=== PATIENT | female | born 1955 | race Caucasian/White ===

== ENCOUNTER → 2019-07-09 14:10 | Outpatient (BNVA) | payer MEDICAID, SELFPAY | PROVIDERS: Family Provider Family Medicine; PCP Family Medicine; Referring Provider Family Medicine; Visit Provider Specialist | DX: M25.531 Pain in right wrist (principal) | CPT/HCPCS: 73110 ==

== ENCOUNTER 2019-08-28 12:51 | Inpatient (IN) | payer MEDICAID, SELFPAY ==
[2019-08-28] VITALS (14 sets, daily range): BP systolic 91–128; BP diastolic 38–79; PULSE 78–98; RESP 13–28; TEMP 36.8–37.5; O2SAT 90–97; BMI 46.0
--- NOTE | 2019-08-28 12:52 | XR_ITS ---
WS: [id number] PORTABLE CHEST HISTORY: cough COMPARISON: 10/07/2018 Dialysis catheter is been removed since the prior study. Mild pulmonary venous congestion with no pneumonia. No pleural effusion or pneumothorax. Cardiac size: Mildly enlarged cardiac silhouette. Mediastinum/Aorta: Mild atherosclerosis aorta. No osseous abnormality seen. XR/XR chest 1V portable [id number] IMPRESSION: 1. Mild pulmonary venous congestion and cardiomegaly. 2. No pneumonia.
--- NOTE | 2019-08-28 12:54 | ECG_ITS ---
Measurements Intervals [place] Rate: 97 P: 29 [place]: 116 QRS: -40 QRSD: 153 T: 23 QT: 402 QTc: 511 SINUS RHYTHM WITH SHORT [place] INTERVAL LEFT AXIS DEVIATION [QRS AXIS < -30] RIGHT BUNDLE BRANCH BLOCK MINIMAL VOLTAGE CRITERIA FOR LVH, CONSIDER NORMAL VARIANT Compared to ECG 10/07/2018 19:16:17 Short [place] interval now present Right bundle-branch block now present Incomplete right bundle-branch block no longer present Prolonged QT interval no longer present Electronically Signed On 08-28-2019 21:02:05 CDT by Liliya Quezada M.D. [id number]
[2019-08-28] MEDS: albuterol 8 gm MDI 2 PUFF INHALATION (13:15)
--- NOTE | 2019-08-28 13:18 | W.ED.CHESTPA ---
HPI - Chest Pain General: Chief Complaint: Chest Pain Stated Complaint: chest pain/ difficulty breathing Time Seen by Provider: 08/28/19 12:52 History of Present Illness: HPI narrative: Ms. Pack is a nice 64-year-old female who comes in complaining of chest pain and shortness of breath. She describes the pain as a tightness that is been intermittent in nature. She has shortness of breath along with this that she described as just hurting to take a deep breath. She has a dry cough and has had a subjective fever at home. EMS reported a fever of 100.3 prior to arrival. Of note the patient is a dialysis patient and gets dialysis on Wednesdays and Fridays. She claims her symptoms started yesterday after dialysis. She did get a full treatment. Currently she states she feels okay and has no complaints. Associated symptoms: Reports dyspnea and fever(s); Deny abdominal pain, diaphoresis, nausea, palpitations, syncope or vomiting Review of Systems General: Reports: other (negative unless marked) Const: Reports: fever; Denies: chills, body aches, fatigue, malaise or diaphoresis Eyes: Denies: change in vision or blurry vision ENMT: Denies: throat pain, painful swallowing, hoarseness, ear pain, ear discharge, Change in hearing or nasal discharge Card: Reports: chest pain; Denies: palpitations, irregular heart rhythm, syncope, pre-syncope, shortness of breath on exertion or shortness of breath when lying down Resp: Reports: shortness of breath and non-productive cough; Denies: productive cough, wheezing, coughing up blood or chest congestion GI: Denies: abdominal pain, nausea, vomiting, vomiting blood, coffee grounds in vomit, diarrhea, constipation, cramping, blood in stool or black tarry stool : Denies: flank pain, painful urination, urinary frequency, urinary urgency, decreased urine ouput, urinary incontinence or blood in urine Musc: Denies: neck pain, back pain, extremity pain, extremity swelling, joint pain, joint swelling, joint warmth or joint stiffness Skin/Breast: Denies: rash, skin tenderness or yellow skin Neuro: Denies: headache, numbness in extremities, weakness in extremities, changes in sensation, lack of coordination, difficulty walking, dizziness, vertigo or confusion Endo: Denies: excessive thirst, tired all the time, cold intolerance, excessive sweating, flushing or hot flashes Gabriel/Lymph: Denies: easy bruising, easy bleeding, petechiae or enlarged lymph nodes All/Imm: Denies: hives, throat swelling, tongue swelling, facial swelling or acute wheezing PFSH ED PFSH: Medical History (Updated 08/28/19 @ 15:47 by Cheng Mann MD) Breast cancer Carotid artery disease COPD (chronic obstructive pulmonary disease) Patient reports COPD, but restrictive lung disease is also a possibility. CVA (cerebral vascular accident) Diastolic heart failure End stage renal disease Gout Hyperlipemia Hypertension Hypothyroidism Impaired vision Obesity Obstructive sleep apnea Type 1 diabetes mellitus Surgical History (Updated 08/28/19 @ 15:35 by Cheng Mann MD) H/O lumpectomy left breast H/O tubal ligation Hemodialysis access site with arteriovenous graft History of cholecystectomy Hx of abdominoplasty Family History Other Cancer Diabetes Hypertension Stroke Social History (Updated 08/28/19 @ 15:36 by Cheng Mann MD) Smoking and tobacco status: former smoker Alcohol intake: never Substance/Drug Use: never Physical Exam Const: COMMON NORMALS: no apparent distress, oriented x3, no limitations, healthy appearing and well nourished EXAM LIMITATIONS: no altered mental status GENERAL APPEARANCE: cooperative, well kempt and well developed ORIENTATION/CONSCIOUSNESS: Yes awake HENMT: COMMON NORMALS: normocephalic, head/scalp atraumatic, hearing grossly normal bilaterally, external ears normal, EAC's normal, external nose normal and moist oral mucous membranes HEAD & SCALP: normal to inspection, normocephalic and atraumatic FACE & SINUS: normal facial exam and face symmetric NOSE: external nose normal and nares normal EXTERNAL EAR: Yes external ears normal EXTERNAL AUDITORY CANAL: EAC's normal MOUTH: oral and palatal mucosa normal and tongue normal Eye: COMMON NORMALS: PERRL, EOMs intact bilaterally, conjunctivae normal and no scleral icterus GENERAL EYE: normal appearance of both eyes and normal light reflex CONJUNCTIVA: Yes conjunctivae normal SCLERA: sclerae normal CORNEA: Yes corneas normal PUPIL: Yes PERRL DIRECT OPHTHALMOSCOPY: Yes normal light reflex Neck/C-Spine: COMMON NORMALS: full ROM, no lymphadenopathy, supple, no meningeal signs and no JVD GENERAL: Yes normal visual inspection and Yes trachea midline CERVICAL SPINE: Yes cervical ROM normal Chest: COMMONS NORMALS: inspection of chest normal and palpation of chest normal Resp: COMMON NORMALS: normal respiratory effort, no retractions, no use of accessory muscles and clear to auscultation bilaterally EFFORT & INSPECTION: Yes able to speak in complete sentences AUSCULTATION: clear to auscultation bilaterally Cardio: COMMON NORMALS: no JVD, regular rate, regular rhythm, S1 normal heart sound, S2 normal heart sound, no gallops, no clicks, no murmurs and no rub JUGULAR VENOUS DISTENTION: no JVD RATE: regular rate RHYTHM: regular rhythm HEART SOUNDS: S1 normal and S2 normal GI: COMMON NORMALS: soft to palpation, non-tender, no hepatosplenomegaly and no masses INSPECTION: Yes normal to inspection PALPATION: Yes soft and Yes no hepatosplenomegaly : COMMON NORMALS: Yes no CVA tenderness BLADDER/KIDNEY EXAM: Yes no CVA tenderness Back/Pelvis: COMMON NORMALS: no CVA tenderness, thoracic and lumbar spine normal to inspection, no thoracic nor lumbar tenderness and thoraco-lumbar ROM normal Extremity: COMMON NORMALS: normal to inspection, full ROM, normal capillary refill, no joint enlargement, no clubbing, cyanosis or edema and no calf tenderness Neuro: COMMON NORMALS: oriented x3, CN's II-XII intact bilaterally, moves all extremities, no focal motor deficits and no sensory deficits noted MENINGEAL SIGNS: Yes no meningeal signs Psych: COMMON NORMALS: mental status grossly normal, thought process normal, cooperative, affect normal, speech normal and activity/motor behavior normal APPEARANCE: Yes well kempt SPEECH: Yes normal speech THOUGHT PROCESS: normal thought process Skin: COMMON NORMALS: no rashes or lesions noted, skin turgor normal, no jaundice, no petechiae and no mottling GENERAL SKIN EXAM: no rashes or lesions noted and turgor normal Course Vital Signs: Vital signs: Vital Signs Temperature 99.5 F 08/28/19 12:51 Pulse Rate 82 08/28/19 17:30 Respiratory Rate 18 08/28/19 17:30 Blood Pressure 91/49 08/28/19 17:30 Pulse Oximetry 97 08/28/19 17:30 MDM - Chest Pain MDM Narrative: Medical decision making narrative: The case was reviewed with Dr. Mann, he agrees to come evaluate the patient. A consult has been placed to tele-nephrology. Patient presents with a history of dry cough and fever up to 100.3 but that was not measured here. She is not had any antipyretics. Her urinalysis is pending and she states that she does make urine. Patient looks to have volume overload on chest x-ray but she does make urine so she has been given Lasix. And she nitroglycerin paste is been placed. Patient's chest pain is gone after nitroglycerin and morphine. The EKG was reviewed with Dr. Satnos and he thinks this is a complete right bundle branch block otherwise no acute findings. Lab Data: Attestation: I reviewed the patient's lab results. Labs: Lab Results 08/28/19 08/28/19 08/28/19 Range/Units 13:13 13:44 13:44 WBC 12.5 H (4.0-10.0) 10^3/ uL RBC 3.39 L (4.1-5.3) 10^6/u L Hgb 11.4 L (11.5-15.3) g/dL Hct 35.4 L (37.0-47.0) % MCV 104.4 H (81-99) fL MCH 33.6 (28.0-34.0) pg MCHC 32.2 (30.0-36.0) g/dL RDW 17.2 H (12.1-15.1) % Plt Count 213 (130-400) 10^3/c mm MPV 9.9 (7.4-10.4) fL Neut % (Auto) 85.7 % Lymph % (Auto) 6.8 % [facility] % (Auto) 6.8 % Eos % (Auto) 0.1 % Baso % (Auto) 0.2 % Neut # (Auto) 10.7 H (1.8-7.7) 10^3/u L Lymph # (Auto) 0.9 (0.8-4.8) 10^3/u L [facility] # (Auto) 0.9 (0.2-0.9) 10^3/u L Eos # (Auto) 0.0 (0.0-0.8) 10^3/u L Baso # (Auto) 0.0 (0.0-0.1) 10^3/u L Nucleated RBC % (a uto) 0 % Nucleated RBCs # 0.0 /100WBC PT (10.5-13.3) SECO NDS INR (0.8-1.2) Specimen Type Arterial Sample Site Radial, right ABG pH 7.45 (7.35-7.45) ABG pCO2 39.7 (35-45) mmHg ABG pO2 70.7 L (80.0-100.0) mmH g ABG HCO3 27.6 H (22-26) mmol/L ABG Base Excess 3.4 H (-2.0-2.0) mmol/ L Ron Test Pos Hematocrit 36.4 L (37-47) % O2 Delivery Device None FiO2 21.0 % Registered Occupational Therapist ID ed Sodium 132 L (136-145) mmol/L Potassium 4.7 (3.5-5.1) mmol/L Chloride 86 L (98-107) mmol/L Carbon Dioxide 27 (22-29) mmol/L Anion Gap 23.7 H (5-19) BUN 30 H (8-23) mg/dL Creatinine 7.4 H* (0.5-0.9) mg/dL GFR Calculation 5.5 L (90-130) mL/min Glucose 172 H (65-115) mg/dL Calculated Osmolal ity 275 L (285-295) mOsm/k g Lactic Acid (0.5-2.2) mmol/L Calcium 10.0 (8.5-10.5) mg/dL Total Bilirubin 0.7 (0.15-1.2) mg/dL AST 39 H (0-32) U/L ALT 52 H (0-33) U/L Alkaline Phosphata se 108 H (35-105) IU/L Troponin T Baselin e (0-10) ng/mL NT-Pro-B Natriuret Pep 1999 H (0-125) pg/mL Total Protein 7.5 (6.6-8.7) g/dL Albumin 4.8 (3.5-5.2) g/dL Globulin 2.7 (1.3-4.6) g/dL Urine Color (Yellow) Urine Appearance (CLEAR) Urine pH (5-7) Ur Specific Gravit y (1.005-1.030) Urine Protein (Negative) Urine Glucose (UA) (Normal) Urine Ketones (Negative) Urine Blood (Negative) Urine Nitrate (Negative) Urine Bilirubin (NEGATIVE) Urine Urobilinogen (Negative) mg/dL Ur Leukocyte Paula ase (Negative) Urine RBC (0-2) /hpf Urine WBC (0-5) /hpf Ur Squamous Epith Cells (0-5) Amorphous Sediment Urine Bacteria (NONE) Influenza Type A A g (Negative) Influenza Type B A g (Negative) 08/28/19 08/28/19 08/28/19 Range/Units 13:44 13:44 13:44 WBC (4.0-10.0) 10^3/ uL RBC (4.1-5.3) 10^6/u L Hgb (11.5-15.3) g/dL Hct (37.0-47.0) % MCV (81-99) fL MCH (28.0-34.0) pg MCHC (30.0-36.0) g/dL RDW (12.1-15.1) % Plt Count (130-400) 10^3/c mm MPV (7.4-10.4) fL Neut % (Auto) % Lymph % (Auto) % [facility] % (Auto) % Eos % (Auto) % Baso % (Auto) % Neut # (Auto) (1.8-7.7) 10^3/u L Lymph # (Auto) (0.8-4.8) 10^3/u L [facility] # (Auto) (0.2-0.9) 10^3/u L Eos # (Auto) (0.0-0.8) 10^3/u L Baso # (Auto) (0.0-0.1) 10^3/u L Nucleated RBC % (a uto) % Nucleated RBCs # /100WBC PT 12.50 (10.5-13.3) SECO NDS INR 0.93 (0.8-1.2) Specimen Type Sample Site ABG pH (7.35-7.45) ABG pCO2 (35-45) mmHg ABG pO2 (80.0-100.0) mmH g ABG HCO3 (22-26) mmol/L ABG Base Excess (-2.0-2.0) mmol/ L Ron Test Hematocrit (37-47) % O2 Delivery Device FiO2 % Registered Occupational Therapist ID Sodium (136-145) mmol/L Potassium (3.5-5.1) mmol/L Chloride (98-107) mmol/L Carbon Dioxide (22-29) mmol/L Anion Gap (5-19) BUN (8-23) mg/dL Creatinine (0.5-0.9) mg/dL GFR Calculation (90-130) mL/min Glucose (65-115) mg/dL Calculated Osmolal ity (285-295) mOsm/k g Lactic Acid 3.0 H (0.5-2.2) mmol/L Calcium (8.5-10.5) mg/dL Total Bilirubin (0.15-1.2) mg/dL AST (0-32) U/L ALT (0-33) U/L Alkaline Phosphata se (35-105) IU/L Troponin T Baselin e 139 H* (0-10) ng/mL NT-Pro-B Natriuret Pep (0-125) pg/mL Total Protein (6.6-8.7) g/dL Albumin (3.5-5.2) g/dL Globulin (1.3-4.6) g/dL Urine Color (Yellow) Urine Appearance (CLEAR) Urine pH (5-7) Ur Specific Gravit y (1.005-1.030) Urine Protein (Negative) Urine Glucose (UA) (Normal) Urine Ketones (Negative) Urine Blood (Negative) Urine Nitrate (Negative) Urine Bilirubin (NEGATIVE) Urine Urobilinogen (Negative) mg/dL Ur Leukocyte Paula ase (Negative) Urine RBC (0-2) /hpf Urine WBC (0-5) /hpf Ur Squamous Epith Cells (0-5) Amorphous Sediment Urine Bacteria (NONE) Influenza Type A A g (Negative) Influenza Type B A g (Negative) 08/28/19 08/28/19 Range/Units 14:00 14:58 WBC (4.0-10.0) 10^3/ uL RBC (4.1-5.3) 10^6/u L Hgb (11.5-15.3) g/dL Hct (37.0-47.0) % MCV (81-99) fL MCH (28.0-34.0) pg MCHC (30.0-36.0) g/dL RDW (12.1-15.1) % Plt Count (130-400) 10^3/c mm MPV (7.4-10.4) fL Neut % (Auto) % Lymph % (Auto) % [facility] % (Auto) % Eos % (Auto) % Baso % (Auto) % Neut # (Auto) (1.8-7.7) 10^3/u L Lymph # (Auto) (0.8-4.8) 10^3/u L [facility] # (Auto) (0.2-0.9) 10^3/u L Eos # (Auto) (0.0-0.8) 10^3/u L Baso # (Auto) (0.0-0.1) 10^3/u L Nucleated RBC % (a uto) % Nucleated RBCs # /100WBC PT (10.5-13.3) SECO NDS INR (0.8-1.2) Specimen Type Sample Site ABG pH (7.35-7.45) ABG pCO2 (35-45) mmHg ABG pO2 (80.0-100.0) mmH g ABG HCO3 (22-26) mmol/L ABG Base Excess (-2.0-2.0) mmol/ L Ron Test Hematocrit (37-47) % O2 Delivery Device FiO2 % Registered Occupational Therapist ID Sodium (136-145) mmol/L Potassium (3.5-5.1) mmol/L Chloride (98-107) mmol/L Carbon Dioxide (22-29) mmol/L Anion Gap (5-19) BUN (8-23) mg/dL Creatinine (0.5-0.9) mg/dL GFR Calculation (90-130) mL/min Glucose (65-115) mg/dL Calculated Osmolal ity (285-295) mOsm/k g Lactic Acid (0.5-2.2) mmol/L Calcium (8.5-10.5) mg/dL Total Bilirubin (0.15-1.2) mg/dL AST (0-32) U/L ALT (0-33) U/L Alkaline Phosphata se (35-105) IU/L Troponin T Baselin e (0-10) ng/mL NT-Pro-B Natriuret Pep (0-125) pg/mL Total Protein (6.6-8.7) g/dL Albumin (3.5-5.2) g/dL Globulin (1.3-4.6) g/dL Urine Color Mary (Yellow) Urine Appearance Hazy A (CLEAR) Urine pH 6.5 (5-7) Ur Specific Gravit y 1.010 (1.005-1.030) Urine Protein 2+ H (Negative) Urine Glucose (UA) Norm (Normal) Urine Ketones Negative (Negative) Urine Blood 2+ H (Negative) Urine Nitrate Negative (Negative) Urine Bilirubin 1+ H (NEGATIVE) Urine Urobilinogen Norm (Negative) mg/dL Ur Leukocyte Paula ase 2+ H (Negative) Urine RBC 15-25 H (0-2) /hpf Urine WBC 80-100 H (0-5) /hpf Ur Squamous Epith Cells 25-40 H (0-5) Amorphous Sediment 2+ Urine Bacteria 2+ H (NONE) Influenza Type A A g Negative (Negative) Influenza Type B A g Negative (Negative) Imaging Data^: CXR: My impression: Cardiomegaly with mild to moderate pulmonary vascular congestion EKG Data^: EKG 1: Attestation: I personally reviewed and interpreted this EKG as follows: EKG interpretation date: 08/28/19 EKG interpretation time: 13:07 Interpretation: Normal sinus rhythm with a ventricular rate of 97 beats a minute, right bundle branch block. Discharge Plan Discharge Patient Disposition: Admitted As Inpatient Admit Provider: Cheng Mann Clinical Impression: Chest pain Qualifiers: Chest pain type: unspecified Qualified Code(s): R07.9 - Chest pain, unspecified Condition: Stable Referrals: Pradeep Patel MD [Primary Care Provider] - Discharge Date/Time: 08/28/19 17:49 Coding Level of Care Code ED Curriculum Director for Chg Fwd Exam Comprehensive
[2019-08-28 13:24] LABS: ABG PCO2 39.7 mmHg (35-45); ABG PH Result 7.45 (7.35-7.45); Arterial Blood Gas Hematocrit 36.4 % (37-47); Base Excess ABG 3.4 mmol/L (-2.0-2.0); Blood Gas Allen Test Pos; Blood Gas Sample Site Radial, right; Blood Gas Sample Type Arterial; HCO3 ABG 27.6 mmol/L (22-26); PO2 ABG 70.7 mmHg (80.0-100.0)
[2019-08-28] MEDS: nitroglycerin 1 gm/inch oint Pkt 0.5 INCH TOPICAL (13:40)
[2019-08-28] MEDS: FUROsemide 10 mg/mL SDV 4mL 40 MG IVP (13:40)
[2019-08-28 13:57] LABS: Basophils % 0.2 %; Eosinophils % 0.1 %; Hematocrit 35.4 % (37.0-47.0); Hemoglobin 11.4 g/dL (11.5-15.3); Lymphocytes # 0.9 10^3/uL (0.8-4.8); Lymphocytes % 6.8 %; Mean Corpuscular HGB Conc 32.2 g/dL (30.0-36.0); Mean Corpuscular Hemoglobin 33.6 pg (28.0-34.0); Mean Corpuscular Volume 104.4 fL (81-99); Mean Platelet Volume 9.9 fL (7.4-10.4); Monocytes # 0.9 10^3/uL (0.2-0.9); Monocytes % 6.8 %; Neutrophils # 10.7 10^3/uL (1.8-7.7); Neutrophils % 85.7 %; Nucleated Red Blood Cells % 0 %; Platelet Count 213 10^3/cmm (130-400); Red Blood Count 3.39 10^6/uL (4.1-5.3); Red Cell Distribution Width 17.2 % (12.1-15.1); White Blood Count 12.5 10^3/uL (4.0-10.0)
[2019-08-28 14:16] LABS: Troponin(5th) Baseline 139 ng/mL (0-10)
[2019-08-28 14:25] LABS: INR 0.93 (0.8-1.2)
[2019-08-28 14:28] LABS: Influenza A by IFA Negative (Negative); Influenza B by IFA Negative (Negative)
[2019-08-28] MEDS: cefepime 2,000 MG in sodium chloride 0.9% (plus) 50 ML 100 MG IV (14:29)
[2019-08-28] MEDS: aspirin 325 mg Tablet PO (14:29)
[2019-08-28] MEDS: morphine 4 mg/mL SDV 1 mL IVP (14:29)
[2019-08-28] MEDS: ondansetron 2 mg/ML SDV 2 mL 4 MG IVP (14:30)
[2019-08-28 14:43] LABS: Alanine Aminotransferase 52 U/L (0-33); Albumin Level 4.8 g/dL (3.5-5.2); Alkaline Phosphatase 108 IU/L (35-105); Anion Gap 23.7 (5-19); Aspartate Amino Transferase 39 U/L (0-32); Blood Urea Nitrogen 30 mg/dL (8-23); Carbon Dioxide 27 mmol/L (22-29); Chloride 86 mmol/L (98-107); Globulin 2.7 g/dL (1.3-4.6); Glomerular Filtration Rate 5.5 mL/min (90-130); Glucose 172 mg/dL (65-115); NT Pro B Type Natriuretic Pept 1999 pg/mL (0-125); Osmolality Calculated 275 mOsm/kg (285-295); Potassium 4.7 mmol/L (3.5-5.1); Sodium 132 mmol/L (136-145); Total Bilirubin 0.7 mg/dL (0.15-1.2); Total Protein 7.5 g/dL (6.6-8.7)
--- NOTE | 2019-08-28 14:54 | ECG_ITS ---
Measurements Intervals [place] Rate: 82 P: 16 [place]: 116 QRS: -32 QRSD: 146 T: 10 QT: 420 QTc: 493 SINUS RHYTHM WITH SHORT [place] INTERVAL LEFT AXIS DEVIATION [QRS AXIS < -30] RIGHT BUNDLE BRANCH BLOCK Compared to ECG 10/07/2018 19:16:17 Short [place] interval now present Prolonged QT interval no longer present Electronically Signed On 08-28-2019 21:09:03 CDT by Liliya Quezada M.D. [email or web address]
--- NOTE | 2019-08-28 15:23 | CTR_ITS ---
PROCEDURE INFORMATION: Exam: CT Angiography Chest With Contrast Exam date and time: 08/28/2019 5:36 PM Age: 64 years old Clinical indication: Fever and shortness of breath; Chest pain; Prior surgery; Surgery type: Gb, left breast; Additional info: Cp TECHNIQUE: Imaging protocol: Computed tomographic angiography of the chest with intravenous contrast. Axial, coronal and sagittal reformatted images were created and reviewed. 3D rendering: MIP and/or 3D reconstructed images were created by the technologist. Total DLP: 622.16 mGy-cm Radiation optimization: All CT scans at this facility use at least one of these dose optimization techniques: automated exposure control; mA and/or kV adjustment per patient size (includes targeted exams where dose is matched to clinical indication); or iterative reconstruction. Contrast material: VISI 320; Contrast volume: 73 ml; Contrast route: IV; COMPARISON: CR XR chest 1V portable [id number] 08/28/2019 1:00 PM FINDINGS: Pulmonary arteries: Contrast opacification satisfactory. No intraluminal filling defect. Aorta: [id number] atherosclerotic disease. No aneurysm or dissection. Lungs: Mild central peribronchial thickening, suggestive of airway inflammation. Mild linear stranding and groundglass, likely due to atelectasis and/or scarring. Minimal subsegmental consolidation in the left lower lobe, also likely due to atelectasis. Pleural space: Unremarkable. No pneumothorax. No pleural effusion. Heart: Mild cardiomegaly. Minimal pericardial fluid and/or thickening. Liver: Mild hepatomegaly. Gallbladder and bile ducts: Status post cholecystectomy. No biliary ductal dilatation. Spleen: Moderate splenomegaly. Kidneys and ureters: 2.5 x 2.5 cm exophytic right renal mass. 1.8 x 1.6 cm exophytic left renal mass. Lymph nodes: Small mediastinal lymph nodes, nonspecific in appearance. No pathologically enlarged lymph nodes. Bones/joints: No acute osseous abnormality. Osteopenia. Mild degenerative changes. Chronic partial L1 superior endplate compression deformity. Soft tissues: Unremarkable. CT/CT angio chest PE protcl [id number] IMPRESSION: 1. No CT evidence of pulmonary embolism. 2. Exophytic bilateral renal masses, as described above, possibly complex cysts. If clinically indicated, follow-up ultrasound may be obtained to exclude solid masses. 3. Additional findings, as above. Radiation Dose CTDIVOL = (mGy): DLP = 622.16 (mGy-cm)
--- NOTE | 2019-08-28 15:31 | P.HP_ITS ---
Providers/Chief Complaint Primary Care Provider: Pradeep Patel MD Chief Complaint: chest pain/ difficulty breathing History of Present Illness Oscar Pack is a 64 year old female who presents with complaints of chest discomfort. The emergency department physician called me secondary to the chest discomfort worried she may have a cardiac issue going on with her troponin elevated. The patient relates she has been having chest discomfort since the end of dialysis yesterday. She reports it is substernal, associated with a little bit of shortness of breath. She reports that it got better last night but when she awoke it was significantly worse. She reports significant discomfort with breathing and, and movement. She describes it as a chest tightness. She denies any nausea. She also has had a cough lately, usually dry. There was concern she had some low-grade temperature this morning. She denies any hemoptysis. She reports no significant leg pain. She reports she has been compliant with her dialysis. She denies any chills. COVID testing has been initiated in the emergency department as well. Review of Systems General: Reports: 10 or more systems reviewed and unremarkable except in HPI and below Const: Reports: fatigue; Denies: fever or chills Eyes: Denies: blurry vision ENMT: Denies: throat pain Card: Reports: chest pain Resp: Reports: shortness of breath and non-productive cough GI: Denies: abdominal pain : Denies: flank pain Musc: Denies: neck pain Skin/Breast: Denies: rash Neuro: Reports: headache Psych: Denies: depression Endo: Denies: excessive urination Gabriel/Lymph: Denies: easy bruising All/Imm: Denies: hives Medications/Allergies Allergies Allergy/AdvReac Type Severity Reaction Status Date / Time Penicillins Allergy hives Verified 08/28/19 13:01 Sulfa (Sulfonamide Allergy depleat Verified 08/28/19 13:01 Antibiotics) potassium PFSH Acute PFSH: Medical History (Updated 08/28/19 @ 15:47 by Cheng Mann MD) Breast cancer Carotid artery disease COPD (chronic obstructive pulmonary disease) Patient reports COPD, but restrictive lung disease is also a possibility. CVA (cerebral vascular accident) Diastolic heart failure End stage renal disease Gout Hyperlipemia Hypertension Hypothyroidism Impaired vision Obesity Obstructive sleep apnea Type 1 diabetes mellitus Surgical History (Updated 08/28/19 @ 15:35 by Cheng Mann MD) H/O lumpectomy left breast H/O tubal ligation Hemodialysis access site with arteriovenous graft History of cholecystectomy Hx of abdominoplasty Family History Other Cancer Diabetes Hypertension Stroke Social History (Updated 08/28/19 @ 15:36 by Cheng Mann MD) Smoking and tobacco status: former smoker Alcohol intake: never Substance/Drug Use: never Vitals/I&O/Wt Last Vital Signs Temp 99.5 F 08/28/19 12:51 Pulse 94 08/28/19 14:35 Resp 28 H 08/28/19 14:35 BP 105/38 08/28/19 14:35 Pulse Ox 92 08/28/19 14:35 Weight last 48 hrs Weight 114.305 kg Physical Exam Narrative: EXAM NARRATIVE: General exam demonstrates an obese white female, mildly tachypneic with a heart rate of 90 HEENT atraumatic, normocephalic. Mask in place. Neck is supple, obese Cardiovascular regular rate and rhythm, no murmur Lungs diminished breath sounds bilaterally but no wheezes or crackles Abdomen is soft, obese, nontender. No obvious organomegaly was deferred Extremities show trace bilateral edema. Cap refill brisk. Skin without rash Neuro no obvious focal deficits Data : 08/28/19 13:44 08/28/19 13:44 Micro: Microbiology 08/28/19 13:44 Blood Culture - Preliminary Blood SPECIMEN COLLECTED 08/28/19 13:40 Blood Culture - Preliminary Blood SPECIMEN COLLECTED Other data: ABG demonstrated pH 7.45, PCO2 39, PO2 70 AST 39, ALT 52, alk phos 108. Baseline troponin 139 Influenza a and B- Chest x-ray poor film secondary to obesity, cardiomegaly, pulmonary congestion. EKG demonstrates sinus rhythm, rate of 97, right bundle branch block., Left axis deviation. Incomplete right bundle branch block was noted on previous EKG. A&P Assessment and plan (1) Chest pain: Patient describes a pleuritic quality to her chest discomfort. Secondary to this, a CTA of her chest will be performed to rule out pulmonary embolism. If pulmonary embolism is detected, patient will go on full dose anticoagulation. Check echocardiogram Consider nuclear stress testing in this patient with atypical chest discomfort, elevated troponin, history of atherosclerotic disease with noted carotid artery disease, should her CTA be negative. Status: Acute Qualifiers: Chest pain type: unspecified Qualified Code(s): R07.9 - Chest pain, unspecified (2) Cough: Currently ruling out Covid 19. No obvious pneumonia is noted. Patient without fever. Mild elevation of white blood cell count is noted. As we are ruling out COVID, inhalers for her restrictive lung disease/COPD currently. No need for steroids currently. Status: Acute (3) Acute diastolic heart failure: At this point no need for acute dialysis. Oxygen as needed Continue her home medications Dialysis planned tomorrow Nephrology consultation. Hopefully they can explore more regarding her baseline weight and how much fluid is being removed at her typical dialysis recently. Previous echocardiogram September 2018 demonstrated 2/4 diastolic failure, preserved EF, moderate mitral regurgitation. Previous nuclear stress test April 2017 was negative for reversible ischemia. Status: Acute (4) End stage renal disease: Nephrology consultation See comments regarding acute diastolic heart failure Status: Acute Additional A&P Information Carotid artery disease, currently on a statin Hyperlipidemia Hypertension History of gout Obstructive sleep apnea. Oxygen currently secondary to ruling out Covid 19. History of CVA, continue aspirin, statin Diabetes mellitus type 2. Sliding scale insulin Patient is a limited code. She does not want endotracheal intubation and mechanical ventilation but will accept all other therapies Lovenox currently for DVT prophylaxis until CTA results are known. Attestations Medical Necessity Statement*: Will need less than 2 midnight stay for evaluation of chest discomfort Time Spent in Patient Care: Greater than 35 minutes Coding Level of Care Code Acute Surveying Crew Stake Runner for Michelle Borrero Diagnoses Chest pain R07.9 Chest pain type: unspecified Cough R05 Acute diastolic heart failure I50.31 End stage renal disease N18.6
[2019-08-28 15:38] LABS: Reflex Lactate Order REFLEX LACTIC ORDERD
[2019-08-28 16:09] LABS: Urine Appearance Hazy (CLEAR); Urine Color Amber (Yellow); pH Urine 6.5 (5-7)
[2019-08-28 16:10] LABS: Add Urine Culture? Yes; Amorphous Sediment Urine 2+; Bacteria Urine 2+; Bilirubin Urine 1+ (NEGATIVE); Blood Urine 2+ (Negative); Glucose Urine UA Norm (Normal); Ketones Urine Negative (Negative); Leukocyte Esterase Urine 2+ (Negative); Nitrate Urine Negative (Negative); Protein Urine 2+ (Negative); RBC Urine 15-25 /hpf (0-2); Squamous Epithelial Cell Urine 25-40 (0-5); Urobilinogen Urine Norm (Negative); WBC Urine 80-100 /hpf (0-5)
[2019-08-28 16:26] LABS: Troponin 5 2HR 137.1 ng/mL (0-10); Troponin 5 2HR Delta -1.9 ABS# (0-10)
[2019-08-28] MEDS: iodixanol 320 mg/mL 100mL Btl IV (18:16)
[2019-08-28 18:27] LABS: Glucose Point of Care 158 mg/dL (70-110)
[2019-08-28] MEDS: cefTRIAXone 1,000 MG in sodium chloride 0.9% (plus) 50 ML 100 MG IV (18:36)
--- NOTE | 2019-08-28 18:54 | ECG_ITS ---
Measurements Intervals [place] Rate: 79 P: 37 MA: 119 QRS: -34 QRSD: 158 T: 17 QT: 427 QTc: 491 SINUS RHYTHM WITH SHORT MA INTERVAL MARKED LEFT AXIS DEVIATION [QRS AXIS < -30] RIGHT BUNDLE BRANCH BLOCK [120+ ms QRS DURATION, UPRIGHT V1, 40+ ms S IN I/aVL/V4/V5/V6] MINIMAL VOLTAGE CRITERIA FOR LVH, CONSIDER NORMAL VARIANT [MEETS CRITERIA IN ONE OF: R(aVL), S(V1), R(V5), R(V5/V6)+S(V1)] Compared to ECG 08/28/2019 16:38:39 No significant changes Electronically Signed On 08-29-2019 18:26:13 CDT by Vince Stevenson M.D. [email or web address]
[2019-08-28 21:06] LABS: Troponin 5 6HR 127.7 ng/mL (0-10); Troponin 5 6HR Delta -11.3 ng/L (0-12)
[2019-08-28 21:12] LABS: Add On to Lab Order(s) Added
[2019-08-28] MEDS: gabapentin 100 mg Capsule 200 MG PO (21:16)
[2019-08-28 21:33] LABS: Thyroid Stimulating Hormone 0.53 uIU/mL (0.27-4.20)
[2019-08-28 21:57] LABS: Glucose Point of Care 167 mg/dL (70-110)
[2019-08-28] MEDS: morphine 4 mg/mL SDV 1 mL 1 MG IVP (22:08)
[2019-08-28 22:16] LABS: Lactic Acid level (Lactate) 1.3 mmol/L (0.5-2.2)
[2019-08-28] MEDS: metoprolol tartrate 1 mg/1 mL SDV 5 mL 5 MG IV (22:17)
[2019-08-28] MEDS: metoprolol tartrate 1 mg/1 mL SDV 5 mL 5 MG (22:43)
[2019-08-28 23:22] LABS: Partial Thromboplastin Time 25.9 SECONDS (23.9-36.7)
[2019-08-28] MEDS: heparin 5,000 unit/mL INJ 1 mL IVP (23:35)
[2019-08-28] MEDS: heparin drip 25,000 UNIT/500 ML PREMIX 34 UNIT IV (23:36)
[2019-08-29] VITALS (13 sets, daily range): BP systolic 117–147; BP diastolic 63–84; PULSE 51–85; RESP 14–22; TEMP 36.6–36.8; O2SAT 82–99
[2019-08-29] MEDS: ondansetron 2 mg/ML SDV 2 mL 4 MG IVP (00:18)
[2019-08-29 05:42] LABS: Basophils % 0.3 %; Eosinophils # 0.3 10^3/uL (0.0-0.8); Eosinophils % 3.7 %; Hematocrit 33.7 % (37.0-47.0); Hemoglobin 10.5 g/dL (11.5-15.3); Lymphocytes % 23.1 %; Mean Corpuscular HGB Conc 31.2 g/dL (30.0-36.0); Mean Corpuscular Hemoglobin 33.1 pg (28.0-34.0); Mean Corpuscular Volume 106.3 fL (81-99); Mean Platelet Volume 10.5 fL (7.4-10.4); Monocytes # 0.9 10^3/uL (0.2-0.9); Monocytes % 10.3 %; Neutrophils # 5.5 10^3/uL (1.8-7.7); Neutrophils % 62.1 %; Nucleated Red Blood Cells % 0 %; Platelet Count 205 10^3/cmm (130-400); Red Blood Count 3.17 10^6/uL (4.1-5.3); Red Cell Distribution Width 17.5 % (12.1-15.1); White Blood Count 8.8 10^3/uL (4.0-10.0)
[2019-08-29 06:03] LABS: INR 1.02 (0.8-1.2)
[2019-08-29 06:11] LABS: Partial Thromboplastin Time 69.9 SECONDS (23.9-36.7)
[2019-08-29 06:16] LABS: Alanine Aminotransferase 46 U/L (0-33); Albumin Level 4.5 g/dL (3.5-5.2); Alkaline Phosphatase 101 IU/L (35-105); Anion Gap 25.4 (5-19); Aspartate Amino Transferase 23 U/L (0-32); Blood Urea Nitrogen 38 mg/dL (8-23); Calcium 9.5 mg/dL (8.5-10.5); Carbon Dioxide 26 mmol/L (22-29); Chloride 87 mmol/L (98-107); Globulin 3.2 g/dL (1.3-4.6); Glomerular Filtration Rate 4.4 mL/min (90-130); Glucose 138 mg/dL (65-115); Osmolality Calculated 278 mOsm/kg (285-295); Potassium 4.4 mmol/L (3.5-5.1); Sodium 134 mmol/L (136-145); Total Bilirubin 0.5 mg/dL (0.15-1.2); Total Protein 7.7 g/dL (6.6-8.7)
[2019-08-29 07:42] LABS: Glucose Point of Care 122 mg/dL (70-110)
--- NOTE | 2019-08-29 07:55 | PC.NURSE ---
AM Blood glucose 122, patient scheduled to receive 100 units Lantus at 0900. Order clarified with Dr. Mann. Physician ordered to hold dose until he can assess patient.
--- NOTE | 2019-08-29 08:00 | PC.NURSE ---
Patient in NSR, HR 60-70s. Dr. Mann notified. Metoprolol 12.5 mg BID added. Physician instructed nurse to discontinue Cardizem gtt once metoprolol has been administered for 30 minutes to 1 hour. Nurse to continue to monitor.
--- NOTE | 2019-08-29 08:15 | PC.NURSE ---
Dr. Helton instructed nurse that dialysis will be postponed for today until patient is confirmed negative for COVID-19. If patient becomes short of breath or need for dialysis becomes urgent, nurse is to notify Dr. Helton and situation will be reassessed.
[2019-08-29] MEDS: atorvastatin 40 mg Tablet 20 MG PO (09:43)
[2019-08-29] MEDS: metoprolol tartrate 25 mg Tablet 12.5 MG PO (09:44)
[2019-08-29] MEDS: cyanocobalamin 1,000 mcg Tablet 1000 MCG PO (09:44)
[2019-08-29] MEDS: pantoprazole DR 40 mg Tablet PO (09:45)
[2019-08-29] MEDS: montelukast sodium 10 mg Tablet PO (09:45)
[2019-08-29] MEDS: citalopram 20 mg Tablet PO (09:45)
[2019-08-29] MEDS: levothyroxine 50 mcg Tablet PO (09:45)
[2019-08-29] MEDS: aspirin 81 mg Chew Tablet PO (09:45)
[2019-08-29] MEDS: insulin glargine 100 units/1 mL 20 UNIT SUBCUT ×2 (09:47→21:39)
[2019-08-29] MEDS: acetaminophen 325 mg Tablet 650 MG PO ×2 (09:48→22:03)
--- NOTE | 2019-08-29 10:20 | PC.NURSE ---
Nurse entered room to find a moderate amount of blood on patient, bed, and bedside table. Patient pulled out IV catheter in wrist while eating breakfast. As a result, heparin gtt was stopped for approximately 15 minutes while a new line was placed. two nurses attempted IV placement, a total of three attempts made. New IV secured in L AC and heparin gtt restarted. Nurse bathed patient and environment was cleaned. Nurse to continue to monitor.
[2019-08-29 12:07] LABS: Glucose Point of Care 180 mg/dL (70-110)
[2019-08-29 12:31] LABS: Partial Thromboplastin Time 40.7 SECONDS (23.9-36.7)
--- NOTE | 2019-08-29 12:35 | P.CONIM_ITS ---
Providers/Reason For Consult Consulting Physican/Specialty*: Dr Helton, Nphrology Reason for Consult*: mgmt of ESRD Attending Physician: Cheng Mann MD Primary Care Provider: Pradeep Patel MD History of Present Illness History of Present Illness 64 YoF presenting with chest pain, substernal, since Wed after dialysis. Pleuritic pain with increase in pain with movement. Low troponin levels on admission. Difficlut historian, and the majority of the clinical history is taken from the bedside RN and chart. She denies cough. She denies fever and chills. No SOB/edema and no other volume assoc Sx. Last received uneventful dialysis on Sun. CT scan showed possible bilateral renal lesions. She is unaware of any history of kidney masses. Review of Systems Const: Reports: fatigue and malaise Card: Reports: chest pain; Denies: palpitations, irregular heart rhythm, edema or swelling of feet/ankles Resp: Denies: shortness of breath or productive cough GI: Denies: abdominal pain Meds/Allergies Home Medications and Allergies Home Medications Medication Instructions Recorded Confirmed Type B complex with C 20-folic acid 1 1 cap PO DAILY 07/09/19 08/28/19 History mg capsule atorvastatin 20 mg tablet 20 mg PO DAILY 07/09/19 08/28/19 History cetirizine 10 mg capsule 10 mg PO DAILY 07/09/19 08/28/19 History citalopram 20 mg tablet 20 mg PO DAILY 07/09/19 08/28/19 History cyanocobalamin (vitamin B-12) 1,000 mcg PO DAILY 07/09/19 08/28/19 History 1,000 mcg capsule ferric citrate 210 mg iron tablet 210 mg PO TID 07/09/19 08/28/19 History insulin aspart U-100 100 unit/mL See Rx Instructions .ROUTE .COMPLEX 07/09/19 08/28/19 History (3 mL) subcutaneous pen levothyroxine 50 mcg capsule 50 mcg PO DAILY 07/09/19 08/28/19 History midodrine 5 mg tablet See Rx Instructions .ROUTE .COMPLEX 07/09/19 08/28/19 History montelukast 10 mg tablet 10 mg PO DAILY 07/09/19 08/28/19 History saxagliptin 5 mg tablet 5 mg PO DAILY 07/09/19 08/28/19 History tramadol 50 mg tablet 50 mg PO Q6H PRN 07/09/19 08/28/19 History aspirin 81 mg PO DAILY 08/28/19 08/28/19 History budesonide-formoterol [Symbicort] 2 puff INHALATION BID 08/28/19 08/28/19 History gabapentin 200 mg PO BEDTIME 08/28/19 08/28/19 History insulin glargine [Lantus U-100 100 unit SUBCUT DAILY 08/28/19 08/28/19 History Insulin] isosorbide mononitrate 30 mg PO DAILY 08/28/19 08/28/19 History pantoprazole 40 mg PO DAILY 08/28/19 08/28/19 History tiotropium bromide [Spiriva with 1 cap INHALATION DAILY 08/28/19 08/28/19 History HandiHaler] Allergies Allergy/AdvReac Type Severity Reaction Status Date / Time Penicillins Allergy hives Verified 08/28/19 13:01 Sulfa (Sulfonamide Allergy depleat Verified 08/28/19 13:01 Antibiotics) potassium Current Medications Current Medications Generic Name Dose Route Start Last Admin Trade Name Freq PRN Reason Stop Dose Admin Acetaminophen 650 mg 08/28/19 18:16 08/29/19 09:48 Tylenol PO 650 mg Q6H PRN Administration Mild/Mod Pain Or Temp >/= 101 Albuterol/Ipratropium 1 puff 08/28/19 21:30 08/29/19 08:25 Combivent Respimat INHALATION 1 puff QID.RESPIRATORY ACACIA Administration Aspirin 81 mg 08/29/19 09:00 08/29/19 09:45 Aspirin Chewable PO 81 mg DAILY ACACIA Administration Atorvastatin Calcium 20 mg 08/29/19 09:00 08/29/19 09:43 Lipitor PO 20 mg DAILY ACACIA Administration Citalopram Hydrobromide 20 mg 08/29/19 09:00 08/29/19 09:45 Celexa PO 20 mg DAILY ACACIA Administration Cyanocobalamin 1,000 mcg 08/29/19 09:00 08/29/19 09:44 Vitamin B-12 PO 1,000 mcg DAILY ACACIA Administration Gabapentin 200 mg 08/28/19 21:00 08/28/19 21:16 Neurontin PO 200 mg BEDTIME ACACIA Administration Heparin Sodium (Beef Lung) 5,000 unit 08/28/19 18:16 08/29/19 06:41 Heparin SUBCUT Not Given Q12H ACACIA Ceftriaxone Sodium 1,000 mg/ 50 mls @ 100 mls/hr 08/28/19 18:16 08/28/19 18:36 Sodium Chloride IV 100 mls/hr Q24H ACACIA Administration Protocol Diltiazem HCl 125 mg/ Sodium 125 mls @ 0 mls/hr 08/28/19 22:30 08/29/19 10:31 Chloride IV 0 mg/hr .Q0M ACACIA 0 mls/hr Titration Protocol Per Protocol Heparin Sodium/Sodium Chloride 25,000 unit in 500 mls @ 27.433 mls/hr 08/28/19 22:30 08/28/19 23:36 Heparin Drip IV 14.87 unit/kg/hr .[id number] ACACIA 34 mls/hr Administration Protocol 12 UNIT/KG/HR Insulin Aspart 0 unit 08/28/19 18:16 08/29/19 12:19 Novolog SUBCUT 4 unit TIDWM ACACIA Administration Protocol Insulin Aspart 0 unit 08/28/19 21:00 08/28/19 21:16 Novolog SUBCUT 2 unit BEDTIME ACACIA Administration Protocol Insulin Glargine 20 unit 08/29/19 09:00 08/29/19 09:47 Lantus SUBCUT 20 unit DAILY ACACIA Administration Levothyroxine Sodium 50 mcg 08/29/19 09:00 08/29/19 09:45 Synthroid PO 50 mcg DAILY ACACIA Administration Metoprolol Tartrate 12.5 mg 08/29/19 09:00 08/29/19 09:44 Lopressor PO 12.5 mg BID ACACIA Administration Montelukast Sodium 10 mg 08/29/19 09:00 08/29/19 09:45 Singulair PO 10 mg DAILY ACACIA Administration Morphine Sulfate 1 mg 08/28/19 21:57 08/28/19 22:08 Morphine IVP 1 mg ONCE PRN Administration SEVERE PAIN Ondansetron HCl 4 mg 08/28/19 18:16 08/29/19 00:18 Zofran IVP 4 mg Q6H PRN Administration vomiting, or N/V if npo Pantoprazole Sodium 40 mg 08/29/19 09:00 08/29/19 09:45 Protonix PO 40 mg DAILY ACACIA Administration Fluticasone/Salmeterol 1 puff 08/28/19 21:30 08/29/19 08:25 Advair Diskus 500-50 INHALATION 1 puff BID.RESPIRATORY ACACIA Administration PFSH Acute PFSH: Medical History (Updated 08/28/19 @ 15:47 by Cheng Mann MD) Breast cancer Carotid artery disease COPD (chronic obstructive pulmonary disease) Patient reports COPD, but restrictive lung disease is also a possibility. CVA (cerebral vascular accident) Diastolic heart failure End stage renal disease Gout Hyperlipemia Hypertension Hypothyroidism Impaired vision Obesity Obstructive sleep apnea Type 1 diabetes mellitus Surgical History (Updated 08/28/19 @ 15:35 by Cheng Mann MD) H/O lumpectomy left breast H/O tubal ligation Hemodialysis access site with arteriovenous graft History of cholecystectomy Hx of abdominoplasty Family History Other Cancer Diabetes Hypertension Stroke Social History (Updated 08/28/19 @ 15:36 by Cheng Mann MD) Smoking and tobacco status: former smoker Alcohol intake: never Substance/Drug Use: never Vitals/I&O/Wt Last Vital Signs Temp 98.3 F 08/29/19 07:33 Pulse 74 08/29/19 08:35 Resp 17 08/29/19 08:25 BP 117/63 08/29/19 07:33 Pulse Ox 95 08/29/19 08:25 08/28/19 08/29/19 08/29/19 22:59 06:59 14:59 Intake Total 180 / 180 450 / 630 178.333 / 178.333 Balance 180 / 180 450 / 630 178.333 / 178.333 Weight last 48 hrs Weight 118.161 kg Weight 114.305 kg Physical Exam Const: COMMON NORMALS: no apparent distress and average body habitus HENMT: COMMON NORMALS: normocephalic and head/scalp atraumatic HEAD & SCALP: normocephalic and atraumatic Neck/C-Spine: COMMON NORMALS: no JVD Chest: COMMONS NORMALS: inspection of chest normal and palpation of chest normal Resp: COMMON NORMALS: normal respiratory effort and no retractions Cardio: COMMON NORMALS: no JVD, regular rate and regular rhythm RATE: regular rate RHYTHM: regular rhythm GI: INSPECTION: Yes normal to inspection and Yes abdominal wall ecchymosis : COMMON NORMALS: Yes no CVA tenderness and Yes external appearance normal BLADDER/KIDNEY EXAM: Yes no CVA tenderness Back/Pelvis: COMMON NORMALS: no CVA tenderness Data Micro: Micro: Microbiology 08/28/19 13:44 Blood Culture - Pr eliminary Blood SPECIMEN [facility] 08/28/19 13:40 Blood Culture - Pr eliminary Blood SPECIMEN [facility] A&P Additional A&P Information 1. ESRD - Dialysis planned after COVID is ruled out to prevent additional staff exposures but I have asked the RN to contact me if she becomes more SOB and we will provide dialysis regardless of COVID if needed - 3k, UF 2L - eval on Sunday for additional need for dialysis; will get a repeat CXR to help with this evalaution - doses meds for eGFR < 15ml/min 2. Lytes with minor aberrance; non critical 3. Chest pain - may need a stress test; mgmt per Dr Mann. On empirical Abx also - Analgesia - COVID R/o 4. Hemodynamics - remain stable 5. Renal masses - pending US - if solid in appearance on US will need Urology eval but this can be deferred to outpatient setting 5. 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 Zane Helton MD [facility], [facility] [phone] Consult Attestations Medical Necessity Statement: eval for ESRD mgmt Coding Level of Care Code Acute Building Construction Contractor for Michelle Borrero
--- NOTE | 2019-08-29 13:57 | PC.NURSE ---
Dialysis nurse requests to go ahead with dialysis before COVID screening confirmed. Dr. Mann and Dr. Helton gave verbal order to go ahead and administer dialysis. Dialysis nurse notified.
--- NOTE | 2019-08-29 14:27 | PC.NURSE ---
Patient to dialysis at this time.
--- NOTE | 2019-08-29 14:58 | PM.PN ---
Subjective Subjective: Interval history: Oscar reported she was feeling a little short of breath this morning and still having some chest discomfort when she took a deep breath. I have visited with her this afternoon during dialysis and she is feeling better. Still slight pain when she takes a deep breath. She did have an episode of atrial fibrillation with rapid ventricular rate, necessitating metoprolol and a Cardizem drip. She is now converted back to sinus rhythm. Medications: Reviewed: Yes Vitals/I&O/Wt Last Vital Signs Temp 97.8 F 08/29/19 12:51 Pulse 68 08/29/19 13:04 Resp 17 08/29/19 13:04 BP 132/84 08/29/19 12:51 Pulse Ox 95 08/29/19 13:04 08/28/19 08/29/19 08/29/19 22:59 06:59 14:59 Intake Total 180 / 180 450 / 630 868.266 / 868.266 Balance 180 / 180 450 / 630 868.266 / 868.266 Weight last 48 hrs Weight 118.161 kg Weight 114.305 kg Physical Exam Narrative: EXAM NARRATIVE: General exam no distress Cardiovascular regular rate and rhythm, no murmur Lungs diminished breath sounds bilaterally but no wheezes or crackles Abdomen is soft, obese, nontender. No obvious organomegaly Extremities trace bilateral edema Data : 08/29/19 05:20 08/29/19 05:20 Micro: Microbiology 08/28/19 13:44 Blood Culture - Preliminary Blood NEGATIVE TO DATE 08/28/19 13:40 Blood Culture - Preliminary Blood NEGATIVE TO DATE 08/28/19 14:58 Urine Culture - Preliminary Urine,Clean Catch A&P Assessment and plan (1) Chest pain: Patient describes a pleuritic quality to her chest discomfort. CTA of chest demonstrated no pulmonary embolism. CTA of chest did demonstrate exophytic bilateral renal masses and ultrasound has been ordered Awaiting echocardiogram Nature of pain seems musculoskeletal or pleuritic. Secondary to its atypical nature and elevated troponin a nuclear stress test was ordered but this may need to be done as an outpatient. EKG was not diagnostic Status: Acute Qualifiers: Chest pain type: unspecified Qualified Code(s): R07.9 - Chest pain, unspecified (2) Cough: Currently ruling out Covid 19. No obvious pneumonia is noted. Patient without fever. Mild elevation of white blood cell count is noted. As we are ruling out COVID, inhalers for her restrictive lung disease/COPD currently. No need for steroids currently. Status: Acute (3) Acute diastolic heart failure: Dialysis today will help with her overall fluid status. I defer to the inclusion paraeducator on this. Oxygen as needed Continue her home medications Await echocardiogram Previous echocardiogram September 2018 demonstrated 2/4 diastolic failure, preserved EF, moderate mitral regurgitation. Previous nuclear stress test April 2017 was negative for reversible ischemia. Status: Acute (4) End stage renal disease: Nephrology consultation See comments regarding acute diastolic heart failure Status: Acute (5) Atrial fibrillation: Had episode of atrial fibrillation with rapid ventricular rate, resolving quickly with conversion back to sinus rhythm. At this point I do not expect to fully anticoagulate her on discharge unless rhythm recurs. Heparin drip discontinued. Continue heparin subcutaneous. Metoprolol 12.5 mg twice daily, increasing to 25 mg twice daily if tolerated. Status: Acute Additional A&P Information Carotid artery disease, currently on a statin Hyperlipidemia Hypertension History of gout Obstructive sleep apnea. Oxygen currently secondary to ruling out Covid 19. History of CVA, continue aspirin, statin Diabetes mellitus type 2. Sliding scale insulin Patient is a limited code. She does not want endotracheal intubation and mechanical ventilation but will accept all other therapies Continue heparin for DVT prophylaxis Attestations Medical Necessity Statement*: Needs continued hospital stay for close monitoring of abnormal arrhythmia. Change to regular admission. Coding Level of Care Code Acute Beauty Specialist for Michelle Borrero Diagnoses Chest pain R07.9 Chest pain type: unspecified Cough R05 Acute diastolic heart failure I50.31 End stage renal disease N18.6 Atrial fibrillation I48.91
[2019-08-29 17:15] LABS: Coronavirus Lab Test PTC Negative
[2019-08-29 17:50] LABS: Magnesium 2.2 mg/dL (1.7-2.3)
[2019-08-29 20:50] LABS: Glucose Point of Care 195 mg/dL (70-110)
[2019-08-29] MEDS: metoprolol tartrate 25 mg Tablet PO (21:42)
[2019-08-29] MEDS: gabapentin 100 mg Capsule 200 MG PO (21:43)
--- NOTE | 2019-08-29 22:57 | ECG_ITS ---
Measurements Intervals [place] Rate: 74 P: 48 CA: 152 QRS: -32 QRSD: 158 T: 22 QT: 414 QTc: 461 SINUS RHYTHM MARKED LEFT AXIS DEVIATION [QRS AXIS < -30] RIGHT BUNDLE BRANCH BLOCK [120+ ms QRS DURATION, UPRIGHT V1, 40+ ms S IN I/aV I/aVL/V4/V5/V6] MINIMAL VOLTAGE CRITERIA FOR LVH, CONSIDER NORMAL VARIANT [MEETS CRITERIA IN ONE OF: OF: R(aVL), S(V1), R(V5), R(V5/V6)+S(V1)] Compared to ECG 08/28/2019 21:46:04 Short CA interval no longer present Electronically Signed On 08-30-2019 14:01:35 CDT by Liliya Quezada M.D. [id number]
[2019-08-29] MEDS: metoprolol tartrate 1 mg/1 mL SDV 5 mL 5 MG IV (23:58)
[2019-08-30] VITALS (14 sets, daily range): BP systolic 108–146; BP diastolic 56–84; PULSE 58–77; RESP 16–20; TEMP 36.5–36.9; O2SAT 95–100
[2019-08-30] MEDS: acetaminophen 325 mg Tablet 650 MG PO (04:59)
[2019-08-30 05:08] LABS: Basophils % 0.3 %; Eosinophils # 0.3 10^3/uL (0.0-0.8); Eosinophils % 3.7 %; Hematocrit 34.2 % (37.0-47.0); Hemoglobin 10.7 g/dL (11.5-15.3); Lymphocytes # 1.4 10^3/uL (0.8-4.8); Lymphocytes % 15.2 %; Mean Corpuscular HGB Conc 31.3 g/dL (30.0-36.0); Mean Corpuscular Hemoglobin 34.3 pg (28.0-34.0); Mean Corpuscular Volume 109.6 fL (81-99); Mean Platelet Volume 10.5 fL (7.4-10.4); Monocytes % 10.7 %; Neutrophils # 6.2 10^3/uL (1.8-7.7); Neutrophils % 69.5 %; Nucleated Red Blood Cells % 0 %; Platelet Count 204 10^3/cmm (130-400); Red Blood Count 3.12 10^6/uL (4.1-5.3); Red Cell Distribution Width 17.6 % (12.1-15.1); White Blood Count 8.9 10^3/uL (4.0-10.0)
[2019-08-30 05:29] LABS: Alanine Aminotransferase 84 U/L (0-33); Albumin Level 4.2 g/dL (3.5-5.2); Alkaline Phosphatase 126 IU/L (35-105); Anion Gap 20.8 (5-19); Aspartate Amino Transferase 72 U/L (0-32); Blood Urea Nitrogen 25 mg/dL (8-23); Calcium 9.3 mg/dL (8.5-10.5); Carbon Dioxide 28 mmol/L (22-29); Chloride 92 mmol/L (98-107); Globulin 3.1 g/dL (1.3-4.6); Glomerular Filtration Rate 5.6 mL/min (90-130); Glucose 108 mg/dL (65-115); Osmolality Calculated 279 mOsm/kg (285-295); Potassium 4.8 mmol/L (3.5-5.1); Sodium 136 mmol/L (136-145); Total Bilirubin 0.5 mg/dL (0.15-1.2); Total Protein 7.3 g/dL (6.6-8.7)
[2019-08-30] MEDS: heparin 5,000 unit/mL INJ 1 mL 5000 UNIT SUBCUT (06:08)
[2019-08-30 06:25] LABS: Glucose Point of Care 112 mg/dL (70-110)
--- NOTE | 2019-08-30 08:00 | USR_ITS ---
PROCEDURE INFORMATION: Exam: US Retroperitoneal Complete. Exam date and time: 08/30/2019 1:53 PM Age: 64 years old Clinical indication: Abnormal findings; Abnormal radiologic finding of the abdomen; Radiologic exam and body structure: CT chest; Additional info: Abnormal CT scan showing exophytic renal masses TECHNIQUE: Imaging protocol: Real-time ultrasound of the retroperitoneum with image documentation. Complete exam. COMPARISON: US Renal Kidney Structu* [id number] 12/03/2017 3:39 PM FINDINGS: Right kidney: 7.3 cm in length. 2.6 x 2.5 x 2.4 cm exophytic hypoechoic upper pole lesion with questionable internal blood flow. No stones. No hydronephrosis. Left kidney: Suboptimally visualized. Approximately 7 cm in length. No definite stones. No definite hydronephrosis. Aorta: Normal. No aneurysm. Bladder: Mild circumferential urinary bladder wall thickening, likely secondary to underdistention. US/US renal BI with bladder IMPRESSION: 1. 2.6 x 2.5 x 2.4 cm exophytic hypoechoic upper pole lesion with questionable internal blood flow. Multiphasic CT scan is suggested to rule out malignancy. 2. Suboptimal visualization of the left kidney.
--- NOTE | 2019-08-30 08:00 | USCV_ITS ---
Oscar Pack Age: 64 Gender: F : 1955 Exam Date: 08/30/2019 13:26 Ordering Phys: Cheng Mann MD Technologist: Ingrid Ramirez Exam Location: [facility] – [place] Indication: Chest pain BP: 119 / 56 HR: 69 Rhythm: Sinus Technical Quality: Fair MEASUREMENTS (Male / Female) Normal Values 2D ECHO LV Diastolic Diameter PLAX 4.1 cm 4.2 - 5.9 / 3.9 - 5.3 cm LV Systolic Diameter PLAX 2.8 cm LV Chamber Size 3.7 cm IVS Diastolic Thickness 1.3 cm 0.6 - 1.0 / 0.6 - 0.9 cm IVS Systolic Thickness 1.5 cm LVPW Diastolic Thickness 1.1 cm 0.6 - 1.0 / 0.6 - 0.9 cm LVPW Systolic Thickness 1.1 cm RV Chamber Size 2.8 cm LVOT Diameter 1.9 cm LV Ejection Fraction 2D Teich 61.2 % LV Ejection Fraction MOD 2C 61.6 % LV Ejection Fraction 2C AL 62.2 % LA Diameter 4.5 cm LA Width 3.8 cm LA Height 5.9 cm RA Width 2.7 cm RA Height 6.1 cm Aorta at Sinotubular Diameter 1.9 cm M-MODE LV Diastolic Diameter MM 6.5 cm 4.2 - 5.9 / 3.9 - 5.3 cm LV Systolic Diameter MM 4.6 cm LV Ejection Fraction MM Teich 55.8 % IVS Diastolic Thickness MM 0.9 cm 0.6 - 1.0 / 0.6 - 0.9 cm IVS Systolic Thickness MM 1.4 cm LVPW Diastolic Thickness MM 0.9 cm 0.6 - 1.0 / 0.6 - 0.9 cm LVPW Systolic Thickness MM 1.4 cm RV Diastolic Diameter MM 1.5 cm Aortic Annulus Diameter 2.6 cm LA Ao Ratio MM 1.7 MV E Point Septal Separation 0.4 cm DOPPLER AV Peak Velocity 180.0 cm/s LVOT Peak Velocity 157.0 cm/s AV Area Cont Eq vti 2.5 cm squared AV Area Cont Eq pk 2.4 cm squared MV Peak Velocity 166.0 cm/s MV Area PHT 2.7 cm squared Mitral E to A Ratio 1.4 MV E' Velocity 138.0 cm/s TR Peak Velocity 247.0 cm/s TR Peak Gradient 24.4 mmHg TR Mean Velocity 191.4 cm/s TR Mean Gradient 15.6 mmHg TR Velocity Time Integral 90.9 cm TV Peak E Velocity 78.0 cm/s Right Atrial Pressure 3.0 mmHg Pulmonary Artery Systolic Pressu 27.4 mmHg PV Peak Velocity 91.0 cm/s RV Acceleration Time 0.1 s RV Ejection Time 0.3 s RV AcT/ET 0.4 FINDINGS Left Ventricle Normal left ventricular size, systolic function and wall thickness, with no regional wall motion abnormalities. Left ventricular ejection fraction is estimated at 69 %. Normal diastolic filling pattern. Right Ventricle Normal right ventricular size and systolic function. Right ventricular systolic pressure 31 mmHg. Right Atrium Right atrial pressure estimated at 8 mmHg. Left Atrium Upper normal left atrial size. Mitral Valve Moderate mitral annular calcification. Moderately thickened mitral valve. Mild restricted movement of posterior mitral leaflet. No mitral valve stenosis. At least moderate slightly posteriorly directed mitral valve regurgitation. Aortic Valve Aortic valve not well visualized. No aortic valve stenosis. No aortic valve regurgitation. Tricuspid Valve Structurally normal tricuspid valve. [id number] tricuspid valve regurgitation. Pulmonic Valve Pulmonic valve not well visualized. No pulmonary valve stenosis. Pericardium Trivial pericardial effusion. No evidence of hemodynamic compromise. Aorta Normal size aortic root and proximal ascending aorta. CONCLUSIONS 1. Normal left ventricular size, systolic function and wall thickness, with no regional wall motion abnormalities. Left ventricular ejection fraction is estimated at 69 %. Normal diastolic filling pattern. 2. Normal right ventricular size and systolic function. 3. Mild restricted movement of posterior mitral leaflet. At least moderate slightly posteriorly directed mitral valve regurgitation. 4. [id number] tricuspid valve regurgitation. 5. Pulmonary artery pressure estimated at 31 mmHg. 6. Trivial pericardial effusion without any evidence of hemodynamic compromise. 7. When compared to previous echocardiogram dated 09/26/2018, mitral valve regurgitation seems to be worsened somewhat. Liliya Quezada MD (Electronically Signed) Final Date: 30 August 2019 16:10 S
--- NOTE | 2019-08-30 08:51 | PM.PN ---
Subjective Subjective: Interval history: Oscar reports no more chest discomfort. She had an event last night where she had significant elevation heart rate and was asymptomatic. Complex is wide but she has an underlying right bundle branch block. When on the first floor, she clearly had run of an irregular rhythm consistent with atrial fibrillation but that was was short-lived. I cannot find this on recall of the telemetry box as it was likely changed from 1st-2nd floor. Medications: Reviewed: Yes Vitals/I&O/Wt Last Vital Signs Temp 98.3 F 08/30/19 07:19 Pulse 77 08/30/19 08:25 Resp 18 08/30/19 08:25 BP 146/77 08/30/19 07:19 Pulse Ox 99 08/30/19 08:25 08/29/19 08/30/19 08/30/19 22:59 06:59 14:59 Intake Total 120 / 988.266 Balance 120 / 988.266 Weight last 48 hrs Weight 118.161 kg Weight 114.305 kg Physical Exam Narrative: EXAM NARRATIVE: General exam is no apparent distress Cardiovascular regular rate and rhythm, no murmur Lungs clear Abdomen is soft positive bowel sounds Extremities no cyanosis clubbing or edema Data : 08/30/19 04:20 08/30/19 04:20 Micro: Microbiology 08/28/19 13:44 Blood Culture - Preliminary Blood NEGATIVE TO DATE 08/28/19 13:40 Blood Culture - Preliminary Blood NEGATIVE TO DATE 08/28/19 14:58 Urine Culture - Preliminary Urine,Clean Catch A&P Assessment and plan (1) Chest pain: Patient describes a pleuritic quality to her chest discomfort. CTA of chest demonstrated no pulmonary embolism. CTA of chest did demonstrate exophytic bilateral renal masses and ultrasound has been ordered Awaiting echocardiogram Nature of pain seems musculoskeletal or pleuritic. Secondary to its atypical nature and elevated troponin a nuclear stress test was ordered . She has had recurrences of arrhythmia while in the hospital. Her first episode was a short lived and appeared to be atrial fibrillation with rapid ventricular rate, converting to sinus rhythm after getting metoprolol IV. She had recurrences of the rhythm last night, and more metoprolol was given. After her initial episode metoprolol was started and increased as tolerated. She had been receiving 25 mg twice daily when the rhythm disturbance happened last night. Secondary to her underlying bundle branch block it is difficult to tell if this is atrial fibrillation, with aberrant conduction or underlying ventricular tachycardia. Magnesium and potassium were normal at the time of the asymptomatic event. Will consult cardiology. Status: Acute Qualifiers: Chest pain type: unspecified Qualified Code(s): R07.9 - Chest pain, unspecified (2) Cough: Currently ruling out Covid 19. No obvious pneumonia is noted. Patient without fever. Mild elevation of white blood cell count is noted. As we are ruling out COVID, inhalers for her restrictive lung disease/COPD currently. No need for steroids currently. Status: Acute (3) Acute diastolic heart failure: Improved with hemodialysis Continue oxygen as needed. Her home requirement is 2 L. Continue her home medications Await echocardiogram Previous echocardiogram September 2018 demonstrated 2/4 diastolic failure, preserved EF, moderate mitral regurgitation. Previous nuclear stress test April 2017 was negative for reversible ischemia. Status: Acute (4) End stage renal disease: Appreciate nephrology consultation. Status: Acute (5) Atrial fibrillation: Had episode of atrial fibrillation with rapid ventricular rate, resolving quickly with conversion back to sinus rhythm. Rhythm disturbance, last night some of the salvos were significantly wide-complex. See notes above. I have talked with her about anticoagulation with Coumadin secondary to atrial fibrillation, history of CVA. This will be initiated unless cardiology deems otherwise. Metoprolol has been increased to 50 mg twice daily. Status: Acute Additional A&P Information Possible UTI, currently on Rocephin carotid artery disease, currently on a statin Hyperlipidemia Hypertension History of gout Obstructive sleep apnea. Oxygen currently secondary to ruling out Covid 19. History of CVA, continue aspirin, statin Diabetes mellitus type 2. Sliding scale insulin Patient is a limited code. She does not want endotracheal intubation and mechanical ventilation but will accept all other therapies Continue heparin for DVT prophylaxis Attestations Medical Necessity Statement*: At this point needs continued hospitalization for further evaluation of arrhythmia. Coding Level of Care Code Acute Assistant Professor Of Biology for [facility] Fwd Diagnoses Chest pain R07.9 Chest pain type: unspecified Cough R05 Acute diastolic heart failure I50.31 End stage renal disease N18.6 Atrial fibrillation I48.91
[2019-08-30] MEDS: aspirin 325 mg EC Tablet PO (09:35)
[2019-08-30] MEDS: atorvastatin 40 mg Tablet 20 MG PO (09:36)
[2019-08-30] MEDS: citalopram 20 mg Tablet PO (09:36)
[2019-08-30] MEDS: cyanocobalamin 1,000 mcg Tablet 1000 MCG PO ×2 (09:37→09:41)
[2019-08-30] MEDS: levothyroxine 50 mcg Tablet PO (09:40)
[2019-08-30] MEDS: metoprolol tartrate 50 mg Tablet PO ×2 (09:40→18:38)
[2019-08-30] MEDS: pantoprazole DR 40 mg Tablet PO (09:41)
[2019-08-30] MEDS: insulin glargine 100 units/1 mL 20 UNIT SUBCUT ×2 (09:52→20:22)
--- NOTE | 2019-08-30 11:14 | PM.PN ---
Subjective Subjective: Interval history: She had dialysis yesterday, uncomplicated treatment. Last night had arrhythmia: per Dr Mann complex is wide but she has an underlying right bundle branch block. When on the first floor, she clearly had run of an irregular rhythm consistent with atrial fibrillation but that was was short-lived. Today she still has pain in the chest on deep inspiration. no SOB/CHAUDHARI. No edema and no other volume assoc Sx. No uremic Sx. Medications: Reviewed: Yes Vitals/I&O/Wt Last Vital Signs Temp 98.4 F 08/30/19 11:08 Pulse 68 08/30/19 11:08 Resp 18 08/30/19 11:08 BP 119/56 08/30/19 11:08 Pulse Ox 98 08/30/19 11:08 08/29/19 08/30/19 08/30/19 22:59 06:59 14:59 Intake Total 120 / 988.266 240 / 240 Balance 120 / 988.266 240 / 240 Weight last 48 hrs Weight 118.161 kg Weight 114.305 kg Physical Exam Const: COMMON NORMALS: no apparent distress and average body habitus HENMT: COMMON NORMALS: normocephalic and head/scalp atraumatic HEAD & SCALP: normocephalic and atraumatic Neck/C-Spine: COMMON NORMALS: no JVD Chest: COMMONS NORMALS: inspection of chest normal and palpation of chest normal Resp: COMMON NORMALS: normal respiratory effort and no retractions Cardio: COMMON NORMALS: no JVD, regular rate and regular rhythm RATE: regular rate RHYTHM: regular rhythm GI: INSPECTION: Yes normal to inspection and Yes abdominal wall ecchymosis : COMMON NORMALS: Yes no CVA tenderness and Yes external appearance normal BLADDER/KIDNEY EXAM: Yes no CVA tenderness Back/Pelvis: COMMON NORMALS: no CVA tenderness Data : 08/30/19 04:20 08/30/19 04:20 Micro: Microbiology 08/28/19 13:44 Blood Culture - Preliminary Blood NEGATIVE TO DATE 08/28/19 13:40 Blood Culture - Preliminary Blood NEGATIVE TO DATE 08/28/19 14:58 Urine Culture - Preliminary Urine,Clean Catch A&P Additional A&P Information 1. ESRD - Dialyzed yesterday; may need additional treatments (see #3), otherwise will plan on dialysis on Sunday - doses meds for eGFR < 15ml/min 2. Lytes with minor aberrance; non critical 3. Chest pain - pleuritic sounding, although now having arrytmias also - Cardiology to consult - if uremic pericarditis is suspected she may need dialysis dialysis - Analgesia - COVID R/o 4. Hemodynamics - remain stable 5. Renal masses - pending US - if solid in appearance on US will need Urology eval but this can be deferred to outpatient setting 5. 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 Zane Helton MD [facility], [facility] [phone] Attestations Medical Necessity Statement*: eval for ESRD mgmt Coding Level of Care Code Acute Wood Pattern Maker for Michelle Borrero
[2019-08-30 11:19] LABS: Glucose Point of Care 161 mg/dL (70-110)
--- NOTE | 2019-08-30 13:44 | P.CONIM_ITS ---
Providers/Reason For Consult Consulting Physican/Specialty*: Dr. Quezada, cardiology Reason for Consult*: Runs of wide-complex tachycardia and atrial fibrillation Attending Physician: Cheng Mann MD Primary Care Provider: Pradeep Patel MD History of Present Illness History of Present Illness Oscar Pack is a 64 year old female with past medical history of hypertension, diabetes mellitus type 2, history of recurrent TIAs, carotid artery stenosis (50 to 75% stenosis bilaterally), end-stage renal disease dialysis dependent, congestive heart failure presented to hospital with chest pain and shortness of breath. She usually follows up with Dr. Silvestre and last saw him in April 2019. She presented to the hospital with chest pain retrosternal in location with shortness of breath that started after her dialysis sessions and on Sunday. She received midodrine for dialysis and later on on Sunday she developed chest tightness with inability to take deep breaths. Her pain eased off during the night and she was able to sleep but morning her symptoms started again and she decided to come to the hospital. CT angiogram of chest was done which was negative for pulmonary embolism. Her baseline troponin T was 139, troponin T at 120-minute ashley was 137 and at six 6-hour ashley was 127.7. NT proBNP was 1999. Chest x-ray on arrival showed mild pulmonary venous congestion and cardiomegaly. EKG on arrival showed sinus rhythm with short NV interval at 116 ms. Left axis deviation and right bundle branch block. Minimal voltage criteria for left ventricular hypertrophy. She was dialyzed and her chest pain improved however on one occasion she did have runs of atrial fibrillation with rapid ventricular response for which she was started on Cardizem drip followed by metoprolol tartrate p.o. COVID-19 was ruled out. This morning she had runs of wide-complex tachycardia on the monitor with symptoms of retrosternal chest discomfort and feeling of something not being right that lasted for a few seconds along with dizziness. She is currently c hest pain-free and remains in sinus rhythm. Review of Systems Const: Denies: fever or chills Eyes: Reports: other (decreased vision) ENMT: Denies: nasal congestion or nose bleeds Card: Reports: chest pain and lightheadedness; Denies: edema, syncope or shortness of breath on exertion Resp: Reports: shortness of breath; Denies: productive cough or non-productive cough GI: Denies: abdominal pain or blood in stool Skin/Breast: Denies: rash Neuro: Denies: weakness in extremities or slurred speech Psych: Denies: anxiety or depression Gabriel/Lymph: Denies: petechiae or purpura Meds/Allergies Home Medications and Allergies Home Medications Medication Instructions Recorded Confirmed Type B complex with C 20-folic acid 1 1 cap PO DAILY 07/09/19 08/28/19 History mg capsule atorvastatin 20 mg tablet 20 mg PO DAILY 07/09/19 08/28/19 History cetirizine 10 mg capsule 10 mg PO DAILY 07/09/19 08/28/19 History citalopram 20 mg tablet 20 mg PO DAILY 07/09/19 08/28/19 History cyanocobalamin (vitamin B-12) 1,000 mcg PO DAILY 07/09/19 08/28/19 History 1,000 mcg capsule ferric citrate 210 mg iron tablet 210 mg PO TID 07/09/19 08/28/19 History insulin aspart U-100 100 unit/mL See Rx Instructions .ROUTE .COMPLEX 07/09/19 08/28/19 History (3 mL) subcutaneous pen levothyroxine 50 mcg capsule 50 mcg PO DAILY 07/09/19 08/28/19 History midodrine 5 mg tablet See Rx Instructions .ROUTE .COMPLEX 07/09/19 08/28/19 History montelukast 10 mg tablet 10 mg PO DAILY 07/09/19 08/28/19 History saxagliptin 5 mg tablet 5 mg PO DAILY 07/09/19 08/28/19 History tramadol 50 mg tablet 50 mg PO Q6H PRN 07/09/19 08/28/19 History aspirin 81 mg PO DAILY 08/28/19 08/28/19 History budesonide-formoterol [Symbicort] 2 puff INHALATION BID 08/28/19 08/28/19 History gabapentin 200 mg PO BEDTIME 08/28/19 08/28/19 History insulin glargine [Lantus U-100 100 unit SUBCUT DAILY 08/28/19 08/28/19 History Insulin] isosorbide mononitrate 30 mg PO DAILY 08/28/19 08/28/19 History pantoprazole 40 mg PO DAILY 08/28/19 08/28/19 History tiotropium bromide [Spiriva with 1 cap INHALATION DAILY 08/28/19 08/28/19 History HandiHaler] Allergies Allergy/AdvReac Type Severity Reaction Status Date / Time Penicillins Allergy hives Verified 08/28/19 13:01 Sulfa (Sulfonamide Allergy depleat Verified 08/28/19 13:01 Antibiotics) potassium Current Medications Current Medications Generic Name Dose Route Start Last Admin Trade Name Freq PRN Reason Stop Dose Admin Acetaminophen 650 mg 08/28/19 18:16 08/30/19 04:59 Tylenol PO 650 mg Q6H PRN Administration Mild/Mod Pain Or Temp >/= 101 Albuterol/Ipratropium 1 puff 08/28/19 21:30 08/30/19 11:44 Combivent Respimat INHALATION 1 puff QID.RESPIRATORY ACACIA Administration Atorvastatin Calcium 20 mg 08/29/19 09:00 08/30/19 09:36 Lipitor PO 20 mg DAILY ACACIA Administration Citalopram Hydrobromide 20 mg 08/29/19 09:00 08/30/19 09:36 Celexa PO 20 mg DAILY ACACIA Administration Cyanocobalamin 1,000 mcg 08/29/19 09:00 08/30/19 09:41 Vitamin B-12 PO 1,000 mcg DAILY ACACIA Administration Gabapentin 200 mg 08/28/19 21:00 08/29/19 21:43 Neurontin PO 200 mg BEDTIME ACACIA Administration Ceftriaxone Sodium 1,000 mg/ 50 mls @ 100 mls/hr 08/28/19 18:16 08/29/19 21:04 Sodium Chloride IV Not Given Q24H ACACIA Protocol Insulin Aspart 0 unit 08/28/19 18:16 08/30/19 12:22 Novolog SUBCUT 4 unit TIDWM ACACIA Administration Protocol Insulin Aspart 0 unit 08/28/19 21:00 08/29/19 21:39 Novolog SUBCUT 3 unit BEDTIME ACACIA Administration Protocol Insulin Glargine 20 unit 08/29/19 09:00 08/30/19 09:52 Lantus SUBCUT 20 unit DAILY ACACIA Administration Insulin Glargine 20 unit 08/29/19 21:00 08/29/19 21:39 Lantus SUBCUT 20 unit BEDTIME ACACIA Administration Levothyroxine Sodium 50 mcg 08/29/19 09:00 08/30/19 09:40 Synthroid PO 50 mcg DAILY ACACIA Administration Metoprolol Tartrate 50 mg 08/30/19 09:00 08/30/19 09:40 Lopressor PO 50 mg BID ACACIA Administration Montelukast Sodium 10 mg 08/29/19 09:00 08/30/19 09:42 Singulair PO Not Given DAILY ACACIA Ondansetron HCl 4 mg 08/28/19 18:16 08/29/19 00:18 Zofran IVP 4 mg Q6H PRN Administration vomiting, or N/V if npo Pantoprazole Sodium 40 mg 08/29/19 09:00 08/30/19 09:41 Protonix PO 40 mg DAILY ACACIA Administration Fluticasone/Salmeterol 1 puff 08/28/19 21:30 08/30/19 08:10 Advair Diskus 500-50 INHALATION 1 puff BID.RESPIRATORY ACACIA Administration PFSH Acute PFSH: Medical History (Updated 08/30/19 @ 16:26 by Liliya Quezada MD) Breast cancer Carotid artery disease COPD (chronic obstructive pulmonary disease) Patient reports COPD, but restrictive lung disease is also a possibility. CVA (cerebral vascular accident) Diastolic heart failure End stage renal disease Gout Hyperlipemia Hypertension Hypothyroidism Impaired vision Obesity Obstructive sleep apnea Type 1 diabetes mellitus Surgical History (Updated 08/28/19 @ 15:35 by Cheng Mann MD) H/O lumpectomy left breast H/O tubal ligation Hemodialysis access site with arteriovenous graft History of cholecystectomy Hx of abdominoplasty Family History Other Cancer Diabetes Hypertension Stroke Social History (Updated 08/28/19 @ 15:36 by Cheng Mann MD) Smoking and tobacco status: former smoker Alcohol intake: never Substance/Drug Use: never Vitals/I&O/Wt Last Vital Signs Temp 98.4 F 08/30/19 11:08 Pulse 58 L 08/30/19 11:49 Resp 16 08/30/19 11:49 BP 119/56 08/30/19 11:08 Pulse Ox 96 08/30/19 11:49 08/29/19 08/30/19 08/30/19 22:59 06:59 14:59 Intake Total 120 / 988.266 240 / 240 Balance 120 / 988.266 240 / 240 Weight last 48 hrs Weight 260 lb 8 oz Physical Exam Narrative: EXAM NARRATIVE: GENERAL: Obese woman sitting in bed in no acute distress HEENT: Pupils equal round reactive to light. No pallor or icterus. NECK: No JVD CARDIOVASCULAR SYSTEM: S1-S2 regular. No S3 or S4 present. No murmur rubs or gallops. RESPIRATORY SYSTEM: Chest clear to auscultation. No wheezes rhonchi or rubs heard. ABDOMEN: Soft, nontender and nondistended. Normal bowel sounds present. EXTREMITIES: No cyanosis or clubbing. No edema. CENTRAL COMMUNICATIONS SPECIALIST: Patient is alert oriented ?3. No focal neurological deficits. Data Micro: Micro: Microbiology 08/28/19 14:58 Urine Culture - Fi nal Urine,Clean Catch 08/28/19 13:44 Blood Culture - Pr eliminary Blood NEGATIVE TO VIDHYA E 08/28/19 13:40 Blood Culture - Pr eliminary Blood NEGATIVE TO VIDHYA E Other Data: Other data: ECHOCARDIOGRAPHY, COMPLETE ([id number]) ? 01/10/2017 Normal left ventricular size and systolic function, EF 55% . Mild left ventricular hypertrophy. No regional wall motion abnormalities. Grade I/IV diastolic dysfunction (abnormal relaxation filling pattern), normal to mildly elevated filling pressures. Mild-moderate mitral valve regurgitation. Mild tricuspid valve regurgitation. Features of aortic valve sclerosis. Estimated pulmonary artery peak systolic pressure of 36 mg of mercury. There is no pericardial effusion. There are no intracardiac masses. No previous study is available for comparison. LEXISCAN SPECT CARDIAC STRESS TEST ([id number]) ? 05/01/2017 . No significant EKG changes with the LexiScan infusion 2. No LexiScan induced chest pain or cardiac arrhythmia 3. Normal blood pressure and heart rate response Myocardial perfusion imaging revealed small areas of persistent decreased tracer uptake in the inferolateral, anterior and anteroseptal regions suggestive of myocardial scarring versus attenuation artifact 2. Left ventricular wall motion analysis revealed no significant wall motion abnormalities 3. Left ventricular ejection fraction was estimated to be within normal limits,65%. 4. Left ventricular volume was within normal limits. No significant coronary ischemia, based on the above findings No previous study is available for comparison CAROTID DUPLEX EXAMINATION ([id number]) ?(07/25/2018) CONCLUSIONS 1. Right cervical ICA significant stenosis 60-79% stenosis. 2. No significant left cervical ICA stenosis. 3. Patent bilateral vertebral arteries. 4. Bilateral cervical carotid artery atherosclerosis. Echo (09/26/2018) CONCLUSIONS Normal left ventricular size, systolic function and wall thickness, with no regional wall motion abnormalities. Grade II/IV diastolic dysfunction, moderately elevated filling pressures. Left ventricular ejection fraction is estimated at 60 %. Mildly increased left atrial size. Structurally normal mitral valve. Mild mitral annular calcification. Mild-moderate mitral valve regurgitation. No significant change since the prior echocardiogram study of 12/04/17 A&P Assessment and plan (1) Chest pain: Likely in setting of volume overload/decompensated CHF. -No regional wall motion abnormality on echocardiogram and left ventricular ejection fraction remains preserved. -EKG shows right bundle branch block now. Her last stress test was in September 2016 when she had no ischemia. -She would probably benefit from repeat stress testing. If patient remains asymptomatic and does not stay in hospital since Sunday this can be done as an outpatient. Status: Acute Qualifiers: Chest pain type: unspecified Qualified Code(s): R07.9 - Chest pain, unspecified (2) Atrial fibrillation: Start on Eliquis 2.5 mg twice a day and continue metoprolol tartrate at present dose. Status: Acute Qualifiers: Atrial fibrillation type: paroxysmal Qualified Code(s): I48.0 - Paroxysmal atrial fibrillation (3) Wide-complex tachycardia: This seems to be short runs of SVT likely atrial tachycardia in setting of underlying right bundle branch block. -Continue metoprolol Status: Acute (4) End stage renal disease: Status: Acute (5) Acute diastolic heart failure: Volume management by dialysis as per Dr. Helton. Status: Acute Additional A&P Information Elevated troponin in setting of ESRD and fluid overload Transminitis Carotid artery stenosis Hyperlipidemia Obstructive sleep apnea Morbid obesity History of CVA Diabetes mellitus type 2 Limited CODE STATUS Thank you for allowing me to participate in patient's care. Please feel free to call with questions or concerns. Coding Level of Care Code Acute Alignment Specialist for [facility] Fwd Diagnoses Chest pain R07.9 Chest pain type: unspecified Atrial fibrillation I48.0 Atrial fibrillation type: paroxysmal Wide-complex tachycardia I47.2 End stage renal disease N18.6 Acute diastolic heart failure I50.31
[2019-08-30 17:11] LABS: Glucose Point of Care 123 mg/dL (70-110)
[2019-08-30] MEDS: apixaban 5 mg Tablet 2.5 MG PO (18:38)
[2019-08-30] MEDS: cefTRIAXone 1,000 MG in sodium chloride 0.9% (plus) 50 ML 100 MG IV (18:38)
[2019-08-30] MEDS: gabapentin 100 mg Capsule 200 MG PO (20:09)
--- NOTE | 2019-08-30 21:00 | PC.NURSE ---
PT HAD A RUN OF VTACH AND HR OF 150'S. PT HAS 0 C/O PAIN AND HR IS BACK DOWN TO 70. HOSPITALIST WAS NOTIFIED AND SAID TO MONITOR FOR NOW. WILL CONTINUE TO MONITOR.
[2019-08-30 21:08] LABS: Glucose Point of Care 187 mg/dL (70-110)
[2019-08-31] VITALS (12 sets, daily range): BP systolic 108–132; BP diastolic 53–70; PULSE 63–86; RESP 17–20; TEMP 36.3–37.5; O2SAT 91–96
[2019-08-31] MEDS: acetaminophen 325 mg Tablet 650 MG PO ×3 (02:20→18:02)
[2019-08-31 05:13] LABS: Basophils % 0.3 %; Eosinophils # 0.4 10^3/uL (0.0-0.8); Eosinophils % 3.7 %; Hematocrit 31.6 % (37.0-47.0); Hemoglobin 9.9 g/dL (11.5-15.3); Lymphocytes # 1.1 10^3/uL (0.8-4.8); Lymphocytes % 9.9 %; Mean Corpuscular HGB Conc 31.3 g/dL (30.0-36.0); Mean Corpuscular Hemoglobin 33.6 pg (28.0-34.0); Mean Corpuscular Volume 107.1 fL (81-99); Mean Platelet Volume 10.7 fL (7.4-10.4); Monocytes # 0.9 10^3/uL (0.2-0.9); Monocytes % 8.1 %; Neutrophils # 8.8 10^3/uL (1.8-7.7); Neutrophils % 77.6 %; Nucleated Red Blood Cells % 0 %; Platelet Count 236 10^3/cmm (130-400); Red Blood Count 2.95 10^6/uL (4.1-5.3); Red Cell Distribution Width 16.9 % (12.1-15.1); White Blood Count 11.4 10^3/uL (4.0-10.0)
[2019-08-31 05:35] LABS: Alanine Aminotransferase 97 U/L (0-33); Albumin Level 4.2 g/dL (3.5-5.2); Alkaline Phosphatase 146 IU/L (35-105); Anion Gap 23.8 (5-19); Aspartate Amino Transferase 61 U/L (0-32); Blood Urea Nitrogen 45 mg/dL (8-23); Calcium 9.1 mg/dL (8.5-10.5); Carbon Dioxide 25 mmol/L (22-29); Chloride 89 mmol/L (98-107); Glomerular Filtration Rate 3.9 mL/min (90-130); Glucose 135 mg/dL (65-115); Osmolality Calculated 276 mOsm/kg (285-295); Potassium 4.8 mmol/L (3.5-5.1); Sodium 133 mmol/L (136-145); Total Bilirubin 0.5 mg/dL (0.15-1.2); Total Protein 7.2 g/dL (6.6-8.7)
[2019-08-31 07:01] LABS: Glucose Point of Care 134 mg/dL (70-110)
--- NOTE | 2019-08-31 08:19 | PM.PN ---
Subjective Subjective: Interval history: Oscar reports she had some chest discomfort last night. Denies any this morning. Overall reports she is doing okay. Medications: Reviewed: Yes Vitals/I&O/Wt Last Vital Signs Temp 98.2 F 08/31/19 07:25 Pulse 73 08/31/19 08:15 Resp 17 08/31/19 08:14 BP 127/70 08/31/19 07:25 Pulse Ox 94 08/31/19 08:14 08/30/19 08/31/19 08/31/19 22:59 06:59 14:59 Intake Total 340 / 720 120 / 840 360 / 360 Balance 340 / 720 120 / 840 360 / 360 Physical Exam Narrative: EXAM NARRATIVE: General exam is no apparent distress. Telemetry indicates wide-complex tachycardia noted again last night. Cardiovascular regular rate and rhythm, no murmur Lungs clear Abdomen is soft positive bowel sounds Extremities no cyanosis clubbing or edema Data : 08/31/19 04:28 08/31/19 04:28 Micro: Microbiology 08/28/19 14:58 Urine Culture - Final Urine,Clean Catch A&P Assessment and plan (1) Chest pain: Patient describes a pleuritic quality to her chest discomfort. CTA of chest demonstrated no pulmonary embolism. CTA of chest did demonstrate exophytic bilateral renal masses and ultrasound did not show purely cystic component so urology outpatient referral will be needed. Echocardiogram demonstrated preserved EF, trivial pericardial effusion. Nature of pain seems musculoskeletal or pleuritic. Secondary to its atypical nature and elevated troponin a nuclear stress test was ordered . She has had recurrences of arrhythmia while in the hospital. Her first episode was a short lived and appeared to be atrial fibrillation with rapid ventricular rate, converting to sinus rhythm after getting metoprolol IV. She had recurrences of the rhythm last night, and more metoprolol was given. After her initial episode metoprolol was started and increased as tolerated. She had been receiving 25 mg twice daily when the rhythm disturbance happened last night. Secondary to her underlying bundle branch block it is difficult to tell if this is atrial fibrillation, with aberrant conduction or underlying ventricular tachycardia. Magnesium and potassium were normal at the time of the asymptomatic event. Cardiology has been consulted, agreeing with beta-michael and agrees with nuclear stress testing. They would prefer a dobutamine sestamibi which is been ordered for Sunday. Status: Acute Qualifiers: Chest pain type: unspecified Qualified Code(s): R07.9 - Chest pain, unspecified (2) Cough: Covid 19 testing has been done, and negative. Status: Acute (3) Acute diastolic heart failure: Improved with hemodialysis Continue oxygen as needed. Her home requirement is 2 L. Continue her home medications Echocardiogram reports this time demonstrate technically difficult study, moderate MR, moderate TR, trivial pericardial effusion Previous echocardiogram September 2018 demonstrated 2/4 diastolic failure, preserved EF, moderate mitral regurgitation. Previous nuclear stress test April 2017 was negative for reversible ischemia. Status: Acute (4) End stage renal disease: Appreciate nephrology consultation. Status: Acute (5) Atrial fibrillation: Had episode of atrial fibrillation with rapid ventricular rate, resolving quickly with conversion back to sinus rhythm. Rhythm disturbance recurred last night. At this point continue beta-michael. Stress testing tomorrow. Eliquis initiated secondary to atrial fibrillation. Risks and benefits discussed Metoprolol currently at 50 mg twice daily. Cardiology to review. Status: Acute Qualifiers: Atrial fibrillation type: paroxysmal Qualified Code(s): I48.0 - Paroxysmal atrial fibrillation Additional A&P Information Possible UTI, currently on Rocephin carotid artery disease, currently on a statin Hyperlipidemia Hypertension History of gout Obstructive sleep apnea. Initiate patient CPAP History of CVA, continue aspirin, statin Diabetes mellitus type 2. Sliding scale insulin Patient is a limited code. She does not want endotracheal intubation and mechanical ventilation but will accept all other therapies Eliquis will suffice for DVT prophylaxis Attestations Medical Necessity Statement*: Needs continued hospital stay for definitive evaluation of chest discomfort with stress testing, as well as adjustment of medications for arrhythmia. Coding Level of Care Code Acute Distribution Center Administrator for [facility] Fwd Diagnoses Chest pain R07.9 Chest pain type: unspecified Cough R05 Acute diastolic heart failure I50.31 End stage renal disease N18.6 Atrial fibrillation I48.0 Atrial fibrillation type: paroxysmal
[2019-08-31] MEDS: aspirin 81 mg EC Tablet PO (09:23)
[2019-08-31] MEDS: levothyroxine 50 mcg Tablet PO (09:24)
[2019-08-31] MEDS: atorvastatin 40 mg Tablet 20 MG PO (09:24)
[2019-08-31] MEDS: apixaban 5 mg Tablet 2.5 MG PO ×2 (09:25→17:57)
[2019-08-31] MEDS: metoprolol tartrate 50 mg Tablet PO ×2 (09:25→17:57)
[2019-08-31] MEDS: pantoprazole DR 40 mg Tablet PO (09:25)
[2019-08-31] MEDS: citalopram 20 mg Tablet PO (09:25)
[2019-08-31] MEDS: montelukast sodium 10 mg Tablet PO (09:26)
[2019-08-31] MEDS: insulin glargine 100 units/1 mL 20 UNIT SUBCUT ×3 (09:32→21:36)
--- NOTE | 2019-08-31 09:42 | P.PN_ITS ---
Subjective Subjective: Interval history: Some slight chest discomfort last night but fleeting and she feels fine now. No edema, no other volume assoc Sx. No uremic Sx. Some back aches from sleeping on the hospital bed Medications: Reviewed: Yes Vitals/I&O/Wt Last Vital Signs Temp 98.2 F 08/31/19 07:25 Pulse 73 08/31/19 08:15 Resp 17 08/31/19 08:14 BP 127/70 08/31/19 07:25 Pulse Ox 94 08/31/19 08:14 08/30/19 08/31/19 08/31/19 22:59 06:59 14:59 Intake Total 340 / 720 120 / 840 360 / 360 Balance 340 / 720 120 / 840 360 / 360 Physical Exam Const: COMMON NORMALS: no apparent distress and average body habitus HENMT: COMMON NORMALS: normocephalic and head/scalp atraumatic HEAD & SCALP: normocephalic and atraumatic Neck/C-Spine: COMMON NORMALS: no JVD Chest: COMMONS NORMALS: inspection of chest normal and palpation of chest normal Resp: COMMON NORMALS: normal respiratory effort and no retractions Cardio: COMMON NORMALS: no JVD, regular rate and regular rhythm RATE: regular rate RHYTHM: regular rhythm GI: INSPECTION: Yes normal to inspection and Yes abdominal wall ecchymosis : COMMON NORMALS: Yes no CVA tenderness and Yes external appearance normal BLADDER/KIDNEY EXAM: Yes no CVA tenderness Back/Pelvis: COMMON NORMALS: no CVA tenderness Data : 08/31/19 04:28 08/31/19 04:28 Micro: Microbiology 08/28/19 14:58 Urine Culture - Final Urine,Clean Catch A&P Additional A&P Information 1. ESRD - Dialysis planned for [id number], UF 2-3L - doses meds for eGFR < 15ml/min 2. Lytes with minor aberrance; non critical 3. Chest pain - Dr Quezada's input is appreciated - Eliquis and Metoprolol on board - for stress test - Analgesia - COVID R/o 4. Hemodynamics - remain stable 5. Renal masses - US noted - will need Urology eval but this can be deferred to outpatient setting 5. 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 Zane Helton MD [facility] [phone] Attestations Medical Necessity Statement*: ESRD Coding Level of Care Code Acute Tip Mender for Michelle Borrero
[2019-08-31 10:43] LABS: Glucose Point of Care 221 mg/dL (70-110)
--- NOTE | 2019-08-31 12:59 | PM.PN ---
Subjective Subjective: Interval history: Patient complains of episode of chest pain yesterday evening with weird feeling in her chest. Telemetry with another run of wide-complex tachycardia. Medications: Reviewed: Yes Vitals/I&O/Wt Last Vital Signs Temp 98.3 F 08/31/19 11:25 Pulse 68 08/31/19 11:54 Resp 18 08/31/19 11:44 BP 108/62 08/31/19 11:25 Pulse Ox 96 08/31/19 11:44 08/30/19 08/31/19 08/31/19 22:59 06:59 14:59 Intake Total 340 / 720 120 / 840 600 / 600 Balance 340 / 720 120 / 840 600 / 600 Physical Exam Narrative: EXAM NARRATIVE: GENERAL: Obese woman sitting in bed in no acute distress HEENT: Pupils equal round reactive to light. No pallor or icterus. NECK: No JVD CARDIOVASCULAR SYSTEM: S1-S2 regular. No S3 or S4 present. No murmur rubs or gallops. RESPIRATORY SYSTEM: Chest clear to auscultation. No wheezes rhonchi or rubs heard. EXTREMITIES: No cyanosis or clubbing. No edema. BRIM IRONER HAND: Patient is alert oriented ?3. No focal neurological deficits. Data : 08/31/19 04:28 08/31/19 04:28 Micro: Microbiology 08/28/19 14:58 Urine Culture - Final Urine,Clean Catch A&P Assessment and plan (1) Chest pain: Likely in setting of volume overload/decompensated CHF. -No regional wall motion abnormality on echocardiogram and left ventricular ejection fraction remains preserved. -EKG shows right bundle branch block now. Her last stress test was in September 2016 when she had no ischemia. -Plan for stress test tomorrow. Status: Acute Qualifiers: Chest pain type: unspecified Qualified Code(s): R07.9 - Chest pain, unspecified (2) Atrial fibrillation: Continue on Eliquis 2.5 mg twice a day and metoprolol tartrate at present dose. Status: Acute Qualifiers: Atrial fibrillation type: paroxysmal Qualified Code(s): I48.0 - Paroxysmal atrial fibrillation (3) Wide-complex tachycardia: This seems to be short runs of SVT with aberrency likely atrial tachycardia with underlying right bundle branch block. -Continue metoprolol Status: Acute (4) End stage renal disease: She is on dialysis [place] Wednesday and Sunday. Status: Acute (5) Acute diastolic heart failure: Volume management by dialysis as per Dr. Helton. Status: Acute Additional A&P Information Elevated troponin in setting of ESRD and fluid overload Transminitis Carotid artery stenosis Hyperlipidemia Obstructive sleep apnea Morbid obesity History of CVA Diabetes mellitus type 2 Limited CODE STATUS Thank you for allowing me to participate in patient's care. Please feel free to call with questions or concerns. Attestations Medical Necessity Statement*: As per primary team Coding Level of Care Code Acute Mechanical Equipment Test Engineer for [facility] Fwd Diagnoses Chest pain R07.9 Chest pain type: unspecified Atrial fibrillation I48.0 Atrial fibrillation type: paroxysmal Wide-complex tachycardia I47.2 End stage renal disease N18.6 Acute diastolic heart failure I50.31
[2019-08-31 16:42] LABS: Glucose Point of Care 133 mg/dL (70-110)
[2019-08-31] MEDS: gabapentin 100 mg Capsule 200 MG PO (20:49)
[2019-08-31 21:26] LABS: Glucose Point of Care 192 mg/dL (70-110)
[2019-08-31] MEDS: cefTRIAXone 1,000 MG in sodium chloride 0.9% (plus) 50 ML 100 MG IV (22:04)
[2019-09-01] VITALS (12 sets, daily range): BP systolic 103–133; BP diastolic 58–81; PULSE 62–88; RESP 16–21; TEMP 36.6–37.1; O2SAT 92–100
[2019-09-01] MEDS: acetaminophen 325 mg Tablet 650 MG PO ×3 (00:40→21:42)
[2019-09-01 06:19] LABS: Basophils % 0.4 %; Eosinophils # 0.5 10^3/uL (0.0-0.8); Eosinophils % 5.4 %; Hematocrit 29.4 % (37.0-47.0); Hemoglobin 9.2 g/dL (11.5-15.3); Lymphocytes # 1.6 10^3/uL (0.8-4.8); Lymphocytes % 19.2 %; Mean Corpuscular HGB Conc 31.3 g/dL (30.0-36.0); Mean Corpuscular Hemoglobin 33.3 pg (28.0-34.0); Mean Corpuscular Volume 106.5 fL (81-99); Mean Platelet Volume 10.5 fL (7.4-10.4); Monocytes # 0.8 10^3/uL (0.2-0.9); Monocytes % 9.8 %; Neutrophils # 5.5 10^3/uL (1.8-7.7); Neutrophils % 64.8 %; Nucleated Red Blood Cells % 0 %; Platelet Count 240 10^3/cmm (130-400); Red Blood Count 2.76 10^6/uL (4.1-5.3); Red Cell Distribution Width 16.7 % (12.1-15.1); White Blood Count 8.5 10^3/uL (4.0-10.0)
[2019-09-01 06:37] LABS: Alanine Aminotransferase 140 U/L (0-33); Albumin Level 3.6 g/dL (3.5-5.2); Alkaline Phosphatase 160 IU/L (35-105); Anion Gap 28.9 (5-19); Aspartate Amino Transferase 80 U/L (0-32); Blood Urea Nitrogen 55 mg/dL (8-23); Calcium 8.6 mg/dL (8.5-10.5); Carbon Dioxide 21 mmol/L (22-29); Chloride 87 mmol/L (98-107); Globulin 3.8 g/dL (1.3-4.6); Glomerular Filtration Rate 3.3 mL/min (90-130); Glucose 101 mg/dL (65-115); Magnesium 2.2 mg/dL (1.7-2.3); Osmolality Calculated 273 mOsm/kg (285-295); Potassium 4.9 mmol/L (3.5-5.1); Sodium 132 mmol/L (136-145); Total Bilirubin 0.4 mg/dL (0.15-1.2); Total Protein 7.4 g/dL (6.6-8.7)
[2019-09-01 06:45] LABS: Phosphorus 8.1 mg/dL (2.5-4.5)
[2019-09-01 06:51] LABS: Glucose Point of Care 104 mg/dL (70-110)
--- NOTE | 2019-09-01 07:15 | ECG_ITS ---
NAME OF STUDY: LEXISCAN SESTAMIBI STRESS TEST INDICATION: Chest Pain PROCEDURE: At the baseline, the blood pressure was 120/71 mmHg, oxygen saturation 90% with a heart rate of 70 bpm. The electrocardiogram showed sinus rhythm, left axis deviation and right bundle branch block. The Lexiscan was infused over a period of 20 seconds. A total of 0.4 milligrams of Lexiscan was infused. The stress phase was continued for a total of 5 minutes. Heart rate at the end of the stress phase was 76 bpm, oxygen saturation 98% with a blood pressure 118/56 mmHg. The EKG at the peak infusion revealed sinus rhythm with no significant ST-T wave changes. Sestamibi was injected 20 seconds after the Lexiscan infusion. Blood pressure at the end of the recovery phase was 102/61 mmHg, oxygen saturation 98% with a heart rate of 75 beats per minute. CONCLUSION: 1. No significant EKG changes with the LexiScan infusion. 2. No LexiScan induced chest pain or cardiac arrhythmia. 3. Normal blood pressure and heart rate response. 4. Sestamibi/sestamibi perfusion scan pending; see separate report. Electronically Signed On 09-01-2019 12:00:14 CDT by Liliya Quezada M.D. [email or web address]
--- NOTE | 2019-09-01 08:23 | PC.NURSE ---
OFF unit to nuc med
[2019-09-01] MEDS: regadenoson 0.4 Mg/5 ml Syringe IVP (08:35)
--- NOTE | 2019-09-01 09:38 | P.PN_ITS ---
Subjective Subjective: Interval history: Dobutamine stress test this morning. Awaiting results. She has no acute complaints at this time. And reports being comfortable. Dialysis planned for later this evening. Medications: Reviewed: Yes Vitals/I&O/Wt Last Vital Signs Temp 97.8 F 09/01/19 04:00 Pulse 76 09/01/19 08:36 Resp 17 09/01/19 04:00 BP 116/64 09/01/19 08:36 Pulse Ox 96 09/01/19 04:00 08/31/19 09/01/19 09/01/19 22:59 06:59 14:59 Intake Total 540 / 1140 110 / 1250 Balance 540 / 1140 110 / 1250 Physical Exam Narrative: EXAM NARRATIVE: GENERAL: awake, alert and oriented, lying in bed in NAD HEENT: Pupils equal round reactive to light. No pallor or icterus. CARDIOVASCULAR SYSTEM: S1-S2 regular. No S3 or S4 present. No murmur rubs or gallops. RESPIRATORY SYSTEM: Chest clear to auscultation. No additional sounds EXTREMITIES: No cyanosis or clubbing. No edema. DEXIGRAPH OPERATOR: No focal neurological deficits. Data : 09/01/19 05:41 09/01/19 05:41 A&P Assessment and plan (1) Chest pain: Patient describes a pleuritic quality to her chest discomfort. CTA of chest demonstrated no pulmonary embolism. CTA of chest did demonstrate exophytic bilateral renal masses and ultrasound did not show purely cystic component so urology outpatient referral will be needed. Echocardiogram demonstrated preserved EF, trivial pericardial effusion. Nature of pain seems musculoskeletal or pleuritic. Secondary to its atypical nature and elevated troponin a nuclear stress test was ordered . She has had recurrences of wide complex arrhythmia while in the hospital. Cardiology was consulted, s/p nuclear stress testing, results pending. Status: Acute Qualifiers: Chest pain type: unspecified Qualified Code(s): R07.9 - Chest pain, unspecified (2) Cough: Covid 19 testing has been done, and negative. Status: Acute (3) Acute diastolic heart failure: Improved with hemodialysis Continue oxygen as needed. Her home requirement is 2 L. Continue her home medications Echocardiogram reports this time demonstrate technically difficult study, moderate MR, moderate TR, trivial pericardial effusion Previous echocardiogram September 2018 demonstrated 2/4 diastolic failure, preserved EF, moderate mitral regurgitation. Previous nuclear stress test April 2017 was negative for reversible ischemia. Status: Acute (4) End stage renal disease: Appreciate nephrology consultation. Status: Acute (5) Atrial fibrillation: Had episode of atrial fibrillation with rapid ventricular rate, resolving quickly with conversion back to sinus rhythm. Eliquis initiated secondary to atrial fibrillation. Risks and benefits discussed Metoprolol currently at 50 mg twice daily Status: Acute Qualifiers: Atrial fibrillation type: paroxysmal Qualified Code(s): I48.0 - Paroxysmal atrial fibrillation Additional A&P Information Possible UTI, currently on Rocephin, day 5 today, will discontinue carotid artery disease, currently on a statin Hyperlipidemia Hypertension History of gout Obstructive sleep apnea. continue CPAP History of CVA, continue aspirin, statin Diabetes mellitus type 2. Sliding scale insulin Patient is a limited code. She does not want endotracheal intubation and mechanical ventilation but will accept all other therapies Eliquis will suffice for DVT prophylaxis Attestations Medical Necessity Statement*: pending results of stress test earlier today, for HD later this afternoon Coding Level of Care Code Acute Garment Manufacturing Supervisor for [facility] Miled Diagnoses Chest pain R07.9 Chest pain type: unspecified Cough R05 Acute diastolic heart failure I50.31 End stage renal disease N18.6 Atrial fibrillation I48.0 Atrial fibrillation type: paroxysmal
[2019-09-01] MEDS: cyanocobalamin 1,000 mcg Tablet 1000 MCG PO (10:05)
[2019-09-01] MEDS: montelukast sodium 10 mg Tablet PO (10:05)
[2019-09-01] MEDS: aspirin 81 mg EC Tablet PO (10:05)
[2019-09-01] MEDS: levothyroxine 50 mcg Tablet PO (10:06)
[2019-09-01] MEDS: pantoprazole DR 40 mg Tablet PO (10:06)
[2019-09-01] MEDS: apixaban 5 mg Tablet 2.5 MG PO (10:06)
[2019-09-01] MEDS: metoprolol tartrate 50 mg Tablet PO ×2 (10:06→21:37)
[2019-09-01] MEDS: atorvastatin 40 mg Tablet 20 MG PO (10:06)
[2019-09-01] MEDS: citalopram 20 mg Tablet PO (10:06)
--- NOTE | 2019-09-01 11:14 | PM.PN ---
Subjective Subjective: Interval history: Feels good at the time of exam. Tele showed another run of wide-complex tachycardia. She had her stress test this morning and awaits dialysis. She denies uremic Sx. No edema and no other volume assoc Sx. Medications: Reviewed: Yes Vitals/I&O/Wt Last Vital Signs Temp 97.8 F 09/01/19 04:00 Pulse 76 09/01/19 08:36 Resp 17 09/01/19 04:00 BP 116/64 09/01/19 08:36 Pulse Ox 96 09/01/19 04:00 08/31/19 09/01/19 09/01/19 22:59 06:59 14:59 Intake Total 540 / 1140 110 / 1250 Balance 540 / 1140 110 / 1250 Physical Exam Const: COMMON NORMALS: no apparent distress and average body habitus HENMT: COMMON NORMALS: normocephalic and head/scalp atraumatic HEAD & SCALP: normocephalic and atraumatic Neck/C-Spine: COMMON NORMALS: no JVD Chest: COMMONS NORMALS: inspection of chest normal and palpation of chest normal Resp: COMMON NORMALS: normal respiratory effort and no retractions Cardio: COMMON NORMALS: no JVD, regular rate and regular rhythm RATE: regular rate RHYTHM: regular rhythm GI: INSPECTION: Yes normal to inspection and Yes abdominal wall ecchymosis : COMMON NORMALS: Yes no CVA tenderness and Yes external appearance normal BLADDER/KIDNEY EXAM: Yes no CVA tenderness Back/Pelvis: COMMON NORMALS: no CVA tenderness Data : 09/01/19 05:41 09/01/19 05:41 A&P Additional A&P Information 1. ESRD - Dialysis planned for today 3K, UF 2-3L - doses meds for eGFR < 15ml/min 2. Lytes with minor aberrance; non critical 3. Chest pain - Dr Quezada's input is appreciated - Eliquis and Metoprolol on board - pending the results of stress test - Analgesia - COVID R/o 4. Hemodynamics - remain stable 5. Renal masses - US noted - will need Urology eval but this can be deferred to outpatient setting 5. 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 Zane Helton MD [facility], Tele[facility] [phone] Attestations Medical Necessity Statement*: Eval for ESRD mgmt Coding Level of Care Code Acute Corporate Legal Intern for Michelle Borrero
[2019-09-01 11:51] LABS: Glucose Point of Care 219 mg/dL (70-110)
--- NOTE | 2019-09-01 14:17 | P.PN_ITS ---
Subjective Subjective: Interval history: Patient is admitted to hospital with the complaints of chest pain pain features of congestive heart failure. She had an elevated troponin T with no significant delta. She is on hemodialysis for end- stage renal disease. She has a history of recurrent heart failure. She had a myocardial perfusion imaging today. Was found to have areas of fixed and rev ersible defects. Patient denies any chest pain today. Apparently she has been having episodes of chest pain during the hospital stay. She also was found to have episodes of supraventricular tachycardia possibly atrial tachycardia/short runs of A. fib. Hemodynamically she seems to be stable. She is on hemodialysis and underwent dialysis today. No other specific complaints. Medications: Reviewed: Yes Medication Review Details: Current Medications Acetaminophen (Tylenol) 650 mg PO Q6H PRN PRN Reason: Mild/Mod Pain Or Temp >/= 101 Last Admin: 09/01/19 00:40 Dose: 650 mg Documented by: Albuterol/Ipratropium (Combivent Respimat) 1 puff INHALATION QID.RESPIRATORY [facility] Last Admin: 09/01/19 11:34 Dose: 1 puff Documented by: Aminophylline (Aminophylline) 25 mg IVP Q2M PRN PRN Reason: see dose instructions Stop: 09/02/19 07:12 Apixaban (Eliquis) 2.5 mg PO BID [facility] Last Admin: 09/01/19 10:06 Dose: 2.5 mg Documented by: Aspirin (Aspirin Ec) 81 mg PO DAILY [facility] Last Admin: 09/01/19 10:05 Dose: 81 mg Documented by: Atorvastatin Calcium (Lipitor) 20 mg PO DAILY [facility] Last Admin: 09/01/19 10:06 Dose: 20 mg Documented by: Citalopram Hydrobromide (Celexa) 20 mg PO DAILY [facility] Last Admin: 09/01/19 10:06 Dose: 20 mg Documented by: Cyanocobalamin (Vitamin B-12) 1,000 mcg PO DAILY [facility] Last Admin: 09/01/19 10:05 Dose: 1,000 mcg Documented by: Dextrose (D50w) 25 ml IVP ONCE PRN; Protocol PRN Reason: hypoglycemia protocol Dextrose (D50w) 50 ml IVP PRN PRN; Protocol PRN Reason: hypoglycemia protocol Gabapentin (Neurontin) 200 mg PO BEDTIME [facility] Last Admin: 08/31/19 20:49 Dose: 200 mg Documented by: Glucagon (Glucagen) 1 mg IM ONCE PRN; Protocol PRN Reason: Adult Acute Hypoglycemia Prot. Dextrose (D5w) 500 mls @ 100 mls/hr IV ONCE PRN; Protocol PRN Reason: Adult Acute Hypoglycemia Prot Insulin Aspart (Novolog) 0 unit SUBCUT TIDWM [facility]; Protocol Last Admin: 09/01/19 12:17 Dose: 6 unit Documented by: Insulin Aspart (Novolog) 0 unit SUBCUT BEDTIME [facility]; Protocol Last Admin: 08/31/19 22:03 Dose: 3 unit Documented by: Insulin Glargine (Lantus) 20 unit SUBCUT DAILY [facility] Last Admin: 08/31/19 20:50 Dose: 20 unit Documented by: Insulin Glargine (Lantus) 20 unit SUBCUT BEDTIME [facility] Last Admin: 08/31/19 21:36 Dose: 20 unit Documented by: Levothyroxine Sodium (Synthroid) 50 mcg PO DAILY [facility] Last Admin: 09/01/19 10:06 Dose: 50 mcg Documented by: Metoprolol Tartrate (Lopressor) 50 mg PO BID [facility] Last Admin: 09/01/19 10:06 Dose: 50 mg Documented by: Montelukast Sodium (Singulair) 10 mg PO DAILY [facility] Last Admin: 09/01/19 10:05 Dose: 10 mg Documented by: Nitroglycerin (Nitrostat) 0.4 mg SUBLINGUAL Q5M PRN PRN Reason: CHEST PAIN Stop: 09/02/19 07:12 Ondansetron HCl (Zofran) 4 mg IVP Q6H PRN PRN Reason: vomiting, or N/V if npo Last Admin: 08/29/19 00:18 Dose: 4 mg Documented by: Ondansetron HCl (Zofran) 4 mg IVP Q2M PRN PRN Reason: NAUSEA Pantoprazole Sodium (Protonix) 40 mg PO DAILY [facility] Last Admin: 09/01/19 10:06 Dose: 40 mg Documented by: Fluticasone/Salmeterol (Advair Diskus 500-50) 1 puff INHALATION BID.RESPIRATORY [facility] Last Admin: 09/01/19 08:29 Dose: Not Given Documented by: Vitals/I&O/Wt Last Vital Signs Temp 98.7 F 09/01/19 11:15 Pulse 65 04/20/20 11:38 Resp 16 09/01/19 11:34 BP 116/74 09/01/19 11:15 Pulse Ox 97 09/01/19 11:34 08/31/19 09/01/19 09/01/19 22:59 06:59 14:59 Intake Total 540 / 1140 110 / 1250 240 / 240 Balance 540 / 1140 110 / 1250 240 / 240 Physical Exam Narrative: EXAM NARRATIVE: GENERAL: The patient is alert and oriented times three. Morbidly obese. Not in acute distress. HEENT: No significant pallor, icterus or lymphadenopathy. The pupils are reactant to light. Oral cavity: There are no mucous membrane lesions. NECK: Trachea appears to be central. No masses noted. No JVD or thyromegaly appreciated. Carotid bruit on the right side. RESPIRATORY: Chest is symmetrical. No intercostals muscle retraction or any accessory muscle activation. There is no chest wall tenderness. Breath sounds are heard bilaterally. No rales or rhonchi heard. No evidence of any consolidation. BREASTS: Deferred. HEART: The PMI is in the 5th left intercostals space just in the midclavicular line. No palpable precordial events. S1 and S2 are normal. No S3 or S4 heard. No pericardial rub or any click heard. ABDOMEN: No vessel pulsations or distention. No tenderness. No organomegaly appreciated. No abdominal bruit. Bowel sounds are normally heard. : Deferred. RECTAL: Deferred. LYMPHATIC: No lymphadenopathy noted in the neck . EXTREMITIES: Patient has features of chronic edema of the lower extremities. MUSCULOSKELETAL: No acute joint deformities or swelling NEUROPSYCHIATRIC: The patient is alert and oriented x3. Appears to be in a good mood. The higher functions are grossly within normal limits. No tremors or rigidity noted. Data : 09/02/19 06:37 09/02/19 05:30 Other Labs: Abnormal lab results 09/01/19 09/01/19 Range/Units 05:41 05:41 RBC 2.76 L (4.1-5.3) 10^6/uL Hgb 9.2 L (11.5-15.3) g/dL Hct 29.4 L (37.0-47.0) % MCV 106.5 H (81-99) fL RDW 16.7 H (12.1-15.1) % MPV 10.5 H (7.4-10.4) fL Sodium 132 L (136-145) mmol/L Chloride 87 L (98-107) mmol/L Carbon Dioxide 21 L (22-29) mmol/L Anion Gap 28.9 H (5-19) BUN 55 H (8-23) mg/dL Creatinine 11.6 H* (0.5-0.9) mg/dL GFR Calculation 3.3 L (90-130) mL/min Calculated Osmolality 273 L (285-295) mOsm/kg Phosphorus 8.1 H* (2.5-4.5) mg/dL AST 80 H (0-32) U/L ALT 140 H (0-33) U/L Alkaline Phosphatase 160 H (35-105) IU/L A&P Assessment and plan (1) Chest pain: The etiology of the chest pain is not clear at this time. Possibility of coronary ischemia causing this is a consideration. Her symptoms are somewhat atypical. Currently she is stable. The EKG does not show any acute ischemic changes. The myocardial perfusion imaging may suggest underlying coronary artery disease. For further evaluation of the coronary status, patient requires a cardiac catheterization. Patient is currently undecided. Since she is on long-term oral anticoagulation, that needs to be held for at least 48 hours before we can go ahead with the procedure. Patient also is wanting to talk with her son about this. Status: Acute Qualifiers: Chest pain type: unspecified Qualified Code(s): R07.9 - Chest pain, unspecified (2) Acute diastolic heart failure: Currently the heart failure is compensated. This could be multifactorial. Uncontrolled blood pressure, chronic kidney disease, anemia, arrhythmia, etc. are contributing factors. Status: Acute (3) Wide-complex tachycardia: Patient has the baseline right bundle branch block. The wide-complex tachycardia could be related to supraventricular arrhythmia. However currently the patient is stable with no recurrence of the arrhythmia. May continue on the current medications. May continue on the metoprolol. Status: Acute (4) Hyperlipemia: Continue on the current management. Follow-up evaluation as scheduled. Status: Acute Qualifiers: Hyperlipidemia type: mixed hyperlipidemia Qualified Code(s): E78.2 - Mixed hyperlipidemia (5) Atrial fibrillation: Patient is currently in a regular rhythm. She is on long-term oral anticoagulation by Eliquis. It was decided to hold off on this for the time being. We may need to bridge her with IV heparin. Status: Acute Qualifiers: Atrial fibrillation type: paroxysmal Qualified Code(s): I48.0 - Paroxysmal atrial fibrillation (6) End stage renal disease: Patient is on hemodialysis. She is getting 3 times a week. This may be continued. In case if we are going to go ahead with the angiogram, this need to be coordinated with the dialysis schedule. I will be discussing this with the school adjustment counselor as well. Status: Acute Additional A&P Information For further evaluation of her symptoms, she may benefit from a cardiac catheterization.. The patient is currently undecided. The risk and benefits were discussed. I will try to discuss this with her son also. We may make a final decision afterwards. In the meanwhile, it may be appropriate to hold off on the oral anticoagulation. She may be started on bridging anticoagulation this evening. Based on the clinical progress, further recommendations will be made Attestations Medical Necessity Statement*: Patient requires continued hospital stay for close monitoring and further management Coding Level of Care Code Acute Cooler Deliverer for [facility] Fwd Diagnoses Chest pain R07.9 Chest pain type: unspecified Acute diastolic heart failure I50.31 Wide-complex tachycardia I47.2 Hyperlipemia E78.2 Hyperlipidemia type: mixed hyperlipidemia Atrial fibrillation I48.0 Atrial fibrillation type: paroxysmal End stage renal disease N18.6 Time Spent (min) 40
--- NOTE | 2019-09-01 16:52 | NMCV_ITS ---
NM david perf SPECT r/s* [id number] Oscar Pack Age: 64 Gender: F : 1955 Exam Date: 09/01/2019 07:35 Ordering Phys: Cheng Mann MD Technologist: DENITA Haile Exam Location: [facility] Indications: CHEST PAIN STRESS TEST Please see separate stress test report in [facility] for full findings IMAGE PROTOCOL Rest/Stress 1 Lexiscan Day Radiopharmaceutical Dose (mCi) Administration Site Administered by Rest: Tc-99m 11.0 IV DENITA Gan Sestamibi Stress:Tc-99m 33.0 IV DENITA Gan Sestamibi Rest: 01-Sep-2019 60 Discovery 630 Stress: 01-Sep-2019 30 Discovery 630 0.4mg Lexiscan. Supine position only as patient was unable to lay prone. SPECT RESULTS Technical Quality: Excellent Raw Data Analysis: Normal Image Corrections: No attenuation or motion correction applied Summed Stress Score: 16 Summed Rest Score: 7 Summed Difference Score: 9 PERFUSION FINDINGS A moderate to large area of severely decreases uptake in the mid and apical anterior, anterolateral knee, apical inferior and LV apex. Significant reversibility was noted in the anterior and anterolateral regions. Minimal reversibility was noted in the inferior and apical regions. Small areas of decreased tracer uptake were noted in the mid inferior, basal and mid inferolateral and apical lateral regions with some patchy areas of reversibility. FUNCTIONAL RESULTS (calculated via Gated SPECT) Stress Image LV EF (%): 66 Stress EDV (mL):116 TID: 1.04 Stress ESV (mL):40 FUNCTIONAL FINDINGS: Segmental wall motion analysis revealed mild diffuse hypokinesia of the septum. IMPRESSIONS 1. Myocardial perfusion imaging revealing areas of persistent decreases uptake in the anterior, anterolateral, inferolateral, inferior and apical regions with some reversibility, suggestive of myocardial scarring with ischemia- mostly in the distribution of the left anterior descending artery with some in the distribution of the circumflex and right coronary artery. 2. Normal LV ejection fraction 66%. 3. LV wall motion analysis revealing mild hypokinesia of the septum. 4. Normal LV volume. No similar studies are available for comparison Dr Jorge Luis Silvestre MD FAC (Electronically Signed) Final Date: 01 September 2019 12:41 S
[2019-09-01 17:37] LABS: Glucose Point of Care 90 mg/dL (70-110)
[2019-09-01 20:45] LABS: Glucose Point of Care 135 mg/dL (70-110)
[2019-09-01] MEDS: gabapentin 100 mg Capsule 200 MG PO (21:36)
[2019-09-01] MEDS: insulin glargine 100 units/1 mL 20 UNIT SUBCUT (21:38)
[2019-09-02] VITALS (14 sets, daily range): BP systolic 108–169; BP diastolic 55–76; PULSE 56–76; RESP 16–24; TEMP 36.6–37.1; O2SAT 93–97
[2019-09-02 06:08] LABS: Alanine Aminotransferase 127 U/L (0-33); Albumin Level 4.2 g/dL (3.5-5.2); Alkaline Phosphatase 188 IU/L (35-105); Anion Gap 22.7 (5-19); Blood Urea Nitrogen 35 mg/dL (8-23); Calcium 9.1 mg/dL (8.5-10.5); Carbon Dioxide 26 mmol/L (22-29); Chloride 92 mmol/L (98-107); Globulin 2.6 g/dL (1.3-4.6); Glomerular Filtration Rate 5.1 mL/min (90-130); Glucose 101 mg/dL (65-115); Osmolality Calculated 280 mOsm/kg (285-295); Potassium 4.7 mmol/L (3.5-5.1); Sodium 136 mmol/L (136-145); Total Bilirubin 0.5 mg/dL (0.15-1.2); Total Protein 6.8 g/dL (6.6-8.7)
[2019-09-02 06:13] LABS: Aspartate Amino Transferase 68 U/L (0-32)
[2019-09-02 06:22] LABS: Glucose Point of Care 218 mg/dL (70-110)
[2019-09-02 07:12] LABS: Basophils % 0.6 %; Eosinophils # 0.4 10^3/uL (0.0-0.8); Eosinophils % 5.8 %; Hematocrit 31.2 % (37.0-47.0); Hemoglobin 9.7 g/dL (11.5-15.3); Lymphocytes # 1.2 10^3/uL (0.8-4.8); Mean Corpuscular HGB Conc 31.1 g/dL (30.0-36.0); Mean Corpuscular Hemoglobin 33.2 pg (28.0-34.0); Mean Corpuscular Volume 106.8 fL (81-99); Mean Platelet Volume 10.5 fL (7.4-10.4); Monocytes # 0.7 10^3/uL (0.2-0.9); Monocytes % 10.8 %; Neutrophils # 4.4 10^3/uL (1.8-7.7); Neutrophils % 65.2 %; Nucleated Red Blood Cells % 0 %; Platelet Count 265 10^3/cmm (130-400); Red Blood Count 2.92 10^6/uL (4.1-5.3); Red Cell Distribution Width 16.6 % (12.1-15.1); White Blood Count 6.8 10^3/uL (4.0-10.0)
[2019-09-02] MEDS: metoprolol tartrate 50 mg Tablet PO ×2 (08:24→18:19)
[2019-09-02] MEDS: montelukast sodium 10 mg Tablet PO (08:24)
[2019-09-02] MEDS: cyanocobalamin 1,000 mcg Tablet 1000 MCG PO (08:24)
[2019-09-02] MEDS: levothyroxine 50 mcg Tablet PO (08:25)
[2019-09-02] MEDS: aspirin 81 mg EC Tablet PO (08:25)
[2019-09-02] MEDS: insulin glargine 100 units/1 mL 20 UNIT SUBCUT ×2 (08:26→20:43)
[2019-09-02] MEDS: atorvastatin 40 mg Tablet 20 MG PO (08:26)
[2019-09-02] MEDS: citalopram 20 mg Tablet PO (08:26)
[2019-09-02] MEDS: pantoprazole DR 40 mg Tablet PO (08:26)
[2019-09-02] MEDS: heparin drip 25,000 UNIT/500 ML PREMIX 34 UNIT IV (09:05)
[2019-09-02] MEDS: acetaminophen 325 mg Tablet 650 MG PO ×2 (09:10→20:42)
--- NOTE | 2019-09-02 09:13 | PM.PN ---
Subjective Subjective: Interval history: Patient is feeling better. She has no chest pain or palpitations. The telemetry shows sinus rhythm mostly. She had some few runs of supraventricular tachycardia most likely PAT. No other specific complaints. Medications: Reviewed: Yes Medication Review Details: Current Medications Acetaminophen (Tylenol) 650 mg PO Q6H PRN PRN Reason: Mild/Mod Pain Or Temp >/= 101 Last Admin: 09/02/19 09:10 Dose: 650 mg Documented by: Albuterol/Ipratropium (Combivent Respimat) 1 puff INHALATION QID.RESPIRATORY [facility] Last Admin: 09/02/19 07:30 Dose: 1 puff Documented by: Apixaban (Eliquis) 2.5 mg PO BID [facility] Last Admin: 09/01/19 17:12 Dose: Not Given Documented by: Aspirin (Aspirin Ec) 81 mg PO DAILY [facility] Last Admin: 09/02/19 08:25 Dose: 81 mg Documented by: Atorvastatin Calcium (Lipitor) 20 mg PO DAILY [facility] Last Admin: 09/02/19 08:26 Dose: 20 mg Documented by: Citalopram Hydrobromide (Celexa) 20 mg PO DAILY [facility] Last Admin: 09/02/19 08:26 Dose: 20 mg Documented by: Cyanocobalamin (Vitamin B-12) 1,000 mcg PO DAILY [facility] Last Admin: 09/02/19 08:24 Dose: 1,000 mcg Documented by: Dextrose (D50w) 25 ml IVP ONCE PRN; Protocol PRN Reason: hypoglycemia protocol Dextrose (D50w) 50 ml IVP PRN PRN; Protocol PRN Reason: hypoglycemia protocol Gabapentin (Neurontin) 200 mg PO BEDTIME [facility] Last Admin: 09/01/19 21:36 Dose: 200 mg Documented by: Glucagon (Glucagen) 1 mg IM ONCE PRN; Protocol PRN Reason: Adult Acute Hypoglycemia Prot. Dextrose (D5w) 500 mls @ 100 mls/hr IV ONCE PRN; Protocol PRN Reason: Adult Acute Hypoglycemia Prot Heparin Sodium/Sodium Chloride (Heparin Drip) 25,000 unit in 500 mls @ 0 mls/hr IV .Q0M [facility]; Protocol Last Admin: 09/02/19 09:05 Dose: 14.39 unit/kg/hr, 34 mls/hr Documented by: Insulin Aspart (Novolog) 0 unit SUBCUT TIDWM [facility]; Protocol Last Admin: 09/02/19 07:14 Dose: 6 unit Documented by: Insulin Aspart (Novolog) 0 unit SUBCUT BEDTIME [facility]; Protocol Last Admin: 09/01/19 20:57 Dose: Not Given Documented by: Insulin Glargine (Lantus) 20 unit SUBCUT DAILY [facility] Last Admin: 09/02/19 08:26 Dose: 20 unit Documented by: Insulin Glargine (Lantus) 20 unit SUBCUT BEDTIME [facility] Last Admin: 09/01/19 21:38 Dose: 20 unit Documented by: Levothyroxine Sodium (Synthroid) 50 mcg PO DAILY [facility] Last Admin: 09/02/19 08:25 Dose: 50 mcg Documented by: Metoprolol Tartrate (Lopressor) 50 mg PO BID [facility] Last Admin: 09/02/19 08:24 Dose: 50 mg Documented by: Montelukast Sodium (Singulair) 10 mg PO DAILY [facility] Last Admin: 09/02/19 08:24 Dose: 10 mg Documented by: Ondansetron HCl (Zofran) 4 mg IVP Q6H PRN PRN Reason: vomiting, or N/V if npo Last Admin: 08/29/19 00:18 Dose: 4 mg Documented by: Ondansetron HCl (Zofran) 4 mg IVP Q2M PRN PRN Reason: NAUSEA Pantoprazole Sodium (Protonix) 40 mg PO DAILY [facility] Last Admin: 09/02/19 08:26 Dose: 40 mg Documented by: Fluticasone/Salmeterol (Advair Diskus 500-50) 1 puff INHALATION BID.RESPIRATORY [facility] Last Admin: 09/02/19 07:30 Dose: 1 puff Documented by: Vitals/I&O/Wt Last Vital Signs Temp 98.0 F 09/02/19 07:35 Pulse 63 09/02/19 07:35 Resp 18 09/02/19 07:35 BP 118/60 09/02/19 07:35 Pulse Ox 96 09/02/19 07:35 09/01/19 09/02/19 09/02/19 22:59 06:59 14:59 Intake Total 120 / 360 60 / 420 Balance 120 / 360 60 / 420 Physical Exam Narrative: EXAM NARRATIVE: GENERAL: The patient is alert and oriented times three. Morbidly obese. Not in acute distress. HEENT: Minimal pallor, icterus or lymphadenopathy. The pupils are reactant to light. Oral cavity: There are no mucous membrane lesions. NECK: Trachea appears to be central. No masses noted. No JVD or thyromegaly appreciated. Carotid bruit on the right side. RESPIRATORY: Chest is symmetrical. No intercostals muscle retraction or any accessory muscle activation. There is no chest wall tenderness. Breath sounds are heard bilaterally. No rales or rhonchi heard. No evidence of any consolidation. BREASTS: Deferred. HEART: The PMI is in the 5th left intercostals space just in the midclavicular line. No palpable precordial events. S1 and S2 are normal. No S3 or S4 heard. No pericardial rub or any click heard. ABDOMEN: No vessel pulsations or distention. No tenderness. No organomegaly appreciated. No abdominal bruit. Bowel sounds are normally heard. : Deferred. RECTAL: Deferred. LYMPHATIC: No lymphadenopathy noted in the neck . EXTREMITIES: Currently has no significant edema. No cyanosis. Peripheral pulses are extremely weak. MUSCULOSKELETAL: No acute joint deformities or swelling NEUROPSYCHIATRIC: The patient is alert and oriented x3. Appears to be in a good mood. The higher functions are grossly within normal limits. No tremors or rigidity noted. Data : 09/03/19 06:00 09/03/19 06:00 A&P Assessment and plan (1) Chest pain: In view of the patient's ongoing episodes of chest pain and the abnormal myocardial perfusion imaging, in order to further evaluate her coronary status, a cardiac catheterization would be appropriate. This was discussed with the patient and her son in detail which he understood well and consented to proceed. Since the patient is on Eliquis, it was held last night. We may go ahead and schedule for the procedure for morning. Based on the results, further recommendations will be made. Status: Acute Qualifiers: Chest pain type: unspecified Qualified Code(s): R07.9 - Chest pain, unspecified (2) Acute diastolic heart failure: Currently the heart failure is compensated. This could be multifactorial. Uncontrolled blood pressure, chronic kidney disease, anemia, arrhythmia, etc. are contributing factors. May continue on the current medications. Status: Acute (3) Wide-complex tachycardia: Patient has the baseline right bundle branch block. The wide-complex tachycardia could be related to supraventricular arrhythmia. However currently the patient is stable with no recurrence of the arrhythmia. May continue on the current medications. May continue on the metoprolol. Since she has not had a significant difficulties, I may hold off on any medication changes at this time. Status: Acute (4) Hyperlipemia: Continue on the current management. Follow-up evaluation as scheduled. Patient has elevated liver enzymes. Etiology is not clear. It seems to be not getting any worse. Will discuss with the primary about further management options. Status: Acute Qualifiers: Hyperlipidemia type: mixed hyperlipidemia Qualified Code(s): E78.2 - Mixed hyperlipidemia (5) Atrial fibrillation: Patient is currently in a regular rhythm. She is on long-term oral anticoagulation by Eliquis. It was decided to hold off on this for the time being. We may need to bridge her with IV heparin. Status: Acute Qualifiers: Atrial fibrillation type: paroxysmal Qualified Code(s): I48.0 - Paroxysmal atrial fibrillation (6) End stage renal disease: Patient is on hemodialysis. She is getting 3 times a week. This may be continued. In case if we are going to go ahead with the angiogram, this need to be coordinated with the dialysis schedule. I will be discussing this with the hr payroll coordinator as well. Status: Acute Additional A&P Information Her other problems are Elevated liver enzymes Anemia-possibly related to chronic illness. Seems to be stable. COPD-on bronchodilators, seems stable Obstructive sleep apnea-on CPAP, may be continued. Morbid obesity Possible peripheral arterial disease-we will go ahead and do an MONA today to further evaluate Based on the patient clinical progress and this was able, further management decisions will be made. Attestations Medical Necessity Statement*: Patient requires continued hospital stay for close monitoring and further management Coding Level of Care Code Acute Receiving Distribution Station Operator for [facility] Fwd Diagnoses Chest pain R07.9 Chest pain type: unspecified Acute diastolic heart failure I50.31 Wide-complex tachycardia I47.2 Hyperlipemia E78.2 Hyperlipidemia type: mixed hyperlipidemia Atrial fibrillation I48.0 Atrial fibrillation type: paroxysmal End stage renal disease N18.6
--- NOTE | 2019-09-02 09:24 | USCV_ITS ---
Oscar Pack Age: 64 Gender: F : 1955 Exam Date: 09/02/2019 14:06 Ordering Phys: Jorge Luis Silvestre MD ([email or web address]) Technologist: Roxanna Motta Exam Location: [facility] [place] Indication: RIGHT LEFT Pressure (mmHg) Waveform Pressure (mmHg) Waveform 138.00 MACHINE CLOTH TRIMMER 132.00 90.00 DPA 0.95 Ankle/Brachial Index 0.91 FINDINGS No flow detected in the left DPA LT MONA = N/A Normal resting MONA on the right side. Slightly diminished resting MONA on the left side. Normal Doppler flow signals are obtained in the left dorsalis pedis artery. 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 Possible mild peripheral artery disease on the left side, based on the MONA. No significant arterial obstruction on the right side Dr Jorge Luis Silvestre MD [facility] (Electronically Signed) Final Date: 03 September 2019 14:33 S
[2019-09-02 11:57] LABS: Glucose Point of Care 99 mg/dL (70-110)
--- NOTE | 2019-09-02 15:07 | PM.PN ---
Subjective Subjective: Interval history: Feels good at the time of exam. Some SVT last night. denies uremic Sx. No edema and no other volume assoc Sx. Dialysis went well yesterday with no hemodynamic issues. No chest pain. Medications: Reviewed: Yes Vitals/I&O/Wt Last Vital Signs Temp 97.9 F 09/02/19 11:20 Pulse 56 L 09/02/19 11:20 Resp 16 09/02/19 11:20 BP 108/69 09/02/19 11:20 Pulse Ox 96 09/02/19 11:20 09/02/19 09/02/19 09/02/19 06:59 14:59 22:59 Intake Total 60 / 420 360 / 360 Balance 60 / 420 360 / 360 Physical Exam Const: COMMON NORMALS: no apparent distress and average body habitus HENMT: COMMON NORMALS: normocephalic and head/scalp atraumatic HEAD & SCALP: normocephalic and atraumatic Neck/C-Spine: COMMON NORMALS: no JVD Chest: COMMONS NORMALS: inspection of chest normal and palpation of chest normal Resp: COMMON NORMALS: normal respiratory effort and no retractions Cardio: COMMON NORMALS: no JVD, regular rate and regular rhythm RATE: regular rate RHYTHM: regular rhythm GI: INSPECTION: Yes normal to inspection and Yes abdominal wall ecchymosis : COMMON NORMALS: Yes no CVA tenderness and Yes external appearance normal BLADDER/KIDNEY EXAM: Yes no CVA tenderness Back/Pelvis: COMMON NORMALS: no CVA tenderness Data : 09/02/19 06:37 09/02/19 05:30 Micro: Microbiology 08/28/19 13:44 Blood Culture - Final Blood NO GROWTH AFTER 5 DAYS 08/28/19 13:40 Blood Culture - Final Blood NO GROWTH AFTER 5 DAYS A&P Additional A&P Information 1. ESRD - Dialysis planned for tomorrow 3K, UF 2-3L - doses meds for eGFR < 15ml/min 2. Lytes with minor aberrance; non critical 3. Chest pain - Dr Quezada's input is appreciated - Eliquis and Metoprolol on board - For angio tomorrow/ - Analgesia - COVID R/o 4. Hemodynamics - remain stable 5. Renal masses - US noted - will need Urology eval but this can be deferred to outpatient setting 5. 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 Zane Helton MD [facility] Renal [facility] [place], [facility] [phone] Attestations Medical Necessity Statement*: Eval for ESRD Coding Level of Care Code Acute Court Assistant for [facility]
--- NOTE | 2019-09-02 15:10 | P.PN_ITS ---
Subjective Subjective: Interval history: No new complaints at this time. Heparin drip started this morning. Agreeable to proceed with cardiac catheterization. Overnight with intermittent tachyarrhythmias. No c/o chest pain. Reported dyspnea on showering today, resolved quickly with rest. on NC at 2lpm. Medications: Reviewed: Yes Medication Review Details: Current Medications Acetaminophen (Tylenol) 650 mg PO Q6H PRN PRN Reason: Mild/Mod Pain Or Temp >/= 101 Last Admin: 09/02/19 09:10 Dose: 650 mg Documented by: Albuterol/Ipratropium (Combivent Respimat) 1 puff INHALATION QID.RESPIRATORY [facility] Last Admin: 09/02/19 07:30 Dose: 1 puff Documented by: Apixaban (Eliquis) 2.5 mg PO BID [facility] Last Admin: 09/01/19 17:12 Dose: Not Given Documented by: Aspirin (Aspirin Ec) 81 mg PO DAILY [facility] Last Admin: 09/02/19 08:25 Dose: 81 mg Documented by: Atorvastatin Calcium (Lipitor) 20 mg PO DAILY [facility] Last Admin: 09/02/19 08:26 Dose: 20 mg Documented by: Citalopram Hydrobromide (Celexa) 20 mg PO DAILY [facility] Last Admin: 09/02/19 08:26 Dose: 20 mg Documented by: Cyanocobalamin (Vitamin B-12) 1,000 mcg PO DAILY [facility] Last Admin: 09/02/19 08:24 Dose: 1,000 mcg Documented by: Dextrose (D50w) 25 ml IVP ONCE PRN; Protocol PRN Reason: hypoglycemia protocol Dextrose (D50w) 50 ml IVP PRN PRN; Protocol PRN Reason: hypoglycemia protocol Gabapentin (Neurontin) 200 mg PO BEDTIME [facility] Last Admin: 09/01/19 21:36 Dose: 200 mg Documented by: Glucagon (Glucagen) 1 mg IM ONCE PRN; Protocol PRN Reason: Adult Acute Hypoglycemia Prot. Dextrose (D5w) 500 mls @ 100 mls/hr IV ONCE PRN; Protocol PRN Reason: Adult Acute Hypoglycemia Prot Heparin Sodium/Sodium Chloride (Heparin Drip) 25,000 unit in 500 mls @ 0 mls/hr IV .Q0M [facility]; Protocol Last Admin: 09/02/19 09:05 Dose: 14.39 unit/kg/hr, 34 mls/hr Documented by: Insulin Aspart (Novolog) 0 unit SUBCUT TIDWM [facility]; Protocol Last Admin: 09/02/19 07:14 Dose: 6 unit Documented by: Insulin Aspart (Novolog) 0 unit SUBCUT BEDTIME [facility]; Protocol Last Admin: 09/01/19 20:57 Dose: Not Given Documented by: Insulin Glargine (Lantus) 20 unit SUBCUT DAILY [facility] Last Admin: 09/02/19 08:26 Dose: 20 unit Documented by: Insulin Glargine (Lantus) 20 unit SUBCUT BEDTIME [facility] Last Admin: 09/01/19 21:38 Dose: 20 unit Documented by: Levothyroxine Sodium (Synthroid) 50 mcg PO DAILY [facility] Last Admin: 09/02/19 08:25 Dose: 50 mcg Documented by: Metoprolol Tartrate (Lopressor) 50 mg PO BID [facility] Last Admin: 09/02/19 08:24 Dose: 50 mg Documented by: Montelukast Sodium (Singulair) 10 mg PO DAILY [facility] Last Admin: 09/02/19 08:24 Dose: 10 mg Documented by: Ondansetron HCl (Zofran) 4 mg IVP Q6H PRN PRN Reason: vomiting, or N/V if npo Last Admin: 08/29/19 00:18 Dose: 4 mg Documented by: Ondansetron HCl (Zofran) 4 mg IVP Q2M PRN PRN Reason: NAUSEA Pantoprazole Sodium (Protonix) 40 mg PO DAILY [facility] Last Admin: 09/02/19 08:26 Dose: 40 mg Documented by: Fluticasone/Salmeterol (Advair Diskus 500-50) 1 puff INHALATION BID.RESPIRATORY [facility] Last Admin: 09/02/19 07:30 Dose: 1 puff Documented by: Vitals/I&O/Wt Last Vital Signs Temp 97.9 F 09/02/19 11:20 Pulse 56 L 09/02/19 11:20 Resp 16 09/02/19 11:20 BP 108/69 09/02/19 11:20 Pulse Ox 96 09/02/19 11:20 09/02/19 09/02/19 09/02/19 06:59 14:59 22:59 Intake Total 60 / 420 360 / 360 Balance 60 / 420 360 / 360 Physical Exam Narrative: EXAM NARRATIVE: GENERAL: awake, alert and oriented, sitting in bed inn no acute distress HEENT: Pupils equal round reactive to light. No pallor or icterus. CARDIOVASCULAR SYSTEM: S1-S2 regular. No S3 or S4 present. No murmur rubs or gallops. 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 Data : 09/02/19 06:37 09/02/19 05:30 Micro: Microbiology 08/28/19 13:44 Blood Culture - Final Blood NO GROWTH AFTER 5 DAYS 08/28/19 13:40 Blood Culture - Final Blood NO GROWTH AFTER 5 DAYS A&P Assessment and plan (1) Chest pain: CTA of chest demonstrated no pulmonary embolism. Echocardiogram demonstrated preserved EF, trivial pericardial effusion. Underwent nuclear stress test yeseterday which showed areas of persistent decreases uptake in the anterior, anterolateral, inferolateral, inferior and apical regions with some reversibility, suggestive of myocardial scarring with ischemia- mostly in the distribution of the left anterior descending artery with some in the distribution of the circumflex and right coronary artery. She is now planned for coronary angiogram given above findings. Last eliquis was on 08/31 morning. Awaiting 48 hrs off Eliquis prior to proceeding with angiogram. She is on bridging a/c with heparin drip in the interim. Status: Acute Qualifiers: Chest pain type: unspecified Qualified Code(s): R07.9 - Chest pain, unspecified (2) Cough: Covid 19 testing has been done, and negative. Status: Acute (3) Acute diastolic heart failure: Improved with hemodialysis Continue oxygen as needed. Her home requirement is 2 L.Currently at baseline Continue her home medications Status: Acute (4) End stage renal disease: Appreciate nephrology consultation. Continue MHD MWF Status: Acute (5) Atrial fibrillation: Had episode of atrial fibrillation with rapid ventricular rate, resolving quickly with conversion back to sinus rhythm. Eliquis initiated secondary to atrial fibrillation. Risks and benefits discussed Intermittent tachyarrhythmias noted Metoprolol currently at 50 mg twice daily Status: Acute Qualifiers: Atrial fibrillation type: paroxysmal Qualified Code(s): I48.0 - Paroxysmal atrial fibrillation Additional A&P Information Possible UTI, s/p 5 days of Ceftriaxone carotid artery disease, currently on a statin Hyperlipidemia Hypertension History of gout Obstructive sleep apnea. continue CPAP History of CVA, continue aspirin, statin Diabetes mellitus type 2. Sliding scale insulin Patient is a limited code. 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
[2019-09-02 16:52] LABS: Glucose Point of Care 139 mg/dL (70-110)
--- NOTE | 2019-09-02 17:42 | PC.NURSE ---
PTT still pending.Lab contacted. Heparin gtt continues at 34ml/hr.
[2019-09-02 18:08] LABS: Partial Thromboplastin Time 71.4 SECONDS (23.9-36.7)
--- NOTE | 2019-09-02 18:08 | PC.NURSE ---
Lab contacted to inquire on PTT results. Results are pending.
--- NOTE | 2019-09-02 18:13 | PC.NURSE ---
PTT resulted. No change in rate per protocol.
[2019-09-02] MEDS: gabapentin 100 mg Capsule 200 MG PO (20:38)
[2019-09-02 20:47] LABS: Glucose Point of Care 108 mg/dL (70-110)
[2019-09-03] VITALS (13 sets, daily range): BP systolic 109–167; BP diastolic 66–82; PULSE 57–80; RESP 16–20; TEMP 36.4–37.1; O2SAT 90–100
[2019-09-03 00:45] LABS: Partial Thromboplastin Time 72.2 SECONDS (23.9-36.7)
--- NOTE | 2019-09-03 00:57 | PC.NURSE ---
PTT 72.2. NO CHANGE IN RATE PER HEPARIN PROTOCOL. NEXT PTT DUE IN 6 HOURS. WILL CONTINUE TO MONITOR.
[2019-09-03] MEDS: heparin drip 25,000 UNIT/500 ML PREMIX 34 UNIT IV (01:40)
[2019-09-03 06:05] LABS: Glucose Point of Care 105 mg/dL (70-110)
[2019-09-03 06:10] LABS: Basophils % 0.6 %; Eosinophils # 0.4 10^3/uL (0.0-0.8); Eosinophils % 6.1 %; Hemoglobin 9.3 g/dL (11.5-15.3); Lymphocytes # 1.8 10^3/uL (0.8-4.8); Lymphocytes % 26.1 %; Mean Corpuscular Hemoglobin 33.1 pg (28.0-34.0); Mean Corpuscular Volume 106.8 fL (81-99); Mean Platelet Volume 10.3 fL (7.4-10.4); Monocytes # 0.6 10^3/uL (0.2-0.9); Monocytes % 8.9 %; Neutrophils % 57.7 %; Nucleated Red Blood Cells % 0 %; Platelet Count 286 10^3/cmm (130-400); Red Blood Count 2.81 10^6/uL (4.1-5.3); Red Cell Distribution Width 16.3 % (12.1-15.1); White Blood Count 6.9 10^3/uL (4.0-10.0)
[2019-09-03 06:27] LABS: Alanine Aminotransferase 95 U/L (0-33); Albumin Level 4.1 g/dL (3.5-5.2); Alkaline Phosphatase 170 IU/L (35-105); Anion Gap 24.4 (5-19); Aspartate Amino Transferase 38 U/L (0-32); Blood Urea Nitrogen 48 mg/dL (8-23); Calcium 9.1 mg/dL (8.5-10.5); Carbon Dioxide 24 mmol/L (22-29); Chloride 86 mmol/L (98-107); Globulin 3.4 g/dL (1.3-4.6); Glomerular Filtration Rate 4.3 mL/min (90-130); Glucose 107 mg/dL (65-115); Osmolality Calculated 269 mOsm/kg (285-295); Partial Thromboplastin Time 73.4 SECONDS (23.9-36.7); Potassium 4.4 mmol/L (3.5-5.1); Sodium 130 mmol/L (136-145); Total Bilirubin 0.3 mg/dL (0.15-1.2); Total Protein 7.5 g/dL (6.6-8.7)
--- NOTE | 2019-09-03 06:46 | PC.NURSE ---
PTT 73.4. NO CHANGE IN RATE PER HEPARIN PROTOCOL. NEXT PTT DUE IN 6 HOURS. WILL CONTINUE TO MONITOR.
[2019-09-03] MEDS: metoprolol tartrate 50 mg Tablet PO ×2 (08:26→18:26)
[2019-09-03] MEDS: cyanocobalamin 1,000 mcg Tablet 1000 MCG PO (08:26)
[2019-09-03] MEDS: aspirin 81 mg EC Tablet PO (08:26)
[2019-09-03] MEDS: montelukast sodium 10 mg Tablet PO (08:26)
[2019-09-03] MEDS: levothyroxine 50 mcg Tablet PO (08:26)
[2019-09-03] MEDS: citalopram 20 mg Tablet PO (08:26)
[2019-09-03] MEDS: pantoprazole DR 40 mg Tablet PO (08:26)
[2019-09-03] MEDS: insulin glargine 100 units/1 mL 20 UNIT SUBCUT ×2 (08:27→20:40)
--- NOTE | 2019-09-03 10:44 | PC.RESP ---
Pulmonary Rehab information sent to patient for out patient services.
[2019-09-03 11:18] LABS: Glucose Point of Care 136 mg/dL (70-110)
--- NOTE | 2019-09-03 14:41 | PM.PN ---
Subjective Subjective: Interval history: No new complaints at this time. Planned for coronary angiogram later this evening Medications: Reviewed: Yes Medication Review Details: Current Medications Acetaminophen (Tylenol) 650 mg PO Q6H PRN PRN Reason: Mild/Mod Pain Or Temp >/= 101 Last Admin: 09/02/19 09:10 Dose: 650 mg Documented by: Albuterol/Ipratropium (Combivent Respimat) 1 puff INHALATION QID.RESPIRATORY [facility] Last Admin: 09/02/19 07:30 Dose: 1 puff Documented by: Apixaban (Eliquis) 2.5 mg PO BID [facility] Last Admin: 09/01/19 17:12 Dose: Not Given Documented by: Aspirin (Aspirin Ec) 81 mg PO DAILY [facility] Last Admin: 09/02/19 08:25 Dose: 81 mg Documented by: Atorvastatin Calcium (Lipitor) 20 mg PO DAILY [facility] Last Admin: 09/02/19 08:26 Dose: 20 mg Documented by: Citalopram Hydrobromide (Celexa) 20 mg PO DAILY [facility] Last Admin: 09/02/19 08:26 Dose: 20 mg Documented by: Cyanocobalamin (Vitamin B-12) 1,000 mcg PO DAILY [facility] Last Admin: 09/02/19 08:24 Dose: 1,000 mcg Documented by: Dextrose (D50w) 25 ml IVP ONCE PRN; Protocol PRN Reason: hypoglycemia protocol Dextrose (D50w) 50 ml IVP PRN PRN; Protocol PRN Reason: hypoglycemia protocol Gabapentin (Neurontin) 200 mg PO BEDTIME [facility] Last Admin: 09/01/19 21:36 Dose: 200 mg Documented by: Glucagon (Glucagen) 1 mg IM ONCE PRN; Protocol PRN Reason: Adult Acute Hypoglycemia Prot. Dextrose (D5w) 500 mls @ 100 mls/hr IV ONCE PRN; Protocol PRN Reason: Adult Acute Hypoglycemia Prot Heparin Sodium/Sodium Chloride (Heparin Drip) 25,000 unit in 500 mls @ 0 mls/hr IV .Q0M [facility]; Protocol Last Admin: 09/02/19 09:05 Dose: 14.39 unit/kg/hr, 34 mls/hr Documented by: Insulin Aspart (Novolog) 0 unit SUBCUT TIDWM [facility]; Protocol Last Admin: 09/02/19 07:14 Dose: 6 unit Documented by: Insulin Aspart (Novolog) 0 unit SUBCUT BEDTIME [facility]; Protocol Last Admin: 09/01/19 20:57 Dose: Not Given Documented by: Insulin Glargine (Lantus) 20 unit SUBCUT DAILY [facility] Last Admin: 09/02/19 08:26 Dose: 20 unit Documented by: Insulin Glargine (Lantus) 20 unit SUBCUT BEDTIME [facility] Last Admin: 09/01/19 21:38 Dose: 20 unit Documented by: Levothyroxine Sodium (Synthroid) 50 mcg PO DAILY [facility] Last Admin: 09/02/19 08:25 Dose: 50 mcg Documented by: Metoprolol Tartrate (Lopressor) 50 mg PO BID [facility] Last Admin: 09/02/19 08:24 Dose: 50 mg Documented by: Montelukast Sodium (Singulair) 10 mg PO DAILY [facility] Last Admin: 09/02/19 08:24 Dose: 10 mg Documented by: Ondansetron HCl (Zofran) 4 mg IVP Q6H PRN PRN Reason: vomiting, or N/V if npo Last Admin: 08/29/19 00:18 Dose: 4 mg Documented by: Ondansetron HCl (Zofran) 4 mg IVP Q2M PRN PRN Reason: NAUSEA Pantoprazole Sodium (Protonix) 40 mg PO DAILY [facility] Last Admin: 09/02/19 08:26 Dose: 40 mg Documented by: Fluticasone/Salmeterol (Advair Diskus 500-50) 1 puff INHALATION BID.RESPIRATORY [facility] Last Admin: 09/02/19 07:30 Dose: 1 puff Documented by: Vitals/I&O/Wt Last Vital Signs Temp 97.5 F L 09/03/19 11:02 Pulse 80 09/03/19 11:34 Resp 20 H 09/03/19 11:32 BP 137/82 09/03/19 11:02 Pulse Ox 90 09/03/19 11:32 09/02/19 09/03/19 09/03/19 22:59 06:59 14:59 Intake Total 360 / 720 500 / 1220 240 / 240 Output Total 30 / 30 Balance 360 / 720 470 / 1190 240 / 240 Physical Exam Narrative: EXAM NARRATIVE: GENERAL: awake, alert and oriented, sitting in bed inn no acute distress HEENT: Pupils equal round reactive to light. No pallor or icterus. CARDIOVASCULAR SYSTEM: S1-S2 regular. No S3 or S4 present. No murmur rubs or gallops. RESPIRATORY SYSTEM: Chest clear to auscultation bilaterally [employer] OFFICER: No focal neurological deficits. Data : 09/03/19 06:00 09/03/19 06:00 Micro: Microbiology 08/28/19 13:44 Blood Culture - Final Blood NO GROWTH AFTER 5 DAYS 08/28/19 13:40 Blood Culture - Final Blood NO GROWTH AFTER 5 DAYS A&P Assessment and plan (1) Chest pain: CTA of chest demonstrated no pulmonary embolism. Echocardiogram demonstrated preserved EF, trivial pericardial effusion. Underwent nuclear stress test which showed areas of persistent decreases uptake in the anterior, anterolateral, inferolateral, inferior and apical regions with some reversibility, suggestive of myocardial scarring with ischemia- mostly in the distribution of the left anterior descending artery with some in the distribution of the circumflex and right coronary artery. She is now planned for coronary angiogram this evening after HD Last eliquis was on 08/31 morning. Awaiting 48 hrs off Eliquis prior to proceeding with angiogram. She is on bridging a/c with heparin drip in the interim. Status: Acute Qualifiers: Chest pain type: unspecified Qualified Code(s): R07.9 - Chest pain, unspecified (2) Cough: Covid 19 testing has been done, and negative. Status: Acute (3) Acute diastolic heart failure: Improved with hemodialysis Continue oxygen as needed. Her home requirement is 2 L.Currently at baseline Continue her home medications Status: Acute (4) End stage renal disease: Appreciate nephrology consultation. Continue [facility] MWF Status: Acute (5) Atrial fibrillation: Had episode of atrial fibrillation with rapid ventricular rate, resolving quickly with conversion back to sinus rhythm. on bridging a/c at this time. Metoprolol currently at 50 mg twice daily Status: Acute Qualifiers: Atrial fibrillation type: paroxysmal Qualified Code(s): I48.0 - Paroxysmal atrial fibrillation Additional A&P Information Possible UTI, s/p 5 days of Ceftriaxone carotid artery disease, currently on a statin Hyperlipidemia Hypertension History of gout Obstructive sleep apnea. continue CPAP History of CVA, continue aspirin, statin Diabetes mellitus type 2. Sliding scale insulin Patient is a limited code. 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
--- NOTE | 2019-09-03 14:44 | PM.PN ---
Subjective Subjective: Interval history: No new issues. Seen and examined on dialysis, tolerating therapy well. Bp/p at goal during treatment. No edema and no other vol assoc Sx. No chest pain, palpitations. Medications: Reviewed: Yes Medication Review Details: Current Medications Acetaminophen (Tylenol) 650 mg PO Q6H PRN PRN Reason: Mild/Mod Pain Or Temp >/= 101 Last Admin: 09/02/19 09:10 Dose: 650 mg Documented by: Albuterol/Ipratropium (Combivent Respimat) 1 puff INHALATION QID.RESPIRATORY [facility] Last Admin: 09/02/19 07:30 Dose: 1 puff Documented by: Apixaban (Eliquis) 2.5 mg PO BID [facility] Last Admin: 09/01/19 17:12 Dose: Not Given Documented by: Aspirin (Aspirin Ec) 81 mg PO DAILY [facility] Last Admin: 09/02/19 08:25 Dose: 81 mg Documented by: Atorvastatin Calcium (Lipitor) 20 mg PO DAILY [facility] Last Admin: 09/02/19 08:26 Dose: 20 mg Documented by: Citalopram Hydrobromide (Celexa) 20 mg PO DAILY [facility] Last Admin: 09/02/19 08:26 Dose: 20 mg Documented by: Cyanocobalamin (Vitamin B-12) 1,000 mcg PO DAILY [facility] Last Admin: 09/02/19 08:24 Dose: 1,000 mcg Documented by: Dextrose (D50w) 25 ml IVP ONCE PRN; Protocol PRN Reason: hypoglycemia protocol Dextrose (D50w) 50 ml IVP PRN PRN; Protocol PRN Reason: hypoglycemia protocol Gabapentin (Neurontin) 200 mg PO BEDTIME [facility] Last Admin: 09/01/19 21:36 Dose: 200 mg Documented by: Glucagon (Glucagen) 1 mg IM ONCE PRN; Protocol PRN Reason: Adult Acute Hypoglycemia Prot. Dextrose (D5w) 500 mls @ 100 mls/hr IV ONCE PRN; Protocol PRN Reason: Adult Acute Hypoglycemia Prot Heparin Sodium/Sodium Chloride (Heparin Drip) 25,000 unit in 500 mls @ 0 mls/hr IV .Q0M [facility]; Protocol Last Admin: 09/02/19 09:05 Dose: 14.39 unit/kg/hr, 34 mls/hr Documented by: Insulin Aspart (Novolog) 0 unit SUBCUT TIDWM [facility]; Protocol Last Admin: 09/02/19 07:14 Dose: 6 unit Documented by: Insulin Aspart (Novolog) 0 unit SUBCUT BEDTIME [facility]; Protocol Last Admin: 09/01/19 20:57 Dose: Not Given Documented by: Insulin Glargine (Lantus) 20 unit SUBCUT DAILY [facility] Last Admin: 09/02/19 08:26 Dose: 20 unit Documented by: Insulin Glargine (Lantus) 20 unit SUBCUT BEDTIME [facility] Last Admin: 09/01/19 21:38 Dose: 20 unit Documented by: Levothyroxine Sodium (Synthroid) 50 mcg PO DAILY [facility] Last Admin: 09/02/19 08:25 Dose: 50 mcg Documented by: Metoprolol Tartrate (Lopressor) 50 mg PO BID [facility] Last Admin: 09/02/19 08:24 Dose: 50 mg Documented by: Montelukast Sodium (Singulair) 10 mg PO DAILY [facility] Last Admin: 09/02/19 08:24 Dose: 10 mg Documented by: Ondansetron HCl (Zofran) 4 mg IVP Q6H PRN PRN Reason: vomiting, or N/V if npo Last Admin: 08/29/19 00:18 Dose: 4 mg Documented by: Ondansetron HCl (Zofran) 4 mg IVP Q2M PRN PRN Reason: NAUSEA Pantoprazole Sodium (Protonix) 40 mg PO DAILY [facility] Last Admin: 09/02/19 08:26 Dose: 40 mg Documented by: Fluticasone/Salmeterol (Advair Diskus 500-50) 1 puff INHALATION BID.RESPIRATORY [facility] Last Admin: 09/02/19 07:30 Dose: 1 puff Documented by: Vitals/I&O/Wt Last Vital Signs Temp 97.5 F L 09/03/19 11:02 Pulse 80 09/03/19 11:34 Resp 20 H 09/03/19 11:32 BP 137/82 09/03/19 11:02 Pulse Ox 90 09/03/19 11:32 09/02/19 09/03/19 09/03/19 22:59 06:59 14:59 Intake Total 360 / 720 500 / 1220 240 / 240 Output Total 30 / 30 Balance 360 / 720 470 / 1190 240 / 240 Physical Exam Const: COMMON NORMALS: no apparent distress and average body habitus HENMT: COMMON NORMALS: normocephalic and head/scalp atraumatic HEAD & SCALP: normocephalic and atraumatic Neck/C-Spine: COMMON NORMALS: no JVD Chest: COMMONS NORMALS: inspection of chest normal and palpation of chest normal Resp: COMMON NORMALS: normal respiratory effort and no retractions Cardio: COMMON NORMALS: no JVD, regular rate and regular rhythm RATE: regular rate RHYTHM: regular rhythm GI: INSPECTION: Yes normal to inspection and Yes abdominal wall ecchymosis : COMMON NORMALS: Yes no CVA tenderness and Yes external appearance normal BLADDER/KIDNEY EXAM: Yes no CVA tenderness Back/Pelvis: COMMON NORMALS: no CVA tenderness Data : 09/03/19 06:00 09/03/19 06:00 Micro: Microbiology 08/28/19 13:44 Blood Culture - Final Blood NO GROWTH AFTER 5 DAYS 08/28/19 13:40 Blood Culture - Final Blood NO GROWTH AFTER 5 DAYS A&P Additional A&P Information 1. ESRD - Seen and examined on dialysis 3K, UF 2-3L - doses meds for eGFR < 15ml/min 2. Lytes with minor aberrance; non critical 3. Chest pain - Dr Quezada's input is appreciated - Eliquis and Metoprolol on board - For angio later today - No need to dialyze off dye she has minimal urine output and this isn't an effective therapy at reducing contrast nephropathy - Analgesia 4. Hemodynamics - remain stable 5. Renal masses - US noted - will need Urology eval but this can be deferred to outpatient setting 5. Anemia of ESRD, - Hb drifting down a little. If she stays much longer I will dose with EPO and check iron parameters Interview and exam performed with the aid of the bedside RN via telemed and bedside telephone. Zane Helton MD [facility] [phone] Attestations Medical Necessity Statement*: eval for ESRD mgmt Coding Level of Care Code Acute Tactical Response Group Officer for Michelle Borrero
--- NOTE | 2019-09-03 16:19 | P.PN_ITS ---
Subjective Subjective: Interval history: Patient denies any chest pain or palpitation. No unusual shortness of breath. Telemetry still shows occasional short runs of tachycardias. Seems to be less frequent than before. She is getting the dialysis today. Medications: Reviewed: Yes Medication Review Details: Current Medications Acetaminophen (Tylenol) 650 mg PO Q6H PRN PRN Reason: Mild/Mod Pain Or Temp >/= 101 Last Admin: 09/02/19 09:10 Dose: 650 mg Documented by: Albuterol/Ipratropium (Combivent Respimat) 1 puff INHALATION QID.RESPIRATORY [facility] Last Admin: 09/02/19 07:30 Dose: 1 puff Documented by: Apixaban (Eliquis) 2.5 mg PO BID [facility] Last Admin: 09/01/19 17:12 Dose: Not Given Documented by: Aspirin (Aspirin Ec) 81 mg PO DAILY [facility] Last Admin: 09/02/19 08:25 Dose: 81 mg Documented by: Atorvastatin Calcium (Lipitor) 20 mg PO DAILY [facility] Last Admin: 09/02/19 08:26 Dose: 20 mg Documented by: Citalopram Hydrobromide (Celexa) 20 mg PO DAILY [facility] Last Admin: 09/02/19 08:26 Dose: 20 mg Documented by: Cyanocobalamin (Vitamin B-12) 1,000 mcg PO DAILY [facility] Last Admin: 09/02/19 08:24 Dose: 1,000 mcg Documented by: Dextrose (D50w) 25 ml IVP ONCE PRN; Protocol PRN Reason: hypoglycemia protocol Dextrose (D50w) 50 ml IVP PRN PRN; Protocol PRN Reason: hypoglycemia protocol Gabapentin (Neurontin) 200 mg PO BEDTIME [facility] Last Admin: 09/01/19 21:36 Dose: 200 mg Documented by: Glucagon (Glucagen) 1 mg IM ONCE PRN; Protocol PRN Reason: Adult Acute Hypoglycemia Prot. Dextrose (D5w) 500 mls @ 100 mls/hr IV ONCE PRN; Protocol PRN Reason: Adult Acute Hypoglycemia Prot Heparin Sodium/Sodium Chloride (Heparin Drip) 25,000 unit in 500 mls @ 0 mls/hr IV .Q0M [facility]; Protocol Last Admin: 09/02/19 09:05 Dose: 14.39 unit/kg/hr, 34 mls/hr Documented by: Insulin Aspart (Novolog) 0 unit SUBCUT TIDWM [facility]; Protocol Last Admin: 09/02/19 07:14 Dose: 6 unit Documented by: Insulin Aspart (Novolog) 0 unit SUBCUT BEDTIME [facility]; Protocol Last Admin: 09/01/19 20:57 Dose: Not Given Documented by: Insulin Glargine (Lantus) 20 unit SUBCUT DAILY [facility] Last Admin: 09/02/19 08:26 Dose: 20 unit Documented by: Insulin Glargine (Lantus) 20 unit SUBCUT BEDTIME [facility] Last Admin: 09/01/19 21:38 Dose: 20 unit Documented by: Levothyroxine Sodium (Synthroid) 50 mcg PO DAILY [facility] Last Admin: 09/02/19 08:25 Dose: 50 mcg Documented by: Metoprolol Tartrate (Lopressor) 50 mg PO BID [facility] Last Admin: 09/02/19 08:24 Dose: 50 mg Documented by: Montelukast Sodium (Singulair) 10 mg PO DAILY [facility] Last Admin: 09/02/19 08:24 Dose: 10 mg Documented by: Ondansetron HCl (Zofran) 4 mg IVP Q6H PRN PRN Reason: vomiting, or N/V if npo Last Admin: 08/29/19 00:18 Dose: 4 mg Documented by: Ondansetron HCl (Zofran) 4 mg IVP Q2M PRN PRN Reason: NAUSEA Pantoprazole Sodium (Protonix) 40 mg PO DAILY [facility] Last Admin: 09/02/19 08:26 Dose: 40 mg Documented by: Fluticasone/Salmeterol (Advair Diskus 500-50) 1 puff INHALATION BID.RESPIRATORY [facility] Last Admin: 09/02/19 07:30 Dose: 1 puff Documented by: Vitals/I&O/Wt Last Vital Signs Temp 97.5 F L 09/03/19 11:02 Pulse 80 09/03/19 11:34 Resp 20 H 09/03/19 11:32 BP 137/82 09/03/19 11:02 Pulse Ox 90 09/03/19 11:32 09/03/19 09/03/19 09/03/19 06:59 14:59 22:59 Intake Total 500 / 1220 240 / 240 Output Total 30 / 30 Balance 470 / 1190 240 / 240 Physical Exam Narrative: EXAM NARRATIVE: GENERAL: The patient is alert and oriented times three. Morbidly obese. Not in acute distress. Has the baseline dyspnea on exertion. HEENT: Minimal pallor, icterus or lymphadenopathy. The pupils are reactant to light. Oral cavity: There are no mucous membrane lesions. NECK: Trachea appears to be central. No masses noted. No JVD or thyromegaly appreciated. Carotid bruit on the right side. RESPIRATORY: Chest is symmetrical. No intercostals muscle retraction or any accessory muscle activation. There is no chest wall tenderness. Breath sounds are heard bilaterally. No rales or rhonchi heard. No evidence of any consolidation. BREASTS: Deferred. HEART: The PMI is in the 5th left intercostals space just in the midclavicular line. No palpable precordial events. S1 and S2 are normal. No S3 or S4 heard. No pericardial rub or any click heard. ABDOMEN: No vessel pulsations or distention. No tenderness. No organomegaly appreciated. No abdominal bruit. Bowel sounds are normally heard. : Deferred. RECTAL: Deferred. LYMPHATIC: No lymphadenopathy noted in the neck . EXTREMITIES: Currently has no significant edema. No cyanosis. Peripheral pulses are extremely weak. MUSCULOSKELETAL: No acute joint deformities or swelling NEUROPSYCHIATRIC: The patient is alert and oriented x3. Appears to be in a good mood. The higher functions are grossly within normal limits. No tremors or rigidity noted. Data : 09/03/19 06:00 09/03/19 06:00 Micro: Microbiology 08/28/19 13:44 Blood Culture - Final Blood NO GROWTH AFTER 5 DAYS 08/28/19 13:40 Blood Culture - Final Blood NO GROWTH AFTER 5 DAYS A&P Assessment and plan (1) Chest pain: In view of the patient's ongoing episodes of chest pain and the abnormal myocardial perfusion imaging, in order to further evaluate her coronary status, a cardiac catheterization would be appropriate. This was discussed with the benita dumont and her son in detail which he understood well and consented to proceed. The Eliquis was discontinued. She is on heparin. We may go ahead and schedule for the angiogram in the morning. Status: Acute Qualifiers: Chest pain type: unspecified Qualified Code(s): R07.9 - Chest pain, unspecified (2) Acute diastolic heart failure: Currently the heart failure is compensated. This could be multifactorial. Uncontrolled blood pressure, chronic kidney disease, anemia, arrhythmia, etc. are contributing factors. May continue on the current medications. Status: Acute (3) Wide-complex tachycardia: Patient has the baseline right bundle branch block. The wide-complex tachycardia could be related to supraventricular arrhythmia. However currently the patient is stable with no recurrence of the arrhythmia. May continue on the current medications. May continue on the metoprolol. Since she has not had a significant recurrence of the arrhythmia, I may hold off on any medication changes at this time. Status: Acute (4) Hyperlipemia: Continue on the current management. Follow-up evaluation as scheduled. Patient has elevated liver enzymes. Etiology is not clear. It seems to be not getting any worse. Will discuss with the primary about further management options. Status: Acute Qualifiers: Hyperlipidemia type: mixed hyperlipidemia Qualified Code(s): E78.2 - Mixed hyperlipidemia (5) Atrial fibrillation: Patient is currently in a regular rhythm. She is on long-term oral anticoagulation by Eliquis. It was decided to hold off on this for the time being. Continue on the heparin.. Status: Acute Qualifiers: Atrial fibrillation type: paroxysmal Qualified Code(s): I48.0 - Paroxysmal atrial fibrillation (6) End stage renal disease: Patient is on hemodialysis. She is getting 3 times a week. This may be continued. In case if we are going to go ahead with the angiogram, this need to be coordinated with the dialysis schedule. I will be discussing this with the music grapher as well. Status: Acute Additional A&P Information Her other problems are Elevated liver enzymes-etiology is unclear. Work-up is in progress Anemia-possibly related to chronic illness. Seems to be stable. COPD-on bronchodilators, seems stable Obstructive sleep apnea-on CPAP, may be continued. Morbid obesity Possible peripheral arterial disease-we will go ahead and do an MONA mildly diminished MONA on the left side. Possible occlusion of the DPA on the left side Based on the patient clinical progress and the results of the cardiac authorization and this was able, further management decisions will be made. Attestations Medical Necessity Statement*: Patient requires continued hospital stay for close monitoring and further management Coding Level of Care Code Acute Extractions Technologist for [facility] [place] Diagnoses Chest pain R07.9 Chest pain type: unspecified Acute diastolic heart failure I50.31 Wide-complex tachycardia I47.2 Hyperlipemia E78.2 Hyperlipidemia type: mixed hyperlipidemia Atrial fibrillation I48.0 Atrial fibrillation type: paroxysmal End stage renal disease N18.6
[2019-09-03 17:27] LABS: Glucose Point of Care 91 mg/dL (70-110)
[2019-09-03 17:49] LABS: Partial Thromboplastin Time 89.9 SECONDS (23.9-36.7)
[2019-09-03] MEDS: heparin drip 25,000 UNIT/500 ML PREMIX 29 UNIT IV (18:29)
[2019-09-03] MEDS: gabapentin 100 mg Capsule 200 MG PO (20:12)
[2019-09-03] MEDS: atorvastatin 40 mg Tablet 20 MG PO (20:12)
[2019-09-03] MEDS: acetaminophen 325 mg Tablet 650 MG PO (20:12)
[2019-09-03 20:38] LABS: Glucose Point of Care 190 mg/dL (70-110)
[2019-09-04] VITALS (34 sets, daily range): BP systolic 98–157; BP diastolic 44–85; PULSE 56–91; RESP 11–25; TEMP 36.3–36.7; O2SAT 92–100
[2019-09-04 01:12] LABS: Partial Thromboplastin Time 72.2 SECONDS (23.9-36.7)
--- NOTE | 2019-09-04 01:32 | PC.NURSE ---
PTT 72.2. NO CHANGE IN RATE PER HEPARIN PROTOCOL. NEXT PTT DUE IN 6 HOURS. WILL CONTINUE TO MONITOR.
[2019-09-04] MEDS: acetaminophen 325 mg Tablet 650 MG PO ×2 (03:50→11:43)
[2019-09-04 06:30] LABS: Glucose Point of Care 92 mg/dL (70-110)
--- NOTE | 2019-09-04 06:45 | US_ITS ---
WS: [id number] ULTRASOUND ABDOMEN LIMITED CLINICAL INFORMATION: transaminitis COMPARISON: None. FINDINGS: Liver Size: Enlarged Craniocaudal length: 19.4 cm. Echogenicity: Coarse echogenicity due to hepatocellular disease or fatty infiltration Surface nodularity: None. Mass (size and location): None. Bile ducts Intrahepatic ducts: Normal. Common bile duct diameter: 0.6 cm. Gallbladder Removed Pancreas Normal as visualized. Right kidney: Simple cyst superior pole 2.0 x 2.2 x 1.9 cm Hydronephrosis: None. Size: 8.0 cm x 4.6 cm x 3.4 cm. Abdominal aorta and IVC Visualized portions are normal. Ascites: None. US/US abdomen limited 36825 IMPRESSION: 1. Marked hepatomegaly with coarse echogenicity due to hepatocellular disease or fatty infiltration. Recommend correlation with liver function tests. 2. Prior cholecystectomy. 3. Atrophic right kidney. Simple cyst superior pole.
[2019-09-04 07:25] LABS: Basophils % 0.3 %; Eosinophils # 0.3 10^3/uL (0.0-0.8); Eosinophils % 4.3 %; Hematocrit 28.9 % (37.0-47.0); Hemoglobin 9.2 g/dL (11.5-15.3); Lymphocytes # 1.5 10^3/uL (0.8-4.8); Mean Corpuscular HGB Conc 31.8 g/dL (30.0-36.0); Mean Corpuscular Hemoglobin 32.9 pg (28.0-34.0); Mean Corpuscular Volume 103.2 fL (81-99); Mean Platelet Volume 9.6 fL (7.4-10.4); Monocytes # 0.5 10^3/uL (0.2-0.9); Monocytes % 9.3 %; Neutrophils # 3.5 10^3/uL (1.8-7.7); Neutrophils % 60.6 %; Nucleated Red Blood Cells % 0 %; Platelet Count 287 10^3/cmm (130-400); Red Cell Distribution Width 15.9 % (12.1-15.1); White Blood Count 5.8 10^3/uL (4.0-10.0)
--- NOTE | 2019-09-04 07:28 | P.PN_ITS ---
Subjective Subjective: Interval history: Patient denies any chest pain or palpitation. No unusual shortness of breath. Telemetry still shows occasional short runs of tachycardias. Seems to be less frequent than before. She is getting the dialysis today. Medications: Reviewed: Yes Medication Review Details: Current Medications Acetaminophen (Tylenol) 650 mg PO Q6H PRN PRN Reason: Mild/Mod Pain Or Temp >/= 101 Last Admin: 09/02/19 09:10 Dose: 650 mg Documented by: Albuterol/Ipratropium (Combivent Respimat) 1 puff INHALATION QID.RESPIRATORY [facility] Last Admin: 09/02/19 07:30 Dose: 1 puff Documented by: Apixaban (Eliquis) 2.5 mg PO BID [facility] Last Admin: 09/01/19 17:12 Dose: Not Given Documented by: Aspirin (Aspirin Ec) 81 mg PO DAILY [facility] Last Admin: 09/02/19 08:25 Dose: 81 mg Documented by: Atorvastatin Calcium (Lipitor) 20 mg PO DAILY [facility] Last Admin: 09/02/19 08:26 Dose: 20 mg Documented by: Citalopram Hydrobromide (Celexa) 20 mg PO DAILY [facility] Last Admin: 09/02/19 08:26 Dose: 20 mg Documented by: Cyanocobalamin (Vitamin B-12) 1,000 mcg PO DAILY [facility] Last Admin: 09/02/19 08:24 Dose: 1,000 mcg Documented by: Dextrose (D50w) 25 ml IVP ONCE PRN; Protocol PRN Reason: hypoglycemia protocol Dextrose (D50w) 50 ml IVP PRN PRN; Protocol PRN Reason: hypoglycemia protocol Gabapentin (Neurontin) 200 mg PO BEDTIME [facility] Last Admin: 09/01/19 21:36 Dose: 200 mg Documented by: Glucagon (Glucagen) 1 mg IM ONCE PRN; Protocol PRN Reason: Adult Acute Hypoglycemia Prot. Dextrose (D5w) 500 mls @ 100 mls/hr IV ONCE PRN; Protocol PRN Reason: Adult Acute Hypoglycemia Prot Heparin Sodium/Sodium Chloride (Heparin Drip) 25,000 unit in 500 mls @ 0 mls/hr IV .Q0M [facility]; Protocol Last Admin: 09/02/19 09:05 Dose: 14.39 unit/kg/hr, 34 mls/hr Documented by: Insulin Aspart (Novolog) 0 unit SUBCUT TIDWM [facility]; Protocol Last Admin: 09/02/19 07:14 Dose: 6 unit Documented by: Insulin Aspart (Novolog) 0 unit SUBCUT BEDTIME [facility]; Protocol Last Admin: 09/01/19 20:57 Dose: Not Given Documented by: Insulin Glargine (Lantus) 20 unit SUBCUT DAILY [facility] Last Admin: 09/02/19 08:26 Dose: 20 unit Documented by: Insulin Glargine (Lantus) 20 unit SUBCUT BEDTIME [facility] Last Admin: 09/01/19 21:38 Dose: 20 unit Documented by: Levothyroxine Sodium (Synthroid) 50 mcg PO DAILY [facility] Last Admin: 09/02/19 08:25 Dose: 50 mcg Documented by: Metoprolol Tartrate (Lopressor) 50 mg PO BID [facility] Last Admin: 09/02/19 08:24 Dose: 50 mg Documented by: Montelukast Sodium (Singulair) 10 mg PO DAILY [facility] Last Admin: 09/02/19 08:24 Dose: 10 mg Documented by: Ondansetron HCl (Zofran) 4 mg IVP Q6H PRN PRN Reason: vomiting, or N/V if npo Last Admin: 08/29/19 00:18 Dose: 4 mg Documented by: Ondansetron HCl (Zofran) 4 mg IVP Q2M PRN PRN Reason: NAUSEA Pantoprazole Sodium (Protonix) 40 mg PO DAILY [facility] Last Admin: 09/02/19 08:26 Dose: 40 mg Documented by: Fluticasone/Salmeterol (Advair Diskus 500-50) 1 puff INHALATION BID.RESPIRATORY [facility] Last Admin: 09/02/19 07:30 Dose: 1 puff Documented by: Vitals/I&O/Wt Last Vital Signs Temp 97.3 F L 09/04/19 07:03 Pulse 66 09/04/19 07:03 Resp 18 09/04/19 07:03 BP 157/85 09/04/19 07:03 Pulse Ox 93 09/04/19 07:03 09/03/19 09/04/19 09/04/19 22:59 06:59 14:59 Intake Total 894.1 / 1134.1 Balance 894.1 / 1134.1 Physical Exam Narrative: EXAM NARRATIVE: GENERAL: The patient is alert and oriented times three. Morbidly obese. Not in acute distress. Has the baseline dyspnea on exertion. HEENT: Minimal pallor, no icterus or lymphadenopathy. Oral cavity: There are no mucous membrane lesions. NECK: Trachea appears to be central. No masses noted. No JVD or thyromegaly appreciated. Carotid bruit on the right side. RESPIRATORY: Chest is symmetrical. No intercostals muscle retraction or any accessory muscle activation. There is no chest wall tenderness. Breath sounds are heard bilaterally. No rales or rhonchi heard. No evidence of any consolidation. BREASTS: Deferred. HEART: The PMI is in the 5th left intercostals space just in the midclavicular line. No palpable precordial events. S1 and S2 are normal. No S3 or S4 heard. No pericardial rub or any click heard. ABDOMEN: No vessel pulsations or distention. No tenderness. No organomegaly appreciated. No abdominal bruit. Bowel sounds are normally heard. : Deferred. RECTAL: Deferred. LYMPHATIC: No lymphadenopathy noted in the neck . EXTREMITIES: Currently has no significant edema. No cyanosis. Peripheral pulses are extremely weak. MUSCULOSKELETAL: No acute joint deformities or swelling NEUROPSYCHIATRIC: The patient is alert and oriented x3. Appears to be in a good mood. The higher functions are grossly within normal limits. No tremors or rigidity noted. Data : 09/04/19 07:16 09/04/19 07:16 A&P Assessment and plan (1) Chest pain: In view of the patient's ongoing episodes of chest pain and the abnormal myocardial perfusion imaging, in order to further evaluate her coronary status, a cardiac catheterization would be appropriate. This was discussed with the p atroyal and her son in detail which they understood well and consented to proceed. The Eliquis was discontinued. She is on heparin. We may go ahead and schedule for the angiogram in the morning. Status: Acute Qualifiers: Chest pain type: unspecified Qualified Code(s): R07.9 - Chest pain, unspecified (2) Acute diastolic heart failure: Currently the heart failure is compensated. This could be multifactorial. Uncontrolled blood pressure, chronic kidney disease, anemia, arrhythmia, etc. are contributing factors. May continue on the current medications. Status: Acute (3) Wide-complex tachycardia: Patient has the baseline right bundle branch block. The wide-complex tachycardia could be related to PAT with aberrancy. Since the patient is stable with no recurrence of the arrhythmia. may continue on the current medications. May continue on the metoprolol. Status: Acute (4) Hyperlipemia: Continue on the current management. Follow-up evaluation as scheduled. Patient has elevated liver enzymes. Etiology is not clear. It seems to be not getting any worse. Will discuss with the primary about further management opti ons. Status: Acute Qualifiers: Hyperlipidemia type: mixed hyperlipidemia Qualified Code(s): E78.2 - Mixed hyperlipidemia (5) Atrial fibrillation: Patient is currently in a regular rhythm. She is on long-term oral anticoagulation by Eliquis. It was decided to hold off on this for the time being. Continue on the heparin.. Status: Acute Qualifiers: Atrial fibrillation type: paroxysmal Qualified Code(s): I48.0 - Paroxysmal atrial fibrillation (6) End stage renal disease: Patient is on hemodialysis. She is getting 3 times a week. This may be continued. In case if we are going to go ahead with the angiogram, this need to be coordinated with the dialysis schedule. I will be discussing this with the learning support aide as well. Status: Acute (7) Carotid artery stenosis, asymptomatic: Currently the patient has no neurological symptoms. The most recent Doppler examination was done in July of last year. We may go ahead and do a repeat Doppler examination to follow-up on the carotid artery stenosis Status: Acute Additional A&P Information Her other problems are Carotid artery stenosis, will repeat the duplex ambulation Elevated liver enzymes-etiology is unclear. Work-up is in progress Anemia-possibly related to chronic illness. Seems to be stable. COPD-on bronchodilators, seems stable Obstructive sleep apnea-on CPAP, may be continued. Morbid obesity Possible peripheral arterial disease-we will go ahead and do an MONA mildly diminished MONA on the left side. Possible occlusion of the DPA on the left side Based on the patient clinical progress and the results of the cardiac catheterization findings, further management decisions will be made. Attestations Medical Necessity Statement*: Patient requires continued hospital stay for close monitoring and further management Coding Level of Care Code Acute Metal Miner for [facility] [place] Diagnoses Chest pain R07.9 Chest pain type: unspecified Acute diastolic heart failure I50.31 Wide-complex tachycardia I47.2 Hyperlipemia E78.2 Hyperlipidemia type: mixed hyperlipidemia Atrial fibrillation I48.0 Atrial fibrillation type: paroxysmal End stage renal disease N18.6 Carotid artery stenosis, asymptomatic I65.29
[2019-09-04] MEDS: diphenhydrAMINE 50 mg Capsule PO (07:31)
[2019-09-04] MEDS: sodium chloride 0.9% 1,000 ML 50 ML IV (07:32)
--- NOTE | 2019-09-04 07:34 | USCV_ITS ---
Oscar Pack Age: 64 Gender: F : 1955 Exam Date: 09/04/2019 13:33 Ordering Phys: Jorge Luis Silvestre MD ([email or web address]) Technologist: Roxanna Motta Exam Location: [facility] [place] Indication: STENOSIS Risk Factors: Unknown Previous Vascular Surgery: None PER PT Right Brachial BP: / Left Brachial BP: / Right Left Velocity (cm/s) Spectral Plaque Velocity (cm/s) Spectral Plaque Syst/Diast Broadening Syst/Diast Broadening 81.60/ 19.40 Prox CCA 104.10/ 15.50 53.60/ 10.90 Mid CCA 93.20 / 21.80 61.40/ 7.80 Distal CCA 104.10/ 28.00 221.20/54.30 Prox ICA 95.70 / 15.40 201.10/34.20 Mid ICA 86.60 / 15.60 177.10/20.20 Distal ICA 69.80 / 19.30 87.00 ECA 79.07 4.13 ICA/CCA 1.03 Antegrade Vertebral Antegrade 55.90/ 18.60 cm/s 24.70/ 9.00 cm/s [place] Subclavian Tri 111.7 61.20 0 FINDINGS Moderate to heavy plaque of the right bifurcation and internal carotid artery Mild to moderate plaques at the left bifurcation and internal carotid artery Monophasic and continuous Doppler waveforms in the right subclavian artery Intimal thickening in the common carotid arteries bilaterally Antegrade flow in the vertebral arteries bilaterally CONCLUSIONS Moderate to heavy heterogeneous plaque at the right bifurcation and internal carotid arterywith velocity elevation consistent with 50-79% stenosis. Mild to moderate heterogeneous plaques of the left bifurcation and internal carotid artery Abnormal Doppler waveform in the right subclavian artery, may suggest collateral circulation. Consider CTA of the aortic arch vessels to better evaluate the proximal segment of the arteries Dr Jorge Luis Silvestre MD [facility] (Electronically Signed) Final Date: 04 September 2019 17:58 S
[2019-09-04 07:52] LABS: Partial Thromboplastin Time 74.1 SECONDS (23.9-36.7)
[2019-09-04 07:56] LABS: Alanine Aminotransferase 65 U/L (0-33); Albumin Level 4.1 g/dL (3.5-5.2); Alkaline Phosphatase 151 IU/L (35-105); Anion Gap 21.3 (5-19); Aspartate Amino Transferase 26 U/L (0-32); Blood Urea Nitrogen 27 mg/dL (8-23); Calcium 9.3 mg/dL (8.5-10.5); Carbon Dioxide 25 mmol/L (22-29); Chloride 89 mmol/L (98-107); Globulin 3.4 g/dL (1.3-4.6); Glomerular Filtration Rate 6.3 mL/min (90-130); Glucose 100 mg/dL (65-115); Osmolality Calculated 269 mOsm/kg (285-295); Potassium 4.3 mmol/L (3.5-5.1); Sodium 131 mmol/L (136-145); Total Bilirubin 0.4 mg/dL (0.15-1.2); Total Protein 7.5 g/dL (6.6-8.7)
--- NOTE | 2019-09-04 08:31 | PC.NURSE ---
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
--- NOTE | 2019-09-04 08:32 | XACV_ITS ---
Exam Room: 1 Ht: 157 cm Wt: 118 kg BSA: 2.34 m2 Gender: Female : 1955 Exam Priority: Routine Procedure(s): Procedure Description: Diagnostic procedure Procedure Description: Left Heart Catheterization Procedure Description: Left ventriculography Procedure Description: Coronary Angiography Diagnostic Cath Status: Elective Diagnostic Findings LM has 0% stenosis. CX has 0% stenosis. This is a dominant small to medium caliber vessel with no significant stenotic lesions. pLAD to mLAD: Mild 25% stenosis, MEET: 3 flow. The left and descending artery appears to wrap around the LV apex. The proximal LAD was found to have diffuse eccentric narrowing of around 20%. pRCA: Mild 40% stenosis, MEET: 3 flow. RPAV: Moderate 60% stenosis, MEET: 3 flow. The right coronary has 3 is a medium to large caliber vessel which was found to have mild to moderate diffuse disease. The proximal artery was found to have around 40% tubular narrowing. At the ostium of the PLV branch of the artery, there was around 60% narrowing. No other significant stenotic lesions were noted. Coronary angiography shows right dominance. Mild to moderate diffuse coronary calcification was noted. Conclusions This is a 64-year-old white female with multiple medical problems including end-stage renal disease, high blood pressure, dyslipidemia, type 2 diabetes, carotid artery disease, peripheral artery disease and intermittent atrial fibrillation, presented with chest pain and some shortness of breath. She had a myocardial perfusion imaging which revealed areas of fixed defect with a small areas of reversible defects. In view of her multiple risk factors and the ongoing symptoms, in order to further evaluate her coronary status, a cardiac catheterization was recommended. Patient underwent left heart catheterization with left and right coronary angiogram and LV angiogram today. The findings are as follows. Patient was found to have mild to moderate diffuse coronary artery disease. Mild diffuse hypokinesia left ventricle with an ejection fraction of 50%. LVEDP of 24 millimeters of mercury. Based on the angiogram findings, it was opted to treat her medically. Patient was transferred back to medical floor in stable condition. Recommendations Continue current medical management and risk factor modification. Diagnostic RX Recommendation: medical therapy and/or counseling LV EDP: 24 mmHg Ejection Fraction: 50.0 % Left Ventriculography Findings: The LV gram was performed the SOSA projection. The LV cavity appears to be mildly dilated. There was mild diffuse hypokinesia of the left ventricle. Ejection fraction was around 50%. LVEDP was 24 mmHg, went up to 26 mmHg after the LV angiogram. There was no significant mitral valve prolapse or mitral regurgitation. Pressures Phase:Rest AO : 124 mmHg / 68 mmHg ( 92 mmHg ) @ 3:57:00 AM 118 mmHg / 49 mmHg ( 76 mmHg ) @ 4:08:00 AM LV : 120 mmHg / -6 mmHg / @ 4:06:00 AM 123 mmHg / -4 mmHg / @ 4:07:00 AM 122 mmHg / 0 mmHg / @ 4:08:00 AM 120 mmHg / 0 mmHg / @ 4:08:00 AM Valves Phase:DefaultPhase AV : 2.0 mmHg @ 9:14:05 AM AV Mean Gradient: 0.0 mmHg @ 9:14:05 AM Clinical Evaluation EBL: 5mL-10mL Procedural Details Procedure Consent Obtained. Pre-Procedure Time Out. Identified patient by full name and date of as verbalized by the patient/guarantor. Does the consent match the physician's order: Yes. Accurate & Complete Informed Consent: Yes. Inpatient/Outpatient History & Physical on Chart: Yes. If H&P is completed, is and addenduem needed: No; If yes, is the addendum complete: N/A. Visualize and Verify Site with Patient/Guarantor: N/A. Relevant Radiology Images available: N/A. Pre-op teaching completed and patient verbalized understanding. The risks, benefits, and alternatives of sedation and/or procedure were discussed by physician. The patient agrees to continue. Procedure started. [facility] Clinical Fraility Score: 4: Vulnerable. City Wellness Coordinator Indications: Suspected CAD. Chest Pain Symptom Assessment: Typical Angina Symptoms. Current diagnosis: Unstable angina. PERRLA. Strong, equal hand indirect sales representative bilaterally. Lungs clear x 5 lobes. IV Site on Arrival: 20 gauge in the right wrist. Pre Procedural Pulses: bilateral dorsalis pedis was 1+. Pre Procedural Pulses: bilateral posterior tibial was 1+. Oxygen started at 2liters/min via nasal canula. bilateral groins was prepped with chloroprep then draped in the usual sterile fashion. Physician notified. Baseline sample Acquired. HR: 61 BPM. Patient's family unavailable. Equipment: 5F - Femoral. Physician arrived. Physician scrubbed in. Immediate Pre-Procedure Time Out. Correct Patient: Yes; Correct Procedure: Yes; Correct Site: N/A; Correct Patient Position: N/A; Correct Supplies: Yes; Dried Flammable Prep: Yes; Blood Products Available: N/A;. Heparinized Saline (2 units/mL), 1000 mL bag. Kit, Micropuncture. Cardiac Cath Pack. ACIST Manifold Kit Model BT 2000. Lidocaine 1% infiltrated to the right groin. Arterial access obtained with micropuncture set. Inventory is JJ 5F 11cm Yaneth Plus Sheath. A CRD 5F JL4 Diagnostic Catheter was advanced over the wire and used for Left coronary angiography. Multiple views taken of left coronary artery. ACT drawn. Results 114 seconds. Therapeutic limits - pre-heparin administration 90-150 seconds and monitoring heparin during a vascular procedure >250 seconds. Catheter removed over the standard wire. A CRD 5F JR4 Diagnostic Catheter was advanced over the wire and used for Right coronary angiography. Multiple views taken of right coronary artery. Catheter removed over the standard wire. A CRD 5F 145 Angled Pig Diagnostic Catheter was advanced over the wire and used for Ventriculography. EDP Sample taken: LV 120/-7,26; HR: 66 BPM; SpO2: 98%. EDP Sample taken: LV 123/-5,24; HR: 66 BPM; SpO2: 98%. LV gram performed in SOSA @ 10 mL/second for a total of 30 mL. EDP Sample taken: LV 122/0,27; HR: 66 BPM; SpO2: 98%. Pullback taken: LV 120/-1,24; AO 118/49(76); Mean: 0mmHg, Peak to Peak: 2mmHg, SEP: 21sec/min; HR: 65 BPM; SpO2: 98%. Catheter removed over the standard wire. Physician scrubbed out. Sheath(s) sutured into position with 2-0 silk and sterile 4x4's and Op-site applied over the site. No oozing or signs and symptoms of hematoma noted. Arterial sheath flushed and connected to tranducer and pressure bag with heparinized saline. Post Procedure: Pulses reassessed and unchanged. PERRLA. Strong, equal hand indirect sales representative bilaterally. No VTE prophylaxis required. Medication's Wasted: Lidocaine 1% = 10 mL. Medication's Wasted: Heparin = 2500 units. Total IV fluids: 38.6 mL. Complications: none. Estimated blood loss: 5mL-10mL. Cardiovascular Instability: No. A Suture was successful obtaining hemostatsis at the Right Femoral artery insertion site. Procedure completed. Patient transferred by bed to ICU. Vital chart was stopped. Site: Right Femoral artery Sheath Size: 5 Fr Hemostasis Method: Suture Hemostasis Success: Successful Procedure Medications Start: 8:45 AM Stop: 8:45 AM Medication: Versed 1 mg and Fentanyl 25 mcg Amount: 1 Route: I.V. Start: 8:58 AM Stop: 8:58 AM Medication: Heparin Amount: 1500 Route: I.V. Start: 9:02 AM Stop: 9:02 AM Medication: Versed Amount: 1 mg Route: I.V. I, the attending physician, have reviewed and verified all procedure medications. Yes, all medications given per verbal order History/Risk Factors Hypertension: Yes Dyslipidemia: Yes Diabetic Therapy: Insulin Peripheral Arterial Disease (PAD): No Myocardial Infarction (AL): No Obesity: Yes Renal Disease: Yes Tobacco Use: Former Dialysis: Current Prior Interventions PCI: No CABG: No Valve Surgery: No Report Signatures Finalized by:Dr Jorge Luis Silvestre MD [facility] on 09/04/2019 9:33:14 AM
--- NOTE | 2019-09-04 08:40 | W.PM.OPSUD ---
Surgery/Procedure H&P Update DATE OF PROCEDURE: September 04, 2019 DATE H&P PERFORMED: 09/04/19 H&P UPDATE INFORMATION: I have reviewed H&P completed within last 30 days, I have examined patient prior to procedure and No changes to prior documentation PREOP DIAGNOSIS: Unstable angina/ abnormal stress test PLANNED PROCEDURE: Operation Date: 09/04/19 10:00 Proposed Procedures p Cardiac Catheterization(Left) - Vince Stevenson MD PATIENT REASSESSED PRIOR TO SEDATION, WITH NO CHANGE NOTED: Yes PHYSICAL EXAM: oriented x 3, clear to auscultation bilaterally and regular rate & rhythm AIRWAY EVAL/ANESTHESIA PLAN: normal airway, ASA II, Local Anesthesia, Risks, benefits & alternatives of sedation and/or procedure discussed and Patient agrees to continue as planned
[2019-09-04 08:50] LABS: Hepatitis A Antibody IgM Non-Reactive (Nonreactive); Hepatitis B Core AB, Total Non-Reactive (Nonreactive); Hepatitis B Surface Antigen Non-Reactive (Nonreactive); Hepatitis C Virus Antibody Non-Reactive (Nonreactive)
[2019-09-04 08:57] LABS: Hepatitis B Surface AB < 3.5 (0-8.5)
--- NOTE | 2019-09-04 09:11 | PM.OP ---
Operative Report Date of procedure: September 04, 2019 Pre-op Diagnosis: Unstable angina/ abnormal stress test
[2019-09-04] MEDS: levothyroxine 50 mcg Tablet PO (10:38)
[2019-09-04] MEDS: montelukast sodium 10 mg Tablet PO (10:38)
[2019-09-04] MEDS: atorvastatin 40 mg Tablet 20 MG PO (10:39)
[2019-09-04] MEDS: aspirin 81 mg EC Tablet PO (10:40)
[2019-09-04] MEDS: cyanocobalamin 1,000 mcg Tablet 1000 MCG PO (10:40)
[2019-09-04] MEDS: pantoprazole DR 40 mg Tablet PO (10:40)
[2019-09-04] MEDS: citalopram 20 mg Tablet PO (10:40)
[2019-09-04 11:27] LABS: Glucose Point of Care 104 mg/dL (70-110)
[2019-09-04] MEDS: metoprolol tartrate 50 mg Tablet PO (11:34)
[2019-09-04] MEDS: insulin glargine 100 units/1 mL 20 UNIT SUBCUT (11:40)
--- NOTE | 2019-09-04 15:09 | PM.PN ---
Subjective Subjective: Interval history: S/p angio. Feels well with no SOB, chest pain, palpiations etc. Had dialysis yesterday uneventfully. Minimal global edema and no other volume assoc Sx. Medications: Reviewed: Yes Medication Review Details: Current Medications Acetaminophen (Tylenol) 650 mg PO Q6H PRN PRN Reason: Mild/Mod Pain Or Temp >/= 101 Last Admin: 09/02/19 09:10 Dose: 650 mg Documented by: Albuterol/Ipratropium (Combivent Respimat) 1 puff INHALATION QID.RESPIRATORY [facility] Last Admin: 09/02/19 07:30 Dose: 1 puff Documented by: Apixaban (Eliquis) 2.5 mg PO BID [facility] Last Admin: 09/01/19 17:12 Dose: Not Given Documented by: Aspirin (Aspirin Ec) 81 mg PO DAILY [facility] Last Admin: 09/02/19 08:25 Dose: 81 mg Documented by: Atorvastatin Calcium (Lipitor) 20 mg PO DAILY [facility] Last Admin: 09/02/19 08:26 Dose: 20 mg Documented by: Citalopram Hydrobromide (Celexa) 20 mg PO DAILY [facility] Last Admin: 09/02/19 08:26 Dose: 20 mg Documented by: Cyanocobalamin (Vitamin B-12) 1,000 mcg PO DAILY [facility] Last Admin: 09/02/19 08:24 Dose: 1,000 mcg Documented by: Dextrose (D50w) 25 ml IVP ONCE PRN; Protocol PRN Reason: hypoglycemia protocol Dextrose (D50w) 50 ml IVP PRN PRN; Protocol PRN Reason: hypoglycemia protocol Gabapentin (Neurontin) 200 mg PO BEDTIME [facility] Last Admin: 09/01/19 21:36 Dose: 200 mg Documented by: Glucagon (Glucagen) 1 mg IM ONCE PRN; Protocol PRN Reason: Adult Acute Hypoglycemia Prot. Dextrose (D5w) 500 mls @ 100 mls/hr IV ONCE PRN; Protocol PRN Reason: Adult Acute Hypoglycemia Prot Heparin Sodium/Sodium Chloride (Heparin Drip) 25,000 unit in 500 mls @ 0 mls/hr IV .Q0M [facility]; Protocol Last Admin: 09/02/19 09:05 Dose: 14.39 unit/kg/hr, 34 mls/hr Documented by: Insulin Aspart (Novolog) 0 unit SUBCUT TIDWM [facility]; Protocol Last Admin: 09/02/19 07:14 Dose: 6 unit Documented by: Insulin Aspart (Novolog) 0 unit SUBCUT BEDTIME [facility]; Protocol Last Admin: 09/01/19 20:57 Dose: Not Given Documented by: Insulin Glargine (Lantus) 20 unit SUBCUT DAILY [facility] Last Admin: 09/02/19 08:26 Dose: 20 unit Documented by: Insulin Glargine (Lantus) 20 unit SUBCUT BEDTIME [facility] Last Admin: 09/01/19 21:38 Dose: 20 unit Documented by: Levothyroxine Sodium (Synthroid) 50 mcg PO DAILY [facility] Last Admin: 09/02/19 08:25 Dose: 50 mcg Documented by: Metoprolol Tartrate (Lopressor) 50 mg PO BID [facility] Last Admin: 09/02/19 08:24 Dose: 50 mg Documented by: Montelukast Sodium (Singulair) 10 mg PO DAILY [facility] Last Admin: 09/02/19 08:24 Dose: 10 mg Documented by: Ondansetron HCl (Zofran) 4 mg IVP Q6H PRN PRN Reason: vomiting, or N/V if npo Last Admin: 08/29/19 00:18 Dose: 4 mg Documented by: Ondansetron HCl (Zofran) 4 mg IVP Q2M PRN PRN Reason: NAUSEA Pantoprazole Sodium (Protonix) 40 mg PO DAILY [facility] Last Admin: 09/02/19 08:26 Dose: 40 mg Documented by: Fluticasone/Salmeterol (Advair Diskus 500-50) 1 puff INHALATION BID.RESPIRATORY [facility] Last Admin: 09/02/19 07:30 Dose: 1 puff Documented by: Vitals/I&O/Wt Last Vital Signs Temp 98.0 F 09/04/19 12:00 Pulse 61 09/04/19 15:03 Resp 17 09/04/19 15:01 BP 133/62 09/04/19 14:00 Pulse Ox 94 09/04/19 15:01 09/04/19 09/04/19 09/04/19 06:59 14:59 22:59 Intake Total 377.483 / 377.483 Balance 377.483 / 377.483 Physical Exam Const: COMMON NORMALS: no apparent distress and average body habitus HENMT: COMMON NORMALS: normocephalic and head/scalp atraumatic HEAD & SCALP: normocephalic and atraumatic Neck/C-Spine: COMMON NORMALS: no JVD Chest: COMMONS NORMALS: inspection of chest normal and palpation of chest normal Resp: COMMON NORMALS: normal respiratory effort and no retractions Cardio: COMMON NORMALS: no JVD, regular rate and regular rhythm RATE: regular rate RHYTHM: regular rhythm GI: INSPECTION: Yes normal to inspection and Yes abdominal wall ecchymosis : COMMON NORMALS: Yes no CVA tenderness and Yes external appearance normal BLADDER/KIDNEY EXAM: Yes no CVA tenderness Back/Pelvis: COMMON NORMALS: no CVA tenderness Data : 09/04/19 07:16 09/04/19 07:16 A&P Additional A&P Information 1. ESRD - For dialysis tomorrow in dialysis clinic 3K, UF 2-3L - doses meds for eGFR < 15ml/min 2. Lytes with minor aberrance; non critical 3. Chest pain - Dr Quezada's input is appreciated - Eliquis and Metoprolol on board - S/p angio with clean coronaries per RN report - ok for dialysis tomorrow 4. Hemodynamics - remain stable 5. Renal masses - US noted - will need Urology eval but this can be deferred to outpatient setting 5. Anemia of ESRD, - Hb drifting down a little. EPO and iron in outpatient facility Discharge anticipated this afternoon Interview and exam performed with the aid of the bedside RN via telemed and bedside telephone. Zane Helton MD [facility] [phone] Attestations Medical Necessity Statement*: eval for ESRD Coding Level of Care Code Acute Glaze Sprayer for Sukumarg Adair
--- NOTE | 2019-09-04 16:09 | PM.DCS ---
Discharge Providers Date of Admission: 08/29/19 15:05 Date of Discharge: September 04, 2019 Attending Provider at Admission: Cheng Mann MD Attending Provider at Discharge: Chika Mathew MD Primary Care Provider: Pradeep Patel MD Diagnoses at Discharge Discharge Diagnosis (1) Chest pain: Status: Acute Qualifiers: Chest pain type: unspecified Qualified Code(s): R07.9 - Chest pain, unspecified (2) Acute diastolic heart failure: Status: Acute (3) Wide-complex tachycardia: Status: Acute (4) Hyperlipemia: Status: Acute Qualifiers: Hyperlipidemia type: mixed hyperlipidemia Qualified Code(s): E78.2 - Mixed hyperlipidemia (5) Atrial fibrillation: Status: Acute Qualifiers: Atrial fibrillation type: paroxysmal Qualified Code(s): I48.0 - Paroxysmal atrial fibrillation (6) End stage renal disease: Status: Acute (7) Carotid artery stenosis, asymptomatic: Status: Acute Reason for Visit Reason for Visit: Reason For Visit: CHEST PAIN Hospital Course Discharge Summary: Oscar Pack is a 64 year old female who presents with complaints of chest discomfort. CTA of chest demonstrated no pulmonary embolism. Echocardiogram demonstrated preserved EF, trivial pericardial effusion. Underwent nuclear stress test which showed areas of persistent decreases uptake in the anterior, anterolateral, inferolateral, inferior and apical regions with some reversibility, suggestive of myocardial scarring with ischemia- mostly in the distribution of the left anterior descending artery with some in the distribution of the circumflex and right coronary artery. She underwent coronary angiogram earlier today which showed mild to moderate disease without significant occlusion. She is being discharged now in stable condition with recommendations for medical management. Hospital course was notable for episodes of atrial fibrillation with rapid ventricular rate, Eliquis initiated secondary to atrial fibrillation. Physical Exam Narrative: EXAM NARRATIVE: GEN: Awake, alert and oriented, no acute distress CVS: S1S2 N RS: CTA B/L except crackles over RUL Abd: Soft, nt/nd , bs+ TOBACCO CLASSER: no focal neuro deficits EXT: Right groin site without any overt hematoma Discharge Data Data Completed and Pending: Completed Studies During Hospitalization Category Date Time Status CT angio chest PE protcl [id number] Stat Cat Scan 08/28/19 15:23 Completed DIRECTOR OF PERIOPERATIVE SERVICES request for service Routin e Exams 09/04/19 08:[address] MIBI [Sestamibi Stress Test Reque st Exams 09/01/19 07:15 Completed ] Routine XR chest 1V cori ble [id number] Stat Exams 08/28/19 12:52 Completed NM david perf SPECT r/s* [id number] Routin e Nuc Med 09/01/19 16:52 Completed CV ankle brachial index [id number] Routi ne Ultrasound 09/02/19 09:24 Completed CV echo complete* [id number] Routine Ultrasound 08/30/19 08:00 Completed US abdomen limite d [id number] Routine Ultrasound 09/04/19 06:45 Completed US renal BI with bladder Routine Ultrasound 08/30/19 08:00 Completed Pending at discharge Category Date Time Status Cardiac Stress Te st MIBI [Sestamibi Stress Test Reque st Exams 08/28/19 18:56 Stop Req ] Routine Cardiac Stress Te st MIBI [Sestamibi Stress Test Reque st Exams 08/30/19 16:50 Stop Req ] Routine CV carotid duplex BI* [id number] Routine Ultrasound 09/04/19 07:34 Taken Labs from last 24 hours 09/04/19 09/04/19 09/04/19 11:23 07:16 07:16 WBC 5.8 RBC 2.80 L Hgb 9.2 L Hct 28.9 L MCV 103.2 H MCH 32.9 MCHC 31.8 RDW 15.9 H Plt Count 287 MPV 9.6 Neut % (Auto) 60.6 Lymph % (Auto) 25.0 [place] % (Auto) 9.3 Eos % (Auto) 4.3 Baso % (Auto) 0.3 Neut # (Auto) 3.5 Lymph # (Auto) 1.5 [place] # (Auto) 0.5 Eos # (Auto) 0.3 Baso # (Auto) 0.0 Nucleated RBC % (a uto) 0 Nucleated RBCs # 0.0 APTT Sodium Potassium Chloride Carbon Dioxide Anion Gap BUN Creatinine GFR Calculation Glucose POC Glucose 104 Calculated Osmolal ity Calcium Total Bilirubin AST ALT Alkaline Phosphata se Total Protein Albumin Globulin Hepatitis A IgM Ab Non-reactive Hep Bs Antigen Non-reactive Hep Bs Antibody < 3.5 Hep B Core Total A b Non-reactive Hepatitis C Antibo dy Non-reactive 09/04/19 09/04/19 09/04/19 07:16 07:16 06:19 WBC RBC Hgb Hct MCV MCH MCHC RDW Plt Count MPV Neut % (Auto) Lymph % (Auto) [place] % (Auto) Eos % (Auto) Baso % (Auto) Neut # (Auto) Lymph # (Auto) [place] # (Auto) Eos # (Auto) Baso # (Auto) Nucleated RBC % (a uto) Nucleated RBCs # APTT 74.1 H Sodium 131 L Potassium 4.3 Chloride 89 L Carbon Dioxide 25 Anion Gap 21.3 H BUN 27 H Creatinine 6.6 H* GFR Calculation 6.3 L Glucose 100 POC Glucose 92 Calculated Osmolal ity 269 L Calcium 9.3 Total Bilirubin 0.4 AST 26 ALT 65 H Alkaline Phosphata se 151 H Total Protein 7.5 Albumin 4.1 Globulin 3.4 Hepatitis A IgM Ab Hep Bs Antigen Hep Bs Antibody Hep B Core Total A b Hepatitis C Antibo dy 09/04/19 09/03/19 09/03/19 00:12 20:33 17:23 WBC RBC Hgb Hct MCV MCH MCHC RDW Plt Count MPV Neut % (Auto) Lymph % (Auto) [place] % (Auto) Eos % (Auto) Baso % (Auto) Neut # (Auto) Lymph # (Auto) [place] # (Auto) Eos # (Auto) Baso # (Auto) Nucleated RBC % (a uto) Nucleated RBCs # APTT 72.2 H Sodium Potassium Chloride Carbon Dioxide Anion Gap BUN Creatinine GFR Calculation Glucose POC Glucose 190 91 Calculated Osmolal ity Calcium Total Bilirubin AST ALT Alkaline Phosphata se Total Protein Albumin Globulin Hepatitis A IgM Ab Hep Bs Antigen Hep Bs Antibody Hep B Core Total A b Hepatitis C Antibo dy 09/03/19 16:40 WBC RBC Hgb Hct MCV MCH MCHC RDW Plt Count MPV Neut % (Auto) Lymph % (Auto) [place] % (Auto) Eos % (Auto) Baso % (Auto) Neut # (Auto) Lymph # (Auto) [place] # (Auto) Eos # (Auto) Baso # (Auto) Nucleated RBC % (a uto) Nucleated RBCs # APTT 89.9 H Sodium Potassium Chloride Carbon Dioxide Anion Gap BUN Creatinine GFR Calculation Glucose POC Glucose Calculated Osmolal ity Calcium Total Bilirubin AST ALT Alkaline Phosphata se Total Protein Albumin Globulin Hepatitis A IgM Ab Hep Bs Antigen Hep Bs Antibody Hep B Core Total A b Hepatitis C Antibo dy Vitals: Last Vital Signs Temp 98.0 F 09/04/19 12:00 Pulse 61 09/04/19 15:03 Resp 17 09/04/19 15:01 BP 133/62 09/04/19 14:00 Pulse Ox 94 09/04/19 15:01 Discharge Plan Discharge Patient Disposition: Home, Self-Care Condition: Stable Prescriptions: New metoprolol tartrate 50 mg Tablet 50 mg PO BID 30 Days Qty: 60 RF: 0 Eliquis 5 mg Tablet 2.5 mg PO BID 30 Days Qty: 30 RF: 0 Continued montelukast 10 mg tablet 10 mg PO DAILY RF: 0 midodrine 5 mg tablet See Rx Instructions .ROUTE .COMPLEX RF: 0 ferric citrate 210 mg iron tablet 210 mg PO TID RF: 0 cyanocobalamin (vitamin B-12) 1,000 mcg capsule 1,000 mcg PO DAILY RF: 0 Onglyza 5 mg tablet 5 mg PO DAILY RF: 0 Triphrocaps 1 mg capsule 1 cap PO DAILY RF: 0 atorvastatin [Lipitor] 20 mg tablet 20 mg PO DAILY RF: 0 Allergy Relief (cetirizine) 10 mg capsule 10 mg PO DAILY RF: 0 levothyroxine 50 mcg capsule 50 mcg PO DAILY RF: 0 citalopram 20 mg tablet 20 mg PO DAILY RF: 0 insulin aspart U-100 [Novolog Flexpen U-100 Insulin] 100 unit/mL (3 mL) insulin pen See Rx Instructions .ROUTE .COMPLEX RF: 0 tramadol 50 mg tablet 50 mg PO Q6H PRN (Reason: Pain) RF: 0 isosorbide mononitrate 30 mg Tablet Extended Release 24 Hr 30 mg PO DAILY RF: 0 pantoprazole 40 mg Tablet,Delayed Release (Dr/Ec) 40 mg PO DAILY RF: 0 aspirin 81 mg Tablet,Chewable 81 mg PO DAILY RF: 0 gabapentin 100 mg Capsule 200 mg PO BEDTIME RF: 0 Spiriva with HandiHaler 18 mcg Capsule, W/Inhalation Device 1 cap INHALATION DAILY RF: 0 Symbicort 160-4.5 mcg/actuation Hfa Aerosol Inhaler 2 puff INHALATION BID RF: 0 Lantus U-100 Insulin 100 unit/mL Solution 100 unit SUBCUT DAILY RF: 0 Discharge Orders: Discharge Order (Routine); Ordered 09/04/19 Ordered By: Chika Mathew Referrals: Ricky Shanks MD [Physician] - 2 weeks Pradeep Patel MD [Primary Care Provider] - Liliya Quezada MD [Physician] - 1 week Discharge Diet: Cardiac Discharge Activity: Resume usual activity Discharge Attestations Time Spent in Discharge Care*: other Quality Metrics Clinical Quality Measures During this hospital stay, did patient experience: None Coding Level of Care Code Acute Pelletizer Operator for Chg Fwd Diagnoses Chest pain R07.9 Chest pain type: unspecified Acute diastolic heart failure I50.31 Wide-complex tachycardia I47.2 Hyperlipemia E78.2 Hyperlipidemia type: mixed hyperlipidemia Atrial fibrillation I48.0 Atrial fibrillation type: paroxysmal End stage renal disease N18.6 Carotid artery stenosis, asymptomatic I65.29
[2019-09-04 16:41] LABS: Glucose Point of Care 89 mg/dL (70-110)
--- NOTE | 2019-09-04 17:13 | PC.NURSE ---
PATIENT UP AND AMBULATING AFTER 6 HOURS POST CATH. PATIENT DOING WELL. NO COMPLAINTS. VITAL SIGNS STABLE.
== END 2019-09-04 18:34 | disposition home or self-care (01) | DRG 286 ==
LOC: ER 16:01 → CSU 16:25 → MEDSURG 08-29 17:36 → ICU 09-04 08:32
PROVIDERS: Family Medicine; Internal Medicine Cardiovascular Disease; Admitting Provider Internal Medicine; Emergency Provider Emergency Medicine; Family Provider Family Medicine; PCP Family Medicine; Visit Provider Student in an Organized Health Care Education/Training Program
PROC: 4A023N7 Measurement of Cardiac Sampling and Pressure, Left Heart, Percutaneous Approach (ICD-10-PCS; principal; 2019-09-04 10:00)
DX: I13.2 Hypertensive heart and chronic kidney disease with heart failure and with stage 5 chronic kidney disease, or end stage renal disease (principal); I50.33 Acute on chronic diastolic (congestive) heart failure; N18.6 End stage renal disease; Z68.42 Body mass index [BMI] 45.0-49.9, adult; N39.0 Urinary tract infection, site not specified; E11.22 Type 2 diabetes mellitus with diabetic chronic kidney disease; R07.89 Other chest pain; I25.10 Atherosclerotic heart disease of native coronary artery without angina pectoris; Z85.3 Personal history of malignant neoplasm of breast; I65.23 Occlusion and stenosis of bilateral carotid arteries; J44.9 Chronic obstructive pulmonary disease, unspecified; Z86.73 Personal history of transient ischemic attack (TIA), and cerebral infarction without residual deficits; E78.2 Mixed hyperlipidemia; E03.9 Hypothyroidism, unspecified; E66.01 Morbid (severe) obesity due to excess calories; G47.33 Obstructive sleep apnea (adult) (pediatric); Z87.891 Personal history of nicotine dependence; N28.89 Other specified disorders of kidney and ureter; I48.0 Paroxysmal atrial fibrillation; I45.10 Unspecified right bundle-branch block; Z99.81 Dependence on supplemental oxygen; Z79.82 Long term (current) use of aspirin; Z79.4 Long term (current) use of insulin; D63.1 Anemia in chronic kidney disease
CPT/HCPCS: 12345; 36415; 36416; 36600; 71045; 71275; 76705; 76770; 76857; 78452; 80053; 81001; 82803; 82962; 83605; 83735; 83880; 84100; 84443; 84484; 85025; 85347; 85610; 85730; 86705; 86706; 86709; 86803; 87040; 87086; 87340; 87635; 87804; 90935; 93005; 93017; 93306; 93452; 93880; 93922; 94640; 94660; 96365; 96372; 96374; 96375; 99283; 99285; A9500; C1769; C1887; C1894; G0378; J0692; J0696; J1644; J1815; J1940; J2001; J2250; J2270; J2405; J2785; J3010; J3490; J3535; J7030; Q0163; Q3014; Q9967

== ENCOUNTER 2019-09-15 14:38 | Emergency (ER) | payer MEDICAID, SELFPAY ==
[2019-09-15 14:39] VITALS: BP 164/109; PULSE 82; RESP 22; TEMP 36.7; O2SAT 97; BMI 45.7
--- NOTE | 2019-09-15 14:54 | W.ED.SOB ---
HPI - SOB/Dyspnea General: Chief Complaint: Shortness of Breath/Dyspnea Stated Complaint: SOB Time Seen by Provider: 09/15/19 14:40 History of Present Illness: HPI Narrative: 64-year-old female presents with complaints of shortness of breath. She has a history of end-stage renal disease and is on dialysis. She did receive her dialysis run this morning states she was very short of breath throughout the entire run. She does have a slightly productive cough she has no fever denies nausea vomiting or diarrhea. She denies any recent chest pain. No dysuria urgency or frequency she has not ever had DVTs or PEs in the past either. MD elicited complaint: shortness of breath and cough Associated symptoms: Deny abdominal pain, chest pain, fever(s), nausea, orthopnea or vomiting Review of Systems Const: Denies: fever, chills, body aches, change in appetite, fatigue or malaise ENMT: Denies: throat pain, ear pain, nasal discharge or nasal congestion Card: Reports: edema; Denies: chest pain, shortness of breath on exertion or shortness of breath when lying down Resp: Reports: shortness of breath; Denies: productive cough or non-productive cough GI: Denies: abdominal pain, nausea, vomiting, vomiting blood, coffee grounds in vomit, diarrhea, constipation, bloating, blood in stool or black tarry stool : Denies: flank pain, difficulty urinating, painful urination, urinary frequency or urinary urgency Skin/Breast: Denies: rash or itching PFSH ED PFSH: Social History Smoking and tobacco status: former smoker Alcohol intake: never Physical Exam Const: COMMON NORMALS: no apparent distress GENERAL APPEARANCE: cooperative and comfortable ORIENTATION/CONSCIOUSNESS: Yes awake, Yes oriented to person, Yes oriented to place and Yes oriented to time HENMT: COMMON NORMALS: normocephalic, head/scalp atraumatic, hearing grossly normal bilaterally, external ears normal, EAC's normal, TM's normal bilaterally, nasal mucous membranes and turbinates normal, moist oral mucous membranes and oropharynx normal HEAD & SCALP: normocephalic and atraumatic NOSE: nasal mucous membranes and turbinates normal EXTERNAL EAR: Yes external ears normal EXTERNAL AUDITORY CANAL: EAC's normal TYMPANIC MEMBRANE: TM's normal bilaterally Eye: COMMON NORMALS: PERRL, EOMs intact bilaterally, conjunctivae normal and no scleral icterus CONJUNCTIVA: Yes conjunctivae normal PUPIL: Yes PERRL Neck/C-Spine: COMMON NORMALS: full ROM, no lymphadenopathy, supple and no JVD Lymph: LYMPHATIC: no lymphadenopathy noted and no lymphedema noted Resp: COMMON NORMALS: normal respiratory effort, no retractions, no use of accessory muscles and clear to auscultation bilaterally AUSCULTATION: clear to auscultation bilaterally Cardio: COMMON NORMALS: no JVD, regular rate, regular rhythm and no murmurs RATE: regular rate RHYTHM: regular rhythm GI: COMMON NORMALS: soft to palpation and no hepatosplenomegaly AUSCULTATION: Yes normoactive bowel sounds PALPATION: Yes soft, No tender, No guarding and Yes no hepatosplenomegaly Extremity: COMMON NORMALS: normal to inspection, normal capillary refill, no clubbing, cyanosis or edema, no calf tenderness and no pedal edema Neuro: SENSORIUM/ORIENTATION: Yes oriented to person, Yes oriented to place and Yes oriented to time Skin: COMMON NORMALS: no rashes or lesions noted GENERAL SKIN EXAM: no rashes or lesions noted Course Vital Signs: Vital signs: Vital Signs Temperature 98.0 F 09/15/19 14:39 Pulse Rate 75 09/15/19 16:47 Respiratory Rate 16 09/15/19 16:47 Blood Pressure 128/85 09/15/19 16:47 Pulse Oximetry 99 09/15/19 16:47 MDM - SOB/Dyspnea MDM Narrative: Medical decision making narrative: Patient is generally doing pretty well she is not significantly hypoxic. Organ to go ahead and start her on doxycycline discharge her home have her follow-up with her primary care doctor within the next day or 2. Continue her dialysis as scheduled. If has any worsening or change symptoms return to the emergency room. Lab Data: Labs: Lab Results 09/15/19 09/15/19 Range/Units 15:00 15:00 WBC 11.8 H (4.0-10.0) 10^3/ uL RBC 2.78 L (4.1-5.3) 10^6/u L Hgb 9.0 L (11.5-15.3) g/dL Hct 29.9 L (37.0-47.0) % MCV 107.6 H (81-99) fL MCH 32.4 (28.0-34.0) pg MCHC 30.1 (30.0-36.0) g/dL RDW 16.8 H (12.1-15.1) % Plt Count 461 H (130-400) 10^3/c mm MPV 10.1 (7.4-10.4) fL Neut % (Auto) 81.0 % Lymph % (Auto) 8.1 % [place] % (Auto) 8.8 % Eos % (Auto) 1.1 % Baso % (Auto) 0.4 % Neut # (Auto) 9.5 H (1.8-7.7) 10^3/u L Lymph # (Auto) 1.0 (0.8-4.8) 10^3/u L [place] # (Auto) 1.0 H (0.2-0.9) 10^3/u L Eos # (Auto) 0.1 (0.0-0.8) 10^3/u L Baso # (Auto) 0.1 (0.0-0.1) 10^3/u L Nucleated RBC % (a uto) 0 % Nucleated RBCs # 0.0 /100WBC Sodium 134 L (136-145) mmol/L Potassium 4.2 (3.5-5.1) mmol/L Chloride 86 L (98-107) mmol/L Carbon Dioxide 32 H (22-29) mmol/L Anion Gap 20.2 H (5-19) BUN 21 (8-23) mg/dL Creatinine 5.2 H (0.5-0.9) mg/dL GFR Calculation 8.3 L (90-130) mL/min Glucose 133 H (65-115) mg/dL Calculated Osmolal ity 277 L (285-295) mOsm/k g Calcium 9.8 (8.5-10.5) mg/dL Total Bilirubin 0.4 (0.15-1.2) mg/dL AST 41 H (0-32) U/L ALT 63 H (0-33) U/L Alkaline Phosphata se 219 H (35-105) IU/L Total Protein 8.6 (6.6-8.7) g/dL Albumin 4.5 (3.5-5.2) g/dL Globulin 4.1 (1.3-4.6) g/dL Discharge Plan Discharge Patient Disposition: Home, Self-Care Clinical Impression: Congestive heart failure (CHF), End stage renal disease, Bronchitis Condition: Stable Prescriptions: New doxycycline hyclate 100 mg capsule 100 mg PO BID 10 Days Qty: 20 RF: 0 No Action montelukast 10 mg tablet 10 mg PO DAILY RF: 0 midodrine 5 mg tablet See Rx Instructions .ROUTE .COMPLEX RF: 0 Auryxia 210 mg iron tablet 630 mg PO TID RF: 0 Onglyza 5 mg tablet 5 mg PO DAILY RF: 0 atorvastatin [Lipitor] 20 mg tablet 20 mg PO QPM RF: 0 levothyroxine 50 mcg capsule 50 mcg PO DAILY RF: 0 citalopram 20 mg tablet 20 mg PO DAILY RF: 0 insulin aspart U-100 [Novolog Flexpen U-100 Insulin] 100 unit/mL (3 mL) insulin pen See Rx Instructions .ROUTE .COMPLEX RF: 0 tramadol 50 mg tablet 50 mg PO Q6H PRN (Reason: Pain) RF: 0 isosorbide mononitrate 30 mg Tablet Extended Release 24 Hr 30 mg PO DAILY RF: 0 pantoprazole 40 mg Tablet,Delayed Release (Dr/Ec) 40 mg PO QPM RF: 0 aspirin 81 mg Tablet,Chewable 81 mg PO DAILY RF: 0 gabapentin 100 mg Capsule 200 mg PO BEDTIME RF: 0 budesonide-formoterol [Symbicort] 160-4.5 mcg/actuation Hfa Aerosol Inhaler 2 puff INHALATION BID RF: 0 Lantus U-100 Insulin 100 unit/mL Solution 42 unit SUBCUT BID RF: 0 metoprolol tartrate 50 mg Tablet 50 mg PO BID 30 Days Qty: 60 RF: 0 Eliquis 5 mg Tablet 2.5 mg PO BID 30 Days Qty: 30 RF: 0 sennosides [senna] 8.6 mg Tablet 17.2 mg PO BID PRN (Reason: unknown) RF: 0 melatonin 3 mg Tablet 3 mg PO BEDTIME RF: 0 acetaminophen [Tylenol Extra Strength] 500 mg Tablet 1,000 mg PO Q4H PRN (Reason: Pain) RF: 0 lidocaine-prilocaine 2.5-2.5 % cream See Rx Instructions .ROUTE .COMPLEX RF: 0 diphenhydramine HCl [Benadryl] 25 mg Capsule 50 mg PO BEDTIME RF: 0 promethazine 25 mg tablet 12.5 mg PO BID PRN (Reason: unknown) RF: 0 albuterol sulfate [ProAir HFA] 90 mcg/actuation Hfa Aerosol Inhaler 2 puff INHALATION Q6H PRN (Reason: Shortness Of Breath) RF: 0 ondansetron 4 mg tablet,disintegrating 4 mg PO Q8H PRN (Reason: Nausea) RF: 0 cholecalciferol (vitamin D3) [Vitamin D3] 25 mcg (1,000 unit) Tablet 1,000 unit PO DAILY RF: 0 sevelamer carbonate 800 mg Tablet See Rx Instructions .ROUTE .COMPLEX RF: 0 guaifenesin [Mucinex] 600 mg Tablet Extended Release 12hr 600 - 1,200 mg PO Q6H PRN (Reason: Congestion) RF: 0 RenaPlex-D 800 mcg-12.5 mg -2,000 unit Tablet 1 tab PO QPM RF: 0 hydrocodone-acetaminophen [Thompson] 5-325 mg Tablet 1 - 2 tab PO Q4H PRN (Reason: Pain) RF: 0 oxycodone 5 mg Tablet 5 mg PO PRN RF: 0 Zyrtec 10 mg capsule 10 mg PO DAILY RF: 0 Discharge Orders: Discharge Order (Routine); Ordered 09/15/19 Ordered By: Rolo Gurrola Referrals: Jorge Luis Silvestre MD [Physician] - (Follow-up with Dr. Silvestre in the next 1 to 2 days) Discharge Diet: Usual diet Discharge Activity: Increase activity as tolerated Activity Restrictions/Additional Instructions: Any worsening or change in symptoms or if you begin to develop chest pain return to the emergency room Discharge Date/Time: 09/15/19 16:48 Coding Level of Care Code ED Kickboxing Instructor for Michelle Borrero
--- NOTE | 2019-09-15 14:55 | XR_ITS ---
WS: [id number] XR chest 1V portable [id number] REASON FOR EXAM: dyspnea/cough FINDINGS: The heart is grossly enlarged today. Much larger than previous exam of August 28, 2019. The lung jean baptiste show no definite pneumonia. No pleural effusion. The hilum and apices appear to be normal. XR/XR chest 1V portable [id number] IMPRESSION: Congestive cardiomyopathy.
--- NOTE | 2019-09-15 14:55 | ECG_ITS ---
Measurements Intervals [place] Rate: 81 P: 19 MS: 122 QRS: -37 QRSD: 162 T: 49 QT: 440 QTc: 512 SINUS RHYTHM LEFT AXIS DEVIATION [QRS AXIS < -30] RIGHT BUNDLE BRANCH BLOCK [120+ ms QRS DURATION, UPRIGHT V1, 40+ ms S IN I/ I/aVL/V4/V5/V6] Compared to ECG 08/29/2019 23:06:10 No significant changes Electronically Signed On 09-15-2019 18:24:51 CDT by Vince Stevenson M.D. [id number] f
[2019-09-15 15:14] LABS: Basophils # 0.1 10^3/uL (0.0-0.1); Basophils % 0.4 %; Eosinophils # 0.1 10^3/uL (0.0-0.8); Eosinophils % 1.1 %; Hematocrit 29.9 % (37.0-47.0); Lymphocytes % 8.1 %; Mean Corpuscular HGB Conc 30.1 g/dL (30.0-36.0); Mean Corpuscular Hemoglobin 32.4 pg (28.0-34.0); Mean Corpuscular Volume 107.6 fL (81-99); Mean Platelet Volume 10.1 fL (7.4-10.4); Monocytes % 8.8 %; Neutrophils # 9.5 10^3/uL (1.8-7.7); Nucleated Red Blood Cells % 0 %; Platelet Count 461 10^3/cmm (130-400); Red Blood Count 2.78 10^6/uL (4.1-5.3); Red Cell Distribution Width 16.8 % (12.1-15.1); White Blood Count 11.8 10^3/uL (4.0-10.0)
[2019-09-15 16:01] LABS: Alanine Aminotransferase 63 U/L (0-33); Albumin Level 4.5 g/dL (3.5-5.2); Alkaline Phosphatase 219 IU/L (35-105); Anion Gap 20.2 (5-19); Blood Urea Nitrogen 21 mg/dL (8-23); Calcium 9.8 mg/dL (8.5-10.5); Carbon Dioxide 32 mmol/L (22-29); Chloride 86 mmol/L (98-107); Globulin 4.1 g/dL (1.3-4.6); Glomerular Filtration Rate 8.3 mL/min (90-130); Glucose 133 mg/dL (65-115); Osmolality Calculated 277 mOsm/kg (285-295); Potassium 4.2 mmol/L (3.5-5.1); Sodium 134 mmol/L (136-145); Total Bilirubin 0.4 mg/dL (0.15-1.2); Total Protein 8.6 g/dL (6.6-8.7)
[2019-09-15 16:27] LABS: Aspartate Amino Transferase 41 U/L (0-32)
[2019-09-15 16:47] VITALS: BP 128/85; PULSE 75; RESP 16; O2SAT 99
== END 2019-09-15 16:48 | disposition home or self-care (01) ==
PROVIDERS: Emergency Provider Family Medicine; Family Provider Family Medicine; PCP Family Medicine
DX: I50.9 Heart failure, unspecified (principal); N18.6 End stage renal disease; J40 Bronchitis, not specified as acute or chronic; Z79.82 Long term (current) use of aspirin; Z79.4 Long term (current) use of insulin; Z79.01 Long term (current) use of anticoagulants; Z87.891 Personal history of nicotine dependence
CPT/HCPCS: 12345; 71045; 80053; 85025; 87040; 93005; 99281; 99283

== ENCOUNTER 2019-09-16 15:09 | Emergency (ER) | payer MEDICAID, SELFPAY | END 2019-09-16 20:11 | disposition admitted as inpatient to this hospital (09) | LOC: ER 09-23 13:16 | PROVIDERS: Emergency Provider Family Medicine; PCP Family Medicine | DX: R05 Cough (principal); Z85.3 Personal history of malignant neoplasm of breast; I13.2 Hypertensive heart and chronic kidney disease with heart failure and with stage 5 chronic kidney disease, or end stage renal disease; E10.22 Type 1 diabetes mellitus with diabetic chronic kidney disease; N18.6 End stage renal disease; I50.30 Unspecified diastolic (congestive) heart failure; I25.10 Atherosclerotic heart disease of native coronary artery without angina pectoris; E78.5 Hyperlipidemia, unspecified; Z87.891 Personal history of nicotine dependence | CPT/HCPCS: 71045; 80053; 83880; 84484; 85025; 93005; 96374; 96375; 99283; 99285; J2060 ==

== ENCOUNTER 2019-09-16 15:09 | Inpatient (IN) | payer MEDICAID, SELFPAY ==
[2019-09-16 15:15] VITALS: BP 105/57; PULSE 158; RESP 20; TEMP 36.2; O2SAT 93; BMI 51.2
[2019-09-16] MEDS: LORazepam 2 mg/mL INJ 1 mL 1 MG IVP (15:39)
--- NOTE | 2019-09-16 15:42 | ECG_ITS ---
Measurements Intervals [place] Rate: 145 P: PA: 0 QRS: -61 QRSD: 155 T: 71 QT: 331 QTc: 516 ATRIAL FIBRILLATION WITH RAPID VENTRICULAR RESPONSE RIGHT BUNDLE BRANCH BLOCK [120+ ms QRS DURATION, UPRIGHT V1, 40+ ms S IN I I/aVL/V4/V5/V6] LEFT ANTERIOR FASCICULAR BLOCK [QRS AXIS <= -45, QR IN I, RS IN II] Compared to ECG 09/15/2019 15:10:04 Left anterior fascicular block now present Sinus rhythm no longer present Left-axis deviation no longer present Electronically Signed On 09-16-2019 17:18:26 CDT by Jorge Luis Silvestre M.D. [id number] f
--- NOTE | 2019-09-16 15:42 | XR_ITS ---
WS: [id number] XR chest 1V portable [id number] REASON FOR EXAM: SOB, a-fib FINDINGS: Gross cardiomegaly changes are noted. No pneumonia, pulmonary edema, pleural effusion, or mass effect. The hilum and apices normal The heart is similar to September 15, 2019. XR/XR chest 1V portable [id number] IMPRESSION: Congestive cardiomyopathy.
--- NOTE | 2019-09-16 16:22 | PC.NURSE ---
Patient's caregiver called to check on patient and reports patient occasionally spaces out and is hard to understand since she was discharged from the hospital a couple weeks ago. Patient had been seen by Dr Patel and started on a muscle relaxer and Zithromax for a lung infection. Patient's caregiver states patient lives along in an apt at [facility] and patient's caregiver has concerns with patient being there alone with her health and decreasing vision.
[2019-09-16 16:44] LABS: Basophils # 0.1 10^3/uL (0.0-0.1); Basophils % 0.4 %; Eosinophils # 0.1 10^3/uL (0.0-0.8); Eosinophils % 0.9 %; Hematocrit 29.2 % (37.0-47.0); Hemoglobin 8.7 g/dL (11.5-15.3); Lymphocytes # 0.8 10^3/uL (0.8-4.8); Mean Corpuscular HGB Conc 29.8 g/dL (30.0-36.0); Mean Corpuscular Hemoglobin 32.2 pg (28.0-34.0); Mean Corpuscular Volume 108.1 fL (81-99); Mean Platelet Volume 10.1 fL (7.4-10.4); Monocytes % 7.5 %; Neutrophils # 10.8 10^3/uL (1.8-7.7); Neutrophils % 84.2 %; Nucleated Red Blood Cells % 0 %; Platelet Count 500 10^3/cmm (130-400); White Blood Count 12.8 10^3/uL (4.0-10.0)
[2019-09-16 16:46] LABS: Alanine Aminotransferase 50 U/L (0-33); Albumin Level 4.2 g/dL (3.5-5.2); Alkaline Phosphatase 205 IU/L (35-105); Anion Gap 24.7 (5-19); Aspartate Amino Transferase 29 U/L (0-32); Blood Urea Nitrogen 40 mg/dL (8-23); Carbon Dioxide 26 mmol/L (22-29); Chloride 85 mmol/L (98-107); Globulin 3.9 g/dL (1.3-4.6); Glomerular Filtration Rate 5.1 mL/min (90-130); Glucose 136 mg/dL (65-115); NT Pro B Type Natriuretic Pept 7394 pg/mL (0-125); Osmolality Calculated 272 mOsm/kg (285-295); Potassium 4.7 mmol/L (3.5-5.1); Sodium 131 mmol/L (136-145); Total Bilirubin 0.3 mg/dL (0.15-1.2); Total Protein 8.1 g/dL (6.6-8.7)
--- NOTE | 2019-09-16 17:27 | CTR_ITS ---
PROCEDURE INFORMATION: Exam: CT Head Without Contrast Exam date and time: 09/16/2019 5:35 PM Age: 64 years old Clinical indication: Altered mental status/memory loss; Additional info: Altered mentation TECHNIQUE: Imaging protocol: Computed tomography of the head without contrast. Radiation optimization: All CT scans at this facility use at least one of these dose optimization techniques: automated exposure control; mA and/or kV adjustment per patient size (includes targeted exams where dose is matched to clinical indication); or iterative reconstruction. COMPARISON: CT head wo con* [id number] 10/07/2018 8:02 PM RADIATION DOSE METRICS: Total DLP: 578.27 mGy-cm FINDINGS: Brain: Mild diffuse cortical volume loss. Motion streak artifact degrades some images. Mild hypodensities in supratentorial periventricular white matter. Stable chronic small infarct in the superior right parietal lobe. No intracranial hemorrhage. Ventricles: Normal. No ventriculomegaly. Bones/joints: Unremarkable. No acute fracture. Sinuses: Visualized sinuses are unremarkable. No fluid levels. Mastoid air cells: Right mastoid effusion. The left mastoid is clear. Soft tissues: Unremarkable. Vasculature: No hyperdense artery. CT/CT head wo con* [id number] IMPRESSION: 1. No acute intracranial abnormality. 2. Mild microangiopathy. 3. Stable small chronic superior right parietal lobe infarct. Radiation Dose CTDIVOL = (mGy): DLP = 578.27 (mGy-cm)
--- NOTE | 2019-09-16 17:42 | ECG_ITS ---
Measurements Intervals [place] Rate: 71 P: 31 TX: 161 QRS: -33 QRSD: 153 T: 30 QT: 440 QTc: 478 SINUS RHYTHM LEFT AXIS DEVIATION [QRS AXIS < -30] RIGHT BUNDLE BRANCH BLOCK [120+ ms QRS DURATION, UPRIGHT V1, 40+ ms S IN I/a I/aVL/V4/V5/V6] POSSIBLE SEPTAL MYOCARDIAL INFARCTION , OF INDETERMINATE AGE [30 ms Q WAVE IN V1 V1/V2] Compared to ECG 09/16/2019 15:38:18 Left-axis deviation now present Myocardial infarct finding now present Atrial fibrillation no longer present Left anterior fascicular block no longer present Electronically Signed On 09-17-2019 17:13:41 CDT by Mike Pichardo M.D. [id number] f
--- NOTE | 2019-09-16 17:58 | PM.HP ---
Providers/Chief Complaint Admitting Physician: Chika Mathew MD Primary Care Provider: Pradeep Patel MD Chief Complaint: COUGH, SYNCOPAL History of Present Illness Oscar Pack is a 64 year old female with past medical history of breast cancer, carotid artery disease, stroke, diastolic heart failure, end-stage renal disease (on hemodialysis), hyperlipidemia, hypertension, hypothyroidism, obstructive sleep apnea, type 1 diabetes mellitus who was admitted 08/27-09/03 for c/o chest pain. CTA of chest demonstrated no pulmonary embolism. Echocardiogram demonstrated preserved EF, trivial pericardial effusion. Underwent nuclear stress test which showed areas of persistent decreases uptake in the anterior, anterolateral, inferolateral, inferior and apical regions with some reversibility, suggestive of myocardial scarring with ischemia- mostly in the distribution of the left anterior descending artery with some in the distribution of the circumflex and right coronary artery. She underwent coronary angiogram which showed mild to moderate disease without significant occlusion. She was discharged with recommendations for medical management. For details please see outpatient cardiology note from 09/11/19. Her hospital course was notable for episodes of atrial fibrillation with rapid ventricular rate, Eliquis initiated secondary to atrial fibrillation. She returned today with c/o worsening shortness of breath and chest discomfort. She was found to be have a fib with RVR with HR 158 and was noted to be hypotensive with SBP 80s. She underwent cardioversion in the ER and then returned to sinus rhythm which is currently rate controlled. BP at time of my evaluation is 110/60. She was also noted to have some shortness of breath at time time. At time of my evaluation, she is somnolent. She did received 1mg Ativan for cardioversion. She wakes up to calling name, though is unable to answer any questions coherently. From a previous admission, i recall her having poor vision, however she was still able to acknowledge persons in the room. Currently she states she is unable to see me. She also appears to be tachypneic, drawing in rapid shallow breaths. I am unsure when she last had HD. Baseline troponin is 116, down from 139. BNP is ~7000, up from ~1300 last admission. Review of Systems General: Reports: ROS unobtainable due to mental status Medications/Allergies Home Medications Medication Instructions Recorded Confirmed Last Taken Type atorvastatin 20 mg tablet 20 mg PO QPM 07/09/19 09/16/19 08/27/19 History citalopram 20 mg tablet 20 mg PO DAILY 07/09/19 09/16/19 08/28/19 History ferric citrate 210 mg iron tablet 630 mg PO TID 07/09/19 09/16/19 08/28/19 History insulin aspart U-100 100 unit/mL See Rx Instructions .ROUTE .COMPLEX 07/09/19 09/16/19 Unknown History (3 mL) subcutaneous pen levothyroxine 50 mcg capsule 50 mcg PO DAILY 07/09/19 09/16/19 08/28/19 History midodrine 5 mg tablet See Rx Instructions .ROUTE .COMPLEX 07/09/19 09/16/19 08/27/19 History montelukast 10 mg tablet 10 mg PO DAILY 07/09/19 09/16/19 08/27/19 History saxagliptin 5 mg tablet 5 mg PO DAILY 07/09/19 09/16/19 08/27/19 History tramadol 50 mg tablet 50 mg PO Q6H PRN 07/09/19 09/16/19 Unknown History Lantus U-100 Insulin 42 unit SUBCUT BID 08/28/19 09/16/19 08/27/19 History aspirin 81 mg PO DAILY 08/28/19 09/16/19 08/27/19 History budesonide-formoterol [Symbicort] 2 puff INHALATION BID 08/28/19 09/16/19 08/27/19 History gabapentin 200 mg PO BEDTIME 08/28/19 09/16/19 08/27/19 History isosorbide mononitrate 30 mg PO DAILY 08/28/19 09/16/19 Unknown History pantoprazole 40 mg PO QPM 08/28/19 09/16/19 08/27/19 History apixaban [Eliquis] 2.5 mg PO BID 30 Days #30 tab 09/04/19 09/16/19 Unknown Rx metoprolol tartrate 50 mg PO BID 30 Days #60 tab 09/04/19 09/16/19 Unknown Rx acetaminophen [Tylenol Extra 1,000 mg PO Q4H PRN 09/15/19 09/16/19 Unknown History Strength] albuterol sulfate [ProAir HFA] 2 puff INHALATION Q6H PRN 09/15/19 09/16/19 Unknown History cholecalciferol (vitamin D3) 1,000 unit PO DAILY 09/15/19 09/16/19 Unknown History [Vitamin D3] diphenhydramine HCl [Benadryl] 50 mg PO BEDTIME 09/15/19 09/16/19 Unknown History doxycycline hyclate 100 mg PO BID 10 Days #20 cap 09/15/19 09/16/19 Unknown Rx guaifenesin [Mucinex] 600 - 1,200 mg PO Q6H PRN 09/15/19 09/16/19 Unknown History hydrocodone-acetaminophen [Holden] 1 - 2 tab PO Q4H PRN 09/15/19 09/16/19 Unknown History lidocaine-prilocaine See Rx Instructions .ROUTE .COMPLEX 09/15/19 09/16/19 Unknown History melatonin 3 mg PO BEDTIME 09/15/19 09/16/19 Unknown History ondansetron 4 mg PO Q8H PRN 09/15/19 09/16/19 Unknown History oxycodone 5 mg PO PRN 09/15/19 09/16/19 Unknown History promethazine 12.5 mg PO BID PRN 09/15/19 09/16/19 Unknown History sennosides [senna] 17.2 mg PO BID PRN 09/15/19 09/16/19 Unknown History sevelamer carbonate See Rx Instructions .ROUTE .COMPLEX 09/15/19 09/16/19 Unknown History vit B,U-QH-mfhk-selen-vit D3-E 1 tab PO QPM 09/15/19 09/16/19 Unknown History [RenaPlex-D] cetirizine [Zyrtec] 10 mg PO DAILY 09/16/19 09/16/19 Unknown History Allergies Allergy/AdvReac Type Severity Reaction Status Date / Time Penicillins Allergy hives Verified 09/16/19 15:30 Sulfa (Sulfonamide Allergy depleat Verified 09/16/19 15:30 Antibiotics) potassium PFSH Acute PFSH: Medical History Accelerated essential hypertension Breast cancer Carotid artery disease Carotid artery stenosis, asymptomatic Chronic kidney disease COPD (chronic obstructive pulmonary disease) Patient reports COPD, but restrictive lung disease is also a possibility. 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 Surgical History H/O lumpectomy left breast H/O tubal ligation Hemodialysis access site with arteriovenous graft History of cholecystectomy Hx of abdominoplasty Family History Other Cancer Diabetes Hypertension Stroke Social History Smoking and tobacco status: former smoker Alcohol intake: never Vitals/I&O/Wt Last Vital Signs Temp 97.1 F L 09/16/19 15:15 Pulse 158 H 09/16/19 15:15 Resp 20 H 09/16/19 15:15 BP 105/57 09/16/19 15:15 Pulse Ox 93 09/16/19 15:15 Weight last 48 hrs Weight 127.006 kg Physical Exam Narrative: EXAM NARRATIVE: GEN: Somnolent, wakes up to calling name but replies inchorenetly to questions CVS: S1S2 N RS: B/L coarse crackles on exam Abd: Soft, nt/nd , bs+ MID LEVEL BUSINESS ANALYST: unable to assess due to somnolence, does not follow commands for motor testing Data : 09/16/19 16:06 09/16/19 16:06 A&P Assessment and plan (1) Congestive heart failure (CHF): Status: Acute (2) Hyperlipemia: Status: Acute Qualifiers: Hyperlipidemia type: mixed hyperlipidemia Qualified Code(s): E78.2 - Mixed hyperlipidemia (3) Atrial fibrillation: Status: Acute Qualifiers: Atrial fibrillation type: paroxysmal Qualified Code(s): I48.0 - Paroxysmal atrial fibrillation (4) End stage renal disease: Status: Acute Additional A&P Information Admit to CSU level of care # A fib with RVR Underwent cardioversion in ER, now rate controlled in sinus rhythm Troponin at 116, down from previous admission Continue metorpolol 50 BID with BP parameters CV echo Last estimated EF from Lexiscan with preserved EF ~60% # Diastolic CHF with acute exacerbation Patient received lasix in ED, however unclear if she still makes urine Will consult nephrology as clinically patient appears to be fluid overloaded and may need HD Current BNP ~7000, up from previous admission # CKD on MHD : as above # Altered mentation, may be secondary to ativan that she received for cardioversion, however will r/o CVA post procedure by obtaining CT head. Code status: DNR/DNI- discussed with patient's son Mr. Fritz Quiñonez Dvt ppx: On Eliquis Attestations Medical Necessity Statement*: Anticipate > 2 midnight admission for management of Afib RVR, Diastolic CHF exacerbation Coding Level of Care Code Acute Filter Helper for [facility] Fwd Diagnoses Congestive heart failure (CHF) I50.9 Hyperlipemia E78.2 Hyperlipidemia type: mixed hyperlipidemia Atrial fibrillation I48.0 Atrial fibrillation type: paroxysmal End stage renal disease N18.6
[2019-09-16 18:18] LABS: ABG PCO2 51.8 mmHg (35-45); ABG PH Result 7.37 (7.35-7.45); Alveolar-Arterial Oxygen Gradi 15.7 mmHg (5-10); Arterial Blood Gas Hematocrit 27.8 % (37-47); Blood Gas Allen Test Pos; Blood Gas Sample Site Radial, left; Blood Gas Sample Type Arterial; Carboxyhemoglobin 0.2 %THgb (0.4-20.1); HGB O2 Sat 91.1 % (95-100); Ionized Calcium Level - ABG 1.1 mmol/L (1.1-1.4); Methemoglobin 0.1 % (0.4-1.5); Oxygen Device NC; Oxygen Saturation ABG 91.4; PO2 ABG 70.1 mmHg (80.0-100.0); Potassium Level - ABG 4.9 mmol/L (3.5-5.0); Total Hemoglobin 9.1 g/dL (12-16)
[2019-09-16 18:35] LABS: Troponin(5th) Baseline 116 ng/mL (0-10)
--- NOTE | 2019-09-16 18:48 | PM.CONSULT ---
Providers/Reason For Consult Consulting Physican/Specialty*: Ana Welsh DO, telenephrology Reason for Consult*: pulmonary edema, ESRD Attending Physician: Chika Mathew MD Primary Care Provider: Pradeep Patel MD History of Present Illness History of Present Illness Oscar Pack is a 64 year old female presented to ER with atrial fibrillation, rapid ventricular rate, required cardioversion. + significant dyspnea. Had HD yesterday Review of Systems General: Reports: ROS unobtainable due to medical condition Meds/Allergies Home Medications and Allergies Home Medications Medication Instructions Recorded Confirmed Last Taken Type atorvastatin 20 mg tablet 20 mg PO QPM 07/09/19 09/16/19 08/27/19 History citalopram 20 mg tablet 20 mg PO DAILY 07/09/19 09/16/19 08/28/19 History ferric citrate 210 mg iron tablet 630 mg PO TID 07/09/19 09/16/19 08/28/19 History insulin aspart U-100 100 unit/mL See Rx Instructions .ROUTE .COMPLEX 07/09/19 09/16/19 Unknown History (3 mL) subcutaneous pen levothyroxine 50 mcg capsule 50 mcg PO DAILY 07/09/19 09/16/19 08/28/19 History midodrine 5 mg tablet See Rx Instructions .ROUTE .COMPLEX 07/09/19 09/16/19 08/27/19 History montelukast 10 mg tablet 10 mg PO DAILY 07/09/19 09/16/19 08/27/19 History saxagliptin 5 mg tablet 5 mg PO DAILY 07/09/19 09/16/19 08/27/19 History tramadol 50 mg tablet 50 mg PO Q6H PRN 07/09/19 09/16/19 Unknown History Lantus U-100 Insulin 42 unit SUBCUT BID 08/28/19 09/16/19 08/27/19 History aspirin 81 mg PO DAILY 08/28/19 09/16/19 08/27/19 History budesonide-formoterol [Symbicort] 2 puff INHALATION BID 08/28/19 09/16/19 08/27/19 History gabapentin 200 mg PO BEDTIME 08/28/19 09/16/19 08/27/19 History isosorbide mononitrate 30 mg PO DAILY 08/28/19 09/16/19 Unknown History pantoprazole 40 mg PO QPM 08/28/19 09/16/19 08/27/19 History apixaban [Eliquis] 2.5 mg PO BID 30 Days #30 tab 09/04/19 09/16/19 Unknown Rx metoprolol tartrate 50 mg PO BID 30 Days #60 tab 09/04/19 09/16/19 Unknown Rx acetaminophen [Tylenol Extra 1,000 mg PO Q4H PRN 09/15/19 09/16/19 Unknown History Strength] albuterol sulfate [ProAir HFA] 2 puff INHALATION Q6H PRN 09/15/19 09/16/19 Unknown History cholecalciferol (vitamin D3) 1,000 unit PO DAILY 09/15/19 09/16/19 Unknown History [Vitamin D3] diphenhydramine HCl [Benadryl] 50 mg PO BEDTIME 09/15/19 09/16/19 Unknown History doxycycline hyclate 100 mg PO BID 10 Days #20 cap 09/15/19 09/16/19 Unknown Rx guaifenesin [Mucinex] 600 - 1,200 mg PO Q6H PRN 09/15/19 09/16/19 Unknown History hydrocodone-acetaminophen [[place]] 1 - 2 tab PO Q4H PRN 09/15/19 09/16/19 Unknown History lidocaine-prilocaine See Rx Instructions .ROUTE .COMPLEX 09/15/19 09/16/19 Unknown History melatonin 3 mg PO BEDTIME 09/15/19 09/16/19 Unknown History ondansetron 4 mg PO Q8H PRN 09/15/19 09/16/19 Unknown History oxycodone 5 mg PO PRN 09/15/19 09/16/19 Unknown History promethazine 12.5 mg PO BID PRN 09/15/19 09/16/19 Unknown History sennosides [senna] 17.2 mg PO BID PRN 09/15/19 09/16/19 Unknown History sevelamer carbonate See Rx Instructions .ROUTE .COMPLEX 09/15/19 09/16/19 Unknown History vit B,Y-TL-ubwj-selen-vit D3-E 1 tab PO QPM 09/15/19 09/16/19 Unknown History [RenaPlex-D] cetirizine [Zyrtec] 10 mg PO DAILY 09/16/19 09/16/19 Unknown History Allergies Allergy/AdvReac Type Severity Reaction Status Date / Time Penicillins Allergy hives Verified 09/16/19 15:30 Sulfa (Sulfonamide Allergy depleat Verified 09/16/19 15:30 Antibiotics) potassium PFSH Acute PFSH: Medical History Accelerated essential hypertension Breast cancer Carotid artery disease Carotid artery stenosis, asymptomatic Chronic kidney disease COPD (chronic obstructive pulmonary disease) Patient reports COPD, but restrictive lung disease is also a possibility. 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 Surgical History H/O lumpectomy left breast H/O tubal ligation Hemodialysis access site with arteriovenous graft History of cholecystectomy Hx of abdominoplasty Family History Other Cancer Diabetes Hypertension Stroke Social History Smoking and tobacco status: former smoker Alcohol intake: never Vitals/I&O/Wt Last Vital Signs Temp 97.1 F L 09/16/19 15:15 Pulse 158 H 09/16/19 15:15 Resp 20 H 09/16/19 15:15 BP 105/57 09/16/19 15:15 Pulse Ox 93 09/16/19 15:15 Weight last 48 hrs Weight 127.006 kg Physical Exam Narrative: EXAM NARRATIVE: examined in ER, tachypneic, using accessory muscles respiration Resp: EFFORT & INSPECTION: Yes tachypneic AUSCULTATION: rales and wheezes Cardio: COMMON NORMALS: regular rate and regular rhythm RATE: regular rate RHYTHM: regular rhythm HEART SOUNDS: murmur Extremity: NARRATIVE EXTREMITY EXAM: RUE AVF Data Other Data: Other data: CXR - massive cardiomegaly 7.37/51.8/70 proBNP 7394 A&P Additional A&P Information 1. Pulmonary edema 2. ESRD 3. s/p cardioversion for atrial fibrillation 4. ANemia 5. Hyponatremia due to volume overload 6. 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
[2019-09-16] MEDS: apixaban 5 mg Tablet 2.5 MG PO (18:50)
[2019-09-16] MEDS: pantoprazole DR 40 mg Tablet PO (18:50)
[2019-09-16 19:09] LABS: Troponin 5 2HR Delta 0 ABS# (0-10)
[2019-09-16 19:18] LABS: Troponin 5 2HR 116 ng/mL (0-10)
[2019-09-16 19:48] VITALS: BP 106/62; PULSE 76; RESP 22; O2SAT 93
[2019-09-16 20:00] VITALS: BP 119/74; PULSE 73; RESP 20; TEMP 36.3; O2SAT 97
--- NOTE | 2019-09-16 20:15 | ED_ITS ---
HPI - Arrhythmia/Palpitations General: Chief Complaint: Arrhythmia/Palpitations Stated Complaint: COUGH, SYNCOPAL Time Seen by Provider: 09/16/19 15:20 Source: patient and EMS Mode of arrival: EMS Limitations: other (blind) History of Present Illness: HPI narrative: Patient with a history of afib, HTN, COPD, CAD, ESRD on hemodialysis M, W, F who presents with complaints of shortness of breath. She was discharged from this facility about 2 weeks ago when she was managed for acute CHF and a-fib. She is not a good historian but she states that for the last few days she has been having worsening shortness of breath. She denies chest pain. When EMS arrived they noted that she was tachycardic with heart rate in the 150s and a little hypotensive. She also had a single syncopal episode today. She was brought in here for evaluation. Arrhythmia history: atrial fibrillation and on anti-coagulants Associated symptoms: Reports short of breath and syncope (once); Deny nausea or vomiting Review of Systems General: Reports: 10 or more systems reviewed and unremarkable except in HPI and below Const: Denies: fever, chills or body aches Eyes: Denies: change in vision (she has baseline blindness) or blurry vision ENMT: Denies: throat pain, enlarged tonsils, painful swallowing, hoarseness, mouth pain or swelling of lips/tongue Card: Reports: chest pain and syncope (once) Resp: Reports: shortness of breath GI: Denies: abdominal pain, nausea or vomiting : Denies: flank pain, difficulty urinating, painful urination, urinary frequency, urinary urgency or urinary hesitancy Musc: Denies: neck pain, back pain or extremity swelling Skin/Breast: Denies: rash, itching or redness Neuro: Denies: headache, numbness in extremities or weakness in extremities Endo: Denies: excessive urination, excessive thirst or tired all the time PFSH ED PFSH: Medical History Accelerated essential hypertension Breast cancer Carotid artery disease Carotid artery stenosis, asymptomatic Chronic kidney disease COPD (chronic obstructive pulmonary disease) Patient reports COPD, but restrictive lung disease is also a possibility. 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 Surgical History H/O lumpectomy left breast H/O tubal ligation Hemodialysis access site with arteriovenous graft History of cholecystectomy Hx of abdominoplasty Family History Other Cancer Diabetes Hypertension Stroke Social History Smoking and tobacco status: former smoker Alcohol intake: never Physical Exam Const: COMMON NORMALS: no apparent distress, average body habitus, oriented x3, no limitations, healthy appearing, alert and well nourished HENMT: COMMON NORMALS: normocephalic, head/scalp atraumatic and moist oral mucous membranes HEAD & SCALP: normocephalic and atraumatic Eye: COMMON NORMALS: PERRL, EOMs intact bilaterally, conjunctivae normal and no scleral icterus CONJUNCTIVA: Yes conjunctivae normal PUPIL: Yes PERRL Neck/C-Spine: COMMON NORMALS: full ROM, supple, no meningeal signs, no JVD and no carotid bruits Chest: COMMONS NORMALS: inspection of chest normal and palpation of chest normal Resp: COMMON NORMALS: normal respiratory effort, no retractions, no use of accessory muscles and percussion normal AUSCULTATION: rales and wheezes PERCUSSION: percussion normal Cardio: COMMON NORMALS: no JVD, regular rate, regular rhythm, S1 normal heart sound, S2 normal heart sound, no gallops, no clicks, no murmurs, no rub and peripheral pulses 2+ throughout RATE: regular rate RHYTHM: regular rhythm HEART SOUNDS: S1 normal and S2 normal PERIPHERAL PULSES: pulses 2+ throughout GI: COMMON NORMALS: normal to inspection, nondistended, normoactive bowel sounds, soft to palpation, non-tender, no hepatosplenomegaly, no masses and no bruits PALPATION: Yes soft and Yes no hepatosplenomegaly : COMMON NORMALS: Yes no CVA tenderness BLADDER/KIDNEY EXAM: Yes no CVA tenderness Back/Pelvis: COMMON NORMALS: no CVA tenderness Extremity: COMMON NORMALS: normal to inspection, full ROM, normal capillary refill, no calf tenderness and no pedal edema Neuro: COMMON NORMALS: oriented x3 SENSORIUM/ORIENTATION: Yes alert MENINGEAL SIGNS: Yes no meningeal signs Skin: COMMON NORMALS: no rashes or lesions noted, no wounds, skin turgor normal, no jaundice, no petechiae and no mottling GENERAL SKIN EXAM: no rashes or lesions noted and turgor normal Course Consultations: Consultation #1: Dr. Mathew, hospitalist. She kindly accepted the patient to her service Vital Signs: Vital signs: Vital Signs Temperature 97.3 F L 09/16/19 20:00 Pulse Rate 73 09/16/19 20:00 Respiratory Rate 20 H 09/16/19 20:00 Blood Pressure 119/74 09/16/19 20:00 Pulse Oximetry 97 09/16/19 20:00 MDM - Arrhythmia/Palpitations MDM Narrative: Medical decision making narrative: 64-year-old female patient with multiple medical comorbidities who presented to the emergency department in atrial fibrillation with rapid ventricular rate with her heart rate in the 150s. She was unstable as she was hypotensive. Because of these a decision was made to perform electric cardioversion with synchronized defibrillation at 120 J. She was premedicated with intravenous lorazepam. She received a single shock at 120 J following which she converted to sinus rhythm. She is admitted to the hospital for further evaluation and management as evaluation shows she is in congestive heart failure. She also has a critically elevated creatinine and will be dialyzed tonight. Medical Records: Attestation: I reviewed the patient's medical records. Lab Data: Labs: Lab Results 09/16/19 09/16/19 09/16/19 Range/Units 16:06 16:06 16:06 WBC 12.8 H (4.0-10.0) 10^3/ uL RBC 2.70 L (4.1-5.3) 10^6/u L Hgb 8.7 L (11.5-15.3) g/dL Hct 29.2 L (37.0-47.0) % MCV 108.1 H (81-99) fL MCH 32.2 (28.0-34.0) pg MCHC 29.8 L (30.0-36.0) g/dL RDW 17.0 H (12.1-15.1) % Plt Count 500 H (130-400) 10^3/c mm MPV 10.1 (7.4-10.4) fL Neut % (Auto) 84.2 % Lymph % (Auto) 6.0 % [place] % (Auto) 7.5 % Eos % (Auto) 0.9 % Baso % (Auto) 0.4 % Neut # (Auto) 10.8 H (1.8-7.7) 10^3/u L Lymph # (Auto) 0.8 (0.8-4.8) 10^3/u L [place] # (Auto) 1.0 H (0.2-0.9) 10^3/u L Eos # (Auto) 0.1 (0.0-0.8) 10^3/u L Baso # (Auto) 0.1 (0.0-0.1) 10^3/u L Nucleated RBC % (a uto) 0 % Nucleated RBCs # 0.0 /100WBC Sodium 131 L (136-145) mmol/L Potassium 4.7 (3.5-5.1) mmol/L Chloride 85 L (98-107) mmol/L Carbon Dioxide 26 (22-29) mmol/L Anion Gap 24.7 H (5-19) BUN 40 H (8-23) mg/dL Creatinine 8.0 H* (0.5-0.9) mg/dL GFR Calculation 5.1 L (90-130) mL/min Glucose 136 H (65-115) mg/dL Calculated Osmolal ity 272 L (285-295) mOsm/k g Calcium 9.0 (8.5-10.5) mg/dL Total Bilirubin 0.3 (0.15-1.2) mg/dL AST 29 (0-32) U/L ALT 50 H (0-33) U/L Alkaline Phosphata se 205 H (35-105) IU/L Troponin T Baselin e 116 H* (0-10) ng/mL NT-Pro-B Natriuret Pep 7394 H (0-125) pg/mL Total Protein 8.1 (6.6-8.7) g/dL Albumin 4.2 (3.5-5.2) g/dL Globulin 3.9 (1.3-4.6) g/dL Imaging Data^: CXR: Radiologist's impression: [id number] [address] XRay Report Signed Patient: Oscar Pack #: [id number] : 5Acct#:[id number] Age/Sex: 64 / FADM Date: 09/16/19 Loc: ERRoom/Bed: Attending Dr: Ordering Provider/Ordering MD: Lizzy Chau MD, [facility] Date of Service: 09/16/19 Procedure(s): XR chest 1V portable [id number] Accession Number(s): [id number] Report Number: [id number] WS: [id number] XR chest 1V portable [id number] REASON FOR EXAM: SOB, a-fib FINDINGS: Gross cardiomegaly changes are noted. No pneumonia, pulmonary edema, pleural effusion, or mass effect. The hilum and apices normal The heart is similar to September 15, 2019. XR/XR chest 1V portable [id number] IMPRESSION: Congestive cardiomyopathy. Dictated By:Brent Escalante DO Signed By:Brent Escalante DOSigned Date/Time:09/16/191622 DD/ 1622 EKG Data^: EKG 1: Attestation: I personally reviewed and interpreted this EKG as follows: EKG interpretation date: 09/16/19 EKG interpretation time: 15:38 Prior EKG tracings: not available for review Interpretation: Atrial fibrillation with rapid ventricular response. Heart rate 145 bpm. Right bundle branch block. Left anterior fascicular block. Other EKG comments: Chest X-Ray 09/16/19 15:42 IMPRESSION: Congestive cardiomyopathy. Head CT 09/16/19 17:27 IMPRESSION: 1. No acute intracranial abnormality. 2. Mild microangiopathy. 3. Stable small chronic superior right parietal lobe infarct. Radiation Dose CTDIVOL = (mGy): DLP = 578.27 (mGy-cm) EKG 2: Attestation: I personally reviewed and interpreted this EKG as follows: EKG interpretation date: 09/16/19 EKG interpretation time: 15:40 Prior EKG tracings: available for review Interpretation: Post electric cardioversion Normal sinus rhythm. Heart rate 72 bpm. Left axis deviation. Right bundle branch block. Other EKG comments: Chest X-Ray 09/16/19 15:42 IMPRESSION: Congestive cardiomyopathy. Head CT 09/16/19 17:27 IMPRESSION: 1. No acute intracranial abnormality. 2. Mild microangiopathy. 3. Stable small chronic superior right parietal lobe infarct. Radiation Dose CTDIVOL = (mGy): DLP = 578.27 (mGy-cm) EKG 3: Attestation: I personally reviewed and interpreted this EKG as follows: EKG interpretation date: 09/16/19 EKG interpretation time: 18:15 Prior EKG tracings: available for review Interpretation: Unchanged from her last EKG Other EKG comments: Chest X-Ray 09/16/19 15:42 IMPRESSION: Congestive cardiomyopathy. Head CT 09/16/19 17:27 IMPRESSION: 1. No acute intracranial abnormality. 2. Mild microangiopathy. 3. Stable small chronic superior right parietal lobe infarct. Radiation Dose CTDIVOL = (mGy): DLP = 578.27 (mGy-cm) Critical Care Time Critical Care Time: Critical Care Time: Yes Total Critical Care Time: 30 Attestation: This case had a high probability of a clinically significant, sudden, or life threatening deterioration of this patient's condition which required my full and direct attention, intervention and personal management. 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
--- NOTE | 2019-09-16 21:42 | ECG_ITS ---
Measurements Intervals [place]hman Rate: 73 P: 14 AR: 122 QRS: -31 QRSD: 165 T: 49 QT: 475 QTc: 527 SINUS RHYTHM MARKED LEFT AXIS DEVIATION [QRS AXIS < -30] RIGHT BUNDLE BRANCH BLOCK [120+ ms QRS DURATION, UPRIGHT V1, 40+ ms S IN I/aVL/V I/aVL/V4/V5/V6] POSSIBLE SEPTAL MYOCARDIAL INFARCTION [30 ms Q WAVE IN V1/V2], OF INDETERMINATE AGE Compared to ECG 09/16/2019 15:38:18 Left-axis deviation now present Myocardial infarct finding now present Atrial fibrillation no longer present Left anterior fascicular block no longer present Electronically Signed On 09-17-2019 17:15:18 CDT by Mike Pichardo M.D. [email or web address]
[2019-09-16 22:54] LABS: Troponin 5 6HR 113.2 ng/mL (0-10); Troponin 5 6HR Delta -2.8 ng/L (0-12)
[2019-09-17] VITALS (13 sets, daily range): BP systolic 100–157; BP diastolic 61–76; PULSE 57–77; RESP 17–21; TEMP 36.2–36.8; O2SAT 94–100
[2019-09-17] MEDS: acetaminophen 325 mg Tablet 650 MG PO ×3 (00:39→20:22)
[2019-09-17] MEDS: metoprolol tartrate 50 mg Tablet PO ×3 (00:39→18:43)
[2019-09-17] MEDS: sevelamer 800 mg Tablet 2400 MG PO ×4 (00:39→18:42)
[2019-09-17] MEDS: atorvastatin 40 mg Tablet 20 MG PO ×2 (00:40→18:42)
[2019-09-17] MEDS: lidocaine 2% viscous 15 ML, aluminum-mag hydrox-simethicon 30 ML, sucralfate oral liq 1 GM PO (02:20)
[2019-09-17] MEDS: ipratropium-albuterol 3 mL Neb INHALATION ×3 (02:37→20:37)
[2019-09-17 05:50] LABS: Basophils # 0.1 10^3/uL (0.0-0.1); Basophils % 0.5 %; Eosinophils # 0.2 10^3/uL (0.0-0.8); Eosinophils % 1.5 %; Hematocrit 28.7 % (37.0-47.0); Hemoglobin 8.6 g/dL (11.5-15.3); Lymphocytes # 1.5 10^3/uL (0.8-4.8); Lymphocytes % 15.5 %; Mean Corpuscular Hemoglobin 33.2 pg (28.0-34.0); Mean Corpuscular Volume 110.8 fL (81-99); Mean Platelet Volume 9.6 fL (7.4-10.4); Monocytes # 0.9 10^3/uL (0.2-0.9); Monocytes % 9.4 %; Neutrophils % 72.5 %; Nucleated Red Blood Cells % 0 %; Platelet Count 414 10^3/cmm (130-400); Red Blood Count 2.59 10^6/uL (4.1-5.3); White Blood Count 9.7 10^3/uL (4.0-10.0)
[2019-09-17 06:15] LABS: Alanine Aminotransferase 41 U/L (0-33); Albumin Level 4.3 g/dL (3.5-5.2); Alkaline Phosphatase 179 IU/L (35-105); Anion Gap 19.1 (5-19); Aspartate Amino Transferase 24 U/L (0-32); Blood Urea Nitrogen 24 mg/dL (8-23); Carbon Dioxide 30 mmol/L (22-29); Chloride 89 mmol/L (98-107); Globulin 3.5 g/dL (1.3-4.6); Glucose 133 mg/dL (65-115); Magnesium 2.3 mg/dL (1.7-2.3); Osmolality Calculated 277 mOsm/kg (285-295); Potassium 4.1 mmol/L (3.5-5.1); Sodium 134 mmol/L (136-145); Total Bilirubin 0.4 mg/dL (0.15-1.2); Total Protein 7.8 g/dL (6.6-8.7)
[2019-09-17 06:26] LABS: Hepatitis B Surface Antigen Non-Reactive (Nonreactive)
[2019-09-17] MEDS: budesonide 0.5 mg/2 mL Neb INHALATION ×2 (08:06→20:37)
[2019-09-17] MEDS: isosorbide mononitrate ER 30 mg Tablet PO (09:30)
[2019-09-17] MEDS: levothyroxine 50 mcg Tablet PO (09:30)
[2019-09-17] MEDS: apixaban 5 mg Tablet 2.5 MG PO ×2 (09:30→18:43)
[2019-09-17] MEDS: citalopram 20 mg Tablet PO (09:30)
[2019-09-17] MEDS: aspirin 81 mg Chew Tablet PO (09:30)
[2019-09-17] MEDS: cholecalciferol (vitamin D3) 1,000 unit Tablet 1000 UNIT PO (09:31)
--- NOTE | 2019-09-17 10:03 | PC.CHAP ---
Pastoral Care Encounter/Spiritual Assessment Type of Contact [] Declined manager transfer visit [] Patient/Family/Request visit [] Outpatient visit [] Follow-up visit [] Physician referral [] Code/Alert [x] Routine visit [] Staff referral [] Actively dying [] Patient sleeping [] Family support [] [] Out of room [] Palliative care [] [] Receiving care in room [] Pre-surgical visit [] Trauma [] Long length of stay [] ICU visit [] Other: Relational/Emotional Strength [] Patient feels connected with others/family/visitors/staff [] Distress [] Loneliness/isolation [] Abandonment Spirituality of Patient [] Person of Cleo [] Attends Judaism of their Cleo [x] Believes in Prayer [] Reads Bible or Druze materials [] There are Spiritual issues to be addressed Supervisor Nuclear Medicine Interventions [x] Prayer [] Active listening [] Non-anxious presence [] Spiritual/emotional support [] Crisis/trauma care [] Spiritual counseling [] Bereavement support [] Provided bereavement packet [] Provided Bible/devotional materials [] Provided toy/stuffed animal, coloring book to patient or family member [] Provided Communion [] Anointing/[place] [] Salvation [x] Completed spiritual assessment [] Other: Impact on Illness or Injury [] Angry [] Fearful [] Anxious [] Often cries [] Exhaustion [] Unable to work [] Unable to attend temple [] Unable to walk/stand [] Unable to read [] Unable to drive [] Unable to eat/drink [] Unable to sleep [] Unable to be with family [] Patient intubated [] Other: Summary Patient experiencing heart beat issues. Patient remaining in good frame of mind. Time spent with patient 10 min
--- NOTE | 2019-09-17 11:54 | PM.PN ---
Subjective Subjective: Interval history: admitted with atrial fibrillation, volume overload, respiratory distress Medications: Reviewed: Yes Vitals/I&O/Wt Last Vital Signs Temp 98.1 F 09/17/19 11:25 Pulse 57 L 09/17/19 11:25 Resp 18 09/17/19 11:25 BP 117/76 09/17/19 11:25 Pulse Ox 94 09/17/19 11:25 09/16/19 09/17/19 09/17/19 22:59 06:59 14:59 Intake Total 0 / 0 0 / 0 Output Total 0 / 0 Balance 0 / 0 0 / 0 Weight last 48 hrs Weight 127.006 kg Physical Exam Const: GENERAL APPEARANCE: cooperative, lethargic and ill appearing ORIENTATION/CONSCIOUSNESS: Yes lethargic Resp: EFFORT & INSPECTION: Yes uses accessory muscles Neuro: SENSORIUM/ORIENTATION: Yes lethargic Data : 09/17/19 05:39 09/17/19 05:39 A&P Additional A&P Information 1. Pulmonary edema - clinically improved after HD last evening - 2 liter fluid removal 2. ESRD, on HD MWF 3. s/p cardioversion for atrial fibrillation 4. ANemia 5. Hyponatremia due to volume overload, improved 6. respiratory acidosis PLAN; 4 hour HD today with 2.5 liter fluid removal,as BP tolerates. 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
[2019-09-17 12:01] LABS: Glucose Point of Care 174 mg/dL (70-110)
--- NOTE | 2019-09-17 15:14 | P.PN_ITS ---
Subjective Subjective: Interval history: seen in dialysis. imporved work f breathing over yeseterday. no major events on telemetry, except transient bradycardia with HR 46. pending echo. Underwent extra HD last evening. mental status at baseline now Medications: Reviewed: Yes Vitals/I&O/Wt Last Vital Signs Temp 98.1 F 09/17/19 11:25 Pulse 57 L 09/17/19 11:25 Resp 18 09/17/19 11:25 BP 117/76 09/17/19 11:25 Pulse Ox 94 09/17/19 11:25 09/17/19 09/17/19 09/17/19 06:59 14:59 22:59 Intake Total 0 / 0 240 / 240 Balance 0 / 0 240 / 240 Weight last 48 hrs Weight 127.006 kg Physical Exam Narrative: EXAM NARRATIVE: GEN: Awake, alert and oriented, no acute distress CVS: S1S2 N RS: Reduced air entry left lung base Abd: Soft, nt/nd , bs+ CANCER PROGRAM COORDINATOR: no focal neuro deficits, blind at baseline Data : 09/17/19 05:39 09/17/19 05:39 A&P Assessment and plan (1) Congestive heart failure (CHF): Status: Acute (2) Hyperlipemia: Status: Acute Qualifiers: Hyperlipidemia type: mixed hyperlipidemia Qualified Code(s): E78.2 - Mixed hyperlipidemia (3) Atrial fibrillation: Status: Acute Qualifiers: Atrial fibrillation type: permanent Qualified Code(s): I48.21 - Permanent atrial fibrillation (4) End stage renal disease: Status: Acute Additional A&P Information # A fib with RVR Underwent cardioversion in ER, now rate controlled in sinus rhythm. Transient bradycardia with HR 46/min, asymptomatic Troponin at 116, down from previous admission Continue metorpolol 50 BID with BP parameters CV echo taken, results pending, cardiomegaly noted on CXR this admission, worried about potential pericardial effusion +/- tamponade features gievn decompensated heart failure Last estimated EF from Lexiscan with preserved EF ~60% # Diastolic CHF with acute exacerbation Current BNP ~7000, up from previous admission undergoing HD # CKD on MHD : as above # Altered mentation, improved today. Ct head with chronic microvascular changes and old infarcts. 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
[2019-09-17 17:13] LABS: Glucose Point of Care 99 mg/dL (70-110)
[2019-09-17] MEDS: midodrine 5 mg TABLET PO (18:42)
[2019-09-17] MEDS: pantoprazole DR 40 mg Tablet PO (18:43)
--- NOTE | 2019-09-17 20:08 | USCV_ITS ---
Oscar Pack Age: 64 Gender: F : 1955 Exam Date: 09/17/2019 08:58 Ordering Phys: Chika Mathew MD Technologist: Yue Paredes [place] [facility] [place] CHF BP: 100 / 61 HR: 68 Rhythm: Sinus Technical Quality: Adequate MEASUREMENTS (Male / Female) Normal Values 2D ECHO LV Diastolic Diameter PLAX 4.5 cm 4.2 - 5.9 / 3.9 - 5.3 cm LV Systolic Diameter PLAX 2.1 cm LV Chamber Size 3.4 cm IVS Diastolic Thickness 1.0 cm 0.6 - 1.0 / 0.6 - 0.9 cm IVS Systolic Thickness 1.5 cm LVPW Diastolic Thickness 1.9 cm 0.6 - 1.0 / 0.6 - 0.9 cm LVPW Systolic Thickness 2.2 cm RV Chamber Size 3.7 cm LVOT Diameter 2.1 cm LV Ejection Fraction 2D Teich 84.3 % LV Ejection Fraction MOD 2C 63.5 % LV Ejection Fraction 2C AL 63.0 % LA Diameter 3.5 cm LA Width 3.5 cm LA Height 5.0 cm RA Width 3.2 cm RA Height 3.8 cm M-MODE LV Diastolic Diameter MM 5.4 cm 4.2 - 5.9 / 3.9 - 5.3 cm LV Systolic Diameter MM 3.2 cm LV Ejection Fraction MM Teich 72.1 % IVS Diastolic Thickness MM 0.8 cm 0.6 - 1.0 / 0.6 - 0.9 cm IVS Systolic Thickness MM 1.5 cm LVPW Diastolic Thickness MM 0.9 cm 0.6 - 1.0 / 0.6 - 0.9 cm LVPW Systolic Thickness MM 1.0 cm Aortic Annulus Diameter 2.8 cm LA Ao Ratio MM 1.3 MV E Point Septal Separation 0.6 cm DOPPLER MV Area PHT 2.7 cm squared Mitral E to A Ratio 1.2 MV E' Velocity 9.0 cm/s Mitral E to MV E' Ratio 16.5 Mitral E to LV E' Lateral Ratio 18.4 Mitral E to LV E' Septal Ratio 15.0 TR Peak Velocity 245.0 cm/s TR Peak Gradient 24.0 mmHg TV Peak E Velocity 54.0 cm/s Right Atrial Pressure 3.0 mmHg Pulmonary Artery Systolic Pressu 27.0 mmHg PV Peak Velocity 79.0 cm/s RV Acceleration Time 0.1 s RV Ejection Time 0.3 s RV AcT/ET 0.4 FINDINGS Left Ventricle Normal left ventricular size, systolic function and wall thickness, with no regional wall motion abnormalities. Left ventricular ejection fraction is estimated at 64 %. Grade 2 diastolic dysfunction with elevated left atrial pressure. Right Ventricle Normal right ventricular size and systolic function, RVSP 32 mmHg. Right Atrium Normal right atrial size. Dilated inferior vena cava. Right atrial pressure estimated at 8 mmHg. Left Atrium Mildly increased left atrial size. Mitral Valve Mild mitral annular calcification. Moderately thickened mitral valve. No mitral valve stenosis. Mild posteriorly directed mitral valve regurgitation. Aortic Valve Aortic valve not well visualized. Trace aortic valve regurgitation. Tricuspid Valve Structurally normal tricuspid valve. Trace tricuspid valve regurgitation. Pulmonic Valve Pulmonic valve not well visualized. Pericardium Moderate circumferential pericardial effusion (posterior > anterior). No evidence of hemodynamic compromise. Aorta Normal sized aortic root. CONCLUSIONS 1. Normal left ventricular size, systolic function and wall thickness, with no regional wall motion abnormalities. Left ventricular ejection fraction is estimated at 64 %. Grade 2 diastolic dysfunction with elevated left atrial pressure. 2. Normal right ventricular size and systolic function, RVSP 32 mmHg. 3. Mild mitral valve regurgitation. 4. Moderate circumferential pericardial effusion located more posteriorly along left ventricle. No evidence of hemodynamic compromise. 5. Compared to previous echocardiogram dated 08/30/2019, pericardial effusion seems to have increased in size. Liliya Quezada MD (Electronically Signed) Final Date: 17 Sep 2019 12:52 S
[2019-09-17 20:32] LABS: Glucose Point of Care 149 mg/dL (70-110)
[2019-09-17] MEDS: lidocaine 5% Patch 1 PATCH TOPICAL (22:15)
[2019-09-18] VITALS (11 sets, daily range): BP systolic 97–133; BP diastolic 49–81; PULSE 58–72; RESP 18–20; TEMP 36.4–37.1; O2SAT 93–99
[2019-09-18 06:28] LABS: Glucose Point of Care 113 mg/dL (70-110)
--- NOTE | 2019-09-18 07:00 | XR_ITS ---
WS: [id number] XR chest 1V portable [id number] REASON FOR EXAM: f/up effusions, CHF FINDINGS: Gross cardiomegaly is noted. There appears to be now small amount of left pleural effusion not appreciated on 09/16/2019. Arteriosclerotic changes. XR/XR chest 1V portable [id number] IMPRESSION: Mild left pleural effusion obliterating the costophrenic angle Gross cardiomegaly.
[2019-09-18] MEDS: ipratropium-albuterol 3 mL Neb INHALATION ×2 (07:34→20:58)
[2019-09-18] MEDS: sevelamer 800 mg Tablet 2400 MG PO ×3 (07:40→17:27)
[2019-09-18] MEDS: budesonide 0.5 mg/2 mL Neb INHALATION ×2 (08:15→20:58)
[2019-09-18] MEDS: metoprolol tartrate 50 mg Tablet PO ×2 (08:35→17:25)
[2019-09-18] MEDS: aspirin 81 mg Chew Tablet PO (08:35)
[2019-09-18] MEDS: cholecalciferol (vitamin D3) 1,000 unit Tablet 1000 UNIT PO (08:35)
[2019-09-18] MEDS: isosorbide mononitrate ER 30 mg Tablet PO (08:35)
[2019-09-18] MEDS: levothyroxine 50 mcg Tablet PO (08:35)
[2019-09-18] MEDS: citalopram 20 mg Tablet PO (08:36)
[2019-09-18] MEDS: apixaban 5 mg Tablet 2.5 MG PO ×2 (08:36→17:26)
[2019-09-18] MEDS: lidocaine 5% Patch 1 PATCH TOPICAL ×2 (08:36→21:24)
[2019-09-18] MEDS: acetaminophen 325 mg Tablet 650 MG PO ×2 (08:40→20:13)
[2019-09-18 08:42] LABS: Alanine Aminotransferase 29 U/L (0-33); Albumin Level 3.5 g/dL (3.5-5.2); Alkaline Phosphatase 155 IU/L (35-105); Anion Gap 19.9 (5-19); Blood Urea Nitrogen 24 mg/dL (8-23); Calcium 8.9 mg/dL (8.5-10.5); Carbon Dioxide 24 mmol/L (22-29); Chloride 94 mmol/L (98-107); Globulin 3.9 g/dL (1.3-4.6); Glomerular Filtration Rate 9.6 mL/min (90-130); Glucose 96 mg/dL (65-115); Magnesium 2.7 mg/dL (1.7-2.3); Osmolality Calculated 273 mOsm/kg (285-295); Potassium 4.9 mmol/L (3.5-5.1); Sodium 133 mmol/L (136-145); Total Bilirubin 0.5 mg/dL (0.15-1.2); Total Protein 7.4 g/dL (6.6-8.7)
[2019-09-18 09:15] LABS: Aspartate Amino Transferase 32 U/L (0-32)
[2019-09-18 11:40] LABS: Glucose Point of Care 270 mg/dL (70-110)
--- NOTE | 2019-09-18 12:43 | ECG_ITS ---
Measurements Intervals [place] Rate: 64 P: 8 IA: 130 QRS: -32 QRSD: 165 T: 33 QT: 468 QTc: 483 SINUS RHYTHM MARKED LEFT AXIS DEVIATION [QRS AXIS < -30] RIGHT BUNDLE BRANCH BLOCK [120+ ms QRS DURATION, UPRIGHT V1, 40+ ms S IN I/aVL/V4/V5/V6] Compared to ECG 09/17/2019 00:08:53 Myocardial infarct finding no longer present Electronically Signed On 09-18-2019 14:15:05 CDT by Liliya Quezada M.D. [email or web address]
--- NOTE | 2019-09-18 13:14 | P.PN_ITS ---
Subjective Subjective: Interval history: Heart rate ranging between 58-72. She underwent HD yesterday with removal of 3.5 L of fluid. While her O2 sat is been maintained on 2 to 3 L/min of oxygen, she continues to subjectively feel short of breath and is more tachypneic than on previous admissions. Echocardiogram showed moderate pericardial effusion in a circumferential pattern located poste riorly behind the left ventricle. There is no hemodynamic compromise that is noted as a result of this effusion. A new left-sided pleural effusion mild is also detected on the chest x-ray today. She is unable to currently lie flat. I know this morning she felt relatively comfortable this afternoon she complains of increased shortness of breath again. There are no acute EKG changes. Medications: Reviewed: Yes Vitals/I&O/Wt Last Vital Signs Temp 98.0 F 09/18/19 11:06 Pulse 58 L 09/18/19 11:06 Resp 18 09/18/19 11:06 BP 97/59 09/18/19 11:06 Pulse Ox 96 09/18/19 11:06 09/17/19 09/18/19 09/18/19 22:59 06:59 14:59 Intake Total 460 / 900 100 / 1000 320 / 320 Balance 460 / 900 100 / 1000 320 / 320 Weight last 48 hrs Weight 116.165 kg Weight 127.006 kg Physical Exam Narrative: EXAM NARRATIVE: GEN: Awake, alert and oriented, appears tachypneic at the time of exam CVS: S1S2 N RS: Reduced air entry bilateral lung bases with scattered crackles Abd: Soft, nt/nd , bs+ SEARCH ENGINEER: no focal neuro deficits, blind at baseline Data : 09/17/19 05:39 09/18/19 07:19 A&P Assessment and plan (1) Congestive heart failure (CHF): Status: Acute (2) Hyperlipemia: Status: Acute Qualifiers: Hyperlipidemia type: mixed hyperlipidemia Qualified Code(s): E78.2 - Mixed hyperlipidemia (3) Atrial fibrillation: Status: Acute Qualifiers: Atrial fibrillation type: permanent Qualified Code(s): I48.21 - Permanent atrial fibrillation (4) End stage renal disease: Status: Acute (5) Pericardial effusion: Status: Acute (6) Pleural effusion: Status: Acute Additional A&P Information # A fib with RVR Underwent cardioversion in ER on 5/5, now rate controlled in sinus rhythm, HR between 58-72/min Troponin at 116, down from previous admission Continue metorpolol 50 BID with BP parameters CV echo taken, Normal left ventricular size, systolic function and wall thickness, with no regional wall motion abnormalities. Left ventricular ejection fraction is estimated at 64 %. Grade 2 diastolic dysfunction with elevated left atrial pressure. Moderate circumferential pericardial effusion (posterior >anterior). No evidence of hemodynamic compromise. On eliquis already # Diastolic CHF with acute exacerbation Current BNP ~7000, up from previous admission Patient continues to be subjectively dyspneic and tachypneic this present admission in spite having 3 HD sessions on consecutive days. Doubt that moderate pericardial effusion without hemodynamic compromise evident is curr ently contributing to her overall picture. Pleural effusion appears to be mild, symptoms appear out of proportion with her overall picture. However, will discuss with her outpatient corn breeder. We will also talk to nephrology about increasing the frequency of dialysis or attempting to remove greater fluid at each dialysis session. This however may be limited by the fact that she tends to become hypotensive during her dialysis sessions. Adding on diuretics to her regimen will be of little benefit as patient does not make any urine currently. Increasing nitrates is also limited by the fact that she tends to run her blood pressures between 90-100 systolic. May need more HD today # CKD on MHD : as above # Altered mentation,now back at baseline # patient loves alone. Given her overall worsening of status with regards to dyspnea since previous admission, I am concerned that she will be unable to perform her ADLs in a background of already having limited vision. recommend SNF, patient is willing Code status: DNR/DNI Dvt ppx: On Eliquis Attestations Medical Necessity Statement*: awaiting optimization of resp status, strating placement at SNF Coding Level of Care Code Acute Senior Maintenance Mechanic for Chg Fwd Diagnoses Congestive heart failure (CHF) I50.9 Hyperlipemia E78.2 Hyperlipidemia type: mixed hyperlipidemia Atrial fibrillation I48.21 Atrial fibrillation type: permanent End stage renal disease N18.6 Pericardial effusion I31.3 Pleural effusion J90
--- NOTE | 2019-09-18 14:59 | PM.PN ---
Subjective Subjective: Interval history: dyspnea she feels is unchanged remains on 3L NC, O2 sat 96% Medications: Reviewed: Yes Vitals/I&O/Wt Last Vital Signs Temp 98.0 F 09/18/19 11:06 Pulse 58 L 09/18/19 11:06 Resp 18 09/18/19 11:06 BP 97/59 09/18/19 11:06 Pulse Ox 96 09/18/19 11:06 09/17/19 09/18/19 09/18/19 22:59 06:59 14:59 Intake Total 460 / 900 100 / 1000 320 / 320 Balance 460 / 900 100 / 1000 320 / 320 Weight last 48 hrs Weight 116.165 kg Weight 127.006 kg Physical Exam Const: GENERAL APPEARANCE: cooperative Data : 09/17/19 05:39 09/18/19 07:19 A&P Additional A&P Information CXR: Mild left pleural effusion obliterating the costophrenic angle. Gross cardiomegaly. 1. Normal left ventricular size, systolic function and wall thickness, with no regional wall motion abnormalities. Left ventricular ejection fraction is estimated at 64%. Grade 2 diastolic dysfunction with elevated left atrial pressure. 2. Normal right ventricular size and systolic function, RVSP 32 mmHg. 3. Mild mitral valve regurgitation. 4. Moderate circumferential pericardial effusion located more posteriorly along left ventricle. No evidence of hemodynamic compromise. 5. Compared to previous echocardiogram dated 08/30/2019, pericardial effusion seems to have increased in size. Impression: ESRD Has had HD 3 days in a row, last 2 treatments removed total 4.3 liters. Also had dialysis on Sunday. Imaging does not reveal pulmonary edema. Oxygen saturation stable on 3 L NC. Known chronic CO2 retention, sleep apnea. I do not feel dialysis today would benefit her respiratory status. Recommend: check ABG, consider daytime CPAP, more aggressive treatment for COPD exacerbation, consider CTA rule-out PE. Plan for hemodialysis 09/19/2019. Consider transfusion during dialysis. Attestations Medical Necessity Statement*: per primary service Coding Level of Care Code Acute Senior Executive Assistant for Michelle Borrero
--- NOTE | 2019-09-18 16:44 | PC.RESP ---
Pulmonary Rehab information to patient
[2019-09-18 17:08] LABS: Glucose Point of Care 87 mg/dL (70-110)
[2019-09-18] MEDS: atorvastatin 40 mg Tablet 20 MG PO (17:26)
[2019-09-18] MEDS: pantoprazole DR 40 mg Tablet PO (17:27)
[2019-09-18 21:16] LABS: Glucose Point of Care 155 mg/dL (70-110)
[2019-09-19] VITALS (7 sets, daily range): BP systolic 97–129; BP diastolic 46–75; PULSE 53–76; RESP 16–22; TEMP 36.3–36.8; O2SAT 93–97
[2019-09-19 06:19] LABS: Alanine Aminotransferase 27 U/L (0-33); Albumin Level 4.1 g/dL (3.5-5.2); Alkaline Phosphatase 153 IU/L (35-105); Anion Gap 21.1 (5-19); Aspartate Amino Transferase 21 U/L (0-32); Blood Urea Nitrogen 45 mg/dL (8-23); Calcium 9.1 mg/dL (8.5-10.5); Carbon Dioxide 26 mmol/L (22-29); Chloride 93 mmol/L (98-107); Globulin 3.2 g/dL (1.3-4.6); Glomerular Filtration Rate 5.4 mL/min (90-130); Glucose 102 mg/dL (65-115); Magnesium 2.4 mg/dL (1.7-2.3); Osmolality Calculated 280 mOsm/kg (285-295); Potassium 4.1 mmol/L (3.5-5.1); Sodium 136 mmol/L (136-145); Total Bilirubin 0.5 mg/dL (0.15-1.2); Total Protein 7.3 g/dL (6.6-8.7)
[2019-09-19 06:52] LABS: Glucose Point of Care 105 mg/dL (70-110)
[2019-09-19] MEDS: sevelamer 800 mg Tablet 2400 MG PO (08:01)
[2019-09-19] MEDS: budesonide 0.5 mg/2 mL Neb INHALATION (08:37)
[2019-09-19] MEDS: ipratropium-albuterol 3 mL Neb INHALATION (08:37)
[2019-09-19] MEDS: apixaban 5 mg Tablet 2.5 MG PO (09:01)
[2019-09-19] MEDS: cholecalciferol (vitamin D3) 1,000 unit Tablet 1000 UNIT PO (09:02)
[2019-09-19] MEDS: citalopram 20 mg Tablet PO (09:02)
[2019-09-19] MEDS: levothyroxine 50 mcg Tablet PO (09:02)
[2019-09-19] MEDS: isosorbide mononitrate ER 30 mg Tablet PO (09:02)
[2019-09-19] MEDS: aspirin 81 mg Chew Tablet PO (09:02)
[2019-09-19] MEDS: metoprolol tartrate 50 mg Tablet PO (09:02)
[2019-09-19] MEDS: lidocaine 5% Patch 1 PATCH TOPICAL (09:04)
--- NOTE | 2019-09-19 09:23 | PM.PN ---
Subjective Subjective: Interval history: feeling better today, out of bed in chair, uneventful night Medications: Reviewed: Yes Vitals/I&O/Wt Last Vital Signs Temp 97.3 F L 09/19/19 07:19 Pulse 76 09/19/19 08:39 Resp 20 H 09/19/19 08:39 BP 124/64 09/19/19 07:19 Pulse Ox 97 09/19/19 08:39 09/18/19 09/19/19 09/19/19 22:59 06:59 14:59 Intake Total 220 / 540 300 / 840 360 / 360 Balance 220 / 540 300 / 840 360 / 360 Weight last 48 hrs Weight 116.772 kg Weight 116.165 kg Physical Exam Const: COMMON NORMALS: no apparent distress GENERAL APPEARANCE: cooperative Resp: AUSCULTATION: crackles (bases) Laterality: bilateral Cardio: COMMON NORMALS: regular rate and regular rhythm RATE: regular rate RHYTHM: regular rhythm Extremity: COMMON NORMALS: no clubbing, cyanosis or edema NARRATIVE EXTREMITY EXAM: right upper arm AVF + bruit, no signs of infection Psych: COMMON NORMALS: speech normal SPEECH: Yes normal speech Data : 09/17/19 05:39 09/19/19 05:23 A&P Additional A&P Information CXR: Mild left pleural effusion obliterating the costophrenic angle. Gross cardiomegaly. 1. Normal left ventricular size, systolic function and wall thickness, with no regional wall motion abnormalities. Left ventricular ejection fraction is estimated at 64%. Grade 2 diastolic dysfunction with elevated left atrial pressure. 2. Normal right ventricular size and systolic function, RVSP 32 mmHg. 3. Mild mitral valve regurgitation. 4. Moderate circumferential pericardial effusion located more posteriorly along left ventricle. No evidence of hemodynamic compromise. 5. Compared to previous echocardiogram dated 08/30/2019, pericardial effusion seems to have increased in size. Impression: ESRD - HD today, 4 hours, 3 - 4 liter UF as BP tolerates Anemia - Epogen at dialysis Hyponatremia - stable, due to volume overload Attestations Medical Necessity Statement*: per primary service Coding Level of Care Code Acute Nuclear Waste Management Engineer for Michelle Borrero
[2019-09-19 10:41] LABS: Glucose Point of Care 164 mg/dL (70-110)
[2019-09-19] MEDS: midodrine 5 mg TABLET PO (13:07)
--- NOTE | 2019-09-19 13:33 | PM.DCS ---
Discharge Providers Date of Admission: 09/16/19 17:05 Date of Discharge: September 19, 2019 Attending Provider at Admission: Chika Mathew MD Attending Provider at Discharge: Chika Mathew MD Primary Care Provider: Pradeep Patel MD Diagnoses at Discharge Discharge Diagnosis (1) Congestive heart failure (CHF): Status: Acute (2) Hyperlipemia: Status: Acute Qualifiers: Hyperlipidemia type: mixed hyperlipidemia Qualified Code(s): E78.2 - Mixed hyperlipidemia (3) Atrial fibrillation: Status: Acute Qualifiers: Atrial fibrillation type: permanent Qualified Code(s): I48.21 - Permanent atrial fibrillation (4) End stage renal disease: Status: Acute (5) Pericardial effusion: Status: Acute (6) Pleural effusion: Status: Acute Reason for Visit Reason for Visit: Reason For Visit: COUGH, SYNCOPAL Hospital Course Discharge Summary: Oscar Pack is a 64 year old female with past medical history of breast cancer, carotid artery disease, stroke, diastolic heart failure, end-stage renal disease (on hemodialysis), hyperlipidemia, hypertension, hypothyroidism, obstructive sleep apnea, type 1 diabetes mellitus who was admitted 08/27-09/03 for c/o chest pain. CTA of chest demonstrated no pulmonary embolism. Echocardiogram demonstrated preserved EF, trivial pericardial effusion. Underwent nuclear stress test which showed areas of persistent decreases uptake in the anterior, anterolateral, inferolateral, inferior and apical regions with some reversibility, suggestive of myocardial scarring with ischemia- mostly in the distribution of the left anterior descending artery with some in the distribution of the circumflex and right coronary artery. She underwent coronary angiogram which showed mild to moderate disease without significant occlusion. She was discharged with recommendations for medical management. She returned with c/o worsening shortness of breath and chest discomfort. She was found to be have a fib with RVR with HR 158 and was noted to be hypotensive with SBP 80s. She underwent cardioversion in the ER and then returned to sinus rhythm which is currently rate controlled. She was also noted to have diastolic congestive heart failure for which she received sessions of dialysis while being admitted here. Echocardiogram was performed due to noted cardiomegaly which was increasing on serial chest x-rays. It showed a moderate posterolateral pericardial effusion without any signs of hemodynamic compromise. She also noted to have a left-sided pleural effusion which was mild. Overall her respiratory status improved since the day of admission but grossly patient has had significant decline from the last time I saw her in August 2019. Though her oxygen saturation was maintained during the course of admission on supplemental O2 and CPAP use, she continued to complain of ongoing subjective shortness of breath. All of the above findings and overall clinical deterioration were discussed frankly with the patient and her son Mr. Fritz Quiñonez. For now, patient and family would like to proceed with conservative measures as much as possible. We will attempt to remove as much fluid as possible on dialysis sessions in an attempt yo maintain fluid balance, though this is limited by the fact that her blood pressure drops to SBP 80s during dialysis. Will repeat echocardiogram and chest x ray in 10 days to follow up. She is encouraged to use her CPAP more liberally during the day and periods of rest as well. 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 and worries about her independence, but is amenable for now. Physical Exam Narrative: EXAM NARRATIVE: GEN: Awake, alert and oriented, no acute distress, obesity+ CVS: S1S2 N RS: Reduced air entry left lung base, rest clear to auscultation Abd: Soft, nt/nd , bs+ APPRAISAL SPECIALIST: no focal neuro deficits Discharge Data Data Completed and Pending: Completed Studies During Hospitalization Category Date Time Status CT head wo con* 7 0450 Urgent Cat Scan 09/16/19 17:27 Completed XR chest 1V cori ble [id number] Routine Exams 09/18/19 07:00 Completed XR chest 1V cori ble [id number] Stat Exams 09/16/19 15:42 Completed CV echo complete* [id number] Routine Ultrasound 09/17/19 20:08 Completed Labs from last 24 hours 09/19/19 09/19/19 09/19/19 10:37 06:34 05:23 Sodium 136 Potassium 4.1 Chloride 93 L Carbon Dioxide 26 Anion Gap 21.1 H BUN 45 H Creatinine 7.6 H* D GFR Calculation 5.4 L Glucose 102 POC Glucose 164 105 Calculated Osmolal ity 280 L Calcium 9.1 Magnesium 2.4 H Total Bilirubin 0.5 AST 21 ALT 27 Alkaline Phosphata se 153 H Total Protein 7.3 Albumin 4.1 Globulin 3.2 09/18/19 09/18/19 21:11 17:04 Sodium Potassium Chloride Carbon Dioxide Anion Gap BUN Creatinine GFR Calculation Glucose POC Glucose 155 87 Calculated Osmolal ity Calcium Magnesium Total Bilirubin AST ALT Alkaline Phosphata se Total Protein Albumin Globulin Vitals: Last Vital Signs Temp 98.1 F 09/19/19 11:30 Pulse 58 L 09/19/19 11:30 Resp 22 H 09/19/19 11:30 BP 97/46 09/19/19 11:30 Pulse Ox 97 09/19/19 08:39 Discharge Plan Discharge Patient Disposition: Home, Self-Care Condition: Stable Prescriptions: Continued montelukast 10 mg tablet 10 mg PO DAILY RF: 0 midodrine 5 mg tablet See Rx Instructions .ROUTE .COMPLEX RF: 0 Auryxia 210 mg iron tablet 630 mg PO TID RF: 0 Onglyza 5 mg tablet 5 mg PO DAILY RF: 0 atorvastatin [Lipitor] 20 mg tablet 20 mg PO QPM RF: 0 levothyroxine 50 mcg capsule 50 mcg PO DAILY RF: 0 citalopram 20 mg tablet 20 mg PO DAILY RF: 0 insulin aspart U-100 [Novolog Flexpen U-100 Insulin] 100 unit/mL (3 mL) insulin pen See Rx Instructions .ROUTE .COMPLEX RF: 0 tramadol 50 mg tablet 50 mg PO Q6H PRN (Reason: Pain) RF: 0 isosorbide mononitrate 30 mg Tablet Extended Release 24 Hr 30 mg PO DAILY RF: 0 pantoprazole 40 mg Tablet,Delayed Release (Dr/Ec) 40 mg PO QPM RF: 0 aspirin 81 mg Tablet,Chewable 81 mg PO DAILY RF: 0 gabapentin 100 mg Capsule 200 mg PO BEDTIME RF: 0 budesonide-formoterol [Symbicort] 160-4.5 mcg/actuation Hfa Aerosol Inhaler 2 puff INHALATION BID RF: 0 Lantus U-100 Insulin 100 unit/mL Solution 42 unit SUBCUT BID RF: 0 metoprolol tartrate 50 mg Tablet 50 mg PO BID 30 Days Qty: 60 RF: 0 Eliquis 5 mg Tablet 2.5 mg PO BID 30 Days Qty: 30 RF: 0 sennosides [senna] 8.6 mg Tablet 17.2 mg PO BID PRN (Reason: unknown) RF: 0 melatonin 3 mg Tablet 3 mg PO BEDTIME RF: 0 acetaminophen [Tylenol Extra Strength] 500 mg Tablet 1,000 mg PO Q4H PRN (Reason: Pain) RF: 0 lidocaine-prilocaine 2.5-2.5 % cream See Rx Instructions .ROUTE .COMPLEX RF: 0 diphenhydramine HCl [Benadryl] 25 mg Capsule 50 mg PO BEDTIME RF: 0 promethazine 25 mg tablet 12.5 mg PO BID PRN (Reason: unknown) RF: 0 albuterol sulfate [ProAir HFA] 90 mcg/actuation Hfa Aerosol Inhaler 2 puff INHALATION Q6H PRN (Reason: Shortness Of Breath) RF: 0 ondansetron 4 mg tablet,disintegrating 4 mg PO Q8H PRN (Reason: Nausea) RF: 0 cholecalciferol (vitamin D3) [Vitamin D3] 25 mcg (1,000 unit) Tablet 1,000 unit PO DAILY RF: 0 sevelamer carbonate 800 mg Tablet See Rx Instructions .ROUTE .COMPLEX RF: 0 guaifenesin [Mucinex] 600 mg Tablet Extended Release 12hr 600 - 1,200 mg PO Q6H PRN (Reason: Congestion) RF: 0 RenaPlex-D 800 mcg-12.5 mg -2,000 unit Tablet 1 tab PO QPM RF: 0 hydrocodone-acetaminophen [Perry] 5-325 mg Tablet 1 - 2 tab PO Q4H PRN (Reason: Pain) RF: 0 oxycodone 5 mg Tablet 5 mg PO PRN RF: 0 Zyrtec 10 mg capsule 10 mg PO DAILY RF: 0 Discontinued doxycycline hyclate 100 mg capsule 100 mg PO BID 10 Days Qty: 20 RF: 0 Discharge Orders: Discharge Order (Routine); Ordered 09/19/19 Ordered By: Chika Mathew Other Ambulatory Orders: XR chest 1V 58500 (Routine) Timeframe: 10 Day Facility: [facility] - Location: Radiology [place] [facility] Ordered By: Chika Mathew CV echo complete* [id number] (Routine) Timeframe: 10 Day Facility: [facility] - Location: Radiology Ordered By: Chika Mathew Referrals: [facility] [Outside] Jorge Luis Silvestre MD [Physician] - 7-10 days (after results of echocardiogram ) Discharge Diet: Diabetic Discharge Activity: Resume usual activity Patient Instructions: Atrial Fibrillation, Pleural Effusion (DC), Pericardial Effusion (DC), CHF Stoplight, COPD Stoplight, Chest Pain Stoplight Discharge Attestations Time Spent in Discharge Care*: greater than 30 min Quality Metrics Clinical Quality Measures During this hospital stay, did patient experience: None Coding Level of Care Code Acute Nutrition Coordinator for g Fwd Diagnoses Congestive heart failure (CHF) I50.9 Hyperlipemia E78.2 Hyperlipidemia type: mixed hyperlipidemia Atrial fibrillation I48.21 Atrial fibrillation type: permanent End stage renal disease N18.6 Pericardial effusion I31.3 Pleural effusion J90
--- NOTE | 2019-09-19 15:19 | PC.NURSE ---
Report called to TRU Pleitez at [facility]. Nurse verified understanding of discharge information and didn't have any further questions.
[2019-09-19 16:19] LABS: Glucose Point of Care 120 mg/dL (70-110)
== END 2019-09-19 18:07 | disposition skilled nursing facility (03) | DRG 291 ==
LOC: ER 17:26 → MEDSURG 18:09
PROVIDERS: Internal Medicine; Admitting Provider Student in an Organized Health Care Education/Training Program; Emergency Provider Family Medicine; Family Provider Family Medicine; PCP Family Medicine; Visit Provider Student in an Organized Health Care Education/Training Program
DX: I13.2 Hypertensive heart and chronic kidney disease with heart failure and with stage 5 chronic kidney disease, or end stage renal disease (principal); I50.31 Acute diastolic (congestive) heart failure; N18.6 End stage renal disease; I48.21 Permanent atrial fibrillation; Z68.42 Body mass index [BMI] 45.0-49.9, adult; E87.1 Hypo-osmolality and hyponatremia; I31.3 Pericardial effusion (noninflammatory); E10.22 Type 1 diabetes mellitus with diabetic chronic kidney disease; Z99.2 Dependence on renal dialysis; Z85.3 Personal history of malignant neoplasm of breast; Z86.73 Personal history of transient ischemic attack (TIA), and cerebral infarction without residual deficits; E78.2 Mixed hyperlipidemia; E03.9 Hypothyroidism, unspecified; G47.33 Obstructive sleep apnea (adult) (pediatric); Z79.01 Long term (current) use of anticoagulants; I95.9 Hypotension, unspecified; J44.9 Chronic obstructive pulmonary disease, unspecified; E66.9 Obesity, unspecified; Z87.891 Personal history of nicotine dependence; Z66 Do not resuscitate; D63.1 Anemia in chronic kidney disease; Z79.891 Long term (current) use of opiate analgesic; Z79.82 Long term (current) use of aspirin
CPT/HCPCS: 12345; 36415; 36416; 36600; 70450; 71045; 80051; 80053; 82810; 82962; 83735; 83880; 83986; 84484; 85025; 87340; 90935; 93005; 93306; 94640; 96372; 96375; 99283; J1815; J2060; J7626; Q3014

== ENCOUNTER 2019-09-24 08:07 | Emergency (ER) | payer MEDICAID, SELFPAY ==
[2019-09-24 08:11] VITALS: BP 109/59; PULSE 77; RESP 20; TEMP 36.6; O2SAT 96; BMI 44.6
--- NOTE | 2019-09-24 08:12 | ED_ITS ---
HPI - General Adult General: Chief complaint: General Medical Stated complaint: PANIC ATTACK Time Seen by Provider: 09/24/19 08:12 History of Present Illness: HPI narrative: 64-year-old female comes in she got anxious and short of breath at dialysis pretty much resolved by the time she got here she is hyperventilating a little bit when she first arrived but that resolved on its own. They did give her some Benadryl and antiemetics at dialysis. She did not finish her dialysis run she denies any chest pain she has chronic orthopnea that is not changed she denies any abdominal pain any cough fever sweats or chills or any other illness she was recently hospitalized for congestive heart failure notes were reviewed. She has not missed any of her medications her other dialysis runs prior to today. Onset (ago): minute(s) Location: head (Dizziness) Radiation: non-radiation Severity: moderate Associated symptoms: Reports dyspnea; Deny chest pain, confusion, cough, diaphoresis, decreased appetite, fevers/chills, nausea, rash or vomiting Review of Systems Const: Denies: diaphoresis ENMT: Denies: throat pain, ear or mastoid pain, nasal discharge or nasal congestion Card: Reports: swelling of feet/ankles; Denies: chest pain Resp: Reports: dyspnea GI: Denies: abdominal pain, nausea, vomiting, hematemesis, coffee ground emesis, diarrhea, constipation, bloating, hematochezia or melena : Denies: flank pain, difficulty voiding, dysuria, urinary frequency or uri nary urgency Skin/Breast: Denies: rash or pruritus Neuro: Denies: confusion PFSH ED PFSH: Medical History Accelerated essential hypertension Breast cancer Carotid artery disease Carotid artery stenosis, asymptomatic Chronic kidney disease COPD (chronic obstructive pulmonary disease) Patient reports COPD, but restrictive lung disease is also a possibility. 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 Surgical History H/O lumpectomy left breast H/O tubal ligation Hemodialysis access site with arteriovenous graft History of cholecystectomy Hx of abdominoplasty Family History Other Cancer Diabetes Hypertension Stroke Social History Smoking and tobacco status: former smoker Alcohol intake: never Physical Exam Const: COMMON NORMALS: no acute distress GENERAL APPEARANCE: cooperative and comfortable ORIENTATION/CONSCIOUSNESS: Yes awake, Yes oriented to person, Yes oriented to place and Yes oriented to time HENMT: COMMON NORMALS: normocephalic, atraumatic, hearing grossly normal bilaterally, external ears normal, EAC's normal, TM's normal bilaterally, Normal nasal mucous membranes and turbinates present, moist oral mucous membranes and oropharynx normal HEAD & SCALP: normocephalic and atraumatic NOSE: Normal nasal mucous membranes and turbinates present EXTERNAL EAR: Yes external ears normal EXTERNAL AUDITORY CANAL: EAC's normal TYMPANIC MEMBRANE: TM's normal bilaterally Eye: COMMON NORMALS: Equal, round and reactive pupils present, EOMs intact bilaterally, conjunctivae normal and no scleral icterus CONJUNCTIVA: Yes conjunctivae normal PUPIL: Yes Equal, round and reactive pupils present Neck/C-Spine: COMMON NORMALS: full ROM, no lymphadenopathy, supple and no JVD Lymph: LYMPHATIC: no lymphadenopathy noted and no lymphedema noted Resp: COMMON NORMALS: normal respiratory effort, No retractions, No use of accessory muscles and clear to auscultation bilaterally AUSCULTATION: clear to auscultation bilaterally Cardio: COMMON NORMALS: no JVD, regular rate, regular rhythm and No murmurs present (Cardio) RATE: regular rate RHYTHM: regular rhythm GI: COMMON NORMALS: Soft to palpation and No hepatosplenomegaly present AUSCULTATION: Yes normoactive bowel sounds PALPATION: Yes Soft to palpation, No Tenderness to palpation present (GI), No Guarding due to palpation present (GI) and Yes No hepatosplenomegaly present Extremity: COMMON NORMALS: normal to inspection, capillary refill normal, no clubbing, cyanosis or edema, no calf tenderness and no pedal edema Neuro: SENSORIUM/ORIENTATION: Yes oriented to person, Yes oriented to place and Yes oriented to time Skin: COMMON NORMALS: no rashes or lesions noted GENERAL SKIN EXAM: no rashes or lesions noted Course Vital Signs: Vital signs: Vital Signs Temperature 97.8 F 09/24/19 08:11 Pulse Rate 66 09/24/19 11:48 Respiratory Rate 20 H 09/24/19 08:11 Blood Pressure 98/59 09/24/19 11:48 Pulse Oximetry 100 09/24/19 11:48 MDM - General Adult MDM Narrative: Medical decision making narrative: Symptoms pretty much resolved reviewed the labs she does have an elevated white count but I cannot find a source where she has no any redness or erythema she does not produce urine her chest x-ray is normal. I think she will be best served at this point by returning to dialysis complete her dialysis run to prevent her heart failure from getting any worse which is what she was hospitalized for recently she has any worsening or change symptoms or develops fever return to the emergency room. Lab Data: Labs: Lab Results 09/24/19 09/24/19 09/24/19 Range/Units 08:30 09:00 09:00 WBC 15.5 H (4.0-10.0) 10^3/ uL RBC 2.85 L (4.1-5.3) 10^6/u L Hgb 9.1 L (11.5-15.3) g/dL Hct 29.9 L (37.0-47.0) % MCV 104.9 H (81-99) fL MCH 31.9 (28.0-34.0) pg MCHC 30.4 (30.0-36.0) g/dL RDW 16.2 H (12.1-15.1) % Plt Count 391 (130-400) 10^3/c mm MPV 10.2 (7.4-10.4) fL Neut % (Auto) 86.6 % Lymph % (Auto) 5.2 % [place] % (Auto) 7.0 % Eos % (Auto) 0.2 % Baso % (Auto) 0.2 % Neut # (Auto) 13.4 H (1.8-7.7) 10^3/u L Lymph # (Auto) 0.8 (0.8-4.8) 10^3/u L [place] # (Auto) 1.1 H (0.2-0.9) 10^3/u L Eos # (Auto) 0.0 (0.0-0.8) 10^3/u L Baso # (Auto) 0.0 (0.0-0.1) 10^3/u L Nucleated RBC % (a uto) 0 % Nucleated RBCs # 0.0 /100WBC Specimen Type Arterial Sample Site Radial, left ABG pH 7.38 (7.35-7.45) ABG pCO2 52.0 H (35-45) mmHg ABG pO2 88.6 (80.0-100.0) mmH g ABG HCO3 30.7 H (22-26) mmol/L ABG O2 Saturation 95.2 ABG Base Excess 4.8 H (-2.0-2.0) mmol/ L Ron Test Pos A-a O2 Gradient 74.5 H (5-10) mmHg Hematocrit 27.8 L (37-47) % Hgb O2 Saturation 93.9 L (95-100) % Carboxyhemoglobin 0.3 L (0.4-20.1) %THgb Methemoglobin 1.1 (0.4-1.5) % Total Hemoglobin 9.1 L (12-16) g/dL Sodium 135.0 131 L (131-143) mmol/L Potassium 4.1 4.3 (3.5-5.0) mmol/L Glucose 137.0 H 137 H (70-115) mg/dL Ionized Calcium 1.2 (1.1-1.4) mmol/L O2 Delivery Device Nc O2 Liters/Min 3.0 % FiO2 32.0 % Radio Television Technical Director ID [id number] Chloride 91 L (98-107) mmol/L Carbon Dioxide 26 (22-29) mmol/L Anion Gap 18.3 (5-19) BUN 30 H (8-23) mg/dL Creatinine 7.1 H* (0.5-0.9) mg/dL GFR Calculation 5.8 L (90-130) mL/min Calculated Osmolal ity 271 L (285-295) mOsm/k g Calcium 9.7 (8.5-10.5) mg/dL Total Bilirubin 0.4 (0.15-1.2) mg/dL AST 33 H (0-32) U/L ALT 42 H (0-33) U/L Alkaline Phosphata se 167 H (35-105) IU/L NT-Pro-B Natriuret Pep (0-125) pg/mL Total Protein 7.5 (6.6-8.7) g/dL Albumin 3.8 (3.5-5.2) g/dL Globulin 3.7 (1.3-4.6) g/dL 09/24/19 Range/Units 09:00 WBC (4.0-10.0) 10^3/ uL RBC (4.1-5.3) 10^6/u L Hgb (11.5-15.3) g/dL Hct (37.0-47.0) % MCV (81-99) fL MCH (28.0-34.0) pg MCHC (30.0-36.0) g/dL RDW (12.1-15.1) % Plt Count (130-400) 10^3/c mm MPV (7.4-10.4) fL Neut % (Auto) % Lymph % (Auto) % [place] % (Auto) % Eos % (Auto) % Baso % (Auto) % Neut # (Auto) (1.8-7.7) 10^3/u L Lymph # (Auto) (0.8-4.8) 10^3/u L [place] # (Auto) (0.2-0.9) 10^3/u L Eos # (Auto) (0.0-0.8) 10^3/u L Baso # (Auto) (0.0-0.1) 10^3/u L Nucleated RBC % (a uto) % Nucleated RBCs # /100WBC Specimen Type Sample Site ABG pH (7.35-7.45) ABG pCO2 (35-45) mmHg ABG pO2 (80.0-100.0) mmH g ABG HCO3 (22-26) mmol/L ABG O2 Saturation ABG Base Excess (-2.0-2.0) mmol/ L Ron Test A-a O2 Gradient (5-10) mmHg Hematocrit (37-47) % Hgb O2 Saturation (95-100) % Carboxyhemoglobin (0.4-20.1) %THgb Methemoglobin (0.4-1.5) % Total Hemoglobin (12-16) g/dL Sodium (131-143) mmol/L Potassium (3.5-5.0) mmol/L Glucose (70-115) mg/dL Ionized Calcium (1.1-1.4) mmol/L O2 Delivery Device O2 Liters/Min % FiO2 % Radio Television Technical Director ID Chloride (98-107) mmol/L Carbon Dioxide (22-29) mmol/L Anion Gap (5-19) BUN (8-23) mg/dL Creatinine (0.5-0.9) mg/dL GFR Calculation (90-130) mL/min Calculated Osmolal ity (285-295) mOsm/k g Calcium (8.5-10.5) mg/dL Total Bilirubin (0.15-1.2) mg/dL AST (0-32) U/L ALT (0-33) U/L Alkaline Phosphata se (35-105) IU/L NT-Pro-B Natriuret Pep 35100 H (0-125) pg/mL Total Protein (6.6-8.7) g/dL Albumin (3.5-5.2) g/dL Globulin (1.3-4.6) g/dL Discharge Plan Discharge Patient Disposition: Home, Self-Care Clinical Impression: CHF (congestive heart failure), End stage renal disease Condition: Stable Prescriptions: No Action montelukast 10 mg tablet 10 mg PO DAILY RF: 0 midodrine 5 mg tablet See Rx Instructions .ROUTE .COMPLEX RF: 0 Auryxia 210 mg iron tablet 630 mg PO TID RF: 0 Onglyza 5 mg tablet 5 mg PO DAILY RF: 0 atorvastatin [Lipitor] 20 mg tablet 20 mg PO QPM RF: 0 levothyroxine 50 mcg capsule 50 mcg PO DAILY RF: 0 citalopram 20 mg tablet 20 mg PO DAILY RF: 0 insulin aspart U-100 [Novolog Flexpen U-100 Insulin] 100 unit/mL (3 mL) insulin pen See Rx Instructions .ROUTE .COMPLEX RF: 0 tramadol 50 mg tablet 50 mg PO Q6H PRN (Reason: Pain) RF: 0 isosorbide mononitrate 30 mg Tablet Extended Release 24 Hr 30 mg PO DAILY RF: 0 pantoprazole 40 mg Tablet,Delayed Release (Dr/Ec) 40 mg PO QPM RF: 0 aspirin 81 mg Tablet,Chewable 81 mg PO DAILY RF: 0 gabapentin 100 mg Capsule 100 mg PO BEDTIME RF: 0 budesonide-formoterol [Symbicort] 160-4.5 mcg/actuation Hfa Aerosol Inhaler 1 puff INHALATION BID RF: 0 Lantus U-100 Insulin 100 unit/mL Solution 42 unit SUBCUT BID RF: 0 metoprolol tartrate 50 mg Tablet 50 mg PO BID 30 Days Qty: 60 RF: 0 Eliquis 5 mg Tablet 2.5 mg PO BID 30 Days Qty: 30 RF: 0 sennosides [senna] 8.6 mg Tablet 17.2 mg PO BID PRN (Reason: Constipation) RF: 0 melatonin 3 mg Tablet 3 mg PO BEDTIME RF: 0 acetaminophen [Tylenol Extra Strength] 500 mg Tablet 1,000 mg PO Q4H PRN (Reason: Pain) RF: 0 diphenhydramine HCl [Benadryl] 25 mg Capsule 50 mg PO BEDTIME RF: 0 promethazine 25 mg tablet 12.5 mg PO BID PRN (Reason: Nausea) RF: 0 albuterol sulfate [ProAir HFA] 90 mcg/actuation Hfa Aerosol Inhaler 2 puff INHALATION Q6H PRN (Reason: Shortness Of Breath) RF: 0 ondansetron 4 mg tablet,disintegrating 4 mg PO Q8H PRN (Reason: Nausea) RF: 0 cholecalciferol (vitamin D3) [Vitamin D3] 25 mcg (1,000 unit) Tablet 1,000 unit PO DAILY RF: 0 sevelamer carbonate 800 mg Tablet See Rx Instructions .ROUTE .COMPLEX RF: 0 guaifenesin [Mucinex] 600 mg Tablet Extended Release 12hr 600 - 1,200 mg PO Q6H PRN (Reason: Congestion) RF: 0 RenaPlex-D 800 mcg-12.5 mg -2,000 unit Tablet 1 tab PO QPM RF: 0 oxycodone 5 mg Tablet 5 mg PO Q6H PRN (Reason: Pain) RF: 0 Zyrtec 10 mg capsule 10 mg PO DAILY RF: 0 albuterol sulfate 2.5 mg /3 mL (0.083 %) Solution For Nebulization 2.5 mg INHALATION QID PRN (Reason: Shortness Of Breath) RF: 0 Miralax 17 gram Powder In Packet 17 g PO DAILY PRN (Reason: Constipation) RF: 0 Milk of Magnesia 400 mg/5 mL Suspension 30 ml PO DAILY PRN (Reason: Constipation) RF: 0 bisacodyl 10 mg Suppository 10 mg DE DAILY PRN (Reason: Constipation) RF: 0 Enema 19-7 gram/118 mL Enema 118 ml DE DAILY PRN (Reason: Constipation) RF: 0 Referrals: Pradeep Patel MD [Primary Care Provider] - Discharge Diet: Usual diet Discharge Activity: Resume usual activity Activity Restrictions/Additional Instructions: Return to dialysis for dialysis run. Discharge Date/Time: 09/24/19 12:42 Coding Level of Care Code ED Home Mortgage Disclosure Act Specialist for Chg Fwd Exam Comprehensive
[2019-09-24 08:27] VITALS: O2SAT 96
--- NOTE | 2019-09-24 08:27 | XR_ITS ---
WS: [id number] PORTABLE CHEST HISTORY: dyspnea/cough COMPARISON: 09/18/2019 Moderate sized LEFT pleural effusion similar to the prior study with no improvement. Obscuration of t he mid to lower LEFT lung. There is mild pulmonary congestion. Small RIGHT pleural effusion. Cardiac size: Moderately enlarged cardiac silhouette. Mediastinum/Aorta: Mild atherosclerosis aorta. No osseous abnormality seen. XR/XR chest 1V portable [id number] IMPRESSION: 1. Moderate LEFT pleural effusion with no improvement. 2. Cardiomegaly. 3. Mild CHF.
[2019-09-24 08:40] LABS: ABG PH Result 7.38 (7.35-7.45); Alveolar-Arterial Oxygen Gradi 74.5 mmHg (5-10); Arterial Blood Gas Hematocrit 27.8 % (37-47); Base Excess ABG 4.8 mmol/L (-2.0-2.0); Blood Gas Allen Test Pos; Blood Gas Sample Site Radial, left; Blood Gas Sample Type Arterial; Carboxyhemoglobin 0.3 %THgb (0.4-20.1); HCO3 ABG 30.7 mmol/L (22-26); HGB O2 Sat 93.9 % (95-100); Ionized Calcium Level - ABG 1.2 mmol/L (1.1-1.4); Methemoglobin 1.1 % (0.4-1.5); Oxygen Device NC; Oxygen Saturation ABG 95.2; PO2 ABG 88.6 mmHg (80.0-100.0); Potassium Level - ABG 4.1 mmol/L (3.5-5.0); Total Hemoglobin 9.1 g/dL (12-16)
[2019-09-24 09:04] VITALS: BP 109/59; PULSE 69; O2SAT 96
[2019-09-24 09:15] LABS: Basophils % 0.2 %; Eosinophils % 0.2 %; Hematocrit 29.9 % (37.0-47.0); Hemoglobin 9.1 g/dL (11.5-15.3); Lymphocytes # 0.8 10^3/uL (0.8-4.8); Lymphocytes % 5.2 %; Mean Corpuscular HGB Conc 30.4 g/dL (30.0-36.0); Mean Corpuscular Hemoglobin 31.9 pg (28.0-34.0); Mean Corpuscular Volume 104.9 fL (81-99); Mean Platelet Volume 10.2 fL (7.4-10.4); Monocytes # 1.1 10^3/uL (0.2-0.9); Neutrophils # 13.4 10^3/uL (1.8-7.7); Neutrophils % 86.6 %; Nucleated Red Blood Cells % 0 %; Platelet Count 391 10^3/cmm (130-400); Red Blood Count 2.85 10^6/uL (4.1-5.3); Red Cell Distribution Width 16.2 % (12.1-15.1); White Blood Count 15.5 10^3/uL (4.0-10.0)
[2019-09-24 09:29] LABS: Alanine Aminotransferase 42 U/L (0-33); Albumin Level 3.8 g/dL (3.5-5.2); Alkaline Phosphatase 167 IU/L (35-105); Anion Gap 18.3 (5-19); Aspartate Amino Transferase 33 U/L (0-32); Blood Urea Nitrogen 30 mg/dL (8-23); Calcium 9.7 mg/dL (8.5-10.5); Carbon Dioxide 26 mmol/L (22-29); Chloride 91 mmol/L (98-107); Globulin 3.7 g/dL (1.3-4.6); Glomerular Filtration Rate 5.8 mL/min (90-130); Glucose 137 mg/dL (65-115); Osmolality Calculated 271 mOsm/kg (285-295); Potassium 4.3 mmol/L (3.5-5.1); Sodium 131 mmol/L (136-145); Total Bilirubin 0.4 mg/dL (0.15-1.2); Total Protein 7.5 g/dL (6.6-8.7)
[2019-09-24 10:36] VITALS: BP 118/68; PULSE 66; O2SAT 99
[2019-09-24 11:48] VITALS: BP 98/59; PULSE 66; O2SAT 100
[2019-09-24 14:39] LABS: NT Pro B Type Natriuretic Pept 10488 pg/mL (0-125)
== END 2019-09-24 12:42 | disposition home or self-care (01) ==
PROVIDERS: Emergency Provider Family Medicine; PCP Family Medicine
DX: I13.2 Hypertensive heart and chronic kidney disease with heart failure and with stage 5 chronic kidney disease, or end stage renal disease (principal); N18.6 End stage renal disease; I50.9 Heart failure, unspecified; Z99.2 Dependence on renal dialysis; Z79.4 Long term (current) use of insulin; Z79.82 Long term (current) use of aspirin; Z79.01 Long term (current) use of anticoagulants; Z85.3 Personal history of malignant neoplasm of breast; I25.10 Atherosclerotic heart disease of native coronary artery without angina pectoris; J44.9 Chronic obstructive pulmonary disease, unspecified; Z09 Encounter for follow-up examination after completed treatment for conditions other than malignant neoplasm; Z86.73 Personal history of transient ischemic attack (TIA), and cerebral infarction without residual deficits; E78.5 Hyperlipidemia, unspecified; E03.9 Hypothyroidism, unspecified; E10.22 Type 1 diabetes mellitus with diabetic chronic kidney disease; Z87.891 Personal history of nicotine dependence
CPT/HCPCS: 12345; 36415; 36600; 71045; 80051; 80053; 82810; 83880; 83986; 85025; 87040; 99281; 99283

== ENCOUNTER 2019-10-01 06:50 | Inpatient (IN) | payer MEDICAID, SELFPAY ==
[2019-10-01] VITALS (38 sets, daily range): BP systolic 69–134; BP diastolic 56–100; PULSE 87–138; RESP 13–33; TEMP 36.6–37; O2SAT 92–100; BMI 45.5
--- NOTE | 2019-10-01 07:01 | W.ED.GENADLT ---
HPI - General Adult General: Chief complaint: General Medical Stated complaint: HYPOTENSION Time Seen by Provider: 10/01/19 06:56 History of Present Illness: HPI narrative: 64-year-old female PFSH ED PFSH: Medical History Accelerated essential hypertension Breast cancer Carotid artery disease Carotid artery stenosis, asymptomatic Chronic kidney disease COPD (chronic obstructive pulmonary disease) Patient reports COPD, but restrictive lung disease is also a possibility. 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 Surgical History H/O lumpectomy left breast H/O tubal ligation Hemodialysis access site with arteriovenous graft History of cholecystectomy Hx of abdominoplasty Family History Other Cancer Diabetes Hypertension Stroke Social History Smoking and tobacco status: former smoker Alcohol intake: never Course Vital Signs: Vital signs: Vital Signs Temperature 98.2 F 10/01/19 06:52 Pulse Rate 137 H 10/01/19 06:52 Respiratory Rate 22 H 10/01/19 06:52 Blood Pressure 102/74 10/01/19 06:52 Pulse Oximetry 99 10/01/19 06:52 Discharge Plan Discharge Prescriptions: No Action montelukast 10 mg tablet 10 mg PO DAILY RF: 0 midodrine 5 mg tablet See Rx Instructions .ROUTE .COMPLEX RF: 0 Auryxia 210 mg iron tablet 630 mg PO TID RF: 0 Onglyza 5 mg tablet 5 mg PO DAILY RF: 0 atorvastatin [Lipitor] 20 mg tablet 20 mg PO QPM RF: 0 levothyroxine 50 mcg capsule 50 mcg PO DAILY RF: 0 citalopram 20 mg tablet 20 mg PO DAILY RF: 0 insulin aspart U-100 [Novolog Flexpen U-100 Insulin] 100 unit/mL (3 mL) insulin pen See Rx Instructions .ROUTE .COMPLEX RF: 0 tramadol 50 mg tablet 50 mg PO Q6H PRN (Reason: Pain) RF: 0 isosorbide mononitrate 30 mg Tablet Extended Release 24 Hr 30 mg PO DAILY RF: 0 pantoprazole 40 mg Tablet,Delayed Release (Dr/Ec) 40 mg PO QPM RF: 0 aspirin 81 mg Tablet,Chewable 81 mg PO DAILY RF: 0 gabapentin 100 mg Capsule 100 mg PO BEDTIME RF: 0 budesonide-formoterol [Symbicort] 160-4.5 mcg/actuation Hfa Aerosol Inhaler 1 puff INHALATION BID RF: 0 Lantus U-100 Insulin 100 unit/mL Solution 42 unit SUBCUT BID RF: 0 metoprolol tartrate 50 mg Tablet 50 mg PO BID 30 Days Qty: 60 RF: 0 Eliquis 5 mg Tablet 2.5 mg PO BID 30 Days Qty: 30 RF: 0 sennosides [senna] 8.6 mg Tablet 17.2 mg PO BID PRN (Reason: Constipation) RF: 0 melatonin 3 mg Tablet 3 mg PO BEDTIME RF: 0 acetaminophen [Tylenol Extra Strength] 500 mg Tablet 1,000 mg PO Q4H PRN (Reason: Pain) RF: 0 diphenhydramine HCl [Benadryl] 25 mg Capsule 50 mg PO BEDTIME RF: 0 promethazine 25 mg tablet 12.5 mg PO BID PRN (Reason: Nausea) RF: 0 albuterol sulfate [ProAir HFA] 90 mcg/actuation Hfa Aerosol Inhaler 2 puff INHALATION Q6H PRN (Reason: Shortness Of Breath) RF: 0 ondansetron 4 mg tablet,disintegrating 4 mg PO Q8H PRN (Reason: Nausea) RF: 0 cholecalciferol (vitamin D3) [Vitamin D3] 25 mcg (1,000 unit) Tablet 1,000 unit PO DAILY RF: 0 sevelamer carbonate 800 mg Tablet See Rx Instructions .ROUTE .COMPLEX RF: 0 guaifenesin [Mucinex] 600 mg Tablet Extended Release 12hr 600 - 1,200 mg PO Q6H PRN (Reason: Congestion) RF: 0 RenaPlex-D 800 mcg-12.5 mg -2,000 unit Tablet 1 tab PO QPM RF: 0 oxycodone 5 mg Tablet 5 mg PO Q6H PRN (Reason: Pain) RF: 0 Zyrtec 10 mg capsule 10 mg PO DAILY RF: 0 albuterol sulfate 2.5 mg /3 mL (0.083 %) Solution For Nebulization 2.5 mg INHALATION QID PRN (Reason: Shortness Of Breath) RF: 0 Miralax 17 gram Powder In Packet 17 g PO DAILY PRN (Reason: Constipation) RF: 0 Milk of Magnesia 400 mg/5 mL Suspension 30 ml PO DAILY PRN (Reason: Constipation) RF: 0 bisacodyl 10 mg Suppository 10 mg NM DAILY PRN (Reason: Constipation) RF: 0 Enema 19-7 gram/118 mL Enema 118 ml NM DAILY PRN (Reason: Constipation) RF: 0 Coding Level of Care Code ED Parts Sales Representative for Chg Fwd
--- NOTE | 2019-10-01 07:15 | XR_ITS ---
WS: [id number] CHEST XRAY TECHNIQUE: Portable chest. CLINICAL INFORMATION: cough/congestion COMPARISON: September 24, 2019 FINDINGS: Heart: Cardiomegaly. Aortic calcification. Lungs: Moderate left pleural effusion unchanged. Right lung is well aerated. Bones: Normal visualized bony structures. XR/XR chest 1V portable [id number] IMPRESSION: 1. Cardiomegaly with moderate left pleural effusion is unchanged. Suggestion o f consolidation left midlung left lower lobe. Recommend correlation for pneumon ia. 2. Mild CHF is unchanged.
--- NOTE | 2019-10-01 07:15 | ECG_ITS ---
Measurements Intervals [place] Rate: 137 P: [place]: 0 QRS: -45 QRSD: 143 T: 50 QT: 335 QTc: 507 ATRIAL fibrillation WITH RAPID VENTRICULAR RESPONSE RIGHT BUNDLE BRANCH BLOCK [120+ ms QRS DURATION, UPRIGHT V1, 40+ ms S IN I I/aVL/V4/V5/V6] LEFT ANTERIOR FASCICULAR BLOCK [QRS AXIS <= -45, QR IN I, RS IN II] INTERPRETATION BASED ON A DEFAULT AGE OF 40 YEARS Compared to ECG 09/18/2019 12:53:13 Left anterior fascicular block now present Sinus rhythm no longer present Left-axis deviation no longer present Electronically Signed On 10-01-2019 15:43:36 CDT by Mike Pichardo M.D. [email or web address]
--- NOTE | 2019-10-01 07:16 | ED_ITS ---
Documented by User: KEVIN Kaufman 10/01/19 10:25 HPI - Chest Pain General: Chief Complaint: General Medical Stated Complaint: HYPOTENSION Time Seen by Provider: 10/01/19 06:56 Source: patient Limitations: no limitations History of Present Illness: HPI narrative: Patient is a 64-year-old female with a history of COPD, CHF, CKD on HD (MWF), DM, hyperlipidemia, breast CA, CAD , stroke, HTN, hypothyroidism, and obstuctive sleep apnea here for complaints of heartburn that began around 2:30 AM and awoke her from sleep. She states she does have a history of heartburn. She states the pain is located substernally. Patient normally wears 3L O2 and has not had to increase this. She apparently was at the dialysis clinic receiving her dialysis when they noticed patient's h eart rate was in the 130s so they sent her to the emergency department for evaluation. Patient does have a history of a fib with RVR. She had to be cardioverted earlier this month. Patient sees Dr. Silvestre for cardiology. Her PCP is Dr. Patel. Associated symptoms: Reports dyspnea (chronic; on 3L O2); Deny abdominal pain, fever(s), nausea, palpitations, syncope or vomiting Review of Systems Const: Denies: fever(s) or chills Eyes: Reports: other (pt is blind) Card: Reports: chest pain and dyspnea on exertion (chronic); Denies: palpitations, lightheadedness, syncope or pre-syncope Resp: Reports: dyspnea (chronic; on 3L O2); Denies: productive cough, non-productive cough, hemoptysis or chest congestion GI: Denies: abdominal pain, nausea or vomiting : Denies: flank pain, difficulty voiding, dysuria, urinary frequency or urinary urgency Musc: Denies: neck pain or back pain Skin/Breast: Denies: rash Neuro: Denies: headache(s), numbness in extremities, weakness in extremities or sensory changes PFSH ED PFSH: Medical History (Updated 10/01/19 @ 09:30 by Chelsey Pugh DO) Accelerated essential hypertension Anemia Breast cancer Carotid artery stenosis, asymptomatic COPD (chronic obstructive pulmonary disease) Patient reports COPD, but restrictive lung disease is also a possibility. 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 Surgical History H/O lumpectomy left breast H/O tubal ligation Hemodialysis access site with arteriovenous graft History of cholecystectomy Hx of abdominoplasty Family History (Updated 10/01/19 @ 09:31 by Chelsey Pugh DO) Mother CAD (coronary artery disease) Hypertension Diabetes Hyperlipidemia Stroke Other Cancer Social History (Updated 10/01/19 @ 09:31 by Chelsey Pugh DO) Smoking and tobacco status: former smoker Quit status (tobacco): has quit using tobacco Year quit tobacco: 2006 Alcohol intake: never Substance/Drug Use: never Housing: Custodial Physical Exam Const: COMMON NORMALS: no acute distress, patient oriented x3, no limitations and alert NUTRITIONAL APPEARANCE: obese morbidly obese ORIENTATION/CONSCIOUSNESS: Yes oriented to person, Yes oriented to place and Yes oriented to time HENMT: COMMON NORMALS: normocephalic and atraumatic HEAD & SCALP: normocephalic and atraumatic Resp: COMMON NORMALS: normal respiratory effort and clear to auscultation bilaterally AUSCULTATION: clear to auscultation bilaterally Cardio: RATE: tachycardic RHYTHM: abnormal rhythm irregularly irregular GI: COMMON NORMALS: Normal to inspection, nondistended, normoactive bowel sounds present, Soft to palpation, non-tender, No hepatosplenomegaly present and no masses PALPATION: Yes Soft to palpation and Yes No hepatosplenomegaly present Extremity: COMMON NORMALS: normal to inspection Neuro: YA COMA SCALE: document GCS findings Ya coma scale eye opening: Spontaneous Ya coma scale verbal response: Orientated Ya coma scale motor response: Obey commands Ya coma scale total score: 15 COMMON NORMALS: patient oriented x3, moves all extremities, no focal motor deficits and no sensory deficits noted SENSORIUM/ORIENTATION: Yes alert, Yes oriented to person, Yes oriented to place and Yes oriented to time Course Vital Signs: Vital signs: Vital Signs Temperature 98.6 F 10/01/19 20:00 Pulse Rate 116 H 10/02/19 05:00 Respiratory Rate 17 10/02/19 05:00 Blood Pressure 128/83 10/02/19 05:00 Pulse Oximetry 92 10/02/19 05:00 MDM - Chest Pain MDM Narrative: Medical decision making narrative: Patient initially seen and evaluated by myself. Dr. Gurrola agrees with decision for admit and will too see patient and speak to hospitalist for admission. Lab Data: Labs: Lab Results 10/01/19 10/01/19 10/01/19 Range/Units 07:25 07:25 07:25 WBC 9.0 (4.0-10.0) 10^3/ uL RBC 2.53 L (4.1-5.3) 10^6/u L Hgb 7.8 L (11.5-15.3) g/dL Hct 27.8 L (37.0-47.0) % MCV 109.9 H (81-99) fL MCH 30.8 (28.0-34.0) pg MCHC 28.1 L (30.0-36.0) g/dL RDW 17.0 H (12.1-15.1) % Plt Count 356 (130-400) 10^3/c mm MPV 9.7 (7.4-10.4) fL Neut % (Auto) 72.1 % Lymph % (Auto) 15.8 % [place] % (Auto) 9.3 % Eos % (Auto) 1.8 % Baso % (Auto) 0.4 % Neut # (Auto) 6.5 (1.8-7.7) 10^3/u L Lymph # (Auto) 1.4 (0.8-4.8) 10^3/u L [place] # (Auto) 0.8 (0.2-0.9) 10^3/u L Eos # (Auto) 0.2 (0.0-0.8) 10^3/u L Baso # (Auto) 0.0 (0.0-0.1) 10^3/u L Nucleated RBC % (a uto) 0 % Nucleated RBCs # 0.0 /100WBC Sodium 133 L (136-145) mmol/L Potassium 4.6 (3.5-5.1) mmol/L Chloride 90 L (98-107) mmol/L Carbon Dioxide 28 (22-29) mmol/L Anion Gap 19.6 H (5-19) BUN 47 H (8-23) mg/dL Creatinine 8.0 H* (0.5-0.9) mg/dL GFR Calculation 5.1 L (90-130) mL/min Glucose 119 H (65-115) mg/dL Calculated Osmolal ity 275 L (285-295) mOsm/k g Calcium 9.1 (8.5-10.5) mg/dL Iron (37-145) ug/dL TIBC mcg/dl % Saturation (20-50) % Unsat Iron Binding (112-347) ug/dL Total Bilirubin 0.4 (0.15-1.2) mg/dL AST 22 (0-32) U/L ALT 35 H (0-33) U/L Alkaline Phosphata se 179 H (35-105) IU/L Troponin T Baselin e 151 H* (0-10) ng/mL NT-Pro-B Natriuret Pep > 09687 H (0-125) pg/mL Total Protein 6.9 (6.6-8.7) g/dL Albumin 3.6 (3.5-5.2) g/dL Globulin 3.3 (1.3-4.6) g/dL Vitamin B12 (232-1245) pg/mL Folate (4.8-37.3) ng/mL Blood Type Rho(D) Type Antibody Screen Crossmatch 10/01/19 10/01/19 10/01/19 Range/Units 07:25 07:25 08:20 WBC (4.0-10.0) 10^3/ uL RBC (4.1-5.3) 10^6/u L Hgb (11.5-15.3) g/dL Hct (37.0-47.0) % MCV (81-99) fL MCH (28.0-34.0) pg MCHC (30.0-36.0) g/dL RDW (12.1-15.1) % Plt Count (130-400) 10^3/c mm MPV (7.4-10.4) fL Neut % (Auto) % Lymph % (Auto) % [place] % (Auto) % Eos % (Auto) % Baso % (Auto) % Neut # (Auto) (1.8-7.7) 10^3/u L Lymph # (Auto) (0.8-4.8) 10^3/u L [place] # (Auto) (0.2-0.9) 10^3/u L Eos # (Auto) (0.0-0.8) 10^3/u L Baso # (Auto) (0.0-0.1) 10^3/u L Nucleated RBC % (a uto) % Nucleated RBCs # /100WBC Sodium (136-145) mmol/L Potassium (3.5-5.1) mmol/L Chloride (98-107) mmol/L Carbon Dioxide (22-29) mmol/L Anion Gap (5-19) BUN (8-23) mg/dL Creatinine (0.5-0.9) mg/dL GFR Calculation (90-130) mL/min Glucose (65-115) mg/dL Calculated Osmolal ity (285-295) mOsm/k g Calcium (8.5-10.5) mg/dL Iron 48 (37-145) ug/dL TIBC 102 mcg/dl % Saturation 47.0 (20-50) % Unsat Iron Binding 54 L (112-347) ug/dL Total Bilirubin (0.15-1.2) mg/dL AST (0-32) U/L ALT (0-33) U/L Alkaline Phosphata se (35-105) IU/L Troponin T Baselin e (0-10) ng/mL NT-Pro-B Natriuret Pep (0-125) pg/mL Total Protein (6.6-8.7) g/dL Albumin (3.5-5.2) g/dL Globulin (1.3-4.6) g/dL Vitamin B12 1997 H (232-1245) pg/mL Folate > 20.0 (4.8-37.3) ng/mL Blood Type O Positive Rho(D) Type Positive Antibody Screen Negative Crossmatch See Detail Imaging Data^: CXR: Radiologist's impression: [address] [address] XRay Report Signed Patient: Oscar Pack Unit #: [id number] : 1955 Acct#:[id number] Age/Sex: 64 / F ADM Date: 10/01/19 Loc: ER Room/Bed: Attending Dr: Ordering Provider/Ordering MD: Mack,Jeri PA Date of Service: 10/01/19 Procedure(s): XR chest 1V portable [id number] Accession Number(s): [id number] Report Number: [id number] WS: [id number] CHEST XRAY TECHNIQUE: Portable chest. CLINICAL INFORMATION: cough/congestion COMPARISON: September 24, 2019 FINDINGS: Heart: Cardiomegaly. Aortic calcification. Lungs: Moderate left pleural effusion unchanged. Right lung is well aerated. Bones: Normal visualized bony structures. XR/XR chest 1V portable [id number] IMPRESSION: 1. Cardiomegaly with moderate left pleural effusion is unchanged. Suggestion of consolidation left midlung left lower lobe. Recommend correlation for pneumonia. 2. Mild CHF is unchanged. Dictated By: Christian Monson MD Signed By: Christian Monson MD Signed Date/Time: 10/01/19820 DD/ 7 Discharge Plan Discharge Patient Disposition: Admitted As Inpatient Admit Provider: Chelsey Pugh Clinical Impression: End stage renal disease, Pleural effusion Atrial fibrillation Qualifiers: Atrial fibrillation type: unspecified Qualified Code(s): I48.91 - Unspecified atrial fibrillation CHF (congestive heart failure) Qualifiers: Heart failure type: unspecified Heart failure chronicity: chronic Qualified Code(s): I50.9 - Heart failure, unspecified Condition: Stable Referrals: Pradeep Patel MD [Primary Care Provider] - Discharge Date/Time: 10/01/19 11:00 Coding Level of Care Code ED Retail Visual Merchandiser for Chg Fwd Exam Detailed Documented by User: Rolo Gurrola DO 10/02/19 06:48 HPI - Chest Pain General: Chief Complaint: General Medical Stated Complaint: HYPOTENSION Time Seen by Provider: 10/01/19 06:56 History of Present Illness: HPI narrative: Patient seen in conjunction with midlevel. See his notes. [facility] ED PFSH: Medical History (Updated 10/01/19 @ 09:30 by Chelsey Pugh DO) Accelerated essential hypertension Anemia Breast cancer Carotid artery stenosis, asymptomatic COPD (chronic obstructive pulmonary disease) Patient reports COPD, but restrictive lung disease is also a possibility. 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 Surgical History H/O lumpectomy left breast H/O tubal ligation Hemodialysis access site with arteriovenous graft History of cholecystectomy Hx of abdominoplasty Family History (Updated 10/01/19 @ 09:31 by Chelsey Pugh DO) Mother CAD (coronary artery disease) Hypertension Diabetes Hyperlipidemia Stroke Other Cancer Social History (Updated 10/01/19 @ 09:31 by Chelsey Pugh DO) Smoking and tobacco status: former smoker Quit status (tobacco): has quit using tobacco Year quit tobacco: 2006 Alcohol intake: never Substance/Drug Use: never Housing: Custodial Course Vital Signs: Vital signs: Vital Signs Temperature 98.6 F 10/01/19 20:00 Pulse Rate 116 H 10/02/19 05:00 Respiratory Rate 17 10/02/19 05:00 Blood Pressure 128/83 10/02/19 05:00 Pulse Oximetry 92 10/02/19 05:00 MDM - Chest Pain MDM Narrative: Medical decision making narrative: Hemoccult stool marginally positive. She did have a pretty significant drop in her hemoglobin. Market increase in her BNP. We will transfuse her 1 unit we have given her a bolus of Cardizem and admit increasing her drip I also gave her a single dose of IV push beta-michael that seem to have made more of a difference her pressures improved from when she first arrived. At her last visit she required required cardioversion. She was due for dialysis and was able to finish that today. discussed with Dr. Pugh will go ahead and get her admitted. Lab Data: Labs: Lab Results 10/01/19 10/01/19 10/01/19 Range/Units 07:25 07:25 07:25 WBC 9.0 (4.0-10.0) 10^3/ uL RBC 2.53 L (4.1-5.3) 10^6/u L Hgb 7.8 L (11.5-15.3) g/dL Hct 27.8 L (37.0-47.0) % MCV 109.9 H (81-99) fL MCH 30.8 (28.0-34.0) pg MCHC 28.1 L (30.0-36.0) g/dL RDW 17.0 H (12.1-15.1) % Plt Count 356 (130-400) 10^3/c mm MPV 9.7 (7.4-10.4) fL Neut % (Auto) 72.1 % Lymph % (Auto) 15.8 % [place] % (Auto) 9.3 % Eos % (Auto) 1.8 % Baso % (Auto) 0.4 % Neut # (Auto) 6.5 (1.8-7.7) 10^3/u L Lymph # (Auto) 1.4 (0.8-4.8) 10^3/u L [place] # (Auto) 0.8 (0.2-0.9) 10^3/u L Eos # (Auto) 0.2 (0.0-0.8) 10^3/u L Baso # (Auto) 0.0 (0.0-0.1) 10^3/u L Nucleated RBC % (a uto) 0 % Nucleated RBCs # 0.0 /100WBC Sodium 133 L (136-145) mmol/L Potassium 4.6 (3.5-5.1) mmol/L Chloride 90 L (98-107) mmol/L Carbon Dioxide 28 (22-29) mmol/L Anion Gap 19.6 H (5-19) BUN 47 H (8-23) mg/dL Creatinine 8.0 H* (0.5-0.9) mg/dL GFR Calculation 5.1 L (90-130) mL/min Glucose 119 H (65-115) mg/dL Calculated Osmolal ity 275 L (285-295) mOsm/k g Calcium 9.1 (8.5-10.5) mg/dL Iron (37-145) ug/dL TIBC mcg/dl % Saturation (20-50) % Unsat Iron Binding (112-347) ug/dL Total Bilirubin 0.4 (0.15-1.2) mg/dL AST 22 (0-32) U/L ALT 35 H (0-33) U/L Alkaline Phosphata se 179 H (35-105) IU/L Troponin T Baselin e 151 H* (0-10) ng/mL NT-Pro-B Natriuret Pep > 13250 H (0-125) pg/mL Total Protein 6.9 (6.6-8.7) g/dL Albumin 3.6 (3.5-5.2) g/dL Globulin 3.3 (1.3-4.6) g/dL Vitamin B12 (232-1245) pg/mL Folate (4.8-37.3) ng/mL Blood Type Rho(D) Type Antibody Screen Crossmatch 10/01/19 10/01/19 10/01/19 Range/Units 07:25 07:25 08:20 WBC (4.0-10.0) 10^3/ uL RBC (4.1-5.3) 10^6/u L Hgb (11.5-15.3) g/dL Hct (37.0-47.0) % MCV (81-99) fL MCH (28.0-34.0) pg MCHC (30.0-36.0) g/dL RDW (12.1-15.1) % Plt Count (130-400) 10^3/c mm MPV (7.4-10.4) fL Neut % (Auto) % Lymph % (Auto) % [place] % (Auto) % Eos % (Auto) % Baso % (Auto) % Neut # (Auto) (1.8-7.7) 10^3/u L Lymph # (Auto) (0.8-4.8) 10^3/u L [place] # (Auto) (0.2-0.9) 10^3/u L Eos # (Auto) (0.0-0.8) 10^3/u L Baso # (Auto) (0.0-0.1) 10^3/u L Nucleated RBC % (a uto) % Nucleated RBCs # /100WBC Sodium (136-145) mmol/L Potassium (3.5-5.1) mmol/L Chloride (98-107) mmol/L Carbon Dioxide (22-29) mmol/L Anion Gap (5-19) BUN (8-23) mg/dL Creatinine (0.5-0.9) mg/dL GFR Calculation (90-130) mL/min Glucose (65-115) mg/dL Calculated Osmolal ity (285-295) mOsm/k g Calcium (8.5-10.5) mg/dL Iron 48 (37-145) ug/dL TIBC 102 mcg/dl % Saturation 47.0 (20-50) % Unsat Iron Binding 54 L (112-347) ug/dL Total Bilirubin (0.15-1.2) mg/dL AST (0-32) U/L ALT (0-33) U/L Alkaline Phosphata se (35-105) IU/L Troponin T Baselin e (0-10) ng/mL NT-Pro-B Natriuret Pep (0-125) pg/mL Total Protein (6.6-8.7) g/dL Albumin (3.5-5.2) g/dL Globulin (1.3-4.6) g/dL Vitamin B12 1997 H (232-1245) pg/mL Folate > 20.0 (4.8-37.3) ng/mL Blood Type O Positive Rho(D) Type Positive Antibody Screen Negative Crossmatch See Detail Discharge Plan Discharge Patient Disposition: Admitted As Inpatient Admit Provider: Chelsey Pugh Clinical Impression: End stage renal disease, Pleural effusion Atrial fibrillation Qualifiers: Atrial fibrillation type: unspecified Qualified Code(s): I48.91 - Unspecified atrial fibrillation CHF (congestive heart failure) Qualifiers: Heart failure type: unspecified Heart failure chronicity: chronic Qualified Code(s): I50.9 - Heart failure, unspecified Condition: Stable Referrals: Pradeep Patel MD [Primary Care Provider] - Discharge Date/Time: 10/01/19 11:00 Coding Level of Care Code ED Retail Visual Merchandiser for g Fwd Exam Detailed
[2019-10-01 07:30] LABS: Basophils % 0.4 %; Eosinophils # 0.2 10^3/uL (0.0-0.8); Eosinophils % 1.8 %; Hematocrit 27.8 % (37.0-47.0); Hemoglobin 7.8 g/dL (11.5-15.3); Lymphocytes # 1.4 10^3/uL (0.8-4.8); Lymphocytes % 15.8 %; Mean Corpuscular HGB Conc 28.1 g/dL (30.0-36.0); Mean Corpuscular Hemoglobin 30.8 pg (28.0-34.0); Mean Corpuscular Volume 109.9 fL (81-99); Mean Platelet Volume 9.7 fL (7.4-10.4); Monocytes # 0.8 10^3/uL (0.2-0.9); Monocytes % 9.3 %; Neutrophils # 6.5 10^3/uL (1.8-7.7); Neutrophils % 72.1 %; Nucleated Red Blood Cells % 0 %; Platelet Count 356 10^3/cmm (130-400); Red Blood Count 2.53 10^6/uL (4.1-5.3)
--- NOTE | 2019-10-01 07:31 | PC.NURSE ---
portable xray at bedside
[2019-10-01 07:58] LABS: Alanine Aminotransferase 35 U/L (0-33); Albumin Level 3.6 g/dL (3.5-5.2); Alkaline Phosphatase 179 IU/L (35-105); Anion Gap 19.6 (5-19); Aspartate Amino Transferase 22 U/L (0-32); Blood Urea Nitrogen 47 mg/dL (8-23); Calcium 9.1 mg/dL (8.5-10.5); Carbon Dioxide 28 mmol/L (22-29); Chloride 90 mmol/L (98-107); Globulin 3.3 g/dL (1.3-4.6); Glomerular Filtration Rate 5.1 mL/min (90-130); Glucose 119 mg/dL (65-115); Osmolality Calculated 275 mOsm/kg (285-295); Potassium 4.6 mmol/L (3.5-5.1); Sodium 133 mmol/L (136-145); Total Bilirubin 0.4 mg/dL (0.15-1.2); Total Protein 6.9 g/dL (6.6-8.7)
[2019-10-01 08:04] LABS: Troponin(5th) Baseline 151 ng/mL (0-10)
[2019-10-01 08:43] LABS: NT Pro B Type Natriuretic Pept > 70000 pg/mL (0-125)
--- NOTE | 2019-10-01 08:51 | USCV_ITS ---
Oscar Pack Age: 64 Gender: F : 1955 Exam Date: 10/01/2019 10:25 Ordering Phys: Chelsey Pugh DO Technologist: Yue Paredes Exam Location: [facility] [place] Indication: effusion BP: / HR: 115 Rhythm: Sinus Technical Quality: Adequate MEASUREMENTS (Male / Female) Normal Values 2D ECHO LV Diastolic Diameter PLAX 4.0 cm 4.2 - 5.9 / 3.9 - 5.3 cm LV Systolic Diameter PLAX 3.1 cm LV Chamber Size 3.1 cm IVS Diastolic Thickness 0.9 cm 0.6 - 1.0 / 0.6 - 0.9 cm IVS Systolic Thickness 1.2 cm LVPW Diastolic Thickness 1.5 cm 0.6 - 1.0 / 0.6 - 0.9 cm LVPW Systolic Thickness 1.7 cm RV Chamber Size 2.2 cm LVOT Diameter 2.1 cm LV Ejection Fraction 2D Teich 44.5 % LV Ejection Fraction MOD 2C 57.4 % LV Ejection Fraction 2C AL 56.6 % LA Diameter 4.3 cm LA Width 3.4 cm LA Height 4.5 cm RA Width 2.9 cm RA Height 4.7 cm M-MODE LV Diastolic Diameter MM 4.0 cm 4.2 - 5.9 / 3.9 - 5.3 cm LV Systolic Diameter MM 3.0 cm LV Ejection Fraction MM Teich 50.1 % IVS Diastolic Thickness MM 0.6 cm 0.6 - 1.0 / 0.6 - 0.9 cm IVS Systolic Thickness MM 0.8 cm LVPW Diastolic Thickness MM 1.1 cm 0.6 - 1.0 / 0.6 - 0.9 cm LVPW Systolic Thickness MM 1.4 cm Aortic Annulus Diameter 2.4 cm LA Ao Ratio MM 1.8 MV E Point Septal Separation 0.6 cm FINDINGS Left Ventricle Normal left ventricular cavity size. Normal left ventricular systolic function. No regional wall motion abnormalities. Left ventricular ejection fraction is estimated at 55 %. Right Ventricle Normal right ventricular size. Right Atrium The right atrium is normal in size. Left Atrium The left atrium is normal in size. Mitral Valve Mildly thickened mitral valve. No mitral valve stenosis. Moderate mitral annular calcification. Aortic Valve Mild aortic valve calcification. No aortic valve stenosis. Tricuspid Valve Tricuspid valve sclerosis. Pulmonic Valve No pulmonary valve stenosis. Pericardium Normal pericardium without effusion. Aorta Normal ascending aorta dimension. CONCLUSIONS 1-Normal left ventricular cavity size. Normal left ventricular systolic function. No regional wall motion abnormalities. Left ventricular ejection fraction is estimated at 55 %. 2-Mildly thickened mitral valve. No mitral valve stenosis. Moderate mitral annular calcification. 3-Mild aortic valve calcification. No aortic valve stenosis. 4-Tricuspid valve sclerosis. 5-There is no pericardial effusion. 6-Right atrial pressure is around 5 mm of mercury. 7-Please note that due to lack of Doppler data, we cannot assess valvular regurgitation therefore cannot compare with prior study Vince Stevenson MD (Electronically Signed) Final Date: 01 Oct 2019 18:26 S
--- NOTE | 2019-10-01 09:22 | PM.HP ---
Providers/Chief Complaint Admitting Physician: Chelsey Pugh DO Primary Care Provider: Pradeep Patel MD Chief Complaint: HYPOTENSION History of Present Illness Oscar Pack is a 64 year old female with a past medical history of diastolic congestive heart failure, end-stage renal disease on dialysis, atrial fibrillation, history of chronic pleural effusion as well as pericardial effusion that presented to the emergency department today from dialysis due to tachycardia. Patient was noted to have atrial fibrillation with RVR. She reported that she did not take any of her home medications this morning prior to dialysis including her midodrine that is scheduled to take prior to dialysis session and and her metoprolol. Patient denies any fevers or chills, no sick contacts. Patient had previously been tested for CO VID-19 and returned negative, has had no potential exposures. She reports shortness of breath that is slightly increased, no change in cough and no increase in sputum production. Patient reports that she had dialysis as scheduled except for today. She reports that since 2:00 this morning she has been having some symptoms of heartburn, no other chest pain or palpitations, no lightheadedness or dizziness. Patient was seen and evaluated in the emergency department noted to have hypotension initially as well as atrial fibrillation with RVR. She was started on a Cardizem drip and blood pressure improved heart rate remained tachycardic. Due to patient not having her home beta-michael she was given IV metoprolol. Review of Systems Const: Denies: fever(s) or chills Eyes: Reports: other (Chronically blind, can only see shadows) ENMT: Denies: nasal congestion Card: Denies: chest pain, palpitations or edema Resp: Reports: dyspnea; Denies: productive cough or hemoptysis GI: Reports: heartburn; Denies: abdominal pain, nausea, vomiting, diarrhea, constipation, hematochezia or melena : Reports: other (Only makes minimal urine with ESRD) Musc: Denies: extremity pain or muscle cramps Skin/Breast: Denies: rash or new lesions Neuro: Reports: other (chronically blind); Denies: headache(s) or dizziness Psych: Denies: anxiety or depression Endo: Denies: hot flashes Gabriel/Lymph: Denies: easy bruising or easy bleeding Medications/Allergies Home Medications Medication Instructions Recorded Confirmed Last Taken Type atorvastatin 20 mg tablet 20 mg PO QPM 07/09/19 10/01/19 08/27/19 History ferric citrate 210 mg iron tablet 210 mg PO TID 07/09/19 10/01/19 08/28/19 History insulin aspart U-100 100 unit/mL See Rx Instructions .ROUTE .COMPLEX 07/09/19 10/01/19 Unknown History (3 mL) subcutaneous pen levothyroxine 50 mcg capsule 50 mcg PO DAILY 07/09/19 10/01/19 08/28/19 History midodrine 5 mg tablet See Rx Instructions .ROUTE .COMPLEX 07/09/19 10/01/19 08/27/19 History montelukast 10 mg tablet 10 mg PO DAILY 07/09/19 10/01/19 08/27/19 History saxagliptin 5 mg tablet 5 mg PO DAILY 07/09/19 10/01/19 08/27/19 History tramadol 50 mg tablet 50 mg PO Q6H PRN 07/09/19 10/01/19 Unknown History Lantus U-100 Insulin 42 unit SUBCUT BID 08/28/19 10/01/19 08/27/19 History aspirin 81 mg PO DAILY 08/28/19 10/01/19 08/27/19 History budesonide-formoterol [Symbicort] 1 puff INHALATION BID 08/28/19 10/01/19 08/27/19 History gabapentin 100 mg PO DAILY 08/28/19 10/01/19 08/27/19 History isosorbide mononitrate 30 mg PO DAILY 08/28/19 10/01/19 Unknown History pantoprazole 40 mg PO DAILY 08/28/19 10/01/19 08/27/19 History Eliquis 2.5 mg PO BID 30 Days #30 tab 09/04/19 10/01/19 Unknown Rx metoprolol tartrate 50 mg PO BID 30 Days #60 tab 09/04/19 10/01/19 Unknown Rx RenaPlex-D 1 tab PO DAILY 09/15/19 10/01/19 Unknown History acetaminophen [Tylenol Extra 1,000 mg PO 6XD PRN 09/15/19 10/01/19 Unknown History Strength] albuterol sulfate [ProAir HFA] 2 puff INHALATION QID PRN 09/15/19 10/01/19 Unknown History cholecalciferol (vitamin D3) 1,000 unit PO DAILY 09/15/19 10/01/19 Unknown History [Vitamin D3] diphenhydramine HCl [Benadryl] 50 mg PO BID PRN 09/15/19 10/01/19 Unknown History melatonin 3 mg PO BEDTIME 09/15/19 10/01/19 Unknown History ondansetron 4 mg PO TID PRN 09/15/19 10/01/19 Unknown History oxycodone 5 mg PO Q6H PRN 09/15/19 10/01/19 Unknown History promethazine 12.5 mg PO PRN PRN 09/15/19 10/01/19 Unknown History sennosides [senna] 17.2 mg PO BID PRN 09/15/19 10/01/19 Unknown History sevelamer carbonate 800 mg PO TID 09/15/19 10/01/19 Unknown History Zyrtec 10 mg PO DAILY 09/16/19 10/01/19 Unknown History bisacodyl 10 mg ND DAILY PRN 09/24/19 10/01/19 Unknown History magnesium hydroxide [Milk of 30 ml PO DAILY PRN 09/24/19 10/01/19 Unknown History Magnesia] polyethylene glycol 3350 [Miralax] 17 g PO DAILY PRN 09/24/19 10/01/19 Unknown History sodium phosphates [Enema] 118 ml ND DAILY PRN 09/24/19 10/01/19 Unknown History albuterol sulfate 0.63 mg INHALATION QID 10/01/19 10/01/19 Unknown History guaifenesin 600 mg PO BID PRN 10/01/19 10/01/19 Unknown History sennosides-docusate sodium 2 tab PO BID PRN 10/01/19 10/01/19 Unknown History [Senna-S] venlafaxine [Effexor XR] 75 mg PO DAILY 10/01/19 10/01/19 Unknown History Allergies Allergy/AdvReac Type Severity Reaction Status Date / Time grapefruit Allergy Unknown Verified 10/01/19 09:14 lemon Allergy Unknown Verified 10/01/19 09:14 nisqually Allergy Unknown Verified 10/01/19 09:14 orange Allergy Unknown Verified 10/01/19 09:14 Penicillins Allergy hives Verified 09/24/19 08:17 strawberry Allergy Unknown Verified 10/01/19 09:14 Sulfa (Sulfonamide Allergy depleat Verified 09/24/19 08:17 Antibiotics) potassium PFSH Acute PFSH: Medical History (Updated 10/01/19 @ 09:30 by Chelsey Pugh DO) Accelerated essential hypertension Anemia Breast cancer Carotid artery stenosis, asymptomatic COPD (chronic obstructive pulmonary disease) Patient reports COPD, but restrictive lung disease is also a possibility. 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 Surgical History H/O lumpectomy left breast H/O tubal ligation Hemodialysis access site with arteriovenous graft History of cholecystectomy Hx of abdominoplasty Family History (Updated 10/01/19 @ 09:31 by Chelsey Pugh DO) Mother CAD (coronary artery disease) Hypertension Diabetes Hyperlipidemia Stroke Other Cancer Social History (Updated 10/01/19 @ 09:31 by Chelsey Pugh DO) Smoking and tobacco status: former smoker Quit status (tobacco): has quit using tobacco Year quit tobacco: 2006 Alcohol intake: never Substance/Drug Use: never Housing: Skilled Nursing Vitals/I&O/Wt Last Vital Signs Temp 98.2 F 10/01/19 06:52 Pulse 137 H 10/01/19 08:57 Resp 18 10/01/19 08:57 BP 112/96 10/01/19 08:57 Pulse Ox 100 10/01/19 08:57 09/30/19 10/01/19 10/01/19 22:59 06:59 14:59 Intake Total 0.667 / 0.667 Balance 0.667 / 0.667 Weight last 48 hrs Weight 112.945 kg Physical Exam Const: COMMON NORMALS: patient oriented x3 and alert GENERAL APPEARANCE: cooperative ORIENTATION/CONSCIOUSNESS: Yes awake, Yes oriented to person, Yes oriented to place and Yes oriented to time HENMT: COMMON NORMALS: normocephalic and atraumatic HEAD & SCALP: normocephalic and atraumatic Eye: COMMON NORMALS: Equal, round and reactive pupils present PUPIL: Yes Equal, round and reactive pupils present Neck/C-Spine: COMMON NORMALS: supple GENERAL: Yes normal visual inspection Resp: AUSCULTATION: crackles (bilaterally with diminished breath sounds in the L base), no rhonchi, no wheezes and diminished lung sounds (L base) Cardio: RATE: tachycardic OTHER: irregularly irregular GI: COMMON NORMALS: Soft to palpation and non-tender INSPECTION: No abdominal distension AUSCULTATION: Yes normoactive bowel sounds PALPATION: Yes Soft to palpation : COMMON NORMALS: Yes no CVA tenderness BLADDER/KIDNEY EXAM: Yes no CVA tenderness Back/Pelvis: COMMON NORMALS: no CVA tenderness Extremity: COMMON NORMALS: no calf tenderness NARRATIVE EXTREMITY EXAM: non-pitting edema in the LE bilaterally AV fistula in the R UE Neuro: COMMON NORMALS: patient oriented x3, CN's II-XII intact bilaterally, moves all extremities and no focal motor deficits SENSORIUM/ORIENTATION: Yes alert, Yes oriented to person, Yes oriented to place and Yes oriented to time SPEECH: speech normal OTHER: Chronically blind Psych: COMMON NORMALS: mental status grossly normal and cooperative Skin: COMMON NORMALS: no rashes or lesions noted GENERAL SKIN EXAM: no rashes or lesions noted Data : 10/01/19 07:25 10/01/19 07:25 A&P Assessment and plan (1) Atrial fibrillation: Atrial fibrillation with RVR [facility] [place] [facility] without receiving her home medications On cardizem drip in ED, will give IV metoprolol then restart home metoprolol and discontinue cardizem On Eliquis 2.5mg BID, continued Telemetry Serial EKG and Troponin Will check TSH Required cardioversion during her previous admission Consider cardiology consultation if indicated Repeat limited ECHO to check for any hemodynamic compromise with pericardial effusion Status: Acute Qualifiers: Atrial fibrillation type: unspecified Qualified Code(s): I48.91 - Unspecified atrial fibrillation (2) Pericardial effusion: Patient with prior echocardiogram which showed pericardial effusion, will recheck limited echocardiogram and discuss with cardiology if continued effusion Status: Acute (3) Pleural effusion: Chronic left-sided pleural effusion, patient is on her home oxygen 3 L by nasal cannula but does appear to be fluid overloaded and would benefit from dialysis. We will continue to monitor closely and consider thoracentesis Status: Acute (4) CHF (congestive heart failure): Underlying diastolic CHF, followed by Dr. Silvestre. Continue with dialysis Continue on metoprolol 50 mg twice daily, Imdur, statin Status: Acute Qualifiers: Heart failure chronicity: chronic Heart failure type: unspecified Qualified Code(s): I50.9 - Heart failure, unspecified (5) End stage renal disease: Followed by Dr. Barker On dialysis Sunday and Sunday Status: Acute (6) Anemia: Patient does have drop in her hemoglobin down to 7.8. No evidence of any active bleeding at this time ordered melanotic stools from the nursing facility. Will check further iron studies and anemia work-up. Status: Acute (7) Acute diastolic heart failure: Acute on chronic diastolic CHF. Plan as above Status: Acute Additional A&P Information Elevated troponin: Believed to be secondary to end-stage renal disease as well as atrial fibrillation with RVR Chronic oxygen dependence: Currently on 3 L of oxygen by nasal cannula, this is patient's baseline Obstructive sleep apnea: Continue home CPAP use at night and during the day while sleeping Diabetes mellitus type 2, insulin-dependent: Continue with sliding scale insulin along with long-acting insulin, Lantus 42 units twice daily Morbid obesity Hypothyroidism: We will check TSH, continue on levothyroxine 50 mcg at this time Neuropathy: Continue on gabapentin DVT prophylaxis: On Eliquis due to concern for atrial fibrillation, will continue Diet: Cardiac, carbohydrate consistent, renal dialysis diet CODE STATUS: Full code Attestations Medical Necessity Statement*: Patient requires hospitalization due to diastolic CHF, atrial fibrillation with RVR, diabetes, coronary artery disease, pericardial effusion. Expected stay greater than 2 midnights Coding Level of Care Code Acute Sole Leveler Machine for [facility] Fwd Exam Comprehensive Diagnoses Atrial fibrillation I48.91 Atrial fibrillation type: unspecified Pericardial effusion I31.3 Pleural effusion J90 CHF (congestive heart failure) I50.9 Heart failure chronicity: chronic Heart failure type: unspecified End stage renal disease N18.6 Anemia D64.9 Acute diastolic heart failure I50.31
[2019-10-01] MEDS: metoprolol tartrate 1 mg/1 mL SDV 5 mL 5 MG IV (09:37)
[2019-10-01 09:49] LABS: Troponin 5 2HR 162.9 ng/mL (0-10); Troponin 5 2HR Delta 11.9 ABS# (0-10)
--- NOTE | 2019-10-01 09:55 | PC.NURSE ---
ER nurse attempted to give report to ICU nurse. ICU nurse not ready for report at this time.
--- NOTE | 2019-10-01 10:20 | PC.NURSE ---
portable ultrasound in room for echocardiogram
--- NOTE | 2019-10-01 10:23 | PC.NURSE ---
ER nurse attempted to call report to ICU. ICU nurse still not ready for report
--- NOTE | 2019-10-01 11:26 | PM.PN ---
Subjective Subjective: Interval history: Oscar is known to me from prior admissions. She was about to start dialysis today but was found to have profound tachycardia and so she was sent to [facility] for eval. She feels SOB with her nasal O2 but she denies palpitations. Mild fatigue. No other new issues. Dialysis was uneventful on Sunday. ASVF is working well. No edema and no other uremic Sx. Bp stable. She has received Cardizem gtt, iv metoprolol and oral metoprolol Vitals/I&O/Wt Last Vital Signs Temp 98 F 10/01/19 10:46 Pulse 111 H 10/01/19 10:46 Resp 18 10/01/19 10:46 BP 118/79 10/01/19 10:46 Pulse Ox 95 10/01/19 10:46 09/30/19 10/01/19 10/01/19 22:59 06:59 14:59 Intake Total 0.667 / 0.667 Balance 0.667 / 0.667 Weight last 48 hrs Weight 112.945 kg Physical Exam Narrative: EXAM NARRATIVE: Exam performed via telemed with the aid of the bedside RN Const: COMMON NORMALS: no acute distress, patient oriented x3, no limitations and alert GENERAL APPEARANCE: cooperative NUTRITIONAL APPEARANCE: obese morbidly obese ORIENTATION/CONSCIOUSNESS: Yes awake, Yes oriented to person, Yes oriented to place and Yes oriented to time HENMT: COMMON NORMALS: normocephalic and atraumatic HEAD & SCALP: normocephalic and atraumatic Eye: COMMON NORMALS: Equal, round and reactive pupils present PUPIL: Yes Equal, round and reactive pupils present Neck/C-Spine: COMMON NORMALS: supple GENERAL: Yes normal visual inspection Resp: COMMON NORMALS: normal respiratory effort and clear to auscultation bilaterally AUSCULTATION: clear to auscultation bilaterally, crackles (bilaterally with diminished breath sounds in the L base), no rhonchi, no wheezes and diminished lung sounds (L base) Cardio: RATE: tachycardic RHYTHM: abnormal rhythm irregularly irregular OTHER: irregularly irregular GI: COMMON NORMALS: Normal to inspection, nondistended, normoactive bowel sounds present, Soft to palpation, non-tender, No hepatosplenomegaly present and no masses INSPECTION: No abdominal distension AUSCULTATION: Yes normoactive bowel sounds PALPATION: Yes Soft to palpation and Yes No hepatosplenomegaly present : COMMON NORMALS: Yes no CVA tenderness BLADDER/KIDNEY EXAM: Yes no CVA tenderness Back/Pelvis: COMMON NORMALS: no CVA tenderness Extremity: COMMON NORMALS: normal to inspection and no calf tenderness NARRATIVE EXTREMITY EXAM: non-pitting edema in the LE bilaterally AV fistula in the R UE RIGHT UPPER EXTREMITY: Yes wrist Neuro: YA COMA SCALE: document GCS findings Ya coma scale eye opening: Spontaneous [place] coma scale verbal response: Orientated [place] coma scale motor response: Obey commands Ya coma scale total score: 15 COMMON NORMALS: patient oriented x3, CN's II-XII intact bilaterally, moves all extremities, no focal motor deficits and no sensory deficits noted SENSORIUM/ORIENTATION: Yes alert, Yes oriented to person, Yes oriented to place and Yes oriented to time SPEECH: speech normal OTHER: Chronically blind Psych: COMMON NORMALS: mental status grossly normal and cooperative Skin: COMMON NORMALS: no rashes or lesions noted GENERAL SKIN EXAM: no rashes or lesions noted WOUNDS: Yes surgical site (no hematoma palpable) Details: no odor Data : 10/01/19 07:25 10/01/19 07:25 A&P Additional A&P Information 1. ESRD - For dialysis today 2K, UF 2-3L - Ideally, I would like her heart rate to be a little lower prior to initiation on dialysis - doses meds for eGFR < 15ml/min 2. Lytes with minor aberrance; non critical 3. Tachycardia - missed her morning meds. on iv Cardzem and metoprolol - mgmt per Dr Pugh 4. Anemia - receiving PRBCs today 5. Renal masses - US noted on last admission - will need Urology eval but this can be deferred to outpatient setting [facility]w [facility] Dr Pugh Interview and exam performed with the aid of the bedside RN via telemed and bedside telephone. 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
[2019-10-01 11:41] LABS: Iron 48 ug/dL (37-145); Total Iron Binding Capacity 102 mcg/dl; Unsaturated Iron Binding 54 ug/dL (112-347)
[2019-10-01] MEDS: metoprolol tartrate 50 mg Tablet PO ×2 (11:55→17:40)
[2019-10-01 11:56] LABS: Vitamin B12 1997 pg/mL (232-1245)
[2019-10-01] MEDS: sodium chloride 0.9% (100 ml) 100 ML 10 ML (11:56)
[2019-10-01 12:26] LABS: Folate Level > 20.0 ng/mL (4.8-37.3)
[2019-10-01] MEDS: venlafaxine ER (24HR) 75 mg Capsule PO (13:22)
[2019-10-01] MEDS: pantoprazole DR 40 mg Tablet PO (13:22)
[2019-10-01] MEDS: isosorbide mononitrate ER 30 mg Tablet PO (13:22)
[2019-10-01 14:52] LABS: Troponin 5 6HR Delta 9.7 ng/L (0-12)
[2019-10-01 14:55] LABS: Thyroid Stimulating Hormone 1.01 uIU/mL (0.27-4.20)
[2019-10-01 14:55] LABS: Glucose Point of Care 103 mg/dL (70-110)
[2019-10-01] MEDS: midodrine 5 mg TABLET PO (15:04)
[2019-10-01 15:10] LABS: Troponin 5 6HR 160.7 ng/mL (0-10)
[2019-10-01] MEDS: apixaban 5 mg Tablet 2.5 MG PO (17:40)
[2019-10-01] MEDS: sevelamer 800 mg Tablet PO (17:42)
[2019-10-01 18:05] LABS: Glucose Point of Care 106 mg/dL (70-110)
[2019-10-01] MEDS: atorvastatin 40 mg Tablet 20 MG PO (20:27)
[2019-10-01] MEDS: montelukast sodium 10 mg Tablet PO (20:27)
[2019-10-01 20:46] LABS: Glucose Point of Care 91 mg/dL (70-110)
[2019-10-02] VITALS (20 sets, daily range): BP systolic 91–154; BP diastolic 53–111; PULSE 108–140; RESP 16–29; TEMP 36.5–37; O2SAT 90–100
[2019-10-02 04:34] LABS: Basophils % 0.4 %; Eosinophils # 0.2 10^3/uL (0.0-0.8); Eosinophils % 2.8 %; Hematocrit 30.1 % (37.0-47.0); Hemoglobin 8.2 g/dL (11.5-15.3); Lymphocytes % 12.8 %; Mean Corpuscular HGB Conc 27.2 g/dL (30.0-36.0); Mean Corpuscular Hemoglobin 30.5 pg (28.0-34.0); Mean Corpuscular Volume 111.9 fL (81-99); Mean Platelet Volume 9.8 fL (7.4-10.4); Monocytes # 0.8 10^3/uL (0.2-0.9); Neutrophils # 5.6 10^3/uL (1.8-7.7); Neutrophils % 73.6 %; Nucleated Red Blood Cells % 0 %; Platelet Count 344 10^3/cmm (130-400); Red Blood Count 2.69 10^6/uL (4.1-5.3); Red Cell Distribution Width 18.1 % (12.1-15.1); White Blood Count 7.6 10^3/uL (4.0-10.0)
[2019-10-02 04:59] LABS: Anion Gap 20.3 (5-19); Blood Urea Nitrogen 28 mg/dL (8-23); Calcium 9.7 mg/dL (8.5-10.5); Carbon Dioxide 24 mmol/L (22-29); Chloride 92 mmol/L (98-107); Glomerular Filtration Rate 8.3 mL/min (90-130); Glucose 101 mg/dL (65-115); Osmolality Calculated 271 mOsm/kg (285-295); Potassium 4.3 mmol/L (3.5-5.1); Sodium 132 mmol/L (136-145)
[2019-10-02] MEDS: insulin glargine 100 units/1 mL 20 UNIT SUBCUT ×2 (07:48→18:03)
[2019-10-02] MEDS: metoprolol tartrate 50 mg Tablet 75 MG PO ×2 (07:49→17:17)
[2019-10-02 07:58] LABS: Glucose Point of Care 97 mg/dL (70-110)
[2019-10-02] MEDS: venlafaxine ER (24HR) 75 mg Capsule PO (08:43)
[2019-10-02] MEDS: apixaban 5 mg Tablet 2.5 MG PO ×2 (08:43→17:17)
[2019-10-02] MEDS: aspirin 81 mg Chew Tablet PO (08:43)
[2019-10-02] MEDS: pantoprazole DR 40 mg Tablet PO (08:43)
[2019-10-02] MEDS: isosorbide mononitrate ER 30 mg Tablet PO (08:44)
[2019-10-02] MEDS: levothyroxine 50 mcg Tablet PO (08:44)
[2019-10-02] MEDS: cholecalciferol (vitamin D3) 1,000 unit Tablet 1000 UNIT PO (08:44)
[2019-10-02] MEDS: gabapentin 100 mg Capsule PO (08:44)
[2019-10-02] MEDS: sevelamer 800 mg Tablet PO ×3 (08:48→17:17)
[2019-10-02] MEDS: acetaminophen 325 mg Tablet 650 MG PO ×2 (08:48→20:33)
[2019-10-02] MEDS: lanolin oint 7 gm 1 APPLIC TOPICAL (08:49)
--- NOTE | 2019-10-02 09:28 | PM.PN ---
Subjective Subjective: Interval history: Oscar feels ok, a little weak and mild SOB. HR back to 140s this morning. Received metoprolol. No edema and no other volume assoc issues. Received PRBCs yesterday also Vitals/I&O/Wt Last Vital Signs Temp 98.4 F 10/02/19 08:00 Pulse 140 H 10/02/19 08:00 Resp 23 H 10/02/19 08:00 BP 109/64 10/02/19 08:00 Pulse Ox 100 10/02/19 08:00 10/01/19 10/02/19 10/02/19 22:59 06:59 14:59 Intake Total 580 / 1027.751 240 / 1267.751 350 / 350 Output Total 0 / 0 Balance 580 / 1027.751 240 / 1267.751 350 / 350 Weight last 48 hrs Weight 112.491 kg Weight 112.945 kg Physical Exam Narrative: EXAM NARRATIVE: Exam performed via telemed with the aid of the bedside RN Const: COMMON NORMALS: no acute distress, patient oriented x3, no limitations and alert GENERAL APPEARANCE: cooperative NUTRITIONAL APPEARANCE: obese morbidly obese ORIENTATION/CONSCIOUSNESS: Yes awake, Yes oriented to person, Yes oriented to place and Yes oriented to time HENMT: COMMON NORMALS: normocephalic and atraumatic HEAD & SCALP: normocephalic and atraumatic Eye: COMMON NORMALS: Equal, round and reactive pupils present PUPIL: Yes Equal, round and reactive pupils present Neck/C-Spine: COMMON NORMALS: supple GENERAL: Yes normal visual inspection Resp: COMMON NORMALS: normal respiratory effort and clear to auscultation bilaterally AUSCULTATION: clear to auscultation bilaterally, crackles (bilaterally with diminished breath sounds in the L base), no rhonchi, no wheezes and diminished lung sounds (L base) Cardio: RATE: tachycardic RHYTHM: abnormal rhythm irregularly irregular OTHER: irregularly irregular GI: COMMON NORMALS: Normal to inspection, nondistended, normoactive bowel sounds present, Soft to palpation, non-tender, No hepatosplenomegaly present and no masses INSPECTION: No abdominal distension AUSCULTATION: Yes normoactive bowel sounds PALPATION: Yes Soft to palpation and Yes No hepatosplenomegaly present : COMMON NORMALS: Yes no CVA tenderness BLADDER/KIDNEY EXAM: Yes no CVA tenderness Back/Pelvis: COMMON NORMALS: no CVA tenderness Extremity: COMMON NORMALS: normal to inspection and no calf tenderness NARRATIVE EXTREMITY EXAM: non-pitting edema in the LE bilaterally AV fistula in the R UE Neuro: YA COMA SCALE: document GCS findings [place] coma scale eye opening: Spontaneous Ya coma scale verbal response: Orientated Ya coma scale motor response: Obey commands [place] coma scale total score: 15 COMMON NORMALS: patient oriented x3, CN's II-XII intact bilaterally, moves all extremities, no focal motor deficits and no sensory deficits noted SENSORIUM/ORIENTATION: Yes alert, Yes oriented to person, Yes oriented to place and Yes oriented to time SPEECH: speech normal OTHER: Chronically blind Psych: COMMON NORMALS: mental status grossly normal and cooperative Skin: COMMON NORMALS: no rashes or lesions noted GENERAL SKIN EXAM: no rashes or lesions noted Data : 10/02/19 04:05 10/02/19 04:05 A&P Additional A&P Information 1. ESRD - For dialysis tomorrow, ordered, 2K, UF 2-3L - Ideally, I would like her heart rate to be a little lower prior to initiation on dialysis - doses meds for eGFR < 15ml/min 2. Lytes with minor aberrance; non critical 3. Tachycardia - on oral metoprolol and pulse coming down - mgmt per Dr Pugh 4. Anemia - received PRBCs yesterday - H/h stable; EPO and iron as outpatient 5. Renal masses - US noted on last admission - outpatient Urology pending Interview and exam performed with the aid of the bedside RN via telemed and bedside telephone. Zane Helton MD [facility] Renal [facility], [facility] [phone] Attestations Medical Necessity Statement*: ESRD mgmt Coding Level of Care Code Acute Classifications Officer Cc/Cm for Michelle Borrero
--- NOTE | 2019-10-02 11:22 | PM.PN ---
Subjective Subjective: Interval history: Patient sleeping in bed with CPAP mask in place at time of exam this morning. She denied any chest pain or palpitations. Reported that she did not have any increase in shortness of breath. Discussed with patient plan to increase metoprolol today, she denied any concerns or questions. Vitals/I&O/Wt Last Vital Signs Temp 98.4 F 10/02/19 08:00 Pulse 140 H 10/02/19 08:00 Resp 23 H 10/02/19 08:00 BP 109/64 10/02/19 08:00 Pulse Ox 100 10/02/19 08:00 10/01/19 10/02/19 10/02/19 22:59 06:59 14:59 Intake Total 580 / 1027.751 240 / 1267.751 350 / 350 Output Total 0 / 0 Balance 580 / 1027.751 240 / 1267.751 350 / 350 Weight last 48 hrs Weight 112.491 kg Weight 112.945 kg Physical Exam Const: COMMON NORMALS: patient oriented x3 and alert GENERAL APPEARANCE: cooperative ORIENTATION/CONSCIOUSNESS: Yes awake, Yes oriented to person, Yes oriented to place and Yes oriented to time HENMT: COMMON NORMALS: normocephalic and atraumatic HEAD & SCALP: normocephalic and atraumatic Eye: COMMON NORMALS: Equal, round and reactive pupils present PUPIL: Yes Equal, round and reactive pupils present Neck/C-Spine: COMMON NORMALS: supple GENERAL: Yes normal visual inspection Resp: AUSCULTATION: crackles (bilaterally with diminished breath sounds in the L base), no rhonchi, no wheezes and diminished lung sounds (L base) Cardio: RATE: tachycardic OTHER: irregularly irregular GI: COMMON NORMALS: Soft to palpation and non-tender INSPECTION: No abdominal distension AUSCULTATION: Yes normoactive bowel sounds PALPATION: Yes Soft to palpation Extremity: COMMON NORMALS: no calf tenderness NARRATIVE EXTREMITY EXAM: non-pitting edema in the LE bilaterally AV fistula in the R UE Neuro: COMMON NORMALS: patient oriented x3, CN's II-XII intact bilaterally, moves all extremities and no focal motor deficits SENSORIUM/ORIENTATION: Yes alert, Yes oriented to person, Yes oriented to place and Yes oriented to time SPEECH: speech normal OTHER: Chronically blind Psych: COMMON NORMALS: mental status grossly normal and cooperative Skin: COMMON NORMALS: no rashes or lesions noted GENERAL SKIN EXAM: no rashes or lesions noted Data : 10/02/19 04:05 10/02/19 04:05 A&P Assessment and plan (1) Atrial fibrillation: Atrial fibrillation with RVR Increase metoprolol to 75 mg On Eliquis 2.5mg BID, continued Telemetry Required cardioversion during her previous admission Consider cardiology consultation if indicated Limited echocardiogram performed which showed no evidence of any pericardial effusion at this time Status: Acute Qualifiers: Atrial fibrillation type: unspecified Qualified Code(s): I48.91 - Unspecified atrial fibrillation (2) Pericardial effusion: Limited echocardiogram performed this admission which shows no pericardial effusion Status: Acute (3) Pleural effusion: Chronic left-sided pleural effusion, patient is on her home oxygen 3 L by nasal cannula but does appear to be fluid overloaded and would benefit from dialysis. Respiratory status remains stable, consider thoracentesis Status: Acute (4) CHF (congestive heart failure): Underlying diastolic CHF, followed by Dr. Silvestre. Continue with dialysis Increased dose of metoprolol , continued Imdur, statin Status: Acute Qualifiers: Heart failure chronicity: chronic Heart failure type: unspecified Qualified Code(s): I50.9 - Heart failure, unspecified (5) End stage renal disease: Followed by Dr. Barker On dialysis Sunday and Sunday Status: Acute (6) Anemia: Hemoglobin improved today to 8.2, no evidence of any active bleeding will continue close monitoring. Likely secondary to chronic disease Status: Acute (7) Acute diastolic heart failure: Acute on chronic diastolic CHF. Plan as above Status: Acute Additional A&P Information Elevated troponin: Type II, secondary to end-stage renal disease as well as atrial fibrillation with RVR Chronic oxygen dependence: Currently on 3 L of oxygen by nasal cannula, this is patient's baseline Obstructive sleep apnea: Continue home CPAP use at night and during the day while sleeping Diabetes mellitus type 2, insulin-dependent: Continue with sliding scale insulin along with long-acting insulin, Lantus decreased to 20 units every 12 hours Morbid obesity Hypothyroidism: TSH within normal limits, continue on levothyroxine 50 mcg at this time Neuropathy: Continue on gabapentin DVT prophylaxis: On Eliquis due to concern for atrial fibrillation, will continue Diet: Cardiac, carbohydrate consistent, renal dialysis diet CODE STATUS: Full code Attestations Medical Necessity Statement*: Further hospitalization due to atrial fibrillation with RVR, end-stage renal disease on dialysis, anemia Coding Level of Care Code Acute Creative Consultant for [facility] Fwd Diagnoses Atrial fibrillation I48.91 Atrial fibrillation type: unspecified Pericardial effusion I31.3 Pleural effusion J90 CHF (congestive heart failure) I50.9 Heart failure chronicity: chronic Heart failure type: unspecified End stage renal disease N18.6 Anemia D64.9 Acute diastolic heart failure I50.31
[2019-10-02 12:21] LABS: Glucose Point of Care 140 mg/dL (70-110)
[2019-10-02 16:53] LABS: Glucose Point of Care 117 mg/dL (70-110)
[2019-10-02] MEDS: polyethylene glycol 3350 Pkt 17 gm PO (19:43)
[2019-10-02 20:25] LABS: Glucose Point of Care 154 mg/dL (70-110)
[2019-10-02] MEDS: montelukast sodium 10 mg Tablet PO (20:33)
[2019-10-02] MEDS: atorvastatin 40 mg Tablet 20 MG PO (20:34)
[2019-10-03] VITALS (8 sets, daily range): BP systolic 97–139; BP diastolic 61–102; PULSE 72–122; RESP 18–23; TEMP 36.4–36.6; O2SAT 93–100
--- NOTE | 2019-10-03 01:56 | PC.NURSE ---
Patient patient pulled out both IV's in her sleep. Patient remains alert and oriented. catheters were intact and bandages applied. Will call for a ultrasound IV placement. Will continue to monitor.
[2019-10-03] MEDS: metoprolol tartrate 25 mg Tablet PO (02:33)
[2019-10-03 04:45] LABS: Basophils % 0.4 %; Eosinophils # 0.1 10^3/uL (0.0-0.8); Eosinophils % 1.4 %; Hematocrit 27.3 % (37.0-47.0); Lymphocytes # 0.9 10^3/uL (0.8-4.8); Lymphocytes % 10.4 %; Mean Corpuscular HGB Conc 29.3 g/dL (30.0-36.0); Mean Corpuscular Hemoglobin 31.1 pg (28.0-34.0); Mean Corpuscular Volume 106.2 fL (81-99); Monocytes # 0.7 10^3/uL (0.2-0.9); Monocytes % 7.6 %; Neutrophils # 6.8 10^3/uL (1.8-7.7); Neutrophils % 79.6 %; Nucleated Red Blood Cells % 0 %; Platelet Count 308 10^3/cmm (130-400); Red Blood Count 2.57 10^6/uL (4.1-5.3); Red Cell Distribution Width 17.2 % (12.1-15.1); White Blood Count 8.6 10^3/uL (4.0-10.0)
[2019-10-03 05:13] LABS: Anion Gap 20.6 (5-19); Blood Urea Nitrogen 42 mg/dL (8-23); Carbon Dioxide 26 mmol/L (22-29); Chloride 89 mmol/L (98-107); Glomerular Filtration Rate 5.7 mL/min (90-130); Glucose 114 mg/dL (65-115); Osmolality Calculated 271 mOsm/kg (285-295); Potassium 4.6 mmol/L (3.5-5.1); Sodium 131 mmol/L (136-145)
[2019-10-03] MEDS: acetaminophen 325 mg Tablet 650 MG PO (05:58)
--- NOTE | 2019-10-03 06:08 | PC.NURSE ---
Charged patients for her. Turned patients phone on in her presence to check charge. Phone was charged and left phone on bedside table. Patient later in the morning asked if I locked her phone. I said no I charged your phone as you requested and turned it on to check the charge. Patient stated her phone was locked. Patient is visually impaired. I read the screen to the patient as she requested and she asked me to enter the PIN for her and it went to a different screen. I read the new screen to the patient. She proceeded to guess what the PUK code would be. None of the codes would unlock the phone. Patient the requested that the aide come help her. CORE WINDING OPERATOR notified.
[2019-10-03 06:24] LABS: Glucose Point of Care 116 mg/dL (70-110)
[2019-10-03] MEDS: aspirin 81 mg Chew Tablet PO (08:15)
[2019-10-03] MEDS: isosorbide mononitrate ER 30 mg Tablet PO (08:15)
[2019-10-03] MEDS: pantoprazole DR 40 mg Tablet PO (08:15)
[2019-10-03] MEDS: levothyroxine 50 mcg Tablet PO (08:15)
[2019-10-03] MEDS: insulin glargine 100 units/1 mL 20 UNIT SUBCUT ×2 (08:15→19:55)
[2019-10-03] MEDS: sevelamer 800 mg Tablet PO ×2 (08:15→17:16)
[2019-10-03] MEDS: apixaban 5 mg Tablet 2.5 MG PO ×2 (08:15→17:17)
[2019-10-03] MEDS: metoprolol tartrate 50 mg Tablet 75 MG PO ×2 (08:15→17:17)
--- NOTE | 2019-10-03 10:01 | PC.CHAP ---
Pastoral Care Encounter/Spiritual Assessment Type of Contact [] Declined cloud subject matter expert visit [] Patient/Family/Request visit [] Outpatient visit [] Follow-up visit [] Physician referral [] Code/Alert [x] Routine visit [] Staff referral [] Actively dying [] Patient sleeping [] Family support [] [] Out of room [] Palliative care [] [] Receiving care in room [] Pre-surgical visit [] Trauma [] Long length of stay [] ICU visit [] Other: Relational/Emotional Strength [] Patient feels connected with others/family/visitors/staff [] Distress [] Loneliness/isolation [] Abandonment Spirituality of Patient [] Person of Cleo [] Attends Uatsdin of their Cleo [] Believes in Prayer [] Reads Bible or Jain materials [] There are Spiritual issues to be addressed Student Finance Specialist Interventions [x] Prayer [] Active listening [] Non-anxious presence [] Spiritual/emotional support [] Crisis/trauma care [] Spiritual counseling [] Bereavement support [] Provided bereavement packet [] Provided Bible/devotional materials [] Provided toy/stuffed animal, coloring book to patient or family member [] Provided Communion [] Anointing/[place] [] Salvation [x] Completed spiritual assessment [] Other: Impact on Illness or Injury [] Angry [] Fearful [] Anxious [] Often cries [] Exhaustion [] Unable to work [] Unable to attend scientology [] Unable to walk/stand [] Unable to read [] Unable to drive [] Unable to eat/drink [] Unable to sleep [] Unable to be with family [] Patient intubated [] Other: Summary Patient trying to rest comfortably. Gentle woman. Time spent with patient 10 min
--- NOTE | 2019-10-03 10:05 | P.PN_ITS ---
Subjective Subjective: Interval history: Seen on dialysis. On CPAP. Bp soft but ok at 101/64 and remains tachycardic. No palpitations and no pain Minimal edema. No uremic Sx. Vitals/I&O/Wt Last Vital Signs Temp 97.8 F 10/03/19 04:00 Pulse 118 H 10/03/19 08:44 Resp 18 10/03/19 08:42 BP 137/102 10/03/19 04:00 Pulse Ox 95 10/03/19 08:44 10/02/19 10/03/19 10/03/19 22:59 06:59 14:59 Intake Total 360 / 910 Balance 360 / 910 Weight last 48 hrs Weight 112.491 kg Weight 112.491 kg Physical Exam Narrative: EXAM NARRATIVE: Exam performed via telemed with the aid of the bedside RN Const: COMMON NORMALS: no acute distress, patient oriented x3, no limitations and alert GENERAL APPEARANCE: cooperative NUTRITIONAL APPEARANCE: obese morbidly obese ORIENTATION/CONSCIOUSNESS: Yes awake, Yes oriented to person, Yes oriented to place and Yes oriented to time HENMT: COMMON NORMALS: normocephalic and atraumatic HEAD & SCALP: normocephalic and atraumatic Eye: COMMON NORMALS: Equal, round and reactive pupils present PUPIL: Yes Equal, round and reactive pupils present Neck/C-Spine: COMMON NORMALS: supple GENERAL: Yes normal visual inspection Resp: COMMON NORMALS: normal respiratory effort and clear to auscultation francine aterally AUSCULTATION: clear to auscultation bilaterally, crackles (bilat erally with diminished breath sounds in the L base), no rhonchi, no wheezes and diminished lung sounds (L base) Cardio: RATE: tachycardic RHYTHM: abnormal rhythm irregularly irregular OTHER: irregularly irregular GI: COMMON NORMALS: Normal to inspection, nondistended, normoactive bowel sounds present, Soft to palpation, non-tender, No hepatosplenomegaly present and no masses INSPECTION: No abdominal distension AUSCULTATION: Yes normoactive bowel sounds PALPATION: Yes Soft to palpation and Yes No hepatosplenomegaly present : COMMON NORMALS: Yes no CVA tenderness BLADDER/KIDNEY EXAM: Yes no CVA tenderness Back/Pelvis: COMMON NORMALS: no CVA tenderness Extremity: COMMON NORMALS: normal to inspection and no calf tenderness NARRATIVE EXTREMITY EXAM: non-pitting edema in the LE bilaterally AV fistula in the R UE Neuro: YA COMA SCALE: document GCS findings [place] coma scale eye opening: Spontaneous Ya coma scale verbal response: Orientated Ya coma scale motor response: Obey commands Ya coma scale total score: 15 COMMON NORMALS: patient oriented x3, CN's II-XII intact bilaterally, moves all extremities, no focal motor deficits and no sensory deficits noted SENSORIUM/ORIENTATION: Yes alert, Yes oriented to person, Yes oriented to place and Yes oriented to time SPEECH: speech normal OTHER: Chronically blind Psych: COMMON NORMALS: mental status grossly normal and cooperative Skin: COMMON NORMALS: no rashes or lesions noted GENERAL SKIN EXAM: no rashes or lesions noted Data : 10/03/19 03:48 10/03/19 03:48 Micro: Microbiology 10/02/19 20:20 Occult Blood (FIT) - Final Stool A&P Additional A&P Information 1. ESRD - Seen and examined on dialysis - remains tachycardic which may limit UF - doses meds for eGFR < 15ml/min 2. Lytes with minor aberrance; non critical 3. Tachycardia; Afib with RVR - on oral metoprolol and pulse coming down - may need cardiology to convert - mgmt per Dr Pugh 4. Anemia - received PRBCs Wed - H/h stable; EPO and iron as outpatient 5. Renal masses - US noted on last admission - outpatient Urology pending Interview and exam performed with the aid of the bedside RN via telemed and bedside telephone. Zane Helton MD [facility] [phone] Attestations Medical Necessity Statement*: ESRD mgmt Coding Level of Care Code Acute Director Of Parks And Recreation for Michelle Borrero
[2019-10-03] MEDS: midodrine 5 mg TABLET PO (10:31)
--- NOTE | 2019-10-03 14:03 | PC.NURSE ---
Patient back from dialysis. Morning medication administration clarified with Dr. Puhg. Physician instructed nurse to administer Vit D3, Effexor, and Gabapentin at this time, but hold Cardizem.
[2019-10-03] MEDS: gabapentin 100 mg Capsule PO (14:10)
[2019-10-03] MEDS: cholecalciferol (vitamin D3) 1,000 unit Tablet 1000 UNIT PO (14:10)
[2019-10-03] MEDS: venlafaxine ER (24HR) 75 mg Capsule PO (14:10)
--- NOTE | 2019-10-03 14:17 | P.PN_ITS ---
Subjective Subjective: Interval history: Patient resting comfortably during dialysis at time of exam this morning. Patient denied any chest pain or palpitations Denies any lightheadedness or dizziness Vitals/I&O/Wt Last Vital Signs Temp 97.8 F 10/03/19 13:36 Pulse 77 10/03/19 13:36 Resp 22 H 10/03/19 13:36 BP 118/78 10/03/19 13:36 Pulse Ox 100 10/03/19 13:36 10/02/19 10/03/19 10/03/19 22:59 06:59 14:59 Intake Total 360 / 910 240 / 240 Balance 360 / 910 240 / 240 Weight last 48 hrs Weight 112.491 kg Weight 112.491 kg Physical Exam Const: COMMON NORMALS: patient oriented x3 and alert GENERAL APPEARANCE: cooperative ORIENTATION/CONSCIOUSNESS: Yes awake, Yes oriented to person, Yes oriented to place and Yes oriented to time HENMT: COMMON NORMALS: normocephalic and atraumatic HEAD & SCALP: normocephalic and atraumatic Eye: COMMON NORMALS: Equal, round and reactive pupils present PUPIL: Yes Equal, round and reactive pupils present Neck/C-Spine: COMMON NORMALS: supple GENERAL: Yes normal visual inspection Resp: AUSCULTATION: crackles (bilaterally with diminished breath sounds in the L base), no rhonchi, no wheezes and diminished lung sounds (L base) Cardio: RATE: tachycardic OTHER: irregularly irregular GI: COMMON NORMALS: Soft to palpation and non-tender INSPECTION: No abdominal distension AUSCULTATION: Yes normoactive bowel sounds PALPATION: Yes Soft to palpation : COMMON NORMALS: Yes no CVA tenderness BLADDER/KIDNEY EXAM: Yes no CVA tenderness Back/Pelvis: COMMON NORMALS: no CVA tenderness Extremity: COMMON NORMALS: no calf tenderness NARRATIVE EXTREMITY EXAM: non-pitting edema in the LE bilaterally AV fistula in the R UE Neuro: COMMON NORMALS: patient oriented x3, CN's II-XII intact bilaterally, moves all extremities and no focal motor deficits SENSORIUM/ORIENTATION: Yes alert, Yes oriented to person, Yes oriented to place and Yes oriented to time SPEECH: speech normal OTHER: Chronically blind Psych: COMMON NORMALS: mental status grossly normal and cooperative Skin: COMMON NORMALS: no rashes or lesions noted GENERAL SKIN EXAM: no rashes or lesions noted Data : 10/03/19 03:48 10/03/19 03:48 Micro: Microbiology 10/02/19 20:20 Occult Blood (FIT) - Final Stool A&P Assessment and plan (1) Atrial fibrillation: Atrial fibrillation with RVR Eliquis 2.5 mg twice daily Received an additional dose of metoprolol overnight, metoprolol remains at 75 mg twice daily. Started on Cardizem 30 mg every 8 hours and increase as indicated. However patient has since remained with a heart rate of 60-70 today. We will continue to monitor closely and continue with Cardizem if indicated. Followed by Dr. Silvestre, he is aware of admission. He recommended cardiazem 30mg q8hr Limited echocardiogram performed which showed no evidence of any pericardial effusion at this time Status: Acute Qualifiers: Atrial fibrillation type: unspecified Qualified Code(s): I48.91 - Unspecified atrial fibrillation (2) Pericardial effusion: Resolved Status: Acute (3) Pleural effusion: Chronic left-sided pleural effusion, patient is on her home oxygen 3 L by nasal cannula Respiratory status remains stable Status: Acute (4) CHF (congestive heart failure): Underlying diastolic CHF, followed by Dr. Silvestre. Continue with dialysis Increased dose of metoprolol , continued Imdur, statin Status: Acute Qualifiers: Heart failure chronicity: chronic Heart failure type: unspecified Qualified Code(s): I50.9 - Heart failure, unspecified (5) End stage renal disease: Followed by Dr. Barker On dialysis Sunday and Sunday Status: Acute (6) Anemia: Hemoglobin stable, no active bleeding Status: Acute (7) Acute diastolic heart failure: Acute on chronic diastolic CHF. Plan as above Status: Acute Additional A&P Information Elevated troponin: Type II, secondary to end-stage renal disease as well as atrial fibrillation with RVR Chronic oxygen dependence: Currently on 3 L of oxygen by nasal cannula, this is patient's baseline Obstructive sleep apnea: Continue home CPAP use at night and during the day while sleeping Diabetes mellitus type 2, insulin-dependent: Continue with sliding scale insulin along with long-acting insulin, Lantus decreased to 20 units every 12 hours Morbid obesity Hypothyroidism: levothyroxine 50 mcg at this time Neuropathy: Continue on gabapentin DVT prophylaxis: On Eliquis due to concern for atrial fibrillation, will continue Diet: Cardiac, carbohydrate consistent, renal dialysis diet CODE STATUS: Full code Attestations Medical Necessity Statement*: Patient requires continued hospitalization due to concern for atrial fibrillation with RVR Coding Level of Care Code Acute Retail Customer Service Representative for g Fwd Diagnoses Atrial fibrillation I48.91 Atrial fibrillation type: unspecified Pericardial effusion I31.3 Pleural effusion J90 CHF (congestive heart failure) I50.9 Heart failure chronicity: chronic Heart failure type: unspecified End stage renal disease N18.6 Anemia D64.9 Acute diastolic heart failure I50.31
[2019-10-03 16:19] LABS: Glucose Point of Care 99 mg/dL (70-110)
--- NOTE | 2019-10-03 17:02 | PC.NURSE ---
Dr. Pugh notified patient in NSR, HR 70-80s, BP 119/64. Physician instructed nurse to hold 1745 Cardizem dose. OK to administer 75 mg of metoprolol.
[2019-10-03 18:08] LABS: Glucose Point of Care 174 mg/dL (70-110)
[2019-10-03 20:52] LABS: Glucose Point of Care 117 mg/dL (70-110)
[2019-10-03] MEDS: atorvastatin 40 mg Tablet 20 MG PO (21:01)
[2019-10-03] MEDS: montelukast sodium 10 mg Tablet PO (21:01)
[2019-10-04] VITALS: BP 106/72; PULSE 75; RESP 18; O2SAT 92
[2019-10-04] MEDS: dilTIAZem 30 mg Tablet PO ×2 (01:12→15:38)
[2019-10-04] MEDS: acetaminophen 325 mg Tablet 650 MG PO (01:12)
[2019-10-04 04:00] VITALS: BP 110/80; PULSE 76; RESP 18; TEMP 36.8; O2SAT 92
[2019-10-04 06:13] LABS: Basophils % 0.3 %; Eosinophils # 0.3 10^3/uL (0.0-0.8); Eosinophils % 3.4 %; Hematocrit 27.2 % (37.0-47.0); Hemoglobin 8.1 g/dL (11.5-15.3); Lymphocytes # 1.6 10^3/uL (0.8-4.8); Lymphocytes % 21.7 %; Mean Corpuscular HGB Conc 29.8 g/dL (30.0-36.0); Mean Corpuscular Volume 104.2 fL (81-99); Monocytes # 0.6 10^3/uL (0.2-0.9); Neutrophils # 4.8 10^3/uL (1.8-7.7); Neutrophils % 65.9 %; Nucleated Red Blood Cells % 0 %; Platelet Count 336 10^3/cmm (130-400); Red Blood Count 2.61 10^6/uL (4.1-5.3); Red Cell Distribution Width 16.9 % (12.1-15.1); White Blood Count 7.3 10^3/uL (4.0-10.0)
[2019-10-04] MEDS: insulin glargine 100 units/1 mL 20 UNIT SUBCUT (06:20)
[2019-10-04 06:28] LABS: Glucose Point of Care 85 mg/dL (70-110)
[2019-10-04 06:37] LABS: Anion Gap 15.8 (5-19); Blood Urea Nitrogen 28 mg/dL (8-23); Calcium 9.9 mg/dL (8.5-10.5); Carbon Dioxide 30 mmol/L (22-29); Chloride 92 mmol/L (98-107); Glomerular Filtration Rate 8.1 mL/min (90-130); Glucose 87 mg/dL (65-115); Osmolality Calculated 274 mOsm/kg (285-295); Potassium 3.8 mmol/L (3.5-5.1); Sodium 134 mmol/L (136-145)
[2019-10-04 07:51] VITALS: BP 139/87; PULSE 78; RESP 20; TEMP 36.7; O2SAT 98
[2019-10-04] MEDS: sevelamer 800 mg Tablet PO (07:54)
[2019-10-04] MEDS: pantoprazole DR 40 mg Tablet PO (07:55)
[2019-10-04] MEDS: guaiFENesin 600 mg Tablet PO (07:56)
[2019-10-04] MEDS: metoprolol tartrate 50 mg Tablet 75 MG PO (07:56)
[2019-10-04] MEDS: cholecalciferol (vitamin D3) 1,000 unit Tablet 1000 UNIT PO (07:59)
[2019-10-04] MEDS: gabapentin 100 mg Capsule PO (07:59)
[2019-10-04] MEDS: levothyroxine 50 mcg Tablet PO (07:59)
[2019-10-04] MEDS: aspirin 81 mg Chew Tablet PO (07:59)
[2019-10-04] MEDS: apixaban 5 mg Tablet 2.5 MG PO (08:00)
[2019-10-04] MEDS: isosorbide mononitrate ER 30 mg Tablet PO (08:00)
[2019-10-04] MEDS: venlafaxine ER (24HR) 75 mg Capsule PO (08:00)
[2019-10-04] MEDS: polyethylene glycol 3350 Pkt 17 gm PO (08:00)
[2019-10-04 09:35] VITALS: PULSE 69; RESP 17; O2SAT 98
--- NOTE | 2019-10-04 09:54 | P.PN_ITS ---
Subjective Subjective: Interval history: She feels much better today with resolution of her breathlessness, comfortable on nasal O2. Minimal edema in her legs. Her heart rate has come down nicely now. Vitals/I&O/Wt Last Vital Signs Temp 98.1 F 10/04/19 07:51 Pulse 69 10/04/19 09:35 Resp 17 10/04/19 09:35 BP 139/87 10/04/19 07:51 Pulse Ox 98 10/04/19 09:35 10/03/19 10/04/19 10/04/19 22:59 06:59 14:59 Intake Total 530 / 770 100 / 870 240 / 240 Output Total 0 / 0 0 / 0 Balance 530 / 770 100 / 870 240 / 240 Weight last 48 hrs Weight 112.763 kg Weight 112.491 kg Physical Exam Narrative: EXAM NARRATIVE: Exam performed via telemed with the aid of the bedside RN Const: COMMON NORMALS: no acute distress, patient oriented x3, no limitations and alert GENERAL APPEARANCE: cooperative NUTRITIONAL APPEARANCE: obese morbidly obese ORIENTATION/CONSCIOUSNESS: Yes awake, Yes oriented to person, Yes oriented to place and Yes oriented to time HENMT: COMMON NORMALS: normocephalic and atraumatic HEAD & SCALP: normocephalic and atraumatic Eye: COMMON NORMALS: Equal, round and reactive pupils present PUPIL: Yes Equal, round and reactive pupils present Neck/C-Spine: COMMON NORMALS: supple GENERAL: Yes normal visual inspection Resp: COMMON NORMALS: normal respiratory effort and clear to auscultation bilaterally AUSCULTATION: clear to auscultation bilaterally, crackles (bilaterally with diminished breath sounds in the L base), no rhonchi, no wheezes and diminished lung sounds (L base) Cardio: RATE: tachycardic RHYTHM: abnormal rhythm irregularly irregular OTHER: irregularly irregular GI: COMMON NORMALS: Normal to inspection, nondistended, normoactive bowel sounds present, Soft to palpation, non-tender, No hepatosplenomegaly present and no masses INSPECTION: No abdominal distension AUSCULTATION: Yes normoactive bowel sounds PALPATION: Yes Soft to palpation and Yes No hepatosplenomegaly present : COMMON NORMALS: Yes no CVA tenderness BLADDER/KIDNEY EXAM: Yes no CVA tenderness Back/Pelvis: COMMON NORMALS: no CVA tenderness Extremity: COMMON NORMALS: normal to inspection and no calf tenderness NARRATIVE EXTREMITY EXAM: non-pitting edema in the LE bilaterally AV fistula in the R UE Neuro: VICKIE COMA SCALE: document GCS findings [place] coma scale eye opening: Spontaneous [place] coma scale verbal response: Orientated Vickie coma scale motor response: Obey commands [place] coma scale total score: 15 COMMON NORMALS: patient oriented x3, CN's II-XII intact bilaterally, moves all extremities, no focal motor deficits and no sensory deficits noted SENSORIUM/ORIENTATION: Yes alert, Yes oriented to person, Yes oriented to place and Yes oriented to time SPEECH: speech normal OTHER: Chronically blind Psych: COMMON NORMALS: mental status grossly normal and cooperative Skin: COMMON NORMALS: no rashes or lesions noted GENERAL SKIN EXAM: no rashes or lesions noted Data : 10/04/19 05:50 10/04/19 05:50 A&P Additional A&P Information 1. ESRD - dialyzed yesterday. - no indication today, plan next session on Sunday - doses meds for eGFR < 15ml/min 2. Lytes with minor aberrance; non critical 3. Tachycardia; Afib with RVR - on Cardizem; HR improved nicely now - mgmt per Dr Pugh 4. Anemia - received PRBCs Wed - H/h stable; EPO and iron as outpatient 5. Renal masses - US noted on last admission - outpatient Urology pending - possible DC today; ok with from my perspective. Interview and exam performed with the aid of the bedside RN via telemed and bedside telephone. Zane Helton MD [facility] [phone] Attestations Medical Necessity Statement*: Eval and mgmt of ESRD Coding Level of Care Code Acute Landscape Technician for Michelle Borrero
--- NOTE | 2019-10-04 11:22 | P.DS_ITS ---
Discharge Providers Date of Admission: 10/01/19 09:07 Date of Discharge: October 04, 2019 Attending Provider at Admission: Chelsey Pugh DO Attending Provider at Discharge: Dayo Zuñiga Primary Care Provider: Pradeep Patel MD Diagnoses at Discharge Discharge Diagnosis (1) Atrial fibrillation: Status: Acute Qualifiers: Atrial fibrillation type: unspecified Qualified Code(s): I48.91 - Unspecified atrial fibrillation (2) Pericardial effusion: Status: Acute (3) Pleural effusion: Status: Acute (4) CHF (congestive heart failure): Status: Acute Qualifiers: Heart failure chronicity: chronic Heart failure type: unspecified Qualified Code(s): I50.9 - Heart failure, unspecified (5) End stage renal disease: Status: Acute Problem details: Dialysis Sun, Sun, Sun (6) Anemia: Status: Acute (7) Acute diastolic heart failure: Status: Acute Reason for Visit Reason for Visit: Reason For Visit: HYPOTENSION Hospital Course Hospital Course: Very pleasant 64-year-old lady with ESRD, on hemodialysis, chronic diastolic CHF, A. fib, recurrent pleural effusion, prior pericardial effusion was metatarsus management due to low blood pressure, with finding of A. fib with RVR on presentation, was started on Cardizem drip with improvement in blood pressure, although was still tachycardic. Received IV metoprolol as well. Of note during prior admission required cardioversion. Limited echo was repeated, and pericardial effusion has resolved. Noted left pleural effusion, moderate in size, some vascular congestion. She underwent treatment with hemodialysis. Was noted to have slight worsening of her anemia. Noted positive Hemoccult test. She is on renally dosed anticoagulation with Eliquis for atrial fibrillation. Is also on aspirin. No gross bleeding was noted. No hematochezia or melanotic stools. PPI is increased to twice daily dosing. Please consider following up blood counts, and if persistent decline, once she is out of acute episode, consider additional evaluation by endoscopy as appropriate. Due to somewhat persistent atrial fibrillation with RVR, Toprol dose was increased to 75 mg daily. Per discussion with her outpatient flying squad salesperson she was to carotid 30 mg every 8 hours. She had subsequently converted to sinus rhythm, and remains in it currently. She is feeling well. She denies any complaints of chest pain, shortness of breath, or other discomfort. With cardiomegaly, pleural effusion, suggestion of possible consolidation in the left midlung, left lower lobe noted on initial x-ray, CHF, however, she has not had new symptoms of pneumonia. No signs of sepsis or ongoing infection. She remained stable on 3 L of oxygen by nasal cannula which she states is her baseline currently. She feels strong and happy to leave the hospital. Noted during prior admission also finding of abnormality in the right kidney, possibly mass. Due to this she has an appointment scheduled with urology on 10/06. Chest x-ray will be repeated in 2 weeks to reassess left pleural effusion. Physical Exam Const: COMMON NORMALS: no acute distress and patient oriented x3 GENERAL APPEARANCE: cooperative NUTRITIONAL APPEARANCE: obese ORIENTATION/CONSCIOUSNESS: Yes awake HENMT: COMMON NORMALS: oropharynx normal Neck/C-Spine: COMMON NORMALS: no JVD Resp: COMMON NORMALS: normal respiratory effort and clear to auscultation bilaterally AUSCULTATION: clear to auscultation bilaterally Cardio: COMMON NORMALS: no JVD, regular rhythm, S1 normal heart sound present, S2 normal heart sound present and No murmurs present (Cardio) RHYTHM: regular rhythm HEART SOUNDS: S1 normal heart sound present and S2 normal heart sound present GI: COMMON NORMALS: Normal to inspection, nondistended, normoactive bowel sounds present, Soft to palpation and non-tender PALPATION: Yes Soft to palpation Extremity: COMMON NORMALS: no joint enlargement and no pedal edema Neuro: COMMON NORMALS: patient oriented x3 and moves all extremities Skin: COMMON NORMALS: no rashes or lesions noted GENERAL SKIN EXAM: no rashes or lesions noted and ecchymosis Discharge Data Data Completed and Pending: Completed Studies During Hospitalization Category Date Time Status XR chest 1V cori ble [id number] Urgent Exams 10/01/19 07:15 Completed CV echo limited 9 3308 Urgent Ultrasound 10/01/19 08:51 Completed Pending at discharge Category Date Time Status Leukocyte Reduced RBC Routine Lab 10/01/19 08:20 Results Type and Screen R outine Lab 10/01/19 08:20 Results Labs from last 24 hours 10/04/19 10/04/19 10/04/19 06:19 05:50 05:50 WBC 7.3 RBC 2.61 L Hgb 8.1 L Hct 27.2 L MCV 104.2 H MCH 31.0 MCHC 29.8 L RDW 16.9 H Plt Count 336 MPV 10.0 Neut % (Auto) 65.9 Lymph % (Auto) 21.7 [place] % (Auto) 8.0 Eos % (Auto) 3.4 Baso % (Auto) 0.3 Neut # (Auto) 4.8 Lymph # (Auto) 1.6 [place] # (Auto) 0.6 Eos # (Auto) 0.3 Baso # (Auto) 0.0 Nucleated RBC % (a uto) 0 Nucleated RBCs # 0.0 Sodium 134 L Potassium 3.8 Chloride 92 L Carbon Dioxide 30 H Anion Gap 15.8 BUN 28 H Creatinine 5.3 H GFR Calculation 8.1 L Glucose 87 POC Glucose 85 Calculated Osmolal ity 274 L Calcium 9.9 10/03/19 10/03/19 10/03/19 20:48 18:03 16:16 WBC RBC Hgb Hct MCV MCH MCHC RDW Plt Count MPV Neut % (Auto) Lymph % (Auto) [place] % (Auto) Eos % (Auto) Baso % (Auto) Neut # (Auto) Lymph # (Auto) [place] # (Auto) Eos # (Auto) Baso # (Auto) Nucleated RBC % (a uto) Nucleated RBCs # Sodium Potassium Chloride Carbon Dioxide Anion Gap BUN Creatinine GFR Calculation Glucose POC Glucose 117 174 99 Calculated Osmolal ity Calcium Vitals: Last Vital Signs Temp 98.1 F 10/04/19 07:51 Pulse 69 10/04/19 09:35 Resp 17 10/04/19 09:35 BP 139/87 10/04/19 07:51 Pulse Ox 98 10/04/19 09:35 Discharge Plan Discharge Patient Disposition: Xfer SNF Condition: Stable Prescriptions: New diltiazem HCl 30 mg Tablet 30 mg PO Q8H Qty: 90 RF: 0 Continued montelukast 10 mg tablet 10 mg PO DAILY RF: 0 midodrine 5 mg tablet See Rx Instructions .ROUTE .COMPLEX RF: 0 Auryxia 210 mg iron tablet 210 mg PO TID RF: 0 Onglyza 5 mg tablet 5 mg PO DAILY RF: 0 atorvastatin [Lipitor] 20 mg tablet 20 mg PO QPM RF: 0 levothyroxine 50 mcg capsule 50 mcg PO DAILY RF: 0 insulin aspart U-100 [Novolog Flexpen U-100 Insulin] 100 unit/mL (3 mL) insulin pen See Rx Instructions .ROUTE .COMPLEX RF: 0 tramadol 50 mg tablet 50 mg PO Q6H PRN (Reason: Pain) RF: 0 isosorbide mononitrate 30 mg Tablet Extended Release 24 Hr 30 mg PO DAILY RF: 0 aspirin 81 mg Tablet,Chewable 81 mg PO DAILY RF: 0 gabapentin 100 mg Capsule 100 mg PO DAILY RF: 0 budesonide-formoterol [Symbicort] 160-4.5 mcg/actuation Hfa Aerosol Inhaler 1 puff INHALATION BID RF: 0 Eliquis 5 mg Tablet 2.5 mg PO BID 30 Days Qty: 30 RF: 0 sennosides [senna] 8.6 mg Tablet 17.2 mg PO BID PRN (Reason: Constipation) RF: 0 melatonin 3 mg Tablet 3 mg PO BEDTIME RF: 0 acetaminophen [Tylenol Extra Strength] 500 mg Tablet 1,000 mg PO 6XD PRN (Reason: Pain) RF: 0 diphenhydramine HCl [Benadryl] 25 mg Capsule 50 mg PO BID PRN (Reason: unknown) RF: 0 promethazine 25 mg tablet 12.5 mg PO PRN PRN (Reason: Nausea) RF: 0 albuterol sulfate [ProAir HFA] 90 mcg/actuation Hfa Aerosol Inhaler 2 puff INHALATION QID PRN (Reason: Shortness Of Breath) RF: 0 ondansetron 4 mg tablet,disintegrating 4 mg PO TID PRN (Reason: Nausea) RF: 0 cholecalciferol (vitamin D3) [Vitamin D3] 25 mcg (1,000 unit) Tablet 1,000 unit PO DAILY RF: 0 sevelamer carbonate 800 mg Tablet 800 mg PO TID RF: 0 RenaPlex-D 800 mcg-12.5 mg -2,000 unit Tablet 1 tab PO DAILY RF: 0 oxycodone 5 mg Tablet 5 mg PO Q6H PRN (Reason: Pain) RF: 0 Zyrtec 10 mg capsule 10 mg PO DAILY RF: 0 polyethylene glycol 3350 [Miralax] 17 gram Powder In Packet 17 g PO DAILY PRN (Reason: Constipation) RF: 0 magnesium hydroxide [Milk of Magnesia] 400 mg/5 mL Suspension 30 ml PO DAILY PRN (Reason: Constipation) RF: 0 bisacodyl 10 mg Suppository 10 mg [place] DAILY PRN (Reason: Constipation) RF: 0 Enema 19-7 gram/118 mL Enema 118 ml [place] DAILY PRN (Reason: Constipation) RF: 0 albuterol sulfate 0.63 mg/3 mL Solution For Nebulization 0.63 mg INHALATION QID RF: 0 Effexor XR 75 mg Capsule,Extended Release 24hr 75 mg PO DAILY RF: 0 Senna-S 8.6-50 mg Tablet 2 tab PO BID PRN (Reason: Constipation) RF: 0 guaifenesin 600 mg Tablet Extended Release 12hr 600 mg PO BID PRN (Reason: unknown) RF: 0 Changed Lantus U-100 Insulin 100 unit/mL Solution 20 unit SUBCUT BID Qty: 0 RF: 0 pantoprazole 40 mg Tablet,Delayed Release (Dr/Ec) 40 mg PO BID Qty: 0 RF: 0 metoprolol tartrate 50 mg Tablet 75 mg PO BID 30 Days Qty: 60 RF: 0 Discharge Orders: Discharge Order (Routine); Ordered 10/04/19 Ordered By: Dayo Zuñiga Other Ambulatory Orders: XR chest 2V* [id number] (Routine) Timeframe: 2 Weeks Facility: [facility] - Location: Rad[facility] Ordered By: Dayo Zuñiga Referrals: [facility] [Provider Group] (Reporting has appointment for 10/06 for renal mass) Darinel Barker MD [Referring] - 1 week Jorge Luis Silvestre MD [Physician] - 2 weeks (A. fib with RVR, CHF, prior pericardial effusion, pleural effusion, ESRD) Pradeep Patel MD [Primary Care Provider] - 4-7 days Ping Lucero FNP [Nurse Practitioner] - 1 week (A. fib with RVR, CHF, prior pericardial effusion, pleural effusion, ESRD) Discharge Activity: Increase activity as tolerated, As per PT/OT instructions and Oxygen as instructed Activity Restrictions/Additional Instructions: Renal hemodialysis diet. Consistent carbohydrate. Continue glucose monitoring. Continue hemodialysis, and accession on Sunday. Continue oxygen by nasal cannula, 3 L, target saturation 92%. Continue CPAP at night and during the day while sleeping. Please discuss with urology with regards to results of the kidney ultrasound with abnormal finding. Please discuss with your primary care doctor follow-up chest x-ray to reassess pleural effusion, and if noted progression, discussed possibility of arrangement of drainage procedure. Your blood thinner would need to be held prior to being able to perform the procedure. Discharge Attestations Time Spent in Discharge Care*: greater than 30 min Quality Metrics Clinical Quality Measures During this hospital stay, did patient experience: None Coding Level of Care Code Acute Graduate Teaching Assistant for Michelle Borrero Diagnoses Atrial fibrillation I48.91 Atrial fibrillation type: unspecified Pericardial effusion I31.3 Pleural effusion J90 CHF (congestive heart failure) I50.9 Heart failure chronicity: chronic Heart failure type: unspecified End stage renal disease N18.6 Anemia D64.9 Acute diastolic heart failure I50.31
--- NOTE | 2019-10-04 11:23 | PC.NURSE ---
no insulin given at breakfast or at lunch due to blood sugars wnl's
[2019-10-04 11:35] LABS: Glucose Point of Care 94 mg/dL (70-110)
[2019-10-04 12:00] VITALS: BP 138/74; PULSE 76; RESP 22; TEMP 36.6; O2SAT 96
[2019-10-04 16:00] VITALS: BP 148/84; PULSE 80; RESP 20; TEMP 36.2; O2SAT 98
[2019-10-04 16:50] LABS: Glucose Point of Care 90 mg/dL (70-110)
--- NOTE | 2019-10-04 17:24 | PC.NURSE ---
transportation never came for pt.[facility] called.they state that [facility] cannot transport an ambulatory pt.pt's son notified.he agreed to transport pt back to [facility].
== END 2019-10-04 17:24 | disposition skilled nursing facility (03) | DRG 308 ==
LOC: ER 09:18 → ICU 10:46 → CSU 10-02 15:57
PROVIDERS: Physician Assistant; Admitting Provider Family Medicine; PCP Family Medicine; Visit Provider Internal Medicine
DX: I48.91 Unspecified atrial fibrillation (principal); I50.33 Acute on chronic diastolic (congestive) heart failure; N18.6 End stage renal disease; I13.2 Hypertensive heart and chronic kidney disease with heart failure and with stage 5 chronic kidney disease, or end stage renal disease; Z68.42 Body mass index [BMI] 45.0-49.9, adult; L10.4 Pemphigus erythematosus; I31.3 Pericardial effusion (noninflammatory); E10.22 Type 1 diabetes mellitus with diabetic chronic kidney disease; Z99.2 Dependence on renal dialysis; I95.9 Hypotension, unspecified; D63.1 Anemia in chronic kidney disease; Z85.3 Personal history of malignant neoplasm of breast; I65.29 Occlusion and stenosis of unspecified carotid artery; J44.9 Chronic obstructive pulmonary disease, unspecified; Z86.73 Personal history of transient ischemic attack (TIA), and cerebral infarction without residual deficits; M10.9 Gout, unspecified; E78.5 Hyperlipidemia, unspecified; E03.9 Hypothyroidism, unspecified; H54.7 Unspecified visual loss; E66.9 Obesity, unspecified; G47.33 Obstructive sleep apnea (adult) (pediatric); H35.52 Pigmentary retinal dystrophy; Z87.891 Personal history of nicotine dependence; Z79.01 Long term (current) use of anticoagulants; Z79.82 Long term (current) use of aspirin; Z79.891 Long term (current) use of opiate analgesic; N28.89 Other specified disorders of kidney and ureter; I25.10 Atherosclerotic heart disease of native coronary artery without angina pectoris; Z99.81 Dependence on supplemental oxygen
CPT/HCPCS: 12345; 36415; 36416; 36430; 71045; 80048; 80053; 82274; 82607; 82746; 82962; 83540; 83550; 83880; 84443; 84484; 85025; 86850; 86900; 86920; 90935; 93005; 93308; 94640; 94660; 96365; 96366; 96372; 96375; 96376; 97110; 97116; 97163; 97165; 99283; 99285; J1815; J3490; P9016

== ENCOUNTER 2019-10-01 06:50 | Emergency (ER) | payer MEDICAID, SELFPAY | END 2019-10-01 11:00 | disposition admitted as inpatient to this hospital (09) | LOC: ER 10-09 18:26 | PROVIDERS: Emergency Provider Family Medicine; PCP Family Medicine | DX: I13.2 Hypertensive heart and chronic kidney disease with heart failure and with stage 5 chronic kidney disease, or end stage renal disease (principal); N18.6 End stage renal disease; I50.9 Heart failure, unspecified; J90 Pleural effusion, not elsewhere classified; I48.91 Unspecified atrial fibrillation; Z87.891 Personal history of nicotine dependence; I25.10 Atherosclerotic heart disease of native coronary artery without angina pectoris; J44.9 Chronic obstructive pulmonary disease, unspecified; Z85.3 Personal history of malignant neoplasm of breast; Z86.73 Personal history of transient ischemic attack (TIA), and cerebral infarction without residual deficits; E72.3 Disorders of lysine and hydroxylysine metabolism; E10.22 Type 1 diabetes mellitus with diabetic chronic kidney disease | CPT/HCPCS: 12345; 36415; 71045; 80053; 82607; 82746; 83540; 83550; 83880; 84484; 85025; 86850; 86900; 86920; 93005; 93308; 96365; 96366; 96375; 96376; 99283; 99285; J3490 ==

== ENCOUNTER 2019-10-08 09:18 | Emergency (ER) | payer MEDICAID, SELFPAY ==
[2019-10-08 09:19] VITALS: BP 124/87; PULSE 120; RESP 24; TEMP 36.6; O2SAT 100; BMI 44.6
--- NOTE | 2019-10-08 09:26 | XR_ITS ---
WS: [id number] PORTABLE CHEST HISTORY: dyspnea COMPARISON: 10/01/2019 Mild atelectasis at the RIGHT lung base. LEFT lower lobe is being obscured by the heart. No pleural e ffusion or pneumothorax. Cardiac size: Markedly enlarged cardiac silhouette is obscuring the LEFT diaphragm and LEFT lower bryan g field. Mediastinum/Aorta: Mild atherosclerosis aorta. No osseous abnormality seen. XR/XR chest 1V portable [id number] IMPRESSION: Markedly enlarged cardiac silhouette obscuring the LEFT lower lobe. Similar to prior studies. Subsegmental atelectasis RIGHT lower lobe.
--- NOTE | 2019-10-08 09:27 | ECG_ITS ---
Measurements Intervals [place] Rate: 70 P: 20 TN: 154 QRS: -27 QRSD: 149 T: 223 QT: 447 QTc: 483 SINUS RHYTHM BORDERLINE LEFT AXIS DEVIATION [QRS AXIS < -20] RIGHT BUNDLE BRANCH BLOCK MODERATE T-WAVE ABNORMALITY, CONSIDER LATERAL ISCHEMIA Compared to ECG 10/01/2019 07:24:05 T-wave abnormality now present Possible ischemia now present Atrial fibrillation no longer present Left anterior fascicular block no longer present Electronically Signed On 10-08-2019 11:48:30 CDT by Liliya Quezada M.D. [id number]
--- NOTE | 2019-10-08 09:31 | ED_ITS ---
HPI - SOB/Dyspnea General: Chief Complaint: Shortness of Breath/Dyspnea Stated Complaint: INCREASED SOB, TACHYCARDIA Time Seen by Provider: 10/08/19 09:25 History of Present Illness: HPI Narrative: Patient is a 64 year old dialysis patient sent from dialysis with a rapid heart rate and shortness of breath. She denies feeling short of breath and says that they just told her she had to come here. Now she says she is short of breath and feels her heart racing - but is not having chest pain. She doesn't seem too concerned about the symptoms. She is in atrial fibrillation - she has a history of intermittent a fib and was recently admitted with a similar presentation. She hasn't had her metoprolol today. she was given amiodarone by EMS and on arrival her HR was around 100. MD elicited complaint: shortness of breath Exacerbating factors: lying flat and exertion Associated symptoms: Deny abdominal pain, chest pain, fever(s), nausea or vomiting Treatment prior to arrival: other (amiodarone 150 mg IV bolus) Review of Systems General: Reports: 10 or more systems reviewed and unremarkable except in HPI and below Const: Denies: fever(s), chills, fatigue or malaise Eyes: Reports: other (patient is blind) ENMT: Denies: odynophagia Card: Denies: chest pain or swelling of feet/ankles Resp: Reports: dyspnea; Denies: productive cough or non-productive cough GI: Denies: abdominal pain, nausea or vomiting : Reports: other (dialysis patient - does not make urine) Musc: Denies: neck pain or back pain Skin/Breast: Denies: rash Neuro: Denies: headache(s), numbness in extremities or weakness in extremities Gabriel/Lymph: Reports: easy bruising; Denies: easy bleeding PFSH ED PFSH: Medical History Accelerated essential hypertension Anemia Breast cancer Carotid artery stenosis, asymptomatic COPD (chronic obstructive pulmonary disease) Patient reports COPD, but restrictive lung disease is also a possibility. 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 Surgical History H/O lumpectomy left breast H/O tubal ligation Hemodialysis access site with arteriovenous graft History of cholecystectomy Hx of abdominoplasty Family History Mother CAD (coronary artery disease) Hypertension Diabetes Hyperlipidemia Stroke Other Cancer Social History Smoking and tobacco status: former smoker Quit status (tobacco): has quit using tobacco Year quit tobacco: 2006 Alcohol intake: never Housing: Shelter Physical Exam Const: COMMON NORMALS: no acute distress, patient oriented x3, no limitations and alert GENERAL APPEARANCE: cooperative and comfortable NUTRITIONAL APPEARANCE: obese morbidly obese HENMT: HEAD & SCALP: normal to inspection FACE & SINUS: normal facial exam Eye: OTHER: keeps eyes closed - blind Neck/C-Spine: COMMON NORMALS: supple and no meningeal signs Chest: COMMONS NORMALS: normal inspection of the chest Resp: COMMON NORMALS: normal respiratory effort, No use of accessory muscles and clear to auscultation bilaterally AUSCULTATION: clear to auscultation bilaterally Cardio: COMMON NORMALS: No murmurs present (Cardio) RATE: tachycardic RHYTHM: abnormal rhythm irregularly irregular GI: COMMON NORMALS: Normal to inspection, nondistended, normoactive bowel sounds present, Soft to palpation and non-tender INSPECTION: Yes normal to inspection AUSCULTATION: Yes normoactive bowel sounds PALPATION: Yes Soft to palpation Back/Pelvis: COMMON NORMALS: thoracic and lumbar spine normal to inspection Extremity: COMMON NORMALS: normal to inspection Neuro: COMMON NORMALS: patient oriented x3, moves all extremities, no focal motor deficits and no sensory deficits noted SENSORIUM/ORIENTATION: Yes alert MENINGEAL SIGNS: Yes no meningeal signs COORDINATION/BALANCE: other (blind) COORDINATION: other (blind) Psych: COMMON NORMALS: mental status grossly normal, cooperative and normal affect Skin: COMMON NORMALS: no rashes or lesions noted and turgor normal GENERAL SKIN EXAM: no rashes or lesions noted and turgor normal Course ED course: Patient rested in the ER for some time. I did order some metoprolol p.o., her normal home dose, but she converted to sinus rhythm prior to getting that. That was held because her blood pressure was in the 110s systolic and her heart rate was in the 70s. Her sats are now 100% and she is resting with no complaints. She will be discharged and encouraged to make sure she does not miss her metoprolol. Vital Signs: Vital signs: Vital Signs Temperature 97.8 F 10/08/19 09:19 Pulse Rate 70 10/08/19 10:23 Respiratory Rate 13 10/08/19 10:23 Blood Pressure 111/85 10/08/19 10:23 Pulse Oximetry 93 10/08/19 09:36 MDM - SOB/Dyspnea Lab Data: Labs: Lab Results 10/08/19 10/08/19 10/08/19 Range/Units 09:45 09:45 09:45 WBC 9.9 (4.0-10.0) 10^3/ uL RBC 2.83 L (4.1-5.3) 10^6/u L Hgb 8.7 L (11.5-15.3) g/dL Hct 29.8 L (37.0-47.0) % MCV 105.3 H (81-99) fL MCH 30.7 (28.0-34.0) pg MCHC 29.2 L (30.0-36.0) g/dL RDW 16.6 H (12.1-15.1) % Plt Count 418 H (130-400) 10^3/c mm MPV 9.8 (7.4-10.4) fL Neut % (Auto) 73.2 % Lymph % (Auto) 15.4 % [place] % (Auto) 8.2 % Eos % (Auto) 2.4 % Baso % (Auto) 0.3 % Neut # (Auto) 7.2 (1.8-7.7) 10^3/u L Lymph # (Auto) 1.5 (0.8-4.8) 10^3/u L [place] # (Auto) 0.8 (0.2-0.9) 10^3/u L Eos # (Auto) 0.2 (0.0-0.8) 10^3/u L Baso # (Auto) 0.0 (0.0-0.1) 10^3/u L Nucleated RBC % (a uto) 0 % Nucleated RBCs # 0.0 /100WBC Sodium 137 (136-145) mmol/L Potassium 3.8 (3.5-5.1) mmol/L Chloride 91 L (98-107) mmol/L Carbon Dioxide 32 H (22-29) mmol/L Anion Gap 17.8 (5-19) BUN 18 (8-23) mg/dL Creatinine 4.4 H (0.5-0.9) mg/dL GFR Calculation 10.1 L (90-130) mL/min Glucose 84 (65-115) mg/dL Calculated Osmolal ity 280 L (285-295) mOsm/k g Lactate 0.8 (0.5-2.2) mmol/L Calcium 8.8 (8.5-10.5) mg/dL Magnesium 2.2 (1.7-2.3) mg/dL Total Bilirubin 0.7 (0.15-1.2) mg/dL AST 29 (0-32) U/L ALT 38 H (0-33) U/L Alkaline Phosphata se 189 H (35-105) IU/L Troponin T Baselin e (0-10) ng/mL NT-Pro-B Natriuret Pep 31986 H (0-125) pg/mL Total Protein 7.0 (6.6-8.7) g/dL Albumin 4.1 (3.5-5.2) g/dL Globulin 2.9 (1.3-4.6) g/dL 10/07/ Range/Units 09:45 WBC (4.0-10.0) 10^3/ uL RBC (4.1-5.3) 10^6/u L Hgb (11.5-15.3) g/dL Hct (37.0-47.0) % MCV (81-99) fL MCH (28.0-34.0) pg MCHC (30.0-36.0) g/dL RDW (12.1-15.1) % Plt Count (130-400) 10^3/c mm MPV (7.4-10.4) fL Neut % (Auto) % Lymph % (Auto) % [place] % (Auto) % Eos % (Auto) % Baso % (Auto) % Neut # (Auto) (1.8-7.7) 10^3/u L Lymph # (Auto) (0.8-4.8) 10^3/u L [place] # (Auto) (0.2-0.9) 10^3/u L Eos # (Auto) (0.0-0.8) 10^3/u L Baso # (Auto) (0.0-0.1) 10^3/u L Nucleated RBC % (a uto) % Nucleated RBCs # /100WBC Sodium (136-145) mmol/L Potassium (3.5-5.1) mmol/L Chloride (98-107) mmol/L Carbon Dioxide (22-29) mmol/L Anion Gap (5-19) BUN (8-23) mg/dL Creatinine (0.5-0.9) mg/dL GFR Calculation (90-130) mL/min Glucose (65-115) mg/dL Calculated Osmolal ity (285-295) mOsm/k g Lactate (0.5-2.2) mmol/L Calcium (8.5-10.5) mg/dL Magnesium (1.7-2.3) mg/dL Total Bilirubin (0.15-1.2) mg/dL AST (0-32) U/L ALT (0-33) U/L Alkaline Phosphata se (35-105) IU/L Troponin T Baselin e 123 H* (0-10) ng/mL NT-Pro-B Natriuret Pep (0-125) pg/mL Total Protein (6.6-8.7) g/dL Albumin (3.5-5.2) g/dL Globulin (1.3-4.6) g/dL Discharge Plan Discharge Patient Disposition: Home, Self-Care Clinical Impression: Atrial fibrillation Qualifiers: Atrial fibrillation type: paroxysmal Qualified Code(s): I48.0 - Paroxysmal atrial fibrillation Condition: Stable Prescriptions: No Action montelukast 10 mg tablet 10 mg PO DAILY RF: 0 midodrine 5 mg tablet See Rx Instructions .ROUTE .COMPLEX RF: 0 Auryxia 210 mg iron tablet 210 mg PO TID RF: 0 Onglyza 5 mg tablet 5 mg PO DAILY RF: 0 atorvastatin [Lipitor] 20 mg tablet 20 mg PO QPM RF: 0 levothyroxine 50 mcg capsule 50 mcg PO DAILY RF: 0 insulin aspart U-100 [Novolog Flexpen U-100 Insulin] 100 unit/mL (3 mL) insulin pen See Rx Instructions .ROUTE .COMPLEX RF: 0 tramadol 50 mg tablet 50 mg PO Q6H PRN (Reason: Pain) RF: 0 isosorbide mononitrate 30 mg Tablet Extended Release 24 Hr 30 mg PO DAILY RF: 0 aspirin 81 mg Tablet,Chewable 81 mg PO DAILY RF: 0 gabapentin 100 mg Capsule 100 mg PO DAILY RF: 0 budesonide-formoterol [Symbicort] 160-4.5 mcg/actuation Hfa Aerosol Inhaler 1 puff INHALATION BID RF: 0 sennosides [senna] 8.6 mg Tablet 17.2 mg PO BID PRN (Reason: Constipation) RF: 0 melatonin 3 mg Tablet 3 mg PO BEDTIME RF: 0 acetaminophen [Tylenol Extra Strength] 500 mg Tablet 1,000 mg PO 6XD PRN (Reason: Pain) RF: 0 diphenhydramine HCl [Benadryl] 25 mg Capsule 50 mg PO BID PRN (Reason: unknown) RF: 0 promethazine 25 mg tablet 12.5 mg PO PRN PRN (Reason: Nausea) RF: 0 albuterol sulfate [ProAir HFA] 90 mcg/actuation Hfa Aerosol Inhaler 2 puff INHALATION QID PRN (Reason: Shortness Of Breath) RF: 0 ondansetron 4 mg tablet,disintegrating 4 mg PO TID PRN (Reason: Nausea) RF: 0 cholecalciferol (vitamin D3) [Vitamin D3] 25 mcg (1,000 unit) Tablet 1,000 unit PO DAILY RF: 0 sevelamer carbonate 800 mg Tablet 800 mg PO TID RF: 0 RenaPlex-D 800 mcg-12.5 mg -2,000 unit Tablet 1 tab PO DAILY RF: 0 oxycodone 5 mg Tablet 5 mg PO Q6H PRN (Reason: Pain) RF: 0 Zyrtec 10 mg capsule 10 mg PO DAILY RF: 0 polyethylene glycol 3350 [Miralax] 17 gram Powder In Packet 17 g PO DAILY PRN (Reason: Constipation) RF: 0 magnesium hydroxide [Milk of Magnesia] 400 mg/5 mL Suspension 30 ml PO DAILY PRN (Reason: Constipation) RF: 0 bisacodyl 10 mg Suppository 10 mg UT DAILY PRN (Reason: Constipation) RF: 0 Enema 19-7 gram/118 mL Enema 118 ml UT DAILY PRN (Reason: Constipation) RF: 0 albuterol sulfate 0.63 mg/3 mL Solution For Nebulization 0.63 mg INHALATION QID RF: 0 Effexor XR 75 mg Capsule,Extended Release 24hr 75 mg PO DAILY RF: 0 Senna-S 8.6-50 mg Tablet 2 tab PO BID PRN (Reason: Constipation) RF: 0 guaifenesin 600 mg Tablet Extended Release 12hr 600 mg PO BID PRN (Reason: unknown) RF: 0 diltiazem HCl 30 mg Tablet 30 mg PO Q8H Qty: 90 RF: 0 Lantus U-100 Insulin 100 unit/mL Solution 20 unit SUBCUT BID Qty: 0 RF: 0 pantoprazole 40 mg Tablet,Delayed Release (Dr/Ec) 40 mg PO BID Qty: 0 RF: 0 Discharge Orders: Discharge Order (Routine); Ordered 10/08/19 Ordered By: Letitia Bone Referrals: Pradeep Patel MD [Primary Care Provider] - Discharge Diet: Usual diet Discharge Activity: Resume usual activity Patient Instructions: Atrial Fibrillation (ED) Activity Restrictions/Additional Instructions: Take your regular medications as prescribed - including metoprolol to help with your heart rate. Coding Level of Care Code ED Rubber Splicer for Michelle Fwd Exam Comprehensive
[2019-10-08 09:36] VITALS: O2SAT 93
[2019-10-08 09:51] LABS: Basophils % 0.3 %; Eosinophils # 0.2 10^3/uL (0.0-0.8); Eosinophils % 2.4 %; Hematocrit 29.8 % (37.0-47.0); Hemoglobin 8.7 g/dL (11.5-15.3); Lymphocytes # 1.5 10^3/uL (0.8-4.8); Lymphocytes % 15.4 %; Mean Corpuscular HGB Conc 29.2 g/dL (30.0-36.0); Mean Corpuscular Hemoglobin 30.7 pg (28.0-34.0); Mean Corpuscular Volume 105.3 fL (81-99); Mean Platelet Volume 9.8 fL (7.4-10.4); Monocytes # 0.8 10^3/uL (0.2-0.9); Monocytes % 8.2 %; Neutrophils # 7.2 10^3/uL (1.8-7.7); Neutrophils % 73.2 %; Nucleated Red Blood Cells % 0 %; Platelet Count 418 10^3/cmm (130-400); Red Blood Count 2.83 10^6/uL (4.1-5.3); Red Cell Distribution Width 16.6 % (12.1-15.1); White Blood Count 9.9 10^3/uL (4.0-10.0)
--- NOTE | 2019-10-08 09:51 | PC.NURSE ---
portable xray at bedside
[2019-10-08 10:09] LABS: Lactate (Lactic Acid level) 0.8 mmol/L (0.5-2.2)
--- NOTE | 2019-10-08 10:15 | PC.NURSE ---
Metoprolol held per verbal order from ER physcian. Pt heart rate and BP wnl
[2019-10-08 10:19] LABS: Troponin(5th) Baseline 123 ng/mL (0-10)
[2019-10-08 10:23] VITALS: BP 111/85; PULSE 70; RESP 13
[2019-10-08 10:25] LABS: Alanine Aminotransferase 38 U/L (0-33); Albumin Level 4.1 g/dL (3.5-5.2); Alkaline Phosphatase 189 IU/L (35-105); Anion Gap 17.8 (5-19); Aspartate Amino Transferase 29 U/L (0-32); Blood Urea Nitrogen 18 mg/dL (8-23); Calcium 8.8 mg/dL (8.5-10.5); Carbon Dioxide 32 mmol/L (22-29); Chloride 91 mmol/L (98-107); Globulin 2.9 g/dL (1.3-4.6); Glomerular Filtration Rate 10.1 mL/min (90-130); Glucose 84 mg/dL (65-115); Magnesium 2.2 mg/dL (1.7-2.3); Osmolality Calculated 280 mOsm/kg (285-295); Potassium 3.8 mmol/L (3.5-5.1); Sodium 137 mmol/L (136-145); Total Bilirubin 0.7 mg/dL (0.15-1.2)
[2019-10-08 12:20] VITALS: BP 138/91; PULSE 73; RESP 18; O2SAT 99
--- NOTE | 2019-10-08 15:04 | PC.NURSE ---
report called to [facility] (Delia, Nurse)
--- NOTE | 2019-10-08 15:27 | ECG_ITS ---
Measurements Intervals [place] Rate: 73 P: 21 [place]: 201 QRS: -27 QRSD: 148 T: 254 QT: 435 QTc: 480 SINUS RHYTHM BORDERLINE LEFT AXIS DEVIATION RIGHT BUNDLE BRANCH BLOCK MODERATE T-WAVE ABNORMALITY, CONSIDER LATERAL ISCHEMIA Compared to ECG 10/01/2019 07:24:05 T-wave abnormality now present Possible ischemia now present Atrial fibrillation no longer present Left anterior fascicular block no longer present Electronically Signed On 10-08-2019 11:52:33 CDT by Liliya Quezada M.D. [id number]
== END 2019-10-08 15:49 | disposition home or self-care (01) ==
PROVIDERS: Emergency Provider Emergency Medicine; PCP Family Medicine
DX: I48.0 Paroxysmal atrial fibrillation (principal); Z79.4 Long term (current) use of insulin; Z79.82 Long term (current) use of aspirin; Z85.3 Personal history of malignant neoplasm of breast; J44.9 Chronic obstructive pulmonary disease, unspecified; Z86.73 Personal history of transient ischemic attack (TIA), and cerebral infarction without residual deficits; I13.2 Hypertensive heart and chronic kidney disease with heart failure and with stage 5 chronic kidney disease, or end stage renal disease; I50.30 Unspecified diastolic (congestive) heart failure; N18.6 End stage renal disease; E10.22 Type 1 diabetes mellitus with diabetic chronic kidney disease; Z99.2 Dependence on renal dialysis; E78.5 Hyperlipidemia, unspecified; Z87.891 Personal history of nicotine dependence
CPT/HCPCS: 12345; 36415; 71045; 80053; 83605; 83735; 83880; 84484; 85025; 93005; 99283

== ENCOUNTER 2019-11-29 22:23 | Inpatient (IN) | payer MEDICAID, SELFPAY ==
--- NOTE | 2019-11-29 22:24 | CTR_ITS ---
PROCEDURE INFORMATION: Exam: CT Head Without Contrast Exam date and time: 11/29/2019 11:50 PM Age: 64 years old Clinical indication: Altered mental status/memory loss TECHNIQUE: Imaging protocol: Computed tomography of the head without contrast. Radiation optimization: All CT scans at this facility use at least one of these dose optimization techniques: automated exposure control; mA and/or kV adjustment per patient size (includes targeted exams where dose is matched to clinical indication); or iterative reconstruction. COMPARISON: CT head wo con* [id number] 09/16/2019 5:50 PM RADIATION DOSE METRICS: Total DLP (mGy-cm): 621.39 FINDINGS: Brain: There is volume loss and periventricular low density compatible with chronic small vessel disease changes. There is no acute hemorrhage, edema or mass effect. There is unchanged encephalomalacia right frontal lobe. Ventricles: Normal. No ventriculomegaly. Bones/joints: Unremarkable. No acute fracture. Sinuses: There is patchy opacification of the sinuses. Mastoid air cells: Visualized mastoid air cells are well aerated. Soft tissues: Unremarkable. CT/CT head wo con* [id number] IMPRESSION: 1. No acute intracranial abnormality. 2. There is patchy opacification of the sinuses. Radiation Dose CTDIVOL = (mGy): DLP = 621.39 (mGy-cm)
--- NOTE | 2019-11-29 22:24 | ECG_ITS ---
[facility] Test Date: 2019-11-29 Pat Name: Oscar Pack Department: Room: Gender: Female Brim Flexer: : 1955 Requested By: Claire Green Order Number: [id number] Lizandro MD: Vince Stevenson M.D. Measurements Intervals [place] Rate: 92 P: 68 [place]: 172 QRS: -35 QRSD: 129 T: 79 QT: 387 QTc: 481 Interpretive Statements SINUS RHYTHM LEFT AXIS DEVIATION [QRS AXIS < -30] MODERATE INTRAVENTRICULAR CONDUCTION DELAY [105+ ms QRS DURATION, 80+ ms Q/S IN V1/V2, NO Q AND 60+ ms R IN I/aVL/V5/V6] INTERPRETATION BASED ON A DEFAULT AGE OF 40 YEARS Compared to ECG 10/08/2019 11:44:58 Intraventricular conduction delay now present Right bundle-branch block no longer present T-wave abnormality no longer present Possible ischemia no longer present Electronically Signed On 11-30-2019 22:03:05 CDT by Vince Stevenson M.D. [id number]
--- NOTE | 2019-11-29 22:24 | XRR_ITS ---
PROCEDURE INFORMATION: Exam: XR Chest, 1 View Exam date and time: 11/29/2019 10:25 PM Age: 64 years old Clinical indication: Shortness of breath; Additional info: Resp failure TECHNIQUE: Imaging protocol: XR of the chest Views: 1 view. COMPARISON: CR XR chest 1V portable [id number] 10/08/2019 9:59 AM FINDINGS: Tubes, catheters and devices: There is an ET tube with tip 1.5 cm above the ifrah. Lungs: There is increasing vascular congestion with increasing cephalization of flow, interstitial edema and ground-glass opacities compatible with CHF. Increasing airspace opacities are also noted compatible with airspace pulmonary edema versus pneumonic infiltrates. Pleural space: Unremarkable. No pleural effusion. No pneumothorax. Heart/Mediastinum: The heart is enlarged. Bones/joints: No acute abnormality. XR/XR chest 1V portable [id number] IMPRESSION: 1. There is increasing vascular congestion with increasing cephalization of flow, interstitial edema and ground-glass opacities compatible with CHF. 2. Increasing airspace opacities are also noted compatible with airspace pulmonary edema versus pneumonic infiltrates.
[2019-11-29 22:25] VITALS: BP 171/84; PULSE 98; RESP 14; RESP 21; TEMP 36.1; O2SAT 99; BMI 48.4
--- NOTE | 2019-11-29 22:25 | ED_ITS ---
HPI - SOB/Dyspnea General: Chief Complaint: Cardiac Arrest/CPR Stated Complaint: UNRESPONSIVE Time Seen by Provider: 11/29/19 22:24 Source: EMS Mode of arrival: EMS Limitations: altered mental status History of Present Illness: HPI Narrative: 64-year-old female who came in by EMS from local skilled nursing. EMS states when they arrived patient was in respiratory failure. She is a dialysis patient. States that she had agonal breathing and a pulse ox in the 40s. Patient had a rapid sequence intubation. Patient is currently intubated and sedated. Per skilled nursing patient just suddenly had shortness of breath and became runs responsive. She has had no fever. Review of Systems General: Reports: ROS unobtainable due to medical condition PFSH ED PFSH: Medical History Accelerated essential hypertension Anemia Atherosclerotic heart disease of redding coronary artery without angina pectoris Breast cancer Carotid artery stenosis, asymptomatic COPD (chronic obstructive pulmonary disease) Patient reports COPD, but restrictive lung disease is also a possibility. 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 Other Cancer Social History Smoking and tobacco status: former smoker Quit status (tobacco): has quit using tobacco Year quit tobacco: 2006 Alcohol intake: never Housing: Care Home Marital status: / Current occupational status: disabled History of recent travel: No Physical Exam Const: COMMON NORMALS: negative for patient oriented x3 GENERAL APPEARANCE: in distress HENMT: COMMON NORMALS: normocephalic and atraumatic HEAD & SCALP: normocephalic and atraumatic Eye: COMMON NORMALS: conjunctivae normal CONJUNCTIVA: Yes conjunctivae normal Neck/C-Spine: COMMON NORMALS: supple Chest: COMMONS NORMALS: normal inspection of the chest Resp: OTHER: intubated, breath sounds bilateral withno wheezing Cardio: COMMON NORMALS: regular rate and regular rhythm RATE: regular rate RHYTHM: regular rhythm GI: COMMON NORMALS: Normal to inspection, nondistended, normoactive bowel sounds present and Soft to palpation PALPATION: Yes Soft to palpation Extremity: COMMON NORMALS: normal to inspection, capillary refill normal and no clubbing, cyanosis or edema Neuro: COMMON NORMALS: negative for patient oriented x3 Psych: COMMON NORMALS: negative for mental status grossly normal Skin: COMMON NORMALS: no rashes or lesions noted GENERAL SKIN EXAM: no rashes or lesions noted Course Vital Signs: Vital signs: Vital Signs Temperature 97.0 F L 11/29/19 22:25 Pulse Rate 66 11/30/19 00:02 Respiratory Rate 14 11/30/19 00:02 Blood Pressure 171/110 11/30/19 00:02 Pulse Oximetry 100 11/30/19 00:02 MDM - SOB/Dyspnea MDM Narrative: Medical decision making narrative: 64-year-old female who presents here with respiratory failure from likely pulmonary edema. Patient is on dialysis. I spoke to hospitalist will admit to the ICU. Patient has no signs of coronavirus. Patient is on a propofol drip. Lab Data: Labs: Lab Results 11/29/19 11/29/19 11/29/19 Range/Units 22:25 22:59 22:59 WBC 17.3 H (4.0-10.0) 10^3/ uL RBC 3.03 L (4.1-5.3) 10^6/u L Hgb 8.9 L (11.5-15.3) g/dL Hct 29.6 L (37.0-47.0) % MCV 97.7 (81-99) fL MCH 29.4 (28.0-34.0) pg MCHC 30.1 (30.0-36.0) g/dL RDW 16.6 H (12.1-15.1) % Plt Count 281 (130-400) 10^3/c mm MPV 9.3 (7.4-10.4) fL Neut % (Auto) 85.1 % Lymph % (Auto) 6.0 % Ford % (Auto) 4.7 % Eos % (Auto) 2.3 % Baso % (Auto) 0.3 % Neut # (Auto) 14.74 H (1.8-7.7) 10^3/u L Lymph # (Auto) 1.0 (0.8-4.8) 10^3/u L Ford # (Auto) 0.8 (0.2-0.9) 10^3/u L Eos # (Auto) 0.4 (0.0-0.8) 10^3/u L Baso # (Auto) 0.1 (0.0-0.1) 10^3/u L Nucleated RBC % (a uto) 0 % Nucleated RBCs # 0.0 /100WBC PT 12.70 (10.5-13.3) SECO NDS INR 0.93 (0.8-1.2) Specimen Type Arterial Sample Site Radial, right ABG pH 7.24 L (7.35-7.45) ABG pCO2 64.5 H* (35-45) mmHg ABG pO2 171.0 H* (80.0-100.0) mmH g ABG HCO3 27.6 H (22-26) mmol/L ABG Base Excess -0.7 (-2.0-2.0) mmol/ L Ron Test Pos Hematocrit 32.4 L (37-47) % O2 Delivery Device Vent FiO2 65.0 % Fruit Loader Machine Operator ID [email or web address] Sodium (136-145) mmol/L Potassium (3.5-5.1) mmol/L Chloride (98-107) mmol/L Carbon Dioxide (22-29) mmol/L Anion Gap (5-19) BUN (8-23) mg/dL Creatinine (0.5-0.9) mg/dL GFR Calculation (90-130) mL/min Glucose (65-115) mg/dL Calculated Osmolal ity (285-295) mOsm/k g Calcium (8.5-10.5) mg/dL Total Bilirubin (0.15-1.2) mg/dL AST (0-32) U/L ALT (0-33) U/L Alkaline Phosphata se (35-105) IU/L Troponin T Baselin e (0-10) ng/L NT-Pro-B Natriuret Pep (0-125) pg/mL Total Protein (6.6-8.7) g/dL Albumin (3.5-5.2) g/dL Globulin (1.3-4.6) g/dL 11/29/19 11/29/19 Range/Units 22:59 22:59 WBC (4.0-10.0) 10^3/ uL RBC (4.1-5.3) 10^6/u L Hgb (11.5-15.3) g/dL Hct (37.0-47.0) % MCV (81-99) fL MCH (28.0-34.0) pg MCHC (30.0-36.0) g/dL RDW (12.1-15.1) % Plt Count (130-400) 10^3/c mm MPV (7.4-10.4) fL Neut % (Auto) % Lymph % (Auto) % Ford % (Auto) % Eos % (Auto) % Baso % (Auto) % Neut # (Auto) (1.8-7.7) 10^3/u L Lymph # (Auto) (0.8-4.8) 10^3/u L Ford # (Auto) (0.2-0.9) 10^3/u L Eos # (Auto) (0.0-0.8) 10^3/u L Baso # (Auto) (0.0-0.1) 10^3/u L Nucleated RBC % (a uto) % Nucleated RBCs # /100WBC PT (10.5-13.3) SECO NDS INR (0.8-1.2) Specimen Type Sample Site ABG pH (7.35-7.45) ABG pCO2 (35-45) mmHg ABG pO2 (80.0-100.0) mmH g ABG HCO3 (22-26) mmol/L ABG Base Excess (-2.0-2.0) mmol/ L Ron Test Hematocrit (37-47) % O2 Delivery Device FiO2 % Fruit Loader Machine Operator ID Sodium 122 L (136-145) mmol/L Potassium 5.0 (3.5-5.1) mmol/L Chloride 82 L (98-107) mmol/L Carbon Dioxide 26 (22-29) mmol/L Anion Gap 19.0 (5-19) BUN 19 (8-23) mg/dL Creatinine 4.5 H (0.5-0.9) mg/dL GFR Calculation 9.8 L (90-130) mL/min Glucose 189 H (65-115) mg/dL Calculated Osmolal ity 256 L (285-295) mOsm/k g Calcium 8.6 (8.5-10.5) mg/dL Total Bilirubin 0.3 (0.15-1.2) mg/dL AST 15 (0-32) U/L ALT 14 (0-33) U/L Alkaline Phosphata se 139 H (35-105) IU/L Troponin T Baselin e 68 H (0-10) ng/L NT-Pro-B Natriuret Pep 48899 H (0-125) pg/mL Total Protein 7.2 (6.6-8.7) g/dL Albumin 4.0 (3.5-5.2) g/dL Globulin 3.2 (1.3-4.6) g/dL EKG Data^: EKG 1: Attestation: I personally reviewed and interpreted this EKG as follows: EKG Interpretation Date: 11/29/19 EKG interpretation time: 22:35 Interpretation: nsr hr [address] or t wave abnormalities qrs 129 qtc 437 Critical Care Time Critical Care Time: Critical Care Time: Yes Total Critical Care Time: 35 Attestation: This case had a high probability of a clinically significant, sudden, or life threatening deterioration of this patient's condition which required my full and direct attention, intervention and personal management. Discharge Plan Discharge Prescriptions: No Action montelukast 10 mg tablet 10 mg PO DAILY RF: 0 midodrine 5 mg tablet See Rx Instructions .ROUTE .COMPLEX RF: 0 atorvastatin [Lipitor] 20 mg tablet 20 mg PO QPM RF: 0 levothyroxine 50 mcg capsule 50 mcg PO DAILY RF: 0 insulin aspart U-100 [Novolog Flexpen U-100 Insulin] 100 unit/mL (3 mL) insulin pen See Rx Instructions .ROUTE .COMPLEX RF: 0 Onglyza 5 mg tablet 5 mg PO DAILY RF: 0 Eliquis 2.5 mg tablet 2.5 mg PO BID RF: 0 metoprolol tartrate 75 mg tablet 75 mg PO BID RF: 0 isosorbide mononitrate 30 mg Tablet Extended Release 24 Hr 30 mg PO DAILY RF: 0 aspirin 81 mg Tablet,Chewable 81 mg PO DAILY RF: 0 gabapentin 100 mg Capsule 100 mg PO DAILY RF: 0 budesonide-formoterol [Symbicort] 160-4.5 mcg/actuation Hfa Aerosol Inhaler 1 puff INHALATION BID RF: 0 melatonin 3 mg Tablet 3 mg PO BEDTIME RF: 0 acetaminophen [Tylenol Extra Strength] 500 mg Tablet 1,000 mg PO 6XD PRN (Reason: Pain) RF: 0 diphenhydramine HCl [Benadryl] 25 mg Capsule 50 mg PO BID PRN (Reason: unknown) RF: 0 promethazine 25 mg tablet 12.5 mg PO PRN PRN (Reason: Nausea) RF: 0 albuterol sulfate [ProAir HFA] 90 mcg/actuation Hfa Aerosol Inhaler 2 puff INHALATION QID PRN (Reason: Shortness Of Breath) RF: 0 ondansetron 4 mg tablet,disintegrating 4 mg PO TID PRN (Reason: Nausea) RF: 0 cholecalciferol (vitamin D3) [Vitamin D3] 25 mcg (1,000 unit) Tablet 1,000 unit PO DAILY RF: 0 sevelamer carbonate 800 mg Tablet 800 mg PO TID RF: 0 RenaPlex-D 800 mcg-12.5 mg -2,000 unit Tablet 1 tab PO DAILY RF: 0 oxycodone 5 mg Tablet 5 mg PO Q6H PRN (Reason: Pain) RF: 0 Zyrtec 10 mg capsule 10 mg PO DAILY RF: 0 polyethylene glycol 3350 [Miralax] 17 gram Powder In Packet 17 g PO DAILY PRN (Reason: Constipation) RF: 0 magnesium hydroxide [Milk of Magnesia] 400 mg/5 mL Suspension 30 ml PO DAILY PRN (Reason: Constipation) RF: 0 bisacodyl 10 mg Suppository 10 mg OH DAILY PRN (Reason: Constipation) RF: 0 Enema 19-7 gram/118 mL Enema 118 ml OH DAILY PRN (Reason: Constipation) RF: 0 albuterol sulfate 0.63 mg/3 mL Solution For Nebulization 0.63 mg INHALATION QID RF: 0 Effexor XR 75 mg Capsule,Extended Release 24hr 75 mg PO DAILY RF: 0 Senna-S 8.6-50 mg Tablet 2 tab PO BID PRN (Reason: Constipation) RF: 0 guaifenesin 600 mg Tablet Extended Release 12hr 600 mg PO BID PRN (Reason: unknown) RF: 0 diltiazem HCl 30 mg Tablet 30 mg PO Q8H Qty: 90 RF: 0 Lantus U-100 Insulin 100 unit/mL Solution 20 unit SUBCUT BID Qty: 0 RF: 0 pantoprazole 40 mg Tablet,Delayed Release (Dr/Ec) 40 mg PO BID Qty: 0 RF: 0 Coding Level of Care Code ED Laborer Powerhouse for Chg Fwd Exam Comprehensive
[2019-11-29 22:34] LABS: ABG PH Result 7.24 (7.35-7.45); Arterial Blood Gas Hematocrit 32.4 % (37-47); Base Excess ABG -0.7 mmol/L (-2.0-2.0); Blood Gas Allen Test Pos; Blood Gas Sample Site Radial, right; Blood Gas Sample Type Arterial; HCO3 ABG 27.6 mmol/L (22-26); Oxygen Device VENT
[2019-11-29 22:35] LABS: ABG PCO2 64.5 mmHg (35-45)
[2019-11-29] MEDS: propofol 1,000 MG/100 ML INJ 4.1 MG IV (22:48)
[2019-11-29 23:06] LABS: Basophils # 0.1 10^3/uL (0.0-0.1); Basophils % 0.3 %; Eosinophils # 0.4 10^3/uL (0.0-0.8); Eosinophils % 2.3 %; Hematocrit 29.6 % (37.0-47.0); Hemoglobin 8.9 g/dL (11.5-15.3); Mean Corpuscular HGB Conc 30.1 g/dL (30.0-36.0); Mean Corpuscular Hemoglobin 29.4 pg (28.0-34.0); Mean Corpuscular Volume 97.7 fL (81-99); Mean Platelet Volume 9.3 fL (7.4-10.4); Monocytes # 0.8 10^3/uL (0.2-0.9); Monocytes % 4.7 %; Neutrophils # 14.74 10^3/uL (1.8-7.7); Neutrophils % 85.1 %; Nucleated Red Blood Cells % 0 %; Platelet Count 281 10^3/cmm (130-400); Red Blood Count 3.03 10^6/uL (4.1-5.3); Red Cell Distribution Width 16.6 % (12.1-15.1); White Blood Count 17.3 10^3/uL (4.0-10.0)
[2019-11-29 23:16] VITALS: BP 108/54; PULSE 65; RESP 14; O2SAT 99
[2019-11-29 23:16] LABS: INR 0.93 (0.8-1.2)
[2019-11-29 23:38] LABS: Troponin(5th) Baseline 68 ng/L (0-10)
[2019-11-29 23:40] LABS: Alanine Aminotransferase 14 U/L (0-33); Alkaline Phosphatase 139 IU/L (35-105); Aspartate Amino Transferase 15 U/L (0-32); Blood Urea Nitrogen 19 mg/dL (8-23); Calcium 8.6 mg/dL (8.5-10.5); Carbon Dioxide 26 mmol/L (22-29); Chloride 82 mmol/L (98-107); Globulin 3.2 g/dL (1.3-4.6); Glomerular Filtration Rate 9.8 mL/min (90-130); Glucose 189 mg/dL (65-115); NT Pro B Type Natriuretic Pept 18725 pg/mL (0-125); Osmolality Calculated 256 mOsm/kg (285-295); Sodium 122 mmol/L (136-145); Total Bilirubin 0.3 mg/dL (0.15-1.2); Total Protein 7.2 g/dL (6.6-8.7)
[2019-11-30] VITALS (59 sets, daily range): BP systolic 71–246; BP diastolic 46–124; PULSE 65–105; RESP 0–26; TEMP 36.1–37.9; O2SAT 80–100
--- NOTE | 2019-11-30 00:24 | ECG_ITS ---
[facility] Test Date: 2019-11-30 Pat Name: Oscar Pack Department: Room: Gender: Female Reel Cutter: : 1955 Requested By: Claire Green Order Number: [id number] Lizandro MD: Vince Stevenson M.D. Measurements Intervals [place] Rate: 65 P: 53 [place]: 216 QRS: -3 QRSD: 110 T: 47 QT: 481 QTc: 500 Interpretive Statements SINUS RHYTHM WITH FIRST DEGREE AV BLOCK PROLONGED QT INTERVAL Compared to ECG 10/08/2019 11:44:58 First degree AV block now present Prolonged QT interval now present Right bundle-branch block no longer present T-wave abnormality no longer present Possible ischemia no longer present Electronically Signed On 11-30-2019 22:04:07 CDT by Vince Stevenson M.D. [id number]
--- NOTE | 2019-11-30 00:47 | PC.NURSE ---
PT IS NOW COMMUNICATING WITH THE HOSPITALIST BY SHAKING HEAD YES AND NO TO QUESTIONS. PT TOLERATING ET TUBE ON 5MCG/KG/MIN. LAB IN ROOM DRAWING BLOOD CULTURES.
[2019-11-30] MEDS: aztreonam 1,000 MG in sodium chloride 0.9% (plus) 50 ML 100 MG IV (01:03)
[2019-11-30 01:14] LABS: ABG PCO2 50.2 mmHg (35-45); ABG PH Result 7.37 (7.35-7.45); Arterial Blood Gas Hematocrit 29.5 % (37-47); Base Excess ABG 2.8 mmol/L (-2.0-2.0); Blood Gas Allen Test Pos; Blood Gas Sample Site Radial, left; Blood Gas Sample Type Arterial; Blood Gas Tidal Volume 0.5; HCO3 ABG 28.8 mmol/L (22-26); Oxygen Device VENT; PO2 ABG 79.8 mmHg (80.0-100.0)
--- NOTE | 2019-11-30 01:30 | P.HP_ITS ---
Providers/Chief Complaint Primary Care Provider: Pradeep Patel MD Chief Complaint: UNRESPONSIVE History of Present Illness Oscar Pack is a 64 year old lady with ESRD, HD MWF, has a R arm fistula, diastolic CHF, AFib, CAD, HTN, anemia, carotid stenosis, COPD, on chronic 3-4 L O2 by [place], CVA, HTN, HLD, morbid obesity, AFTAB, diabetes, Usher syndrome, blindness last evening got progressively more short of breath, around 930 complaining of shortness of breath nurse requesting for an inhaler, and to have her oxygen rate increased, subsequently with worsening dyspnea, and then decreased responsiveness, on arrival of EMS found saturating in the 30s, reportedly with agonal breathing, was emergently intubated. In ER with acute hypoxic and hypercapnic respiratory failure, with respiratory acidosis, noted leukocytosis, 17.3, neutrophilic, afebrile, without tachycardia, with congestive changes, but also concern for groundglass opacity appearance. Her BNP is elevated at 18,725, although needs to be interpreted in the setting of ESRD. Troponin is mildly elevated at baseline at 68. In ER she received empiric antibiotics with vancomycin and aztreonam. Blood pressure initially hypertensive, but soft with propofol. She is currently awake, alert. Appears comfortable and not in distress, but says is bothered somewhat by the ET tube. Denies having any chest pain currently or previously. Denies any fever, chills, does state was having some dry cough earlier. Speaking with RN at the detention, they are not aware of any vital sign abnormalities earlier today or previously recently. He is not sure about hemodialysis on Sunday, but has not heard anything that would suggest that there were difficulties during the treat ment. Patient herself denies remembering having any issues. Review of Systems Const: Reports: other (At the detention progression to respiratory distress, and unresponsive requiring intubation.); Denies: fever(s), chills, body aches or malaise Eyes: Denies: change in vision or eye redness ENMT: Denies: throat pain, oral sores or ear or mastoid pain Card: Denies: chest pain, edema, pre-syncope or dyspnea on exertion Resp: Reports: dyspnea and non-productive cough; Denies: productive cough, change in phlegm color or hemoptysis GI: Denies: abdominal pain, nausea, vomiting, diarrhea, constipation, hematochezia or melena : Denies: flank pain, urinary frequency or hematuria Musc: Denies: back pain, joint swelling or joint redness Skin/Breast: Denies: rash, sores or new lesions Neuro: Denies: headache(s), numbness in extremities, weakness in extremities, dizziness, confusion or seizure-like activity Endo: Denies: polyuria or polydipsia Gabriel/Lymph: Denies: easy bleeding or purpura All/Imm: Denies: urticaria, throat swelling or tongue swelling Medications/Allergies Home Medications Medication Instructions Recorded Confirmed Last Taken Type atorvastatin 20 mg tablet 20 mg PO QPM 07/09/19 11/20/19 08/27/19 History insulin aspart U-100 100 unit/mL See Rx Instructions .ROUTE .COMPLEX 07/09/19 11/21/19 Unknown History (3 mL) subcutaneous pen levothyroxine 50 mcg capsule 50 mcg PO DAILY 07/09/19 11/20/19 08/28/19 History midodrine 5 mg tablet See Rx Instructions .ROUTE .COMPLEX 07/09/19 11/20/19 08/27/19 History montelukast 10 mg tablet 10 mg PO DAILY 07/09/19 11/20/19 08/27/19 History aspirin 81 mg PO DAILY 08/28/19 11/20/19 08/27/19 History budesonide-formoterol [Symbicort] 1 puff INHALATION BID 08/28/19 11/20/19 08/27/19 History gabapentin 100 mg PO DAILY 08/28/19 11/20/19 08/27/19 History isosorbide mononitrate 30 mg PO DAILY 08/28/19 11/20/19 Unknown History RenaPlex-D 1 tab PO DAILY 09/15/19 11/20/19 Unknown History acetaminophen [Tylenol Extra 1,000 mg PO 6XD PRN 09/15/19 11/20/19 Unknown History Strength] albuterol sulfate [ProAir HFA] 2 puff INHALATION QID PRN 09/15/19 11/20/19 Unknown History cholecalciferol (vitamin D3) 1,000 unit PO DAILY 09/15/19 11/20/19 Unknown History [Vitamin D3] diphenhydramine HCl [Benadryl] 50 mg PO BID PRN 09/15/19 11/20/19 Unknown History melatonin 3 mg PO BEDTIME 09/15/19 11/21/19 Unknown History ondansetron 4 mg PO TID PRN 09/15/19 11/20/19 Unknown History oxycodone 5 mg PO Q6H PRN 09/15/19 11/20/19 Unknown History promethazine 12.5 mg PO PRN PRN 09/15/19 11/20/19 Unknown History sevelamer carbonate 800 mg PO TID 09/15/19 11/20/19 Unknown History Zyrtec 10 mg PO DAILY 09/16/19 11/20/19 Unknown History Enema 118 ml [place] DAILY PRN 09/24/19 11/20/19 Unknown History bisacodyl 10 mg [place] DAILY PRN 09/24/19 11/21/19 Unknown History magnesium hydroxide [Milk of 30 ml PO DAILY PRN 09/24/19 11/21/19 Unknown History Magnesia] polyethylene glycol 3350 [Miralax] 17 g PO DAILY PRN 09/24/19 11/20/19 Unknown History Effexor XR 75 mg PO DAILY 10/01/19 11/20/19 Unknown History Senna-S 2 tab PO BID PRN 10/01/19 11/20/19 Unknown History albuterol sulfate 0.63 mg INHALATION QID 10/01/19 11/20/19 Unknown History guaifenesin 600 mg PO BID PRN 10/01/19 11/20/19 Unknown History Lantus U-100 Insulin 20 unit SUBCUT BID #0 ml 10/04/19 11/20/19 08/27/19 Rx diltiazem HCl 30 mg PO Q8H #90 tab 10/04/19 11/20/19 Unknown Rx pantoprazole 40 mg PO BID #0 tab 10/04/19 11/20/19 08/27/19 Rx apixaban 2.5 mg tablet 2.5 mg PO BID 10/14/19 11/21/19 Unknown History metoprolol tartrate 75 mg tablet 75 mg PO BID 10/14/19 11/20/19 Unknown History saxagliptin 5 mg tablet 5 mg PO DAILY 10/14/19 11/20/19 Unknown History Allergies Allergy/AdvReac Type Severity Reaction Status Date / Time grapefruit Allergy Unknown Verified 11/18/19 08:46 lemon Allergy Unknown Verified 11/18/19 08:46 [place] Allergy Unknown Verified 11/18/19 08:46 orange Allergy Unknown Verified 11/18/19 08:46 Penicillins Allergy hives Verified 11/18/19 08:46 strawberry Allergy Unknown Verified 11/18/19 08:46 Sulfa (Sulfonamide Allergy depleat Verified 11/18/19 08:46 Antibiotics) potassium PFSH Acute PFSH: Medical History Accelerated essential hypertension Anemia Atherosclerotic heart disease of [place] coronary artery without angina pectoris Breast cancer Carotid artery stenosis, asymptomatic COPD (chronic obstructive pulmonary disease) Patient reports COPD, but restrictive lung disease is also a possibility. 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 see shadows Obesity Obstructive sleep apnea Renal mass Retinitis pigmentosa Type 1 diabetes mellitus Usher syndrome Surgical History H/O lumpectomy left breast H/O tubal ligation Hemodialysis access site with arteriovenous graft History of cholecystectomy Hx of abdominoplasty Family History Mother , at age 88 CAD (coronary artery disease) Hypertension Diabetes Hyperlipidemia Stroke Father , at age 90 No problems noted. Other Cancer Social History Smoking and tobacco status: former smoker Quit status (tobacco): has quit using tobacco Year quit tobacco: 2006 Alcohol intake: never Housing: Assisted Marital status: / Current occupational status: disabled History of recent travel: No Vitals/I&O/Wt Last Vital Signs Temp 97.0 F L 11/29/19 22:25 Pulse 66 11/30/19 00:02 Resp 14 11/30/19 00:02 BP 171/110 11/30/19 00:02 Pulse Ox 100 11/30/19 00:02 Weight last 48 hrs Weight 136.078 kg Physical Exam Const: COMMON NORMALS: no acute distress and patient oriented x3 EXAM LIMITATIONS: altered mental status GENERAL APPEARANCE: cooperative NUTRITIONAL APPEARANCE: obese morbidly obese HENMT: COMMON NORMALS: oropharynx normal Neck/C-Spine: COMMON NORMALS: no JVD Resp: COMMON NORMALS: normal respiratory effort AUSCULTATION: rales (scattered) Cardio: COMMON NORMALS: no JVD, regular rhythm, S1 normal heart sound present, S2 normal heart sound present and No murmurs present (Cardio) RHYTHM: regul ar rhythm HEART SOUNDS: S1 normal heart sound present and S2 normal heart sound present GI: COMMON NORMALS: Normal to inspection, nondistended, normoactive bowel sounds present, Soft to palpation and non-tender PALPATION: Yes Soft to palpation Extremity: COMMON NORMALS: no joint enlargement OTHER: Trace edema, although difficult to assess due to body habitus. Neuro: COMMON NORMALS: patient oriented x3 and moves all extremities Skin: COMMON NORMALS: no rashes or lesions noted GENERAL SKIN EXAM: no rashes or lesions noted Data : 11/29/19 22:59 11/29/19 22:59 A&P Assessment and plan (1) Acute respiratory failure with hypoxia and hypercapnia: With progressive deterioration of breathing last night, initially asking for inhaler and to have her oxygen increased. Subsequently with respiratory distress, decreased responsiveness, and with noted saturation down to 30% and agonal breathing on arrival of EMS. Emergently intubated. Currently on mechanical ventilation. Mental status significantly improved. She is following commands, nodding answers to questions. Denies any chest pain or pressure. Denies having any recent fever, chills, or has had some dry cough. I am told no recent changes in medications. Respiratory failure appears to be multifactorial, secondary to CHF exacerbation, flash pulmonary edema, made worse by the fact that she is an ESRD patient requiring hemodialysis. At this time by initial EKG and troponin cardiac ischemia is not suggested, however, will complete EKG and troponin series. She is chest pain-free. Previous work-up with stress test without abnormality. With Hx of resolved pericardial effusion. Heart sounds not muffled. Not hypotensive. Will assess by TTE. She is on Eliquis, and so PE would be rather unlikely. She says she has not missed any of her medication doses. With leukocytosis, groundglass opacity appearance on x-ray, dry cough, will be assessed for influenza, COVID-19. At this time empirically covered for possibility of bacterial pneumonia with renally dosed antibiotics. Blood cultures ordered. Check bacterial antigens in urine. MRSA swab. CXR, ABG in AM. There is no HD bed currently available in ICU. On discussion w [facility] VICU rooms are entirely isolated from each other and so there should not be chance for her to become exposed while under investigation and she can get hemodialysis there. Subsequently if negative COVID result, moving back to a regular HD capable ICU room withouth isolation. Discussed all of the above with her son Fritz Quiñonez, who is in agreement with current assessment and plan, her condition, as well as risks of deterioration given severe chronic underlying conditions. All questions were answered to his satisfaction. Status: Acute (2) CHF exacerbation: Acute on chronic diastolic congestive heart failure exacerbation. Continue mechanical ventilatory support. Rule out cardiac ischemia ischemia as the cause. PE would be rather unlikely. TTE. Plan for hemodialysis in the morning. Status: Acute (3) Pneumonitis: With leukocytosis 17.4. Dry cough. Congestive changes on chest x-ray, but appearance also of groundglass opacities. Additional evaluation and treatment as above. Status: Acute (4) End stage renal disease: Hemodialysis MWF. Has a right arm fistula. Appreciate nephrology assessment. Likely hemodialysis tomorrow morning. Status: Acute (5) Troponin level elevated: Mild elevation of troponin. Complete EKG and troponin series. Status: Acute (6) Hyponatremia: Possibly hypervolemic secondary to CHF, alternatively possibly a degree of SIADH secondary to acute pulmonary issue. Recheck level. HD in the morning. Status: Acute (7) Alkaline phosphatase elevation: Isolated chronic alkaline phosphatase elevation. 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 She has no abdominal pain, no right upper quadrant te nderness on palpation. Other liver parameters not elevated. Low suspicion of biliary pathology at this time. Please follow-up depending on her clinical course, and if no other concerns continue follow-up on outpatient side. Status: Acute Additional A&P Information Elevated BNP: Secondary to CHF, ESRD as above. First-degree heart block. Sinusitis: Noticed incidentally patchy opacification of sinuses on CT of the head. Antibiotics as above. With a number of chronic conditions. Medication list will need to be reconciled. Please resume as appropriate. Dperession: Resume medication when safe. AFib: CAD History of pericardial effusion HTN Anemia Carotid stenosis COPD on chronic 3-4 L O2 by nasal cannula, currently does not appear in exacerbation History of CVA HLD Morbid obesity AFTAB Diabetes: We will reduce Lantus dose for now. Continue insulin sliding scale. Usher syndrome and blindness Attestations Medical Necessity Statement*: Admission of over 2 midnights is going to needed for assessment of management of acute respiratory failure with hypoxia and hypercapnia, CHF exacerbation in the setting of ESRD, possible pneumonia, and other medical problems outlined above. Critical Care Time: 70 minutes critical care time spent on assessment manag ement of immediately life-threatening issues of respiratory failure, etiologies of pulmonary edema with underlying congestive heart failure ESRD and other conditions, arrangements for additional assessment and treatment. Case discussed with patient, ER physician, and family. Coding Level of Care Code Acute Enterostomal Nurse for g Fwd Exam Comprehensive Diagnoses Acute respiratory failure with hypoxia and hypercapnia J96.01; J96.02 CHF exacerbation I50.9 Pneumonitis J18.9 End stage renal disease N18.6 Troponin level elevated R79.89 Hyponatremia E87.1 Alkaline phosphatase elevation R74.8
[2019-11-30] MEDS: vancomycin 1,000 MG in sodium chloride 0.9% 250 ML 250 MG IV (01:40)
--- NOTE | 2019-11-30 04:24 | ECG_ITS ---
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 Measurements Intervals [place] Rate: 95 P: MS: -1 QRS: -44 QRSD: 111 T: 54 QT: 341 QTc: 429 Interpretive Statements SINUS TACHYCARDIA MARKED LEFT AXIS DEVIATION [QRS AXIS < -30] MODERATE INTRAVENTRICULAR CONDUCTION DELAY [110+ ms QRS DURATION] Compared to ECG 11/30/2019 00:19:41 Left-axis deviation now present Intraventricular conduction delay now present Sinus rhythm no longer present First degree AV block no longer present Prolonged QT interval no longer present Electronically Signed On 11-30-2019 22:04:41 CDT by Vince Stevenson M.D. [email or web address]
--- NOTE | 2019-11-30 04:47 | P.CONIM_ITS ---
Providers/Reason For Consult Consulting Physican/Specialty*: Ana Welsh DO, telenephrology Reason for Consult*: ESRD Attending Physician: Dayo Zuñiga Primary Care Provider: Pradeep Patel MD History of Present Illness History of Present Illness Oscar Pack is a 64 year old female presenting with respiratory distress, requiring intubation. ESRD on HD MWF Last treatment 11/28/2019. Review of Systems General: Reports: ROS unobtainable due to endotracheal tube Meds/Allergies Home Medications and Allergies Home Medications Medication Instructions Recorded Confirmed Last Taken Type atorvastatin 20 mg tablet 20 mg PO QPM 07/09/19 11/20/19 08/27/19 History insulin aspart U-100 100 unit/mL See Rx Instructions .ROUTE .COMPLEX 07/09/19 11/21/19 Unknown History (3 mL) subcutaneous pen levothyroxine 50 mcg capsule 50 mcg PO DAILY 07/09/19 11/20/19 08/28/19 History midodrine 5 mg tablet See Rx Instructions .ROUTE .COMPLEX 07/09/19 11/20/19 08/27/19 History montelukast 10 mg tablet 10 mg PO DAILY 07/09/19 11/20/19 08/27/19 History aspirin 81 mg PO DAILY 08/28/19 11/20/19 08/27/19 History budesonide-formoterol [Symbicort] 1 puff INHALATION BID 08/28/19 11/20/19 08/27/19 History gabapentin 100 mg PO DAILY 08/28/19 11/20/19 08/27/19 History isosorbide mononitrate 30 mg PO DAILY 08/28/19 11/20/19 Unknown History RenaPlex-D 1 tab PO DAILY 09/15/19 11/20/19 Unknown History acetaminophen [Tylenol Extra 1,000 mg PO 6XD PRN 09/15/19 11/20/19 Unknown History Strength] albuterol sulfate [ProAir HFA] 2 puff INHALATION QID PRN 09/15/19 11/20/19 Unknown History cholecalciferol (vitamin D3) 1,000 unit PO DAILY 09/15/19 11/20/19 Unknown H istory [Vitamin D3] diphenhydramine HCl [Benadryl] 50 mg PO BID PRN 09/15/19 11/20/19 Unknown History melatonin 3 mg PO BEDTIME 09/15/19 11/21/19 Unknown History ondansetron 4 mg PO TID PRN 09/15/19 11/20/19 Unknown History oxycodone 5 mg PO Q6H PRN 09/15/19 11/20/19 Unknown History promethazine 12.5 mg PO PRN PRN 09/15/19 11/20/19 Unknown History sevelamer carbonate 800 mg PO TID 09/15/19 11/20/19 Unknown History Zyrtec 10 mg PO DAILY 09/16/19 11/20/19 Unknown History Enema 118 ml [place] DAILY PRN 09/24/19 11/20/19 Unknown History bisacodyl 10 mg [place] DAILY PRN 09/24/19 11/21/19 Unknown History magnesium hydroxide [Milk of 30 ml PO DAILY PRN 09/24/19 11/21/19 Unknown History Magnesia] polyethylene glycol 3350 [Miralax] 17 g PO DAILY PRN 09/24/19 11/20/19 Unknown History Effexor XR 75 mg PO DAILY 10/01/19 11/20/19 Unknown History Senna-S 2 tab PO BID PRN 10/01/19 11/20/19 Unknown History albuterol sulfate 0.63 mg INHALATION QID 10/01/19 11/20/19 Unknown History guaifenesin 600 mg PO BID PRN 10/01/19 11/20/19 Unknown History Lantus U-100 Insulin 20 unit SUBCUT BID #0 ml 10/04/19 11/20/19 08/27/19 Rx diltiazem HCl 30 mg PO Q8H #90 tab 10/04/19 11/20/19 Unknown Rx pantoprazole 40 mg PO BID #0 tab 10/04/19 11/20/19 08/27/19 Rx apixaban 2.5 mg tablet 2.5 mg PO BID 10/14/19 11/21/19 Unknown History metoprolol tartrate 75 mg tablet 75 mg PO BID 10/14/19 11/20/19 Unknown History saxagliptin 5 mg tablet 5 mg PO DAILY 10/14/19 11/20/19 Unknown History Allergies Allergy/AdvReac Type Severity Reaction Status Date / Time grapefruit Allergy Unknown Verified 11/18/19 08:46 lemon Allergy Unknown Verified 11/18/19 08:46 [place] Allergy Unknown Verified 11/18/19 08:46 orange Allergy Unknown Verified 11/18/19 08:46 Penicillins Allergy hives Verified 11/18/19 08:46 strawberry Allergy Unknown Verified 11/18/19 08:46 Sulfa (Sulfonamide Allergy depleat Verified 11/18/19 08:46 Antibiotics) potassium Current Medications Current Medications Generic Name Dose Route Start Last Admin Trade Name Freq PRN Reason Stop Dose Admin Propofol 1,000 mg in 100 mls @ 0 mls/hr 11/29/19 22:30 11/30/19 01:44 Diprivan IV 10 mcg/kg/min .Q0M ACACIA 8.2 mls/hr Titration Protocol Per Protocol PFSH Acute PFSH: Medical History Accelerated essential hypertension Anemia Atherosclerotic heart disease of [place] coronary artery without angina pectoris Breast cancer Carotid artery stenosis, asymptomatic COPD (chronic obstructive pulmonary disease) Patient reports COPD, but restrictive lung disease is also a possibility. 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 see shadows Obesity Obstructive sleep apnea Renal mass Retinitis pigmentosa Type 1 diabetes mellitus Usher syndrome Surgical History H/O lumpectomy left breast H/O tubal ligation Hemodialysis access site with arteriovenous graft History of cholecystectomy Hx of abdominoplasty Family History Mother , at age 88 CAD (coronary artery disease) Hypertension Diabetes Hyperlipidemia Stroke Father , at age 90 No problems noted. Other Cancer Social History Smoking and tobacco status: former smoker Quit status (tobacco): has quit using tobacco Year quit tobacco: 2006 Alcohol intake: never Housing: Care Home Marital status: / Current occupational status: disabled History of recent travel: No Vitals/I&O/Wt Last Vital Signs Temp 97.0 F L 11/29/19 22:25 Pulse 73 11/30/19 04:16 Resp 16 11/30/19 04:16 BP 141/66 11/30/19 04:16 Pulse Ox 95 11/30/19 04:16 11/29/19 11/29/19 11/30/19 14:59 22:59 06:59 Intake Total 12.027 / 12.027 Balance 12.027 / 12.027 Weight last 48 hrs Weight 136.078 kg Physical Exam Const: COMMON NORMALS: no acute distress GENERAL APPEARANCE: patient mechanically ventilated Resp: COMMON NORMALS: normal respiratory effort AUSCULTATION: crackles Cardio: COMMON NORMALS: regular rate and regular rhythm RATE: regular rate RHYTHM: regular rhythm Extremity: GENERAL: Yes AV fistula (RUE, + bruit) and Yes edema Data Micro: Micro: Microbiology 11/30/19 00:51 Blood Culture - Pr eliminary Blood SPECIMEN [facility] 11/30/19 00:54 Blood Culture - Pr eliminary Blood SPECIMEN [facility] Other Data: Other data: CXR pulmonary edema 7.37/50/80 on 50% BNP 00608 A&P Additional A&P Information Impression: 1. VDRF due to pulmonary edema 2. ESRD 3. Hyponatremia, hypervolemic 4. Anemia Recommendation: HD today, 2.5 liters UF as BP tolerates, 2K, no IVs, BPs, blood draws right UE, follow-up cultures Consult Attestations Medical Necessity Statement: critically ill in ICU Coding Level of Care Code Acute Surgical Services Asst for Michelle Borrero
[2019-11-30 05:43] LABS: Glucose Point of Care 204 mg/dL (70-110)
[2019-11-30] MEDS: pantoprazole 40 mg SDV IVP ×2 (05:48→17:58)
[2019-11-30] MEDS: LORazepam 2 mg/mL INJ 1 mL 1 MG IVP (05:49)
[2019-11-30] MEDS: propofol 1,000 MG/100 ML INJ 8.2 MG IV (05:49)
--- NOTE | 2019-11-30 06:30 | XRR_ITS ---
PROCEDURE INFORMATION: Exam: XR Chest, 1 View Exam date and time: 11/30/2019 8:09 AM Age: 64 years old Clinical indication: Other: Hypoxia TECHNIQUE: Imaging protocol: XR of the chest Views: 1 view. COMPARISON: CR (CHEST, ) 11/29/2019 10:28 PM FINDINGS: Tubes, catheters and devices: Endotracheal tube, tip 2.4 cm above ifrah. Lungs: Moderate mixed interstitial/alveolar opacities throughout both lungs, decreased from prior study. These may represent any combination of pulmonary edema and pneumonia. Pleural space: No visible pneumothorax. Small left pleural effusion, similar to prior study. Heart/Mediastinum: Mild cardiomegaly, similar to prior study. Bones/joints: No emergent findings identified. XR/XR chest 1V portable [id number] IMPRESSION: 1. Moderate mixed interstitial/alveolar opacities throughout both lungs, decreased from prior study. These may represent any combination of pulmonary edema and pneumonia. 2. Small left pleural effusion, similar to prior study.
[2019-11-30 06:53] LABS: Thyroid Stimulating Hormone 1.34 uIU/mL (0.27-4.20)
[2019-11-30 07:38] LABS: Glucose Point of Care 174 mg/dL (70-110)
[2019-11-30 07:42] LABS: Influenza A by IFA Negative (Negative); Influenza B by IFA Negative (Negative)
[2019-11-30 07:45] LABS: Hematocrit 30.3 % (37.0-47.0); Hemoglobin 9.2 g/dL (11.5-15.3); Mean Corpuscular HGB Conc 30.4 g/dL (30.0-36.0); Mean Corpuscular Hemoglobin 29.8 pg (28.0-34.0); Mean Corpuscular Volume 98.1 fL (81-99); Nucleated Red Blood Cells # 0.8 /100WBC; Nucleated Red Blood Cells % 4.7 %; Platelet Count 194 10^3/cmm (130-400); Red Blood Count 3.09 10^6/uL (4.1-5.3); Red Cell Distribution Width 16.9 % (12.1-15.1); White Blood Count 17.4 10^3/uL (4.0-10.0)
[2019-11-30 08:17] LABS: Slide Review Slide Review Perform
[2019-11-30 08:22] LABS: Absolute Segmented Neutrophil 13.7 10/cmm (1.6-7.1); Band Neutrophils Absolute 0.5 10^3/cmm (0.0-1.2); Corrected White Blood Count 16.3 10^3/cmm (4.8-10.8); Lymphocytes 12 %; Segmented Neutrophils 79 %; Total Cells Counted 100 (0-100)
[2019-11-30 08:24] LABS: Absolute Neutrophil 14.3 10^3/cmm (1.4-6.5); Anisocytosis 1+; Platelet Estimate Normal (Normal)
[2019-11-30 08:28] LABS: Troponin T (5th) Once 63 ng/L (0-10)
[2019-11-30] MEDS: insulin glargine 100 units/1 mL 10 UNIT SUBCUT (08:45)
[2019-11-30 09:00] LABS: Hepatitis B Core AB, Total Non-Reactive (Nonreactive); Hepatitis B Surface AB 3.5 (0-8.5); Hepatitis B Surface Antigen Non-Reactive (Nonreactive); Hepatitis C Virus Antibody Non-Reactive (Nonreactive)
[2019-11-30] MEDS: apixaban 5 mg Tablet 2.5 MG OG-TUBE ×2 (09:42→17:58)
[2019-11-30 11:10] LABS: Glucose Point of Care 110 mg/dL (70-110)
[2019-11-30] MEDS: ipratropium-albuterol 3 mL Neb INHALATION ×5 (12:00→23:45)
--- NOTE | 2019-11-30 12:26 | P.PN_ITS ---
Subjective Subjective: Interval history: Admitted overnight. H&P and labs noted. [facility] Patient underwent 1 session of dialysis today and had ultrafiltration of 2.5 L. Patient is sedated to propofol and fentanyl. On ventilator. Patient has an IO and to 20 G cannula's. Unfortunately there is no room in her room for central line placement and COVID-19 is awaited so patient cannot be moved. All the IV access and IO access for now patent. We will try to get ultrasound guided IV line. Vitals/I&O/Wt Last Vital Signs Temp 98.0 F 11/30/19 09:58 Pulse 74 11/30/19 12:03 Resp 18 11/30/19 12:03 BP 117/71 11/30/19 09:30 Pulse Ox 97 11/30/19 12:03 11/29/19 11/30/19 11/30/19 22:59 06:59 14:59 Intake Total 45.510 / 45.510 95.783 / 95.783 Balance 45.510 / 45.510 95.783 / 95.783 Weight last 48 hrs Weight 102.058 kg Weight 136.078 kg Physical Exam Const: COMMON NORMALS: no acute distress EXAM LIMITATIONS: other limitations (Intubated, sedated) GENERAL APPEARANCE: cooperative NUTRITIONAL APPEARANCE: obese morbidly obese HENMT: COMMON NORMALS: oropharynx normal Neck/C-Spine: COMMON NORMALS: no JVD Resp: COMMON NORMALS: normal respiratory effort AUSCULTATION: rales (scattered) Cardio: COMMON NORMALS: no JVD, regular rhythm, S1 normal heart sound present, S2 normal heart sound present and No murmurs present (Cardio) RHYTHM: regular rhythm HEART SOUNDS: S1 normal heart sound present and S2 normal heart sound present GI: COMMON NORMALS: Normal to inspection, nondistended, normoactive bowel sounds present, Soft to palpation and non-tender PALPATION: Yes Soft to palpation Extremity: COMMON NORMALS: no joint enlargement OTHER: Trace edema, although difficult to assess due to body habitus. Neuro: COMMON NORMALS: moves all extremities Skin: COMMON NORMALS: no rashes or lesions noted GENERAL SKIN EXAM: no rashes or lesions noted Data : 11/30/19 07:30 11/29/19 22:59 Micro: Microbiology 11/30/19 00:51 Blood Culture - Preliminary Blood SPECIMEN COLLECTED 11/30/19 00:54 Blood Culture - Preliminary Blood SPECIMEN COLLECTED A&P Assessment and plan (1) Acute respiratory failure with hypoxia and hypercapnia: Status: Acute (2) CHF exacerbation: Status: Acute (3) Pneumonitis: With leukocytosis 17.4. Dry cough. Congestive changes on chest x-ray, but appearance also of groundglass opacities. Additional evaluation and treatment as above. Status: Acute (4) End stage renal disease: Hemodialysis MWF. Has a right arm fistula. Appreciate nephrology assessment. Likely hemodialysis tomorrow morning. Status: Acute (5) Troponin level elevated: Mild elevation of troponin. Complete EKG and troponin series. Status: Acute (6) Hyponatremia: Possibly hypervolemic secondary to CHF, alternatively possibly a degree of SIADH secondary to acute pulmonary issue. Recheck level. HD in the morning. Status: Acute (7) Alkaline phosphatase elevation: Isolated chronic alkaline phosphatase elevation. 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 She has no abdominal pain, no right upper quadrant tenderness on palpation. Other liver parameters not elevated. Low suspicion of biliary pathology at this time. Please follow-up depending on her clinical co urse, and if no other concerns continue follow-up on outpatient side. Status: Acute (8) COVID-19 virus test result unknown: Status: Acute Additional A&P Information Acute hypoxic and hypercapnic respiratory failure: Chronic. On review of imaging most likely secondary to congestive heart failure. Patient undergoing hemodialysis because of history of ESRD. 2.5 L ultrafiltrate. Repeat chest x-ray after hemodialysis. Last echocardiogram from September 2019 shows an EF of 64%, grade 2 diastolic dysfunction, RVSP of 32 mmHg, moderate pericardial effusion located more at posterior wall of left ventricle without any hemodynamic compromise. We will request for repeat echocardiogram to evaluate for pericardial effusion. CT chest without contrast. Overnight patient was started on IV antibiotics because of concern of pneumonia due to leukocytosis. For now we will continue with antibiotics. Follow-up cultures, MRSA swab and de-escalate accordingly. Legionella, bact erial antigen awaited. COVID-19 scan results awaited. Continue with isolation precaution. Daily weights. Oxygen supplementation keeping saturation over 90%. Had a detailed discussion with patient's son Mr. Fritz Quiñonez. He states he is not really sure why patient was intubated as [facility]. On review of the old paperwork it seems patient was allow natural on previous admission but on the last admission she was discharged on full code. Son confirms that patient is DNR/DNI. CODE STATUS has been changed. For further goals of care discussion it was decided that for now we will continue the treatment and if patient is not extubated will in next 1 to 2 days then will revisit with the family and then possibly decide about terminal extubation/comfort measures. Continue propofol. Will change fentanyl to fentanyl pushes 25 mcg every hour as needed. Keep mean arterial pressure over 65 mmhg. If required we will start patient on Levophed. Right now pressures are well maintained. Elevated BNP: Secondary to CHF, ESRD as above. First-degree heart block. Sinusitis: Noticed incidentally patchy opacification of sinuses on CT of the head. Antibiotics as above. With a number of chronic conditions. Medication list will need to be reconciled. Please resume as appropriate. Dperession: Resume medication when safe. AFib: CAD History of pericardial effusion HTN Anemia Carotid stenosis COPD on chronic 3-4 L O2 by nasal cannula, currently does not appear in exacerbation History of CVA HLD Morbid obesity AFTAB Diabetes: We will reduce Lantus dose for now. Continue insulin sliding scale. Usher syndrome and blindness Patient is COVID-19 negative will move her out of the COVID unit to her room where dialysis could be done easily. Once patient is moved will assess for central line placement. DNR/DNI. N.p.o. Heparin for DVT prophylaxis Attestations Medical Necessity Statement*: Acute hypoxic respiratory failure, intubated, CHF, ESRD, COVID-19 unknown Time Spent in Patient Care: Greater than 35 minutes Coding Level of Care Code Acute Scientific Editor for [facility] Fwd Diagnoses Acute respiratory failure with hypoxia and hypercapnia J96.01; J96.02 CHF exacerbation I50.9 Pneumonitis J18.9 End stage renal disease N18.6 Troponin level elevated R79.89 Hyponatremia E87.1 Alkaline phosphatase elevation R74.8 COVID-19 virus test result unknown Z20.828
--- NOTE | 2019-11-30 13:09 | PC.NURSE ---
position change unable to turn patient d/t receiving dialysis, no room at bedside to turn patient.
[2019-11-30] MEDS: propofol 1,000 MG/100 ML INJ 20.4 MG IV (15:00)
--- NOTE | 2019-11-30 16:05 | XRR_ITS ---
PROCEDURE INFORMATION: Exam: XR Chest, 1 View Exam date and time: 11/30/2019 5:13 PM Age: 64 years old Clinical indication: Device placement; Other: Og placenent; Additional info: Post dialysis, og placement TECHNIQUE: Imaging protocol: XR of the chest Views: 1 view. COMPARISON: CR XR chest 1V portable [id number] 11/30/2019 7:52 AM FINDINGS: There is an endotracheal tube tip at the level of the aortic arch. There is an orogastric tube noted. The tip extends beyond the radiograph. The side port is in the stomach. The lung jean baptiste are hypoventilated. There are basilar infiltrates. There is a left pleural effusion. There is no pneumothorax. There is cardiomegaly and pulmonary vascular congestion. XR/XR chest 1V portable [id number] IMPRESSION: 1. Endotracheal tube and nasogastric tube in place. 2. Bibasilar infiltrates left greater than right with left pleural effusion. 3. Cardiomegaly and pulmonary vascular congestion.
[2019-11-30 17:58] LABS: Glucose Point of Care 86 mg/dL (70-110)
[2019-11-30] MEDS: propofol 1,000 MG/100 ML INJ 24.5 MG IV (20:10)
[2019-11-30 21:26] LABS: Glucose Point of Care 82 mg/dL (70-110)
[2019-12-01] VITALS (71 sets, daily range): BP systolic 79–159; BP diastolic 40–113; PULSE 92–124; RESP 13–26; TEMP 37.2–38.2; O2SAT 55–100
[2019-12-01] MEDS: propofol 1,000 MG/100 ML INJ 20.4 MG IV (00:36)
[2019-12-01] MEDS: ipratropium-albuterol 3 mL Neb INHALATION ×6 (03:04→23:50)
[2019-12-01 04:47] LABS: ABG PCO2 39.9 mmHg (35-45); ABG PH Result 7.46 (7.35-7.45); Arterial Blood Gas Hematocrit 28.8 % (37-47); Base Excess ABG 4.4 mmol/L (-2.0-2.0); Blood Gas Allen Test Pos; Blood Gas Sample Site Radial, left; Blood Gas Sample Type Arterial; HCO3 ABG 28.5 mmol/L (22-26); Oxygen Device VENT
[2019-12-01 05:43] LABS: Basophils % 0.4 %; Eosinophils # 0.2 10^3/uL (0.0-0.8); Eosinophils % 1.7 %; Hematocrit 27.4 % (37.0-47.0); Hemoglobin 8.3 g/dL (11.5-15.3); Lymphocytes # 1.3 10^3/uL (0.8-4.8); Lymphocytes % 13.7 %; Mean Corpuscular HGB Conc 30.3 g/dL (30.0-36.0); Mean Corpuscular Hemoglobin 29.7 pg (28.0-34.0); Mean Corpuscular Volume 98.2 fL (81-99); Mean Platelet Volume 9.4 fL (7.4-10.4); Monocytes # 0.8 10^3/uL (0.2-0.9); Monocytes % 8.3 %; Neutrophils % 75.4 %; Nucleated Red Blood Cells % 0 %; Platelet Count 218 10^3/cmm (130-400); Red Blood Count 2.79 10^6/uL (4.1-5.3); Red Cell Distribution Width 17.4 % (12.1-15.1); White Blood Count 9.4 10^3/uL (4.0-10.0)
[2019-12-01 06:11] LABS: Alanine Aminotransferase 12 U/L (0-33); Albumin Level 3.4 g/dL (3.5-5.2); Alkaline Phosphatase 109 IU/L (35-105); Anion Gap 15.8 (5-19); Aspartate Amino Transferase 14 U/L (0-32); Blood Urea Nitrogen 16 mg/dL (8-23); Calcium 8.5 mg/dL (8.5-10.5); Carbon Dioxide 27 mmol/L (22-29); Chloride 90 mmol/L (98-107); Globulin 2.9 g/dL (1.3-4.6); Glomerular Filtration Rate 10.4 mL/min (90-130); Glucose 98 mg/dL (65-115); Osmolality Calculated 264 mOsm/kg (285-295); Potassium 3.8 mmol/L (3.5-5.1); Sodium 129 mmol/L (136-145); Total Bilirubin 0.4 mg/dL (0.15-1.2); Total Protein 6.3 g/dL (6.6-8.7)
[2019-12-01] MEDS: pantoprazole 40 mg SDV IVP ×2 (06:36→17:50)
--- NOTE | 2019-12-01 06:41 | PC.NURSE ---
shift summary pt has remained sedated. will wake up to verbal stimuli. pt has been turned periodically. pt ivs remain patent. no bm noted. no skin break down noted. pt lungs remain diminished.
--- NOTE | 2019-12-01 06:57 | PM.PN ---
Subjective Subjective: Interval history: sedated. intubated Medications: Reviewed: Yes Medication Review Details: Current Medications Acetaminophen (Tylenol) 650 mg PO Q6H PRN PRN Reason: Mild/Mod Pain Or Temp >/= 101 Albuterol/Ipratropium (Duoneb) 3 ml INHALATION Q4H.RESPIRATORY ACACIA Last Admin: 12/01/19 03:04 Dose: 3 ml Documented by: Albuterol/Ipratropium (Duoneb) 3 ml INHALATION Q4H PRN PRN Reason: SHORTNESS OF BREATH Apixaban (Eliquis) 2.5 mg OG-TUBE BID ACACIA Last Admin: 11/30/19 17:58 Dose: 2.5 mg Documented by: Dextrose (D50w) 25 ml IVP ONCE PRN; Protocol PRN Reason: hypoglycemia protocol Dextrose (D50w) 50 ml IVP PRN PRN; Protocol PRN Reason: hypoglycemia protocol Fentanyl (Sublimaze) 25 mcg IVP Q2H PRN PRN Reason: SEVERE PAIN Glucagon (Glucagen) 1 mg IM ONCE PRN; Protocol PRN Reason: Adult Acute Hypoglycemia Prot. Hydralazine HCl (Apresoline) 5 mg IVP Q6H PRN PRN Reason: HYPOTENSION Propofol (Diprivan) 1,000 mg in 100 mls @ 0 mls/hr IV .Q0M ACACIA; Protocol Last Admin: 12/01/19 00:36 Dose: 25 mcg/kg/min, 20.4 mls/hr Documented by: Aztreonam 500 mg/ Sodium (Chloride) 50 mls @ 100 mls/hr IV Q8H ACACIA; Protocol Last Infusion: 12/01/19 02:58 Dose: Infused Documented by: Dextrose (D5w) 500 mls @ 100 mls/hr IV ONCE PRN; Protocol PRN Reason: Adult Acute Hypoglycemia Prot Vancomycin HCl 1,500 mg/ (Sodium Chloride) 250 mls @ 250 mls/hr IV Q48H ACACIA; Protocol Insulin Aspart (Novolog) 0 unit SUBCUT WM&BEDTIME ACACIA; Protocol Last Admin: 11/30/19 21:38 Dose: Not Given Documented by: Insulin Glargine (Lantus) 10 unit SUBCUT Q12H ACACIA Last Admin: 11/30/19 21:38 Dose: Not Given Documented by: Ondansetron HCl (Zofran) 4 mg IVP Q8H PRN PRN Reason: vomiting, or N/V if npo Pantoprazole Sodium (Protonix) 40 mg IVP Q12H ACACIA Last Admin: 12/01/19 06:36 Dose: 40 mg Documented by: Vitals/I&O/Wt Last Vital Signs Temp 100.7 F H 12/01/19 04:30 Pulse 100 12/01/19 04:30 Resp 22 H 12/01/19 05:59 BP 92/40 12/01/19 04:30 Pulse Ox 95 12/01/19 04:30 11/30/19 11/30/19 12/01/19 14:59 22:59 06:59 Intake Total 150.000 / 150.000 189.895 / 339.895 95.9 / 435.795 Output Total 0 / 0 0 / 0 Balance 150.000 / 150.000 189.895 / 339.895 95.9 / 435.795 Weight last 48 hrs Weight 102.058 kg Weight 136.078 kg Physical Exam Narrative: EXAM NARRATIVE: per nurse and hospitalist. Camera not taken into roon due to COVID-19 pandemic. to limit infection risk and to preserve PPE and to keep camera clean BP low- low dose pressors/ sedatives diminished lungs and crackles hgeart reg minimnal leg edema Data : 12/01/19 04:36 12/01/19 04:36 Micro: Microbiology 11/30/19 00:51 Blood Culture - Preliminary Blood NEGATIVE TO DATE 11/30/19 00:54 Blood Culture - Preliminary Blood NEGATIVE TO DATE 11/30/19 06:29 MRSA Culture - Final Nose A&P Additional A&P Information 1. Q pna- renal dose abx - WBC improved from 17 to 9 2. Q CHF- difficult to remove fluids on HD as BP on low side. consider dec sedatives and allow fluid removal. 3. anemia- check iron studies 4. await covid-19 results 5. VDRF- will discuss volume management w/ hospitalist 6/ h/o pericardial effusion- please repeat echo. if has effusion, Q if uremic. but BUN not very high. Q infectious or rheumatologic cause 7. normal tsh Attestations Medical Necessity Statement*: vdrf Time Spent in Patient Care: Greater than 35 minutes Coding Level of Care Code Acute Injection Molding Process Technician for [facility]
--- NOTE | 2019-12-01 07:00 | CT_ITS ---
WS: [id number] CT CHEST WITHOUT INTRAVENOUS CONTRAST HISTORY: intubated, unresponsive. TECHNIQUE: Contiguous 5 mm axial imaging performed on the thorax. Coronal and sagittal reformats are submitted. All CT scans at [facility] use at least one of these dose optimization techniq ues: automated exposure control; mA and/or kV adjustment per patient size (includes targeted exams wh ere dose is matched to clinical indication); or iterative reconstruction. CONTRAST: None DLP: 852.41 mGy.cm COMPARISON: 08/28/2019 Lungs and central airway: Diffuse haziness and groundglass attenuation noted bilaterally. There are a dditional areas of consolidation and atelectasis. Very small bilateral layering pleural effusions. Pleura: Small effusions. No pneumothorax. Heart and pericardium: Marked enlargement of the heart. There are small pericardial effusion. Mediastinum and shai: Patient is intubated. Endotracheal tube ends several centimeters above the astrid na in good position. Nasogastric tube extends into the stomach. There are small mediastinal and hilar lymph nodes. Vessels: Mild atherosclerosis aorta. Enlarged pulmonary artery. Chest wall and lower neck: Mild soft tissue edema. Upper abdomen: Superior poles of each kidney are atrophic. Osseous structures: No destructive process. CT/CT chest wo con [id number] IMPRESSION: 1. Bilateral lower lobe atelectasis with additional scattered opacifications i n the upper lung jean baptiste which may be atelectasis or pneumonia. 2. Mild diffuse pulmonary edema. 3. Moderate cardiomegaly and small pericardial effusion. 4. Endotracheal and nasogastric tubes are in good positions.
[2019-12-01] MEDS: apixaban 5 mg Tablet 2.5 MG OG-TUBE ×2 (07:45→17:50)
[2019-12-01] MEDS: acetaminophen 325 mg Tablet 650 MG PO ×2 (07:46→23:31)
[2019-12-01 08:28] LABS: Glucose Point of Care 101 mg/dL (70-110)
[2019-12-01 11:52] LABS: Coronavirus Lab Test PTC NOT DETECTED
[2019-12-01 12:00] LABS: Glucose Point of Care 99 mg/dL (70-110)
--- NOTE | 2019-12-01 12:39 | PM.PN ---
Subjective Subjective: Interval history: Oscar is awake, on the ventilator. She communicates by nodding yes or no. We discussed full code somewhat and she indicates she would want to be intubated. She indicated this at the nursing facility as well and she is her own guardian. I discussed with her son, and he reported what ever she wanted was what should occur. Medications: Reviewed: Yes Vitals/I&O/Wt Last Vital Signs Temp 99.2 F 12/01/19 12:00 Pulse 93 12/01/19 11:23 Resp 17 12/01/19 12:24 BP 104/47 12/01/19 07:00 Pulse Ox 95 12/01/19 11:23 11/30/19 12/01/19 12/01/19 22:59 06:59 14:59 Intake Total 189.895 / 339.895 95.9 / 435.795 165 / 165 Output Total 0 / 0 0 / 0 Balance 189.895 / 339.895 95.9 / 435.795 165 / 165 Weight last 48 hrs Weight 102.058 kg Weight 136.078 kg Physical Exam Narrative: EXAM NARRATIVE: General exam is an intubated white female, in no distress Cardiovascular regular rate and rhythm without murmur, no S3 or S4 Lungs clear no wheezing or crackles Abdomen is soft with positive bowel sounds, obese Extremities no edema Data : 12/01/19 04:36 12/01/19 04:36 Micro: Microbiology 11/30/19 06:29 Sputum Culture - Preliminary Sputum - Endotracheal Tube Aspirate 11/30/19 00:51 Blood Culture - Preliminary Blood NEGATIVE TO DATE 11/30/19 00:54 Blood Culture - Preliminary Blood NEGATIVE TO DATE 11/30/19 06:29 MRSA Culture - Final Nose A&P Assessment and plan (1) Acute respiratory failure with hypoxia and hypercapnia: Currently on fairly minimum ventilator settings. Chronically on 4 L of oxygen. May be able to extubate after dialysis today, to BiPAP. Have wean propofol somewhat, for possible extubation. Secondary to possible pneumonia was placed on vancomycin and aztreonam. As MRSA PCR negative will discontinue vancomycin. Status: Acute (2) CHF exacerbation: Significantly improved with removal of fluid by dialysis, although chest x-ray still shows some bibasilar infiltrates and edema. Consistent with acute diastolic heart failure. Awaiting echocardiogram to rule out significant pericardial effusion. Status: Acute (3) Pneumonitis: Covid 19 is negative. Continue vancomycin and aztreonam. MRSA PCR has now returned. Will discontinue vancomycin. Await sputum culture, blood cultures Status: Acute (4) End stage renal disease: Appreciate nephrology consultation Dialysis planned today Status: Acute (5) Troponin level elevated: No evidence of acute myocardial infarction. Troponin elevation consistent with type II, as well as elevation secondary to her chronic renal failure. Status: Acute (6) Hyponatremia: Improved following hemodialysis Status: Acute (7) Alkaline phosphatase elevation: Isolated chronic alkaline phosphatase elevation. 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 This will not be evaluated further Status: Acute (8) COVID-19 virus test result unknown: COVID negative Status: Acute Additional A&P Information History of coronary disease Borderline hypotension, exacerbated by propofol. From home medicine list it appears she is on midodrine COPD chronically on 3 to 4 L of oxygen Hypertension, history of Atrial fibrillation, on chronic anticoagulation. Rate controlled currently. Anemia History of carotid stenosis History of CVA Morbid obesity Type 2 diabetes. Sliding scale insulin Full code Eliquis will suffice for DVT prophylaxis. Attestations Medical Necessity Statement*: Needs continued hospitalization secondary to pulmonary edema/acute diastolic heart failure. Critical Care Time: 45 minutes spent at bedside with this critically ill patient on ventilator support with borderline hypotension with a high risk of worsening considering her multiorgan dysfunction including end-stage renal disease. Coding Level of Care Code Acute Welfare Centre Manager for [facility] Fwd Diagnoses Acute respiratory failure with hypoxia and hypercapnia J96.01; J96.02 CHF exacerbation I50.9 Pneumonitis J18.9 End stage renal disease N18.6 Troponin level elevated R79.89 Hyponatremia E87.1 Alkaline phosphatase elevation R74.8 COVID-19 virus test result unknown Z20.828
--- NOTE | 2019-12-01 12:41 | PC.NURSE ---
PATIENT RESPONDING TO COMMANDS ON FIRST ASSESSMENT BUT ON 30 OF DIPRAVAN. WEANED DIPRAVAN DUE TO BP AND SHE FOLLOWED WELL ANTICIPATED COMMANDS ON 23MCG OF DIPARAVAN. CURRENTLY WE ARE ATTEMPTING TO EXTUBATE SO THE DIPRAVAN IS AT ONE MCG. AND THE ECHO ORDERED IS BEING PERFORMED. NOTED PATIENT HAD NO SUCTION FOR HER OGT. PORTABLE SUCTION OBTAINED AND THANKFULLY SHE HAD MINIMAL AMOUNTS OF GREEN CLEAR STOMACH CONTENTS. THE SUCTION IS NOT TECHNICALLY INTERMINTENT SO I TURN IT ON AND OFF A FEW TIMES WHILE I AM BEDSIDE AND OFF WHEN I LEAVE THE ROOM TO DIMINISH STOMACH IRRITATION.
--- NOTE | 2019-12-01 14:33 | PC.NURSE ---
FENTANYL DRIP 57MLS WASTED WITH SULY GAYLE RN PRIOR TO TRANSFER.
[2019-12-01] MEDS: sodium chloride 0.9% (100 ml) 100 ML 10 ML (15:51)
--- NOTE | 2019-12-01 16:19 | PC.RESP ---
Pulmonary Rehab information sent to patient.
[2019-12-01 17:26] LABS: Glucose Point of Care 101 mg/dL (70-110)
--- NOTE | 2019-12-01 21:25 | USCV_ITS ---
Oscar Pack Age: 64 Gender: F : 1955 Exam Date: 12/01/2019 12:35 Ordering Phys: Ugo Roca MD Technologist: Case Chiang [place] [facility] [place]: PERICARDIAL EFFUSION BP: 138 / 65 HR: 102 Rhythm: Sinus Technical Quality: Very poor MEASUREMENTS (Male / Female) Normal Values 2D ECHO LV Diastolic Diameter PLAX 4.5 cm 4.2 - 5.9 / 3.9 - 5.3 cm LV Systolic Diameter PLAX 3.2 cm IVS Diastolic Thickness 1.2 cm 0.6 - 1.0 / 0.6 - 0.9 cm IVS Systolic Thickness 1.6 cm LVPW Diastolic Thickness 1.3 cm 0.6 - 1.0 / 0.6 - 0.9 cm LVPW Systolic Thickness 1.3 cm LVOT Diameter 2.0 cm LV Ejection Fraction 2D Teich 56.8 % LV Ejection Fraction MOD 2C 60.1 % LV Ejection Fraction 2C AL 60.0 % LA Diameter 4.3 cm LA Width 5.0 cm LA Height 6.5 cm RA Width 4.7 cm RA Height 6.1 cm M-MODE LV Diastolic Diameter MM 4.3 cm 4.2 - 5.9 / 3.9 - 5.3 cm LV Systolic Diameter MM 3.0 cm LV Ejection Fraction MM Teich 58.3 % IVS Diastolic Thickness MM 1.3 cm 0.6 - 1.0 / 0.6 - 0.9 cm IVS Systolic Thickness MM 1.4 cm LVPW Diastolic Thickness MM 1.4 cm 0.6 - 1.0 / 0.6 - 0.9 cm LVPW Systolic Thickness MM 1.8 cm RV Diastolic Diameter MM 2.0 cm Aortic Annulus Diameter 3.6 cm LA Ao Ratio MM 1.2 MV E Point Septal Separation 2.2 cm DOPPLER AV Peak Velocity 111.0 cm/s LVOT Peak Velocity 143.0 cm/s AV Area Cont Eq vti 4.0 cm squared AV Area Cont Eq pk 4.0 cm squared MV Area PHT 5.0 cm squared Mitral E to A Ratio 1.1 MV E' Velocity 6.0 cm/s Mitral E to MV E' Ratio 22.5 Mitral E to LV E' Lateral Ratio 22.5 Mitral E to LV E' Septal Ratio 22.5 TR Peak Velocity 353.0 cm/s TR Peak Gradient 49.8 mmHg TV Peak E Velocity 142.0 cm/s Right Atrial Pressure 15.0 mmHg Pulmonary Artery Systolic Pressu 64.8 mmHg FINDINGS Left Ventricle This is a very poor quality study. The ventricle is likely normal in size and function with a normal ejection fraction. There are no obvious wall motion disturbances. Diastolic function cannot be determined. Right Ventricle Right ventricle not well visualized. Calculations suggest severe pulmonary hypertension with a pulmonary artery pressure of 65 mmHg but this may be an error due to the poor quality study and inadequate evaluation of the tricuspid envelope. Right Atrium Mildly increased right atrial size. Left Atrium Mildly increased left atrial size. Mitral Valve The mitral valve is poorly seen. There may be mild mitral regurgitation. Aortic Valve Aortic valve is poorly seen. There may be mild aortic insufficiency. Tricuspid Valve Tricuspid valve not well visualized. Pulmonic Valve Pulmonic valve not well visualized. Pericardium Normal pericardium without effusion. Aorta Normal ascending aorta dimension. CONCLUSIONS This is a very poor quality study. The ventricle is likely normal in size and function with a normal ejection fraction. There are no obvious wall motion disturbances. Diastolic function cannot be determined. Right ventricle not well visualized. Calculations suggest severe pulmonary hypertension with a pulmonary artery pressure of 65 mmHg but this may be an error due to the poor quality study and inadequate evaluation of the tricuspid envelope. Mildly increased right atrial size. Mildly increased left atrial size. The mitral valve is poorly seen. There may be mild mitral regurgitation. Aortic valve is poorly seen. There may be mild aortic insufficiency. The previous echo was done only 2 months ago. There has been no change. Dr. Mike Pichardo MD (Electronically Signed) Final Date: 01 December 2019 17:27 S
[2019-12-01 21:46] LABS: Glucose Point of Care 97 mg/dL (70-110)
[2019-12-01 22:53] LABS: ABG PCO2 37.7 mmHg (35-45); ABG PH Result 7.46 (7.35-7.45); Arterial Blood Gas Hematocrit 27.9 % (37-47); Base Excess ABG 2.8 mmol/L (-2.0-2.0); Blood Gas Sample Site Brachial, left; Blood Gas Sample Type Arterial; HCO3 ABG 26.8 mmol/L (22-26); Oxygen Device VENT; PO2 ABG 71.1 mmHg (80.0-100.0)
--- NOTE | 2019-12-01 23:18 | PC.RESP ---
pt extubabted to 4lm nc without incident
--- NOTE | 2019-12-01 23:24 | PC.NURSE ---
PT EXTUBATED TO GA. PT ALERT AND ORIENTATED. PT SEDATION TURNED OFF.
[2019-12-02] VITALS (43 sets, daily range): BP systolic 109–168; BP diastolic 43–82; PULSE 88–109; RESP 14–28; TEMP 36.6–37.2; O2SAT 93–100
[2019-12-02 04:12] LABS: Basophils % 0.3 %; Eosinophils # 0.3 10^3/uL (0.0-0.8); Eosinophils % 3.2 %; Hematocrit 28.6 % (37.0-47.0); Hemoglobin 8.6 g/dL (11.5-15.3); Lymphocytes # 1.5 10^3/uL (0.8-4.8); Lymphocytes % 16.4 %; Mean Corpuscular HGB Conc 30.1 g/dL (30.0-36.0); Mean Corpuscular Hemoglobin 29.6 pg (28.0-34.0); Mean Corpuscular Volume 98.3 fL (81-99); Mean Platelet Volume 9.8 fL (7.4-10.4); Monocytes # 0.8 10^3/uL (0.2-0.9); Monocytes % 9.3 %; Neutrophils # 6.21 10^3/uL (1.8-7.7); Neutrophils % 70.2 %; Nucleated Red Blood Cells % 0 %; Platelet Count 222 10^3/cmm (130-400); Red Blood Count 2.91 10^6/uL (4.1-5.3); Red Cell Distribution Width 17.5 % (12.1-15.1); White Blood Count 8.8 10^3/uL (4.0-10.0)
[2019-12-02] MEDS: ipratropium-albuterol 3 mL Neb INHALATION ×5 (04:32→20:34)
[2019-12-02 04:33] LABS: Magnesium 2.1 mg/dL (1.7-2.3); Phosphorus 4.7 mg/dL (2.5-4.5)
[2019-12-02 04:39] LABS: Alanine Aminotransferase 13 U/L (0-33); Albumin Level 3.7 g/dL (3.5-5.2); Alkaline Phosphatase 112 IU/L (35-105); Anion Gap 18.9 (5-19); Aspartate Amino Transferase 14 U/L (0-32); Blood Urea Nitrogen 25 mg/dL (8-23); Carbon Dioxide 25 mmol/L (22-29); Chloride 88 mmol/L (98-107); Globulin 3.4 g/dL (1.3-4.6); Glomerular Filtration Rate 6.7 mL/min (90-130); Glucose 92 mg/dL (65-115); Osmolality Calculated 262 mOsm/kg (285-295); Potassium 3.9 mmol/L (3.5-5.1); Sodium 128 mmol/L (136-145); Total Bilirubin 0.5 mg/dL (0.15-1.2); Total Protein 7.1 g/dL (6.6-8.7)
[2019-12-02 05:07] LABS: Parathyroid Hormone 149.2 pg/mL (15-65)
[2019-12-02] MEDS: pantoprazole 40 mg SDV IVP (05:53)
--- NOTE | 2019-12-02 06:11 | PC.NURSE ---
SHIFT SUMMARY PT HAS BEEN PROTECTED AIRWAY SINCE EXTUBATION, PT HAS HAD A BATH. PT HAS BEEN ABLE TO SHIFT HER OWN WEIGHT IN BED. NO SKIN BREAKDOWN NOTED. PT HAS BEEN ALERT AND ORIENTATED. PT BLOOD PRESSURES ARE WNL.
--- NOTE | 2019-12-02 06:34 | P.PN_ITS ---
Subjective Subjective: Interval history: extub ated, lethargic. sleeping comfortably Medications: Reviewed: Yes Medication Review Details: Current Medications Acetaminophen (Tylenol) 650 mg PO Q6H PRN PRN Reason: Mild/Mod Pain Or Temp >/= 101 Last Admin: 12/01/19 23:31 Dose: 650 mg Documented by: Albuterol/Ipratropium (Duoneb) 3 ml INHALATION Q4H.RESPIRATORY ACACIA Last Admin: 12/02/19 04:32 Dose: 3 ml Documented by: Albuterol/Ipratropium (Duoneb) 3 ml INHALATION Q4H PRN PRN Reason: SHORTNESS OF BREATH Apixaban (Eliquis) 2.5 mg OG-TUBE BID ACACIA Last Admin: 12/01/19 17:50 Dose: 2.5 mg Documented by: Dextrose (D50w) 25 ml IVP ONCE PRN; Protocol PRN Reason: hypoglycemia protocol Dextrose (D50w) 50 ml IVP PRN PRN; Protocol PRN Reason: hypoglycemia protocol Fentanyl (Sublimaze) 25 mcg IVP Q2H PRN PRN Reason: SEVERE PAIN Glucagon (Glucagen) 1 mg IM ONCE PRN; Protocol PRN Reason: Adult Acute Hypoglycemia Prot. Propofol (Diprivan) 1,000 mg in 100 mls @ 0 mls/hr IV .Q0M ACACIA; Protocol Last Titration: 12/01/19 07:47 Dose: Infused Documented by: Dextrose (D5w) 500 mls @ 100 mls/hr IV ONCE PRN; Protocol PRN Reason: Adult Acute Hypoglycemia Prot Aztreonam 500 mg/ Sodium (Chloride) 50 mls @ 100 mls/hr IV Q8H ACACIA; Protocol Last Infusion: 12/02/19 03:42 Dose: Infused Documented by: Insulin Aspart (Novolog) 0 unit SUBCUT WM&BEDTIME ACACIA; Protocol Last Admin: 12/01/19 21:25 Dose: Not Given Documented by: Ondansetron HCl (Zofran) 4 mg IVP Q8H PRN PRN Reason: vomiting, or N/V if npo Pantoprazole Sodium (Protonix) 40 mg IVP Q12H ACACIA Last Admin: 12/02/19 05:53 Dose: 40 mg Documented by: Vitals/I&O/Wt Last Vital Signs Temp 98.6 F 12/02/19 05:57 Pulse 88 12/02/19 04:31 Resp 19 H 12/02/19 04:31 BP 149/60 12/02/19 04:30 Pulse Ox 99 12/02/19 04:31 12/01/19 12/01/19 12/02/19 14:59 22:59 06:59 Intake Total 230 / 230 50 / 280 100 / 380 Output Total 0 / 0 350 / 350 Balance 230 / 230 -300 / -70 100 / 30 Weight last 48 hrs Weight 113.171 kg Physical Exam Narrative: EXAM NARRATIVE: obese on 4 L NC02 No distress heent- nc/at, eomi, oxygen neck obese lung dull bases and crackles heart reg no rub abd soft, nt, nd, +BS ext RUE AVF w/ thrill neuro- lethargic Data : 12/02/19 03:30 12/02/19 03:30 Micro: Microbiology 11/30/19 06:29 Sputum Culture - Preliminary Sputum - Endotracheal Tube Aspirate 11/30/19 00:51 Blood Culture - Preliminary Blood NEGATIVE TO DATE 11/30/19 00:54 Blood Culture - Preliminary Blood NEGATIVE TO DATE A&P Additional A&P Information 1. Q pna- renal dose abx - WBC improved from 17 to 9 2. volume overload due to diastolic dysfunction and ESRD- improved w/ [facility] yesterday, plan HD in am 3. ESRD - HD MWF 4.anemia- check iron studies 5. hyponatremia- monitor w/ HD 6/ h/o pericardial effusion- on CT small pericardiual effusion- no effusion mentioned in echo report 7. normal tsh pth 149, appropriate for ESRD normal phos Attestations Medical Necessity Statement*: silva, Volume overload, SOB, ESRD Time Spent in Patient Care: 16 - 35 minutes Coding Level of Care Code Acute Fiber Optics Supervisor for Sukumarg Adair
--- NOTE | 2019-12-02 07:20 | PM.PN ---
Subjective Subjective: Interval history: Oscar reports she is doing okay. Has been extubated. Did receive dialysis yesterday. Medications: Reviewed: Yes Vitals/I&O/Wt Last Vital Signs Temp 98.6 F 12/02/19 05:57 Pulse 88 12/02/19 04:31 Resp 19 H 12/02/19 04:31 BP 149/60 12/02/19 04:30 Pulse Ox 99 12/02/19 04:31 12/01/19 12/02/19 12/02/19 22:59 06:59 14:59 Intake Total 50 / 280 100 / 380 Output Total 350 / 350 Balance -300 / -70 100 / 30 Weight last 48 hrs Weight 113.171 kg Physical Exam Narrative: EXAM NARRATIVE: General exam is a conversant but tired appearing white female Cardiovascular regular rate and rhythm without murmur, no S3 or S4 Lungs clear no wheezing or crackles Abdomen is soft with positive bowel sounds, obese Extremities no edema Data : 12/02/19 03:30 12/02/19 03:30 Micro: Microbiology 11/30/19 06:29 Sputum Culture - Preliminary Sputum - Endotracheal Tube Aspirate 11/30/19 00:51 Blood Culture - Preliminary Blood NEGATIVE TO DATE 11/30/19 00:54 Blood Culture - Preliminary Blood NEGATIVE TO DATE A&P Assessment and plan (1) Acute respiratory failure with hypoxia and hypercapnia: Now extubated Chronically on 4 L of oxygen. Wean BiPAP as tolerated Secondary to possible pneumonia was placed on vancomycin and aztreonam. Discontinue vancomycin. MRSA PCR negative. CT chest demonstrated mild edema, scattered opacities atelectasis versus pneumonia Status: Acute (2) CHF exacerbation: Significantly improved with removal of fluid by dialysis, although chest x-ray still shows some bibasilar infiltrates and edema. Consistent with acute diastolic heart failure. Echocardiogram did not show significant pericardial effusion. Ejection fraction was preserved. Status: Acute (3) Pneumonitis: Covid 19 is negative. Continue aztreonam currently Status: Acute (4) End stage renal disease: Appreciate nephrology consultation Status: Acute (5) Troponin level elevated: No evidence of acute myocardial infarction. Troponin elevation consistent with type II, as well as elevation secondary to her chronic renal failure. Status: Acute (6) Hyponatremia: Still present Status: Acute (7) Alkaline phosphatase elevation: Isolated chronic alkaline phosphatase elevation. 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 This will not be evaluated further Status: Acute (8) COVID-19 virus test result unknown: COVID negative Status: Acute Additional A&P Information History of coronary disease Borderline hypotension, exacerbated by propofol. She is now off propofol, and this appears normal. COPD chronically on 3 to 4 L of oxygen Hypertension, history of Atrial fibrillation, on chronic anticoagulation. Rate controlled currently. Anemia History of carotid stenosis History of CVA Morbid obesity Type 2 diabetes. Sliding scale insulin Full code Eliquis will suffice for DVT prophylaxis. Hopefully transfer to regular floor later this afternoon, possible discharge tomorrow to nursing facility. Attestations Medical Necessity Statement*: Needs continued hospital stay for close follow-up of respiratory failure requiring endotracheal intubation as well as IV antibiotics for pneumonia Coding Level of Care Code Acute Defensive Line Coach for Chg Fwd Diagnoses Acute respiratory failure with hypoxia and hypercapnia J96.01; J96.02 CHF exacerbation I50.9 Pneumonitis J18.9 End stage renal disease N18.6 Troponin level elevated R79.89 Hyponatremia E87.1 Alkaline phosphatase elevation R74.8 COVID-19 virus test result unknown Z20.828
[2019-12-02] MEDS: budesonide 0.5 mg/2 mL Neb INHALATION ×2 (08:41→20:33)
[2019-12-02 09:38] LABS: Glucose Point of Care 88 mg/dL (70-110)
[2019-12-02] MEDS: apixaban 5 mg Tablet 2.5 MG OG-TUBE ×2 (10:10→16:43)
[2019-12-02] MEDS: levothyroxine 50 mcg Tablet PO (10:11)
[2019-12-02] MEDS: metoprolol tartrate 25 mg Tablet PO ×2 (10:11→16:43)
[2019-12-02] MEDS: aspirin 81 mg EC Tablet PO (10:12)
[2019-12-02] MEDS: b-complex-vitamin c Tablet 1 EACH PO (10:16)
[2019-12-02] MEDS: pantoprazole DR 40 mg Tablet PO ×2 (10:17→16:42)
[2019-12-02] MEDS: acetaminophen 325 mg Tablet 650 MG PO (10:28)
[2019-12-02 11:36] LABS: Glucose Point of Care 115 mg/dL (70-110)
--- NOTE | 2019-12-02 12:33 | PC.NURSE ---
right upper arm dialysis fistula, tape and cotton balls in place from last proceedure. no sticks to that arm per order. patient is left handed. calls herself a picky eater. refuses apple juice and likes cranberry. listens to the tv, and drinks often if she believes she can reach it. patient has had one bm. complains of a terrible headache but was able to eat lunch after tylenol was given. bp improved after tylenol as well.
[2019-12-02] MEDS: AZTREONAM IV (16:20)
[2019-12-02] MEDS: SODIUM CHLORIDE 0.9% IV (16:20)
[2019-12-02 17:33] LABS: Glucose Point of Care 109 mg/dL (70-110)
[2019-12-02 21:13] LABS: Glucose Point of Care 114 mg/dL (70-110)
[2019-12-03] VITALS (17 sets, daily range): BP systolic 135–167; BP diastolic 69–83; PULSE 72–100; RESP 16–24; TEMP 36.8–37; O2SAT 95–99
[2019-12-03] MEDS: ipratropium-albuterol 3 mL Neb INHALATION ×5 (00:19→16:25)
[2019-12-03] MEDS: SODIUM CHLORIDE 0.9% IV ×2 (00:39→09:35)
[2019-12-03] MEDS: AZTREONAM IV ×2 (00:39→09:35)
[2019-12-03] MEDS: acetaminophen 325 mg Tablet 650 MG PO (02:00)
[2019-12-03 06:31] LABS: Glucose Point of Care 98 mg/dL (70-110)
--- NOTE | 2019-12-03 06:43 | PM.PN ---
Subjective Subjective: Interval history: feels better. wants to go home. coughing, weak, orthopnea Medications: Reviewed: Yes Medication Review Details: Current Medications Acetaminophen (Tylenol) 650 mg PO Q6H PRN PRN Reason: Mild/Mod Pain Or Temp >/= 101 Last Admin: 12/03/19 02:00 Dose: 650 mg Documented by: Albuterol/Ipratropium (Duoneb) 3 ml INHALATION Q4H.RESPIRATORY ACACIA Last Admin: 12/03/19 05:08 Dose: 3 ml Documented by: Albuterol/Ipratropium (Duoneb) 3 ml INHALATION Q4H PRN PRN Reason: SHORTNESS OF BREATH Apixaban (Eliquis) 2.5 mg OG-TUBE BID ACACIA Last Admin: 12/02/19 16:43 Dose: 2.5 mg Documented by: Aspirin (Aspirin Ec) 81 mg PO DAILY ACACIA Last Admin: 12/02/19 10:12 Dose: 81 mg Documented by: Budesonide (Pulmicort) 0.5 mg INHALATION BID.RESPIRATORY ACACIA Last Admin: 12/02/19 20:33 Dose: 0.5 mg Documented by: Dextrose (D50w) 25 ml IVP ONCE PRN; Protocol PRN Reason: hypoglycemia protocol Dextrose (D50w) 50 ml IVP PRN PRN; Protocol PRN Reason: hypoglycemia protocol Glucagon (Glucagen) 1 mg IM ONCE PRN; Protocol PRN Reason: Adult Acute Hypoglycemia Prot. Hydralazine HCl (Apresoline) 10 mg IVP Q4H PRN PRN Reason: HYPERTENSION Dextrose (D5w) 500 mls @ 100 mls/hr IV ONCE PRN; Protocol PRN Reason: Adult Acute Hypoglycemia Prot Aztreonam 500 mg/ Sodium (Chloride) 50 mls @ 100 mls/hr IV Q8H ACACIA; Protocol Last Admin: 12/03/19 00:39 Dose: 100 mls/hr Documented by: Insulin Aspart (Novolog) 0 unit SUBCUT WM&BEDTIME ACACIA; Protocol Last Admin: 12/02/19 21:15 Dose: Not Given Documented by: Levothyroxine Sodium (Synthroid) 50 mcg PO DAILY ACACIA Last Admin: 12/02/19 10:11 Dose: 50 mcg Documented by: Metoprolol Tartrate (Lopressor) 25 mg PO BID ACACIA Last Admin: 12/02/19 16:43 Dose: 25 mg Documented by: Multivitamins (Allbee-C) 1 each PO DAILY ACACIA Last Admin: 12/02/19 10:16 Dose: 1 each Documented by: Ondansetron HCl (Zofran) 4 mg IVP Q8H PRN PRN Reason: vomiting, or N/V if npo Pantoprazole Sodium (Protonix) 40 mg PO BID ACACIA Last Admin: 12/02/19 16:42 Dose: 40 mg Documented by: Vitals/I&O/Wt Last Vital Signs Temp 98.6 F 12/03/19 04:00 Pulse 91 12/03/19 05:13 Resp 20 H 12/03/19 05:04 BP 167/83 12/03/19 04:00 Pulse Ox 98 12/03/19 05:04 12/02/19 12/02/19 12/03/19 14:59 22:59 06:59 Intake Total 650 / 650 50 / 700 600 / 1300 Output Total 100 / 100 Balance 650 / 650 50 / 700 500 / 1200 Weight last 48 hrs Weight 113.171 kg Physical Exam Narrative: EXAM NARRATIVE: obese on NC02 No distress heent- nc/at, eomi, oxygen neck obese lung dull bases and crackles heart reg no rub abd soft, nt, nd, +BS ext RUE AVF w/ thrill. no leg edema neuro- poor vision. a,a, o x 2+ Data : 12/02/19 03:30 12/02/19 03:30 Micro: Microbiology 11/30/19 06:29 Sputum Culture - Final Sputum - Endotracheal Tube Aspirate A&P Additional A&P Information 1. Q pna- renal dose abx-pcn allergy noted - WBC improved from 17 to 9 2. volume overload due to diastolic dysfunction and ESRD- improved w/ [facility]F on 11/30 -full HD now -still coughing - consider repeat cxr after HD today 3. ESRD - HD MWF 3.5 hr, 3k, remove 3 l as tolerated 4.anemia- check iron studies 5. hyponatremia- monitor w/ HD 6/ h/o pericardial effusion- on CT small pericardiual effusion- no effusion mentioned in echo report 7. normal tsh pth 149, appropriate for ESRD normal phos Attestations Medical Necessity Statement*: PNA, CHF, ESRD improving. HD today. d/c planning per hospitalist. pt on iv aztreonam Time Spent in Patient Care: 16 - 35 minutes Coding Level of Care Code Acute Tool Repairer for Michelle Borrero
[2019-12-03] MEDS: budesonide 0.5 mg/2 mL Neb INHALATION (08:28)
[2019-12-03] MEDS: aspirin 81 mg EC Tablet PO (09:26)
[2019-12-03] MEDS: apixaban 5 mg Tablet 2.5 MG OG-TUBE (09:26)
[2019-12-03] MEDS: pantoprazole DR 40 mg Tablet PO (09:27)
[2019-12-03] MEDS: levothyroxine 50 mcg Tablet PO (09:27)
[2019-12-03] MEDS: b-complex-vitamin c Tablet 1 EACH PO (09:27)
[2019-12-03] MEDS: metoprolol tartrate 25 mg Tablet PO (09:27)
[2019-12-03 11:32] LABS: Basophils % 0.4 %; Eosinophils # 0.4 10^3/uL (0.0-0.8); Hematocrit 27.2 % (37.0-47.0); Hemoglobin 8.4 g/dL (11.5-15.3); Lymphocytes # 0.9 10^3/uL (0.8-4.8); Lymphocytes % 11.9 %; Mean Corpuscular HGB Conc 30.9 g/dL (30.0-36.0); Mean Corpuscular Volume 97.1 fL (81-99); Mean Platelet Volume 9.6 fL (7.4-10.4); Monocytes # 0.6 10^3/uL (0.2-0.9); Monocytes % 7.2 %; Neutrophils # 5.89 10^3/uL (1.8-7.7); Neutrophils % 74.9 %; Nucleated Red Blood Cells % 0 %; Platelet Count 212 10^3/cmm (130-400); White Blood Count 7.9 10^3/uL (4.0-10.0)
[2019-12-03 11:56] LABS: Magnesium 1.9 mg/dL (1.7-2.3); Phosphorus 3.8 mg/dL (2.5-4.5)
[2019-12-03 11:57] LABS: Alanine Aminotransferase 13 U/L (0-33); Albumin Level 3.6 g/dL (3.5-5.2); Alkaline Phosphatase 112 IU/L (35-105); Anion Gap 19.6 (5-19); Aspartate Amino Transferase 13 U/L (0-32); Blood Urea Nitrogen 26 mg/dL (8-23); Calcium 8.6 mg/dL (8.5-10.5); Carbon Dioxide 23 mmol/L (22-29); Chloride 86 mmol/L (98-107); Globulin 3.4 g/dL (1.3-4.6); Glomerular Filtration Rate 6.3 mL/min (90-130); Glucose 110 mg/dL (65-115); Osmolality Calculated 258 mOsm/kg (285-295); Potassium 3.6 mmol/L (3.5-5.1); Sodium 125 mmol/L (136-145); Total Bilirubin 0.3 mg/dL (0.15-1.2)
[2019-12-03 13:11] LABS: Glucose Point of Care 103 mg/dL (70-110)
--- NOTE | 2019-12-03 13:19 | XRR_ITS ---
PROCEDURE INFORMATION: Exam: XR Chest, 1 View Exam date and time: 12/03/2019 1:35 PM Age: 64 years old Clinical indication: Prior surgery; Surgery date: 6+ months; Surgery type: Lumpectomy for breast cancer; Patient HX: Shortness of breath x 1 week; Additional info: Dyspnea TECHNIQUE: Imaging protocol: XR of the chest Views: 1 view. COMPARISON: CT chest con [id number] 12/01/2019 2:49 PM FINDINGS: Lungs: Left lower lobe parenchymal density is seen corresponding to alveolar pneumonia. This finding was seen on chest CT examination. The left upper lobe and right lung are clear Pleural space: Unremarkable. No pleural effusion. No pneumothorax. Heart/Mediastinum: Unremarkable. No cardiomegaly. Bones/joints: Unremarkable. XR/XR chest 1V portable [id number] IMPRESSION: Left lower lobe alveolar pneumonia Otherwise negative examination
--- NOTE | 2019-12-03 14:36 | PM.DCS ---
Discharge Providers Date of Admission: 11/30/19 00:11 Date of Discharge: December 03, 2019 Attending Provider at Admission: Dayo Zuñiga Attending Provider at Discharge: Cheng Mann MD Primary Care Provider: Pradeep Patel MD Diagnoses at Discharge Discharge Diagnosis (1) Acute respiratory failure with hypoxia and hypercapnia: Status: Acute Problem details: Resolved (2) CHF exacerbation: Status: Acute Problem details: Improved significantly following dialysis (3) Pneumonitis: Status: Acute Problem details: Will discharge on Levaquin (4) End stage renal disease: Status: Acute Problem details: Dialysis Sun, Sun, Sun (5) Troponin level elevated: Status: Acute (6) Hyponatremia: Status: Acute (7) Alkaline phosphatase elevation: Status: Acute (8) COVID-19 virus test result unknown: Status: Acute Reason for Visit Reason for Visit: UNRESPONSIVE Hospital Course Hospital Course: Oscar is a 64-year-old white female with end-stage renal disease on hemodialysis that presented with significant shortness of breath. She was intubated at the nursing facility secondary to this. There was concern on admission for pulmonary edema, as well as pneumonia. She was placed on vancomycin and aztreonam. Covid 19 testing was ordered. She received rather emergent dialysis for removal of fluid. Throughout the course of her hospital stay she remained afebrile. White blood cell count decreased to normal. With dialysis, she was able to be extubated. Covid 19 was negative. MRSA PCR was negative and sputum culture did not show any significant organisms. She was continued on aztreonam in the hospital and by the time of December 02, it was thought [facility] could [facility]. At that time she was back on 3 L of oxygen. She will finish up 4 more doses of Levaquin for 10 days total. This will be 750 mg after dialysis on Sunday. She received 1 dose of Levaquin at the hospital prior to discharge on December 02. Consideration of repeat x-ray in 3 to weeks for recheck of pneumonia. Physical Exam Narrative: EXAM NARRATIVE: General exam no apparent distress Cardiovascular regular in rhythm Lungs clear but diminished breath sounds bilaterally Abdomen is soft with positive bowel sounds Extremities no cyanosis clubbing Discharge Data Data Completed and Pending: Completed Studies During Hospitalization Category Date Time Status CT chest wo con 7 3040 Routine Cat Scan 12/01/19 07:[address] head wo con* 7 0450 Urgent Cat Scan 11/29/19 22:24 Completed CXRP [XR chest 1V portable [id number]] R outine Exams 11/30/19 16:05 Completed XR chest 1V cori ble [id number] Routine Exams 11/30/19 06:30 Completed XR chest 1V cori ble [id number] Routine Exams 12/03/19 13:19 Completed XR chest 1V cori ble [id number] Stat Exams 11/29/19 22:24 Completed CV echo complete* [id number] Routine Ultrasound 12/01/19 21:25 Completed Pending at discharge Category Date Time Status Bacterial Antigen Routine Lab 11/30/19 05:18 Uncollected Blood Culture Sta t Lab 11/29/19 23:23 Results Complete Blood Co unt w/Auto AM LABS Lab 12/04/19 04:00 Ordered Comprehensive Met abolic Panel AM LA BS Lab 12/02/19 03:30 Received Comprehensive Met abolic Panel AM LA BS Lab 12/04/19 04:00 Ordered Legionella Antige n STAT Routine Lab 11/30/19 05:18 Uncollected Magnesium AM LABS Lab 12/04/19 04:00 Ordered Phosphorus AM LAB S Lab 12/04/19 04:00 Ordered Labs from last 24 hours 12/03/19 12/03/19 12/03/19 13:08 10:56 10:56 WBC RBC Hgb Hct MCV MCH MCHC RDW Plt Count MPV Neut % (Auto) Lymph % (Auto) [place] % (Auto) Eos % (Auto) Baso % (Auto) Neut # (Auto) Lymph # (Auto) [place] # (Auto) Eos # (Auto) Baso # (Auto) Nucleated RBC % (a uto) Nucleated RBCs # Sodium 125 L Potassium 3.6 Chloride 86 L Carbon Dioxide 23 Anion Gap 19.6 H BUN 26 H Creatinine 6.6 H* GFR Calculation 6.3 L Glucose 110 POC Glucose 103 Calculated Osmolal ity 258 L Calcium 8.6 Phosphorus 3.8 Magnesium 1.9 Total Bilirubin 0.3 AST 13 ALT 13 Alkaline Phosphata se 112 H Total Protein 7.0 Albumin 3.6 Globulin 3.4 12/03/19 12/03/19 12/02/19 10:56 06:21 21:02 WBC 7.9 RBC 2.80 L Hgb 8.4 L Hct 27.2 L MCV 97.1 MCH 30.0 MCHC 30.9 RDW 17.0 H Plt Count 212 MPV 9.6 Neut % (Auto) 74.9 Lymph % (Auto) 11.9 [place] % (Auto) 7.2 Eos % (Auto) 5.0 Baso % (Auto) 0.4 Neut # (Auto) 5.89 Lymph # (Auto) 0.9 [place] # (Auto) 0.6 Eos # (Auto) 0.4 Baso # (Auto) 0.0 Nucleated RBC % (a uto) 0 Nucleated RBCs # 0.0 Sodium Potassium Chloride Carbon Dioxide Anion Gap BUN Creatinine GFR Calculation Glucose POC Glucose 98 114 Calculated Osmolal ity Calcium Phosphorus Magnesium Total Bilirubin AST ALT Alkaline Phosphata se Total Protein Albumin Globulin 12/02/19 16:44 WBC RBC Hgb Hct MCV MCH MCHC RDW Plt Count MPV Neut % (Auto) Lymph % (Auto) [place] % (Auto) Eos % (Auto) Baso % (Auto) Neut # (Auto) Lymph # (Auto) [place] # (Auto) Eos # (Auto) Baso # (Auto) Nucleated RBC % (a uto) Nucleated RBCs # Sodium Potassium Chloride Carbon Dioxide Anion Gap BUN Creatinine GFR Calculation Glucose POC Glucose 109 Calculated Osmolal ity Calcium Phosphorus Magnesium Total Bilirubin AST ALT Alkaline Phosphata se Total Protein Albumin Globulin Vitals: Last Vital Signs Temp 98.3 F 12/03/19 07:35 Pulse 89 12/03/19 11:39 Resp 20 H 12/03/19 11:39 BP 163/83 12/03/19 07:35 Pulse Ox 98 12/03/19 11:39 Discharge Plan Discharge Patient Disposition: Xfer SNF Condition: Stable Prescriptions: New levofloxacin [Levaquin] 750 mg tablet See Rx Instructions .ROUTE .COMPLEX Qty: 4 RF: 0 Continued montelukast 10 mg tablet 10 mg PO DAILY RF: 0 midodrine 5 mg tablet See Rx Instructions .ROUTE .COMPLEX RF: 0 atorvastatin [Lipitor] 20 mg tablet 20 mg PO QPM RF: 0 levothyroxine 50 mcg capsule 50 mcg PO DAILY RF: 0 Onglyza 5 mg tablet 5 mg PO DAILY RF: 0 Eliquis 2.5 mg tablet 2.5 mg PO BID RF: 0 metoprolol tartrate 75 mg tablet 75 mg PO BID RF: 0 isosorbide mononitrate 30 mg Tablet Extended Release 24 Hr 30 mg PO DAILY RF: 0 aspirin 81 mg Tablet,Chewable 81 mg PO DAILY RF: 0 gabapentin 100 mg Capsule 100 mg PO DAILY RF: 0 budesonide-formoterol [Symbicort] 160-4.5 mcg/actuation Hfa Aerosol Inhaler 1 puff INHALATION BID RF: 0 melatonin 3 mg Tablet 3 mg PO BEDTIME RF: 0 acetaminophen [Tylenol Extra Strength] 500 mg Tablet 1,000 mg PO 6XD PRN (Reason: Pain) RF: 0 diphenhydramine HCl [Benadryl] 25 mg Capsule 50 mg PO BID PRN (Reason: Sleep) RF: 0 promethazine 25 mg tablet 12.5 mg PO BID PRN (Reason: Nausea) RF: 0 albuterol sulfate [ProAir HFA] 90 mcg/actuation Hfa Aerosol Inhaler 2 puff INHALATION QID PRN (Reason: Shortness Of Breath) RF: 0 ondansetron 4 mg tablet,disintegrating 4 mg PO TID PRN (Reason: Nausea) RF: 0 cholecalciferol (vitamin D3) [Vitamin D3] 25 mcg (1,000 unit) Tablet 1,000 unit PO DAILY RF: 0 sevelamer carbonate 800 mg Tablet 800 mg PO BID RF: 0 RenaPlex-D 800 mcg-12.5 mg -2,000 unit Tablet 1 tab PO DAILY RF: 0 oxycodone 5 mg Tablet 5 mg PO Q6H PRN (Reason: Pain) RF: 0 Zyrtec 10 mg capsule 10 mg PO DAILY RF: 0 polyethylene glycol 3350 [Miralax] 17 gram Powder In Packet 17 g PO DAILY PRN (Reason: Constipation) RF: 0 magnesium hydroxide [Milk of Magnesia] 400 mg/5 mL Suspension 30 ml PO DAILY PRN (Reason: Constipation) RF: 0 bisacodyl 10 mg Suppository 10 mg ID DAILY PRN (Reason: Constipation) RF: 0 Enema 19-7 gram/118 mL Enema 118 ml ID DAILY PRN (Reason: Constipation) RF: 0 tramadol 50 mg Tablet 50 mg PO Q6H PRN (Reason: Pain) RF: 0 Brittany-Du Rx 1 tab PO DAILY RF: 0 albuterol sulfate 0.63 mg/3 mL Solution For Nebulization 0.63 mg INHALATION QID RF: 0 venlafaxine [Effexor XR] 75 mg Capsule,Extended Release 24hr 75 mg PO DAILY RF: 0 sennosides-docusate sodium [Senna-S] 8.6-50 mg Tablet 2 tab PO BID PRN (Reason: Constipation) RF: 0 guaifenesin 600 mg Tablet Extended Release 12hr 600 mg PO BID PRN (Reason: unknown) RF: 0 diltiazem HCl 30 mg Tablet 30 mg PO Q8H Qty: 90 RF: 0 Lantus U-100 Insulin 100 unit/mL Solution 20 unit SUBCUT BID Qty: 0 RF: 0 pantoprazole 40 mg Tablet,Delayed Release (Dr/Ec) 40 mg PO BID Qty: 0 RF: 0 Referrals: [facility] [Outside] - 1-3 days Activity Restrictions/Additional Instructions: Oxygen 3 L per nasal cannula titrate for sat greater than or equal to 90% Resume her CPAP as needed Levaquin 750 mg p.o. after dialysis for 4 doses for pneumonia. Discharge Attestations Time Spent in Discharge Care*: greater than 30 min Quality Metrics Clinical Quality Measures During this hospital stay, did patient experience: None Coding Level of Care Code Acute Water Pump Installer for Chg Fwd Diagnoses Acute respiratory failure with hypoxia and hypercapnia J96.01; J96.02 CHF exacerbation I50.9 Pneumonitis J18.9 End stage renal disease N18.6 Troponin level elevated R79.89 Hyponatremia E87.1 Alkaline phosphatase elevation R74.8 COVID-19 virus test result unknown Z20.829
[2019-12-03] MEDS: levoFLOXacin 750 mg Tablet PO (15:02)
[2019-12-03 16:58] LABS: Glucose Point of Care 124 mg/dL (70-110)
== END 2019-12-03 18:24 | disposition skilled nursing facility (03) | DRG 208 ==
LOC: ER 22:29 → ICU 11-30 02:05 → MEDSURG 12-02 18:06
PROVIDERS: Emergency Medicine; Internal Medicine; Internal Medicine Nephrology; Student in an Organized Health Care Education/Training Program; Admitting Provider Internal Medicine; PCP Family Medicine; Visit Provider Internal Medicine
DX: J96.01 Acute respiratory failure with hypoxia (principal); J18.9 Pneumonia, unspecified organism; N18.6 End stage renal disease; I50.31 Acute diastolic (congestive) heart failure; I13.2 Hypertensive heart and chronic kidney disease with heart failure and with stage 5 chronic kidney disease, or end stage renal disease; E87.1 Hypo-osmolality and hyponatremia; J44.0 Chronic obstructive pulmonary disease with (acute) lower respiratory infection; Z68.41 Body mass index [BMI] 40.0-44.9, adult; Z66 Do not resuscitate; J96.02 Acute respiratory failure with hypercapnia; I48.91 Unspecified atrial fibrillation; Z99.2 Dependence on renal dialysis; Z20.828 Contact with and (suspected) exposure to other viral communicable diseases; Z79.01 Long term (current) use of anticoagulants; Z79.82 Long term (current) use of aspirin; Z86.73 Personal history of transient ischemic attack (TIA), and cerebral infarction without residual deficits; E78.5 Hyperlipidemia, unspecified; I65.29 Occlusion and stenosis of unspecified carotid artery; Z85.3 Personal history of malignant neoplasm of breast; D63.1 Anemia in chronic kidney disease; E03.9 Hypothyroidism, unspecified; G47.33 Obstructive sleep apnea (adult) (pediatric); Z87.891 Personal history of nicotine dependence; Z99.81 Dependence on supplemental oxygen; E66.01 Morbid (severe) obesity due to excess calories; I25.10 Atherosclerotic heart disease of native coronary artery without angina pectoris
CPT/HCPCS: 12345; 31500; 36415; 36416; 36600; 70450; 71045; 71250; 80053; 82310; 82803; 82962; 83735; 83880; 83970; 84100; 84443; 84484; 85007; 85025; 85610; 86705; 86706; 86803; 87040; 87070; 87340; 87635; 87641; 87804; 90935; 93005; 93306; 94002; 94003; 94640; 94660; 94664; 94799; 96365; 96366; 96367; 96368; 96372; 96375; 97116; 97161; 97530; 99284; 99291; C9113; J1815 ×2; J2060; J2704; J3010; J3370; J3490; J7050; J7626; Q3014